=== PATIENT | male | born 1930 | race Caucasian/White ===

== ENCOUNTER → 2017-01-13 | Outpatient (CLI) | payer BC ==
[~2017-01-13] MED LIST: ATRIN INH; CALCTAB5 PO; CRDCD120 PO; DABI150C PO; DIGO0.2518 PO; GLC500 PO; IPRA0.032; IPRA17AE2 INH; MULT-506 PO; OMEG10007 PO; OSTEO BI FLEX PO; PLMINUNK INH; REFRESH EYE DROPS; SIMV20TA2 PO; TIOTCAP INH
--- NOTE | 2017-01-13 18:01 | DIAGNOSTIC IMAGING REPORT ---
ULTRASOUND LEFT VENOUS DOPP LOWER EXT UNILAT CLINICAL HISTORY: Left leg pain COMPARISON STUDY: No previous studies for comparison. FINDINGS: Real-time and color flow Doppler imaging were performed. Flow was seen within the femoral, popliteal and calf veins with no intraluminal thrombus demonstrated. The saphenous vein is patent. IMPRESSION: No evidence of left lower extremity DVT Electronically signed by: Varun Abdul M.D. 01/13/2017 5:58 PM Dictated Date/Time: 01/13/2017 5:58 PM
--- NOTE | 2017-01-13 18:03 | DIAGNOSTIC IMAGING REPORT ---
SOFT TISSUE ULTRASOUND OF THE LEFT GROIN REGION CLINICAL HISTORY: Pain. Possible hematoma. Possible hernia. COMPARISON STUDY: No previous studies for comparison. FINDINGS: Ultrasonographic evaluation the left groin region was performed. There are mildly prominent lymph nodes which appear fatty replaced. The largest measures 2.7 cm in long axis. There are no fluid collections to indicate a hematoma. No soft tissue masses are visualized. No hernia was demonstrated area IMPRESSION: Prominent fatty replaced left inguinal lymph nodes. No evidence for soft tissue mass or hematoma Electronically signed by: Varun Abdul M.D. 01/13/2017 6:00 PM Dictated Date/Time: 01/13/2017 5:59 PM
--- NOTE | 2017-01-14 08:50 | CODING QUERY NO DIAGNOSIS ---
TREATMENT RENDERED WITHOUT A DIAGNOSIS Dr. Aj, To promote full compliance with coding requirements relating to patient care, physician participation is requested in all cases of candle maker uncertainty. Please assist us with providing a diagnosis/symptom for the test(s) below: A diagnosis/symptom was not documented on your Order. A valid diagnosis/symptom is required to bill all insurances. Please remember that we are unable to code a diagnosis of rule out, probable, possible, questionable, or suspected. Tests that require a diagnosis: * EXTREMITY NONVASCULAR LIMITED DIAGNOSIS: * VENOUS DOPPLER LOWER EXT UNILA DIAGNOSIS: DATE OF SERVICE: 01/13/17 CANNOT READ ORDER Provider Signature: Date: Thank you Bladimir Loco [facility] Information Management Once completed, please kindly fax back to [phone] For questions please call [phone]
== END | disposition home or self-care (01) ==
LOC: C.ULTR 16:49
PROVIDERS: ATTEND Podiatrist Primary Podiatric Medicine
DX: M79.89 Other specified soft tissue disorders (principal); M79.605 Pain in left leg

== ENCOUNTER → 2017-01-16 | Outpatient (CLI) | payer BC ==
--- NOTE | 2017-01-17 15:26 | CODING QUERY NO DIAGNOSIS ---
TREATMENT RENDERED WITHOUT A DIAGNOSIS 31 To promote full compliance with coding requirements relating to patient care, physician participation is requested in all cases of certified medical records coder uncertainty. Please assist us with providing a diagnosis/symptom for the test(s) below: A diagnosis/symptom was not documented on your Order. A valid diagnosis/symptom is required to bill all insurances. Please remember that we are unable to code a diagnosis of rule out, probable, possible, questionable, or suspected. DOS 01/16/17 Tests that require a diagnosis: * CALCIUM DIAGNOSIS: * VITAMIN D, 25 HYDROXY DIAGNOSIS: Provider Signature: Date: Thank you Lenka Lewis [facility] Information Management Once completed, please kindly fax back to [phone] For questions please call [phone]
== END | disposition home or self-care (01) ==
LOC: C.LABBC 08:30
PROVIDERS: ATTEND Podiatrist Primary Podiatric Medicine
DX: Z01.89 Encounter for other specified special examinations (principal)

== ENCOUNTER → 2017-02-10 | Outpatient (CLI) | payer BC ==
[2017-02-10 10:56] LABS: ALT/SGPT 19 U/L (12-78); BLOOD UREA NITROGEN 20 mg/dl (7-18); BUN/CREATININE RATIO 20.4 (10-20); CALCIUM 8.6 mg/dl (8.5-10.1); CARBON DIOXIDE 29 mmol/L (21-32); CHLORIDE 107 mmol/L (98-107); CHOLESTEROL 106 mg/dl (0-200); GLUCOSE 93 mg/dl (70-99); POTASSIUM 4.2 mmol/L (3.5-5.1); SODIUM 142 mmol/L (136-145)
[2017-02-10 10:59] LABS: CHOLESTEROL/HDL RATIO 2.3; HDL CHOLESTEROL 47 mg/dl; LDL CHOLESTEROL CALCULATED 48 mg/dl; TRIGLYCERIDES 56 mg/dl (0-150); VERY LOW DENSITY LIPOPROT CALC 11 mg/dl
[2017-02-10 11:03] LABS: ESTIMATED AVERAGE GLUCOSE 123 mg/dl; HA1C FLAG Normal (Normal)
== END | disposition home or self-care (01) ==
LOC: C.LABBC 07:36
PROVIDERS: ATTEND Family Medicine
DX: I48.91 Unspecified atrial fibrillation (principal); E11.9 Type 2 diabetes mellitus without complications; E78.00 Pure hypercholesterolemia, unspecified

== ENCOUNTER → 2017-02-27 | Outpatient (CLI) | payer BC | END | disposition home or self-care (01) | LOC: C.PATHSPEC 17:35 | PROVIDERS: ATTEND Plastic Surgery | DX: D22.9 Melanocytic nevi, unspecified (principal) ==

== ENCOUNTER → 2017-08-11 | Outpatient (CLI) | payer BC ==
[2017-08-11 11:23] LABS: BLOOD UREA NITROGEN 21 mg/dl (7-18); BUN/CREATININE RATIO 22.6 (10-20); CALCIUM 9.4 mg/dl (8.5-10.1); CARBON DIOXIDE 29 mmol/L (21-32); CHLORIDE 104 mmol/L (98-107); CREATININE 0.95 mg/dl (0.60-1.40); GLUCOSE 99 mg/dl (70-99); SODIUM 140 mmol/L (136-145)
[2017-08-11 11:47] LABS: ESTIMATED AVERAGE GLUCOSE 123 mg/dl; HA1C FLAG Normal (Normal)
== END | disposition home or self-care (01) ==
LOC: C.LABBC 07:44
PROVIDERS: ATTEND Family Medicine
DX: R73.01 Impaired fasting glucose (principal)

== ENCOUNTER → 2017-09-01 | Outpatient (CLI) | payer BC ==
--- NOTE | 2017-09-01 10:23 | DIAGNOSTIC IMAGING REPORT ---
CHEST 2 VIEWS ROUTINE CLINICAL HISTORY: INTRINSIC ASTMA,NOCTURNAL DYSPNEA dysphagia COMPARISON STUDY: 02/23/2016 FINDINGS: Moderate stable cardiomegaly. Slight lateral blunting the costophrenic angles. Slight increase in pulmonary vasculature. IMPRESSION: Pulmonary venous congestion. Moderate cardiomegaly. Trace pleural fluid left lateral costophrenic angles. The above report was generated using voice recognition software. It may contain grammatical, syntax or spelling errors. Electronically signed by: Franco Sun M.D. 09/01/2017 10:22 AM Dictated Date/Time: 09/01/2017 10:21 AM
[2017-09-01 12:35] LABS: BLOOD UREA NITROGEN 23 mg/dl (7-18); BUN/CREATININE RATIO 22.5 (10-20); CALCIUM 9.4 mg/dl (8.5-10.1); CARBON DIOXIDE 30 mmol/L (21-32); CHLORIDE 103 mmol/L (98-107); CREATININE 1.04 mg/dl (0.60-1.40); GLUCOSE 85 mg/dl (70-99); POTASSIUM 4.2 mmol/L (3.5-5.1); SODIUM 139 mmol/L (136-145)
== END | disposition home or self-care (01) ==
LOC: C.RAD1850 10:06
PROVIDERS: ATTEND Internal Medicine Pulmonary Disease
DX: J45.909 Unspecified asthma, uncomplicated (principal); R06.00 Dyspnea, unspecified; I51.7 Cardiomegaly; R09.89 Other specified symptoms and signs involving the circulatory and respiratory systems

== ENCOUNTER → 2017-10-14 | Outpatient (CLI) | payer BC ==
[~2017-10-14] MED LIST changes: +REGADENOSON 0.4 MG/5 ML SYR ONE
--- NOTE | 2017-10-16 08:06 | MYOCARDIAL PERFUSION SCAN ---
REQUESTING PHYSICIAN: Jose Manuel Szymanski MD. PRIMARY CARE PHYSICIAN: Carson Rodriguez DO. REASON FOR STUDY: Cardiomyopathy. STUDY TITLE: ONE-DAY NUCLEAR MEDICINE TECHNETIUM-99M CARDIOLITE MYOCARDIAL PERFUSION SCAN. COMPARISON: None. EKG: Baseline EKG showed atrial fibrillation with left bundle-branch block and occasional PVCs, ventricular rate of 54. Stress EKG with Lexiscan: Heart rate jessie from 72 up to 78 representing 58% of maximum predicted heart rate. Blood pressure jessie from 117/71-149/69. TECHNIQUE: For the stress portion of the study 30.3 mCi of technetium-99m Cardiolite IV was injected at 1309 on 10/14/2017. Thirty minutes following the injection, imaging of the heart was performed in multiple projections. For the rest portion of the study, 10.9 mCi of technetium-99m was injected at 9:30 a.m. One hour following the injection, imaging of the heart was performed in the same projections. FINDINGS: Rotating raw images were reviewed in detail. There was some vertical motion on rest images minimal gut/liver uptake impacting the inferior imaging border of the heart. There was no significant extracardiac pathologic uptake. The short axis, vertical long axis, and horizontal long axis images were reviewed in detail. There was moderate in size, mild in severity fixed perfusion defect involving the apex, apical anterior wall and apical septum. There is minimal surrounding reversibility. LV was dilated with an end-diastolic volume of 266. EF was calculated at 30%. There was paradoxical septal motion and function in the LV wall was largely preserved otherwise other sepulveda were severely hypokinetic. IMPRESSION: 1. No significant Lexiscan-induced ischemia. 2. Fixed mild apical anterior/septal perfusion defects most consistent with patient's known left bundle branch block. Less likely could represent distal left anterior descending artery infarct. 3. Severely dilated left ventricle with severe LV dysfunction, EF 30%. and paradoxical septal motion with relatively preserved lateral wall function. 4. Non-diagnostic stress ECG due to inability to reach target heart rate. MTDD
== END | disposition home or self-care (01) ==
LOC: C.NUCL 08:59
PROVIDERS: ATTEND Internal Medicine Cardiovascular Disease
DX: I42.9 Cardiomyopathy, unspecified (principal); I50.9 Heart failure, unspecified

== ENCOUNTER → 2017-12-24 | Outpatient (CLI) | payer BC ==
[~2017-12-24] MED LIST changes: -REGADENOSON 0.4 MG/5 ML SYR ONE
[2017-12-24 16:00] LABS: BLOOD UREA NITROGEN 27 mg/dl (7-18); CALCIUM 9.5 mg/dl (8.5-10.1); CARBON DIOXIDE 31 mmol/L (21-32); CREATININE 1.24 mg/dl (0.60-1.40); GLUCOSE 143 mg/dl (70-99); SODIUM 140 mmol/L (136-145)
== END | disposition home or self-care (01) ==
LOC: C.LABBC 10:29
PROVIDERS: ATTEND Physician Assistant
DX: I50.43 Acute on chronic combined systolic (congestive) and diastolic (congestive) heart failure (principal)

== ENCOUNTER → 2018-01-01 | Outpatient (CLI) | payer BC ==
[2018-01-01 11:31] LABS: BLOOD UREA NITROGEN 27 mg/dl (7-18); CALCIUM 9.1 mg/dl (8.5-10.1); CARBON DIOXIDE 32 mmol/L (21-32); CREATININE 1.28 mg/dl (0.60-1.40); GLUCOSE 121 mg/dl (70-99); SODIUM 140 mmol/L (136-145)
== END | disposition home or self-care (01) ==
LOC: C.LABBC 08:52
PROVIDERS: ATTEND Physician Assistant
DX: I50.9 Heart failure, unspecified (principal)

== ENCOUNTER → 2018-01-06 | Outpatient (CLI) | payer BC ==
[2018-01-06 13:50] LABS: BLOOD UREA NITROGEN 36 mg/dl (7-18); CALCIUM 9.1 mg/dl (8.5-10.1); CARBON DIOXIDE 31 mmol/L (21-32); CREATININE 1.21 mg/dl (0.60-1.40); GLUCOSE 103 mg/dl (70-99); POTASSIUM 3.9 mmol/L (3.5-5.1); SODIUM 141 mmol/L (136-145)
== END | disposition home or self-care (01) ==
LOC: C.LABBC 10:04
PROVIDERS: ATTEND Physician Assistant
DX: I50.9 Heart failure, unspecified (principal)

== ENCOUNTER → 2018-01-14 | Outpatient (CLI) | payer BC ==
[2018-01-14 14:24] LABS: BLOOD UREA NITROGEN 36 mg/dl (7-18); CALCIUM 9.2 mg/dl (8.5-10.1); CARBON DIOXIDE 33 mmol/L (21-32); CREATININE 1.33 mg/dl (0.60-1.40); GLUCOSE 152 mg/dl (70-99); POTASSIUM 4.1 mmol/L (3.5-5.1); SODIUM 139 mmol/L (136-145)
== END | disposition home or self-care (01) ==
LOC: C.LABBC 09:34
PROVIDERS: ATTEND Physician Assistant
DX: I50.43 Acute on chronic combined systolic (congestive) and diastolic (congestive) heart failure (principal)

== ENCOUNTER → 2018-01-21 | Outpatient (CLI) | payer BC ==
[~2018-01-21] MED LIST changes: +AMOX500C3 PO; +CARV12.52 PO; +CHOL200010; +CICL160A OR; +FURO80TA63 PO; +LISI-729 PO; +MULTCHW; +PRAV20TA PO; +XPNINS1255
[2018-01-21 17:38] LABS: BLOOD UREA NITROGEN 33 mg/dl (7-18); CALCIUM 9.6 mg/dl (8.5-10.1); CARBON DIOXIDE 31 mmol/L (21-32); CREATININE 1.28 mg/dl (0.60-1.40); GLUCOSE 85 mg/dl (70-99); POTASSIUM 4.2 mmol/L (3.5-5.1); SODIUM 138 mmol/L (136-145)
== END | disposition home or self-care (01) ==
LOC: C.LAB1850 14:13
PROVIDERS: ATTEND Physician Assistant
DX: I50.9 Heart failure, unspecified (principal)

== ENCOUNTER → 2018-01-28 | Outpatient (CLI) | payer BC ==
[~2018-01-28] MED LIST changes: -AMOX500C3 PO; -CARV12.52 PO; -CHOL200010; -CICL160A OR; -FURO80TA63 PO; -LISI-729 PO; -MULTCHW; -PRAV20TA PO; -XPNINS1255
[2018-01-28 13:43] LABS: BLOOD UREA NITROGEN 38 mg/dl (7-18); CARBON DIOXIDE 31 mmol/L (21-32); CREATININE 1.43 mg/dl (0.60-1.40); GLUCOSE 86 mg/dl (70-99); POTASSIUM 3.8 mmol/L (3.5-5.1); SODIUM 136 mmol/L (136-145)
== END | disposition home or self-care (01) ==
LOC: C.LABBC 10:47
PROVIDERS: ATTEND Physician Assistant
DX: I50.9 Heart failure, unspecified (principal)

== ENCOUNTER → 2018-02-04 | Outpatient (CLI) | payer BC ==
[~2018-02-04] MED LIST changes: +AMOX500C3 PO; +CARV12.52 PO; +CHOL200010; +CICL160A OR; -CRDCD120 PO; -DIGO0.2518 PO; +FURO80TA63 PO; +LISI-729 PO; +MULTCHW; -PLMINUNK INH; +PRAV20TA PO; -SIMV20TA2 PO; -TIOTCAP INH; +XPNINS1255
[2018-02-04 11:32] LABS: BLOOD UREA NITROGEN 31 mg/dl (7-18); CALCIUM 8.6 mg/dl (8.5-10.1); CARBON DIOXIDE 30 mmol/L (21-32); CREATININE 1.17 mg/dl (0.60-1.40); GLUCOSE 100 mg/dl (70-99); POTASSIUM 4.1 mmol/L (3.5-5.1); SODIUM 141 mmol/L (136-145)
[2018-02-04 11:55] LABS: HEMOGLOBIN A1C 6.4 % (4.5-5.6)
== END | disposition home or self-care (01) ==
LOC: C.LABBC 08:15
PROVIDERS: ATTEND Family Medicine
DX: I48.91 Unspecified atrial fibrillation (principal); E11.9 Type 2 diabetes mellitus without complications; G62.9 Polyneuropathy, unspecified; I42.9 Cardiomyopathy, unspecified

== ENCOUNTER 2018-11-24 04:56 | Inpatient (IN) ==
--- NOTE | 2018-11-18 10:51 | History & Physical Report ---
Date of Service November 18, 2018 Assessment & Plan (1) Osteomyelitis of right foot: Patient has developed osteomyelitis of his right foot due to nonhealing diabetic foot ulcer on his right foot. He has been treated with oral antibiotics. He is scheduled to get a PICC line later today for IV antibiotics as instructed by Dr. Ball. He was seen and evaluated by Dr. Chavez. Surgical management was recommended. He agreed to proceed with surgery and is scheduled for right foot fifth ray resection with Dr. Chavez on 2018. Recent complications of the surgery were extended the patient and include but are not limited to infection, pain, bleeding, scarring, nerve and blood vessel damage, wound problems, weakness, incomplete relief of symptoms, blood clots, embolisms, heart attack, stroke and .All questions were answered in informed consent was obtained. They recently had a CBC, BMP, hemoglobin A1c. We will obtain a new EKG today in the clinic. He is on protect and will need to be taken off of this preoperatively. Phone call and let her was sent to Dr. Szymanski's office for preoperative cardiology clearance and instructions on when he is safely able to stop his Pradaxa. He will also need preoperative medical clearance from his family physician Dr. Rodriguez. He will be admitted overnight for antibiotics. Postoperative instructions were provided. He was given a prescription for standard walker, knee scooter and wheelchair. He knows that he will need to be nonweightbearing on that area of his foot after surgery. We will apply wound VAC on the area postoperatively. He will need follow-up care most likely in the wound clinic postoperative day. All questions are answered and he does call with any further problems questions or concerns. Present on Admission?: Yes History of Present Illness Chief Complaint: right foot non healing wound Primary Care Provider: Óscar Rodriguez DO Patient is an 88-year-old gentleman who presented see Dr. Chavez on November 17, 2018 for a persistent ulcer on his right foot. He states that he was trying out some new orthotics back in May. He did develop ulcerations in both of his feet. The one on his left foot has healed however the one on his right foot has been persistent. He has been treated in the outpatient wound care center. He has been seen and evaluated by Dr. Ball. He is scheduled to get an IV PICC line placed. Recent cultures of the right foot wound are positive for pseudomonas aeruginosa. He has had x-rays and MRI of his right foot. He was on oral doxycycline up until last week. He has had some swelling of his right foot. He does wear a boot for offloading. He reports that he had a vascular consultation which was normal. He does not have any significant pain. He does have peripheral neuropathy due to his diabetes. He denies any other injuries or issues. After Dr. Chavez's consultation surgical intervention was recommended for right foot fifth ray resection. He is agreed to proceed with surgery. He is scheduled for right foot fifth ray resection with Dr. Chavez on November 24, 2018 at the [facility]. Allergies Allergy/AdvReac Type Severity Reaction Status Date / Time levofloxacin AdvReac Intermediate TENDONITIS Verified 11/13/18 11:10 Bactrim AdvReac Mild GI SYMPTOMS Verified 05/22/18 14:15 sulfamethoxazole AdvReac Mild GI SYMPTOMS Verified 11/13/18 11:10 trimethoprim AdvReac Mild GI SYMPTOMS Verified 11/13/18 11:10 albuterol AdvReac Verified 11/17/18 13:28 Home Medications Home Medications Medication Instructions Recorded Confirmed Type calcium carbonate 400 mg chewable 800 mg PO DAILY tab 05/28/18 11/17/18 History tablet cholecalciferol (vitamin D3) 2,000 2,000 units PO DAILY 05/28/18 11/17/18 History unit capsule ciclesonide HFA 160 mcg/actuation 1 puffs INH DAILY 05/28/18 11/17/18 History aerosol inhaler dabigatran etexilate 150 mg capsule 150 mg PO BID 05/28/18 11/17/18 History digoxin 125 mcg tablet 0.125 mg PO DAILY 05/28/18 11/17/18 History furosemide 80 mg tablet 80 mg PO DAILY 05/28/18 11/17/18 History ipratropium bromide 17 2 puffs INH Q6H PRN gm 05/28/18 11/17/18 History mcg/actuation HFA aerosol inhaler levalbuterol concentrate 1.25 1.25 mg INH Q20M 05/28/18 11/17/18 History mg/0.5 mL solution for nebulization lisinopril 5 mg tablet 5 mg PO DAILY 05/28/18 11/17/18 History metformin 500 mg tablet 500 mg PO BID 05/28/18 11/17/18 History multivitamin tablet 1 tab PO DAILY 05/28/18 11/17/18 History pravastatin 20 mg tablet 20 mg PO DAILY 05/28/18 11/17/18 History Lactobacillus acidophilus 460 mg 460 mg PO DAILY 10/09/18 11/17/18 History (20 billion cell) capsule furosemide 40 mg tablet 40 mg PO DAILY 10/09/18 11/17/18 History piperacillin-tazobactam 2.25 gram 2.25 gm IV .COMPLEX 11/17/18 11/17/18 History intravenous solution Past Med/Surg History Medical History 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) Asthma (Chronic) Diabetes (Chronic) Diabetic neuropathy associated with diabetes mellitus due to underlying condition (Chronic) HTN, goal to be determined (Chronic) Atrial fibrillation Chronic venous insufficiency Diabetic foot ulcer History of migraine headaches Left bundle branch block Surgical History History of tonsillectomy and adenoidectomy (Acute) S/P cataract extraction (Chronic) Family History Mother Atrial fibrillation Heart attack Father Diabetes Social History marital status: Current Living Situation: Spouse Feels Safe at Home: Yes Smoking Status: Former smoker Hx Alcohol Use: No Hx Substance Use: No Review of Systems Constitutional: no fever, no chills, no sweats and no fatigue Eyes: no blind spots and no discharge Ear, Nose, Mouth, Throat: + hearing loss (wears hearing aids); no ear pain, no tinnitus, no dizziness, no post nasal drip, no facial pain, no dental pain, no dental abscess and no loose teeth Respiratory: + wheezing (occasional due to asthma); no cough, no chest congestion, no change in sputum, no dyspnea and no snoring Cardiovascular: + edema (right foot); no chest pain, no chest pain at rest, no chest pain with activity, no dyspnea at rest, no palpitations, no lightheadedness, no syncope and no calf pain Gastrointestinal: + constipation (occasional); no abdominal pain, no heartburn, no nausea, no vomiting and no diarrhea/loose stools Genitourinary (Male): no dysuria, no urinary frequency, no urinary hesitancy and no post-void dribbling Musculoskeletal: + swelling (right foot); no back pain, no neck pain, no joint pain, no deformity and no limited range of motion Integumentary: + skin ulcer (right foot) and + dry skin; no changing lesions, no bleeding lesions and no erythema Neurologic: no gait abnormality, no unsteadiness, no numbness, no radiating pain , no seizure-like activity, no headache(s) and no memory loss Hematologic / Lymphatic: + coagulopathy (takes Pradaxa); no easy bleeding and no easy bruising Physical Exam 2 Vital Signs (Past 24 Hours): Height 6'4", Weight 190 lbs Constitutional: WD/WN, vitals as above + thin Eyes: PERRL, conjunctivae normal, anicteric sclerae EOM intact bilaterally ENMT: external ear and nose normal, oropharynx normal Ears: + hearing impairment Mouth: no oral mucosal abnormality and no dentition abnormality Throat: uvula midline Neck: trachea midline, no thyromegaly normal visual inspection; no neck crepitus Respiratory: normal respiratory effort, lungs clear to auscultation Auscultation: no rales, no rhonchi and no wheezes Cardiovascular: Heart Sounds: no gallop and no murmur Vessels: posterior tibial pulses present and dorsalis pedis pulses present; no carotid bruit Extremities: normal capillary refill and + pedal edema; no calf tenderness irregular rhythm Chest (Breasts): Chest: normal inspection of chest Gastrointestinal (Abdomen): normal bowel sounds, soft, nontender, no hepatosplenomegaly Musculoskeletal: Head/Neck/Chest: normocephalic and head atraumatic Extremities: strength 5/5 throughout He has a 1 cm ulceration on the plantar lateral aspect of the right foot. It probes directly to the bone which is exposed. There is 1+ edema of the foot but no surrounding erythema or evidence of abscess or fluid collection. This is directly over the plantar aspect of the fifth metatarsal base. The foot is neutrally aligned with an intact arch and no significant malalignment. There is mild stiffness of the ankle and subtalar joints. His strength is normal with the exception of slight weakness in plantarflexion and eversion. He reports diminished and station throughout the right foot. Skin: no rashes, warm and dry Psychiatric: A+Ox3, euthymic affect Results & Data Laboratory Results Labs from my November 03, 2018: With blood cell count 4.05 hemoglobin 11.9 hematocrit 36.5, platelet count 172 D1 mildly elevated at 26 creatinine 1.0, hemoglobin A1c 6.1 Microbiology: Cultures for pseudomonas aeruginosa Diagnostic Findings X-rays of the right foot: Showed a general changes throughout. There is no acute fracture. There is a slight lucency around the base of the fifth metatarsal which could be consistent with osteomyelitis. The soft tissue defect is noted. MRI of his right foot: Reviewed showing some bone marrow edema in the base of the fifth metatarsal. There is no clear bony destruction. Report is noted there is no abscess present.
--- NOTE | 2018-11-19 15:27 | Anesthesiology Consultation ---
Date of Service November 19, 2018 Assessment & Plan Plan: Cardiology 11/18/2018: "Patient is at least an intermediate surgical risk based on his history of cardiomyopathy, presumed CAD, and COPD. Recommend patient take his usual inhalers and his dose of digoxin the morning of surgery with sip of water. Patient may stop Pradaxa 48 hours before surgery." *PER VERBAL FROM [facility] 11/19, OKAY TO STOP PRADAXA X 5 DAYS PRIOR TO SURGERY FOR PLANNED SPINAL BLOCK. UNABLE TO REACH PATIENT IN TIME FOR MEDICATION TO BE STOPPED IN TIME. SPOKE TO VICTORINA ENAMORADO AT SURGEON'S OFFICE, WILL JUST HOLD PRADAXA X 48HRS PRIOR TO SURGERY AND WILL PROCEED WITH GENERAL ANESTHESIA. Chart Review Chart Review: Acceptable Risk for Surgery and Patient NOT seen in Pre Admission Testing History Surgery Operation Date: 11/24/18 08:50 Proposed Procedures p Right Foot 5th Ray Resection - Raimundo Chavez MD Height/Weight Height: 6 ft 4 in Weight: 83.915 kg Allergies Allergy/AdvReac Type Severity Reaction Status Date / Time levofloxacin AdvReac Intermediate TENDONITIS Verified 11/19/18 13:39 Bactrim AdvReac Mild GI SYMPTOMS Verified 05/22/18 14:15 sulfamethoxazole AdvReac Mild GI SYMPTOMS Verified 11/19/18 13:39 trimethoprim AdvReac Mild GI SYMPTOMS Verified 11/19/18 13:39 albuterol AdvReac Verified 11/19/18 13:39 DUST Allergy Uncoded 11/19/18 14:48 Medications Home Medications Medication Instructions Recorded Confirmed Last Taken cholecalciferol (vitamin D3) 2,000 2,000 units PO QAM 05/28/18 11/19/18 Unknown unit capsule ciclesonide HFA 160 mcg/actuation 1 puffs INH QAM 05/28/18 11/19/18 Unknown aerosol inhaler dabigatran etexilate 150 mg capsule 150 mg PO BID 05/28/18 11/19/18 Unknown digoxin 125 mcg tablet 0.125 mg PO QPM 05/28/18 11/19/18 Unknown ipratropium bromide 17 2 puffs INH Q6H PRN gm 05/28/18 11/19/18 Unknown mcg/actuation HFA aerosol inhaler lisinopril 5 mg tablet 5 mg PO QAM 05/28/18 11/19/18 Unknown metformin 500 mg tablet 500 mg PO BID 05/28/18 11/19/18 Unknown multivitamin tablet 1 tab PO QAM 05/28/18 11/19/18 Unknown pravastatin 20 mg tablet 20 mg PO QPM 05/28/18 11/19/18 Unknown furosemide 40 mg tablet 40 mg PO DAILY PRN 10/09/18 11/19/18 Unknown piperacillin-tazobactam 2.25 gram 2.25 gm IV .COMPLEX 11/17/18 11/19/18 Unknown intravenous solution [facility] 1 dose PO QAM 11/19/18 11/19/18 Unknown levalbuterol tartrate 1 puff INHALATION QAM 11/19/18 11/19/18 Unknown Past Medical History Medical History Asthma (Chronic) PRN INH 1 X MO ON AVG Atrial fibrillation PERMANENT. DX 20 YEARS AGO - ON PRADAXA - FOLLOWS W/ [facility] Cardiomyopathy EF 20-25%. Per cardiology likely 2/2 afib and LBBB. Euvolemic per 11/03/18 note. "He is a candidate for biventricular pacemaker/ICD, he is symptomatically improved in the presence of foot ulcerations with history of infection merit further observation before proceeding with device implantation." Chronic obstructive pulmonary disease Chronic venous insufficiency Diabetes mellitus, type 2 NIDDM. HGA1C 6.1% 11/03/2018 Diabetic neuropathy Hearing deficit BL [place] History of ischemic colitis History of migraine headaches History of skin cancer REMOVED Hypertension Left bundle branch block Migraine Osteomyelitis RT FOOT SECONDARY TO NON HEALING DIABETIC FOOT ULCER Past Family History Family History Mother Atrial fibrillation Heart attack Father Diabetes Past Surgical History Surgical History History of tonsillectomy and adenoidectomy (Acute) History of cataract surgery History of colonoscopy S/P PICC central line placement CURRENTLY RECEIVING IV ABX PER DR. CAMPO FOR OSTEO Social History Smoking Status: Former smoker Do You Dip or Chew Tobacco: No Smoking End Date: QUIT AT AGE 22 Hx Alcohol Use: No Hx Substance Use: No substance use type: does not use Testing Electrocardiogram Date: 03/20/18 Findings: + AFIB @ (104) Atrial fibrillation with rapid ventricular response. Left axis deviation. Left bundle branch block. *This is the most recent EKG-- it was done in the ED at [facility]. When seen at cardiology 11/03/18 HR was irregular and 88bpm. Chest X-Ray Date: 11/17/18 FINDINGS: The cardiac silhouette remains enlarged. There is no focal pulmonary consolidation. There are no pleural effusions. There is no overt failure. There is been interval insertion of a right-sided PICC catheter. The tip projects over the superior vena cava near the azygos level. IMPRESSION: The right-sided PICC catheter is positioned within the superior vena cava near the azygos level Echocardiogram Date: 03/19/18 EF: 20-25% The left ventricle is moderately dilated. Global hypokinesis with multiple wall motion of normality's most pronounced in LAD territory (severe hypokinesis to akinesis/dyskinesis). Abnormal paradoxical septal motion consistent with left bundle branch block. There is moderate to severe mitral regurg. Left atrium is moderately dilated. There is mild to moderate tricuspid regurg. Right ventricular systolic pressure is elevated at 30-40 mmHg. The inferior vena cava is mildly dilated with a decrease in inspiratory collapse. Compared with 09/16/2017 study, mild further decrease in systolic function and mitral regurgitation slightly more severe, otherwise no significant change. Stress Test Date: 10/14/17 Type: nuclear Resting EF: 30% No significant Lexiscan-induced ischemia. Fixed mild apical anterior/septal perfusion defects most consistent with patient's known left bundle branch block. Less likely could represent distal left anterior descending artery infarct. Severely dilated left ventricle with severe LV dysfunction. Paradoxical septal motion with relatively preserved lateral wall function. Nondiagnostic stress EKG due to inability to reach target heart rate. Laboratory Results Laboratory Tests 11/03/18 11/03/18 11/03/18 15:34 15:34 15:34 WBC 4.05 L Hgb 11.9 L Hct 36.5 L Plt Count 172 Sodium 139 Potassium 4.4 Chloride 105 Carbon Dioxide 29 BUN 26 H Creatinine 1.00 Glucose 80 Hemoglobin A1c 6.1 H
[2018-11-24] MEDS ORDERED: LR 15ML/HR IV SCH ×2 (06:00)
[2018-11-24] MEDS ORDERED: CEFAZOLIN 2000MG 2,000 MG/15 ML SYR IV SCH ×2 (06:00→11:02)
[2018-11-24] MEDS ORDERED: BUPIVACAINE 0.5 % 5 MG/1 ML PF 10ML VIAL ONE (06:26)
[2018-11-24] MEDS ORDERED: ROPIVACAINE 0.5% 5 MG/ML 30 ML VIAL ONE (06:27)
[2018-11-24] MEDS ORDERED: LIDOCAINE HCL 2% 2 ML VIAL/AMP(20MG/ML) INFIL ONE (06:39)
[2018-11-24] MEDS ORDERED: fentaNYL citrate 100 MCG/2 ML VIAL ONE ×2 (06:39→07:59)
[2018-11-24] MEDS ORDERED: PROPOFOL IV EMULSION 10 MG/ML 20 ML VIAL IV ONE (06:39)
[2018-11-24] MEDS ORDERED: BACITRACIN INJ 50,000 UNIT VIAL ONE (06:42)
[2018-11-24] MEDS ORDERED: BUPIVACAINE/EPINEPHRINE 0.5% MPF 1:200,000 30 ML VIAL ONE (06:42)
[2018-11-24] MEDS ORDERED: MIDAZOLAM HCL 1 MG/ML 2ML VIAL ONE ×2 (06:42→08:53)
[2018-11-24] MEDS ORDERED: LIDOCAINE HCL 1% 20 ML VIAL ONE (06:42)
--- NOTE | 2018-11-24 06:52 | History & Physical Bridge Note ---
Date of Service November 24, 2018 History & Physical Bridge Note I have examined the patient, reviewed the History & Physical and in the interval since the performance of the History & Physical I have noted the following changes of clinical significance: no changes noted
[2018-11-24] MEDS ORDERED: MEPIVACAINE HCL 1.5% 30 ML VIAL ONE (07:10)
[2018-11-24] MEDS ORDERED: ONDANSETRON INJ 2 MG/ML 2 ML VIAL ONE (07:37)
[2018-11-24] MEDS ORDERED: POVIDONE-IODINE OP SOLN 30 ML BTL ONE (07:48)
[2018-11-24] MEDS ORDERED: ePHEDrine sulfate 50 MG/ML AMP IV PRN (08:21)
[2018-11-24] MEDS ORDERED: ONDANSETRON INJ 2 MG/ML 2 ML VIAL IV PRN (08:21)
[2018-11-24] MEDS ORDERED: fentaNYL citrate 100 MCG/2 ML VIAL IV PRN (08:21)
[2018-11-24] MEDS ORDERED: IPRATROPIUM BROMIDE NEB SOLN 0.02% 2.5 ML VIAL INH PRN (08:21)
[2018-11-24] MEDS ORDERED: ATROPINE SULFATE 0.1 MG/ML 10ML SYR IV PRN (08:21)
[2018-11-24] MEDS ORDERED: THROMBIN 5000 UNITS KIT ONE (09:16)
[2018-11-24] MEDS ORDERED: GELATIN SPONGE SZ 100 ONE (09:16)
--- NOTE | 2018-11-24 09:22 | Fluoroscopy Report ---
FL foot RT 2V CLINICAL HISTORY: 88 years-old Male presenting with RT FOOT 5TH RAY RESECTION. TECHNIQUE: 1 fluoroscopic image(s) recorded as part of an intraoperative procedure. COMPARISON: 11/12/2018. FINDINGS/IMPRESSION: Interval resection of the fifth metatarsal and fifth toe. Please see surgical report for further details. Fluoroscopy dosage (mGy): 0.15. Fluoroscopy time: 5.9 seconds. Number or time of fluoroscopic spot images: 0. Electronically signed by: Raimundo Ward M.D. 11/24/2018 9:21 AM
--- NOTE | 2018-11-24 09:42 | Post Operative Brief Note ---
Immediate Post Op Note v1 Date of Surgery November 24, 2018 Pre & Post Diagnosis Operation Date: 11/24/18 07:00 Pre-Op Diagnosis: Right Foot Osteomyelitis Post-Op Diagnosis: Right Foot Osteomyelitis, fifth metatarsal Procedure Operation Date: 11/24/18 07:00 Actual Procedures p Right Foot 5th Ray Resection, Peroneal Brevis Transfer (Right) - Raimundo Chavez MD Surgeon Raimundo Chavez MD Information Technology Assistant daria blum Estimated Blood Loss 15 Findings Consistent with Post-Op Diagnosis Anesthesia Type MAC Regional Complications none Disposition Accompanied Patient To Recovery: No Disposition: Recovery Room
--- NOTE | 2018-11-24 10:12 | Operative Report ---
Post Operative Report Pre & Post Diagnosis Operation Date: 11/24/18 07:00 Pre-Op Diagnosis: Right Foot Osteomyelitis Post-Op Diagnosis: Right Foot Osteomyelitis Procedure Operation Date: 11/24/18 07:00 Actual Procedures p Right Foot 5th Ray Resection, Peroneal Brevis Transfer (Right) - Raimundo Chavez MD Surgeon Shavonne Gillette. Editor In Chief daria blum PA-C Estimated Blood Loss 15 Findings Consistent with Post-Op Diagnosis Specimens Right foot ulcer, right foot fifth metatarsal, intraoperative cultures were obtained, intraoperative bone biopsy obtained Drains None Anesthesia Type MAC Regional Complications none Disposition Accompanied Patient To Recovery: No Disposition: Recovery Room Description of Procedure Patient was taken to the operating room and an ankle block was performed by anesthesia. He was placed under IV sedation. His IV Zosyn was given this morning. He also received 2 g of IV Ancef for surgical prophylaxis. Timeout was performed. He was prepped and draped in routine sterile fashion. I was present during the entire case and assisted with positioning, exposure, irrigation, debridement, closure and dressings. Please see Dr. Chavez's operative report for further detail. Patient was awakened and transferred to the recovery room in stable condition.
--- NOTE | 2018-11-24 10:14 | Operative Report ---
Post Operative Report Pre & Post Diagnosis Operation Date: 11/24/18 07:00 Pre-Op Diagnosis: Right Foot Osteomyelitis Post-Op Diagnosis: Right Foot Osteomyelitis fifth metatarsal tuberosity Procedure Operation Date: 11/24/18 07:00 Actual Procedures p Right Foot 5th Ray Resection, Peroneal Brevis Transfer (Right) - Raimundo Chavez MD Surgeon Raimundo Chavez MD Cement Loader daria blum Estimated Blood Loss 15 Findings Consistent with Post-Op Diagnosis Specimens Cultures of bone and swab culture, fifth ray Drains None Complications none Disposition Accompanied Patient To Recovery: No Indications Patient is an 88-year-old male with diabetes. His circulation is adequate. He has had a nonhealing wound with evidence of osteomyelitis of the fifth metatarsal tuberosity. He is taken to surgery for 5 ray resection and a peroneus brevis tendon transfer. Description of Procedure Informed consent obtained. Patient identified. He identified the operative site as the right foot. I marked with my initials. A preoperative surgical timeout was performed. Preop dose of IV antibiotics was given. He was taken to the operating room and positioned supine on the OR table. IV sedation and an ankle block anesthetic was administered by anesthesia. A tourniquet was applied to the right thigh and a bump was placed under the right hip and lower back so that he was semi lateral. The leg was prepped and draped with Betadine in the usual sterile fashion. The tourniquet was inflated after exsanguinating the limb with gravity. There was 1+ edema of the foot and ankle. There is no erythema. He had a 1 cm diameter ulceration plantar base over the fifth metatarsal with palpable bone underneath. DVT prophylaxis with early mobility and foot pumps intraoperatively. He was on Pradaxa for his heart. This is been stopped 48 hours ahead of surgery and he has been evaluated by anesthesia medicine and cardiology. He is currently on intravenous Zosyn through PICC line. He received 2 g of Ancef preoperatively. I started by making an incision extending from the base the fifth metatarsal proximally about 5 cm. Prior to this the open wound was excluded using Ioband. Blunt dissection was performed to the subcutaneous tissues and the. Peroneus brevis tendon was identified and released just proximal to the fifth metatarsal base. I then bluntly dissected down to the level of the cuboid and use electrocautery to elevate up the periosteum. The surface of the bone was excoriated with a curette and 2 2.9 juggernaut anchors were inserted. The tendon was then affixed to the cuboid using horizontal mattress and running locked a sliding suture. Fluoroscopic guidance was utilized to identify the bony margins of the cuboid. I then closed this wound with interrupted 4-0 nylon. A tennis racquet shaped incision was made over the base of the fifth metatarsal and carried dorsally down to the other incision. Electrocautery was utilized down to the subcutaneous tissues along with blunt dissection. The flexor and extensor tendons were identified and resected proximally. The subcutaneous tissues were dissected away from the plantar plate. The digital vessels were electrocauterized. The whole toe and metatarsal phalangeal joint that accompanied by the entire bone was then resected and released. Prior to this I made an ellipsoid incision over the excise this completely and then took a rongeur and took multiple bites of this area which had some softening of bone present. There is no purulence noted and no drainage. A swab culture was also obtained. The ulcer ellipse and the surgical incision were different and had a 2 cm skin bridge which remained viable throughout the procedure. The fifth metatarsal was resected and sent for specimen. The tourniquet was let down after about 60 minutes of inflation. Meticulous hemostasis was obtained with pressure electrocautery Gelfoam and thrombin. There was a fair amount of diffuse oozing particularly from the dermis. I spent a fair amount of time getting adequate control bleeding. There was some oozing from the plantar wound which I packed off with Gelfoam and thrombin. It was reasonably dry at the time of closure. Because of the very mild issues that was going on I did elected not to proceed with a wound VAC at that time. The surgical incision dorsally was closed with interrupted 4-0 nylon stitches. I placed a thrombin-soaked gauze pad into the plantar wound. A bulky soft sterile dressing was applied along with a posterior splint and U stirrup. Patient was awake from anesthesia without difficulty and taken to the recovery room in stable condition. Specimens were as mentioned above. Counts were correct. Blood loss was estimated to be 15 cc. At the conclusion operation spoke patient's family and informed of my findings. Detailed postoperative instructions were given. For now we will focus on elevation and nonweightbearing using a wheelchair or knee scooter. Will change his dressing tomorrow and apply wound VAC. He will continue with his intravenous antibiotics. I think he would benefit from a senior living facility because of his wound safe mobility and intravenous antibiotics. Medicine will be consulted along with Dr. Ball. When the splint is removed placed into his cam boot. I attest to the content of the Intraoperative Record and any orders documented therein. Any exceptions are noted below.
--- NOTE | 2018-11-24 10:31 | Anesthesiology Progress Note ---
Date of Service November 24, 2018 Anesthesia Post Procedure Vital Signs Vital Signs: Temp Pulse Pulse Resp BP Pulse Ox 11/24/18 10:19 62 16 118/67 95 11/24/18 10:10 75 16 102/65 97 11/24/18 10:07 36.2 C L 75 16 110/76 95 11/24/18 06:10 36.4 C L 86 18 134/87 95 Notes Mental Status: alert / awake / arousable and participated in evaluation Nausea / Vomiting: adequately controlled Pain: adequately controlled Airway Patency, RR, SpO2: stable & adequate BP & HR: stable & adequate Hydration State: stable & adequate Anesthetic Complications: no major complications apparent and Pt Satisfied with anesthetic care
[2018-11-24] MEDS ORDERED: MAGNESIUM HYDROXIDE SUSP 30 ML UDC PO PRN (11:02)
[2018-11-24] MEDS ORDERED: SOD PHOSPHATE/SOD BIPHOSPHATE ENEMA 132 ML BTL PR PRN (11:02)
[2018-11-24] MEDS ORDERED: IPRATROPIUM BROMIDE HFA INHALER INH PRN (11:02)
[2018-11-24] MEDS ORDERED: BISACODYL 10 MG SUPP PR PRN (11:02)
[2018-11-24] MEDS ORDERED: TRAMADOL HCL 50 MG TABLET PO PRN (11:02)
[2018-11-24] MEDS ORDERED: PIPERACILLIN SODIUM/TAZOBACTAM 2.25 GM VIAL IV SCH (11:02)
[2018-11-24] MEDS ORDERED: MoRPHine SULFATE 4 MG/ML 1 ML CARP\\VIAL IV PRN (11:02)
[2018-11-24] MEDS ORDERED: FUROSEMIDE 40 MG TAB PO PRN (11:02)
[2018-11-24] MEDS ORDERED: HYDROCODONE/ACETAMOPHEN 5/325MG TAB PO PRN (11:02)
[2018-11-24] MEDS ORDERED: PIPERACILL/TAZOBAC CONSULT ACTIVE PRN ×2 (11:11→11:30)
--- NOTE | 2018-11-24 11:13 | Infectious Disease Consult ---
Date of Consultation November 24, 2018 Assessment & Plan (1) Osteomyelitis of right foot: 88-year-old diabetic male with neuropathy with osteomyelitis of the right fifth metatarsal with pseudomonas aeruginosa now status post resection. Patient started on IV Zosyn, will hopefully not require prolonged IV antibiotics given resection of diseased bone. Will follow. (2) Pseudomonas aeruginosa infection: History of Present Illness Reason for Consultation: Right fifth metatarsal osteomyelitis, status post resection Attending Physician: Raimundo Chavez MD History of Present Illness 88-year-old male well-known to the infectious disease service, with history of diabetes mellitus with severe neuropathy, chronic foot ulcerations, being followed at the wound care center for nonhealing right lateral foot wound. Has been treated with oral antibiotics, but most recent culture grew pseudomonas aeruginosa, and because of quinolone sensitivity patient was started on IV Zosyn. Patient has had radiologic studies of foot with finding of probable osteomyelitis of the fifth metatarsal. Patient is now status post ray amp utation of right foot, operative cultures are pending. He has not had any significant associated fever or chills. No significant pain because of neuropathy. Allergies Allergy/AdvReac Type Severity Reaction Status Date / Time levofloxacin AdvReac Intermediate TENDONITIS Verified 11/24/18 06:03 Bactrim AdvReac Mild GI SYMPTOMS Verified 05/22/18 14:15 house dust AdvReac Mild Unknown Verified 11/24/18 09:29 sulfamethoxazole AdvReac Mild GI SYMPTOMS Verified 11/24/18 06:03 trimethoprim AdvReac Mild GI SYMPTOMS Verified 11/24/18 06:03 Home Medications Home Medications Medication Instructions Recorded Confirmed Type cholecalciferol (vitamin D3) 2,000 2,000 units PO QAM 05/28/18 11/24/18 History unit capsule ciclesonide HFA 160 mcg/actuation 1 puffs INH QAM 05/28/18 11/24/18 History aerosol inhaler dabigatran etexilate 150 mg capsule 150 mg PO BID 05/28/18 11/24/18 History digoxin 125 mcg tablet 0.125 mg PO QPM 05/28/18 11/24/18 History ipratropium bromide 17 2 puffs INH Q6H PRN gm 05/28/18 11/24/18 History mcg/actuation HFA aerosol inhaler lisinopril 5 mg tablet 5 mg PO QAM 05/28/18 11/24/18 History metformin 500 mg tablet 500 mg PO BID 05/28/18 11/24/18 History multivitamin tablet 1 tab PO QAM 05/28/18 11/24/18 History pravastatin 20 mg tablet 20 mg PO QPM 05/28/18 11/24/18 History furosemide 40 mg tablet 40 mg PO DAILY PRN 10/09/18 11/24/18 History piperacillin-tazobactam 2.25 gram 2.25 gm IV .COMPLEX 11/17/18 11/24/18 History intravenous solution [facility] 1 dose PO QAM 11/19/18 11/24/18 History levalbuterol tartrate 1 puff INHALATION QAM 11/19/18 11/24/18 History Patient History Medical History Cardiomyopathy EF 20-25%. Per cardiology likely 2/ afib and LBBB. Euvolemic per 11/03/18 note. 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 HGA1C 6.1% 11/03/2018 History of skin cancer REMOVED Hearing deficit BL BAR[place] Migraine Chronic obstructive pulmonary disease Asthma (Chronic) PRN INH 1 X MO ON AVG Left bundle branch block Chronic venous insufficiency History of migraine headaches Atrial fibrillation PERMANENT. DX 20 YEARS AGO - ON PRADAXA - FOLLOWS W/ [facility] Surgical History S/P PICC central line placement CURRENTLY RECEIVING IV ABX PER DR. BALL FOR OSTEO History of colonoscopy History of cataract surgery History of tonsillectomy and adenoidectomy (Acute) Family History Mother Atrial fibrillation Heart attack Father Diabetes Social History Preferred Language: [place] Communication Ability: Effective Custodial Manager Required: No Beliefs That Will Affect Care: None marital status: Current Living Situation: Spouse Other Information That Helps Us Care for You: No Feels Safe at Home: Yes Safety Concerns: Feels Safe At This Time Smoking Status: Former smoker Hx Alcohol Use: No Hx Substance Use: No Review of Systems All systems were reviewed and are negative except as per HPI Physical Exam Vital Signs (Past 24 Hours): Last Vital Signs Temp 36.5 C 11/24/18 10:45 Pulse 59 L 11/24/18 10:45 Resp 16 11/24/18 10:45 BP 123/53 L 11/24/18 10:45 Pulse Ox 92 11/24/18 10:45 Constitutional: WD/WN, vitals as above comfortable; no acute distress Eyes: PERRL, conjunctivae normal, anicteric sclerae ENMT: external ear and nose normal, oropharynx normal Neck: trachea midline, no thyromegaly neck nontender Respiratory: normal respiratory effort, lungs clear to auscultation normal percussion; does not use accessory muscles Cardiovascular: Rate/Rhythm: + abnormal rhythm Heart Sounds: normal S1 and normal S2; no gallop, no murmur and no cardiac rub Vessels: normal peripheral pulses; no JVD Irregularly irregular rhythm Gastrointestinal (Abdomen): normal bowel sounds, soft, nontender, no hepatos plenomegaly Musculoskeletal: no cyanosis or clubbing, extremities motor strength 5/5 Spine: thoracic spine normal to inspection and lumbar spine normal to inspection; no cervical spinal tenderness Skin: no rashes, warm and dry normal turgor Dressing intact right foot Neurologic: moves all extremities and awake; no focal motor deficits Motor/Sensory: + sensory deficit (Both lower extremities) Psychiatric: A+Ox3, euthymic affect Orientation: cooperative Lymphatic: no cervical or axillary lymphadenopathy no inguinal lymphadenopathy Results & Data Laboratory Results Laboratory Results - last 48 hr 11/24/18 11/24/18 05:50 10:01 POC Glucose 85 91 Diagnostic Findings Name: BRYCE WARREN Acct: [id number] [place] 1930 [facility] [place]: [place] Age: 88 Sex: M Dis Date: Loc: [facility] Spec: [id number] Collected: 11/13/18 Received: 11/13/18-[address]: Xu Ibanez, DO Copy To: Black, MIL Laguerre Christine L., D.O. Berkey, Franklin J., D.O. Source: Foot,Right OV Order: Ordered: Surf Wnd Cul/Sm Procedure Result Verified Site Gram Stain Final 11/14/18 Gram Stain Result No Epithelial Cells No WBCs Seen No Organisms Seen Surface Wound Culture Final 11/16/18 Organism 1 Pseudomonas aeruginosa Quantity Rare Sens Sensitivities to Follow +MixWound Plus Low Counts of Probable Skin Jeannine P aerugino RX M.I.C. --- --------- Amikacin S <=16 Aztreonam S 8 Cefepime I 16 Ceftazidime S 4 Ciprofloxacin S <=1 Gentamicin S <=4 Imipenem S <=1 Levofloxacin S <=2 Tobramycin S <=4 Pip/Tazo S <=16 S = SENSITIVE I = INTERMEDIATE R = RESISTANT Name: BRYCE WARREN Acct: [id number] Status: [place] 1930 [facility] [place]: [place]18 Age: 88 Sex: M Dis Date: Loc: Wound Care Center Spec: [id number] Collected: 11/13/18 Received: 11/13/[address]: Xu Ibanez, Copy To: Carito Pearson CRNP Tichansky, Christine L., D.O. Berkey, Franklin J.,Yesi.OJaxson Source: Foot,Right OV Order: Ordered: Surf Wnd Cul/Sm Procedure Result Verified Site Gram Stain Final 11/14/18 Gram Stain Result No Epithelial Cells No WBCs Seen No Organisms Seen Surface Wound Culture Final 11/16/18 Organism 1 Pseudomonas aeruginosa Quantity Rare Sens Sensitivities to Follow +MixWound Plus Low Counts of Probable Skin Jeannine P aerugino RX M.I.C. --- --------- Amikacin S <=16 Aztreonam S 8 Cefepime I 16 Ceftazidime S 4 Ciprofloxacin S <=1 Gentamicin S <=4 Imipenem S <=1 Levofloxacin S <=2 Tobramycin S <=4 Pip/Tazo S <=16 S = SENSITIVE I = INTERMEDIATE R = RESISTANT Name: BRYCE WARREN Name: BRYCE WARREN Acct: [id number] Status: MIL[place] THOMAS : 1930 [facility] [place]: [place]13[place]18 Age: 88 Sex: M Dis Date: Loc: Wound Care Center Spec: [id number] Collected: 11/13/18 Received: 11/13/[address]: Xu Ibanez, DO Copy To: Carito Pearson, Natalie Barillas,D.OÓscar Singh D.O. Source: Foot,Right OV Order: Ordered: Surf Wnd Cul/Sm Procedure Result Verified Site Gram Stain Final 11/14/18 Gram Stain Result No Epithelial Cells No WBCs Seen No Organisms Seen Surface Wound Culture Final 11/16/18-957 Organism 1 Pseudomonas aeruginosa Quantity Rare Sens Sensitivities to Follow +MixWound Plus Low Counts of Probable Skin Jeannine P aerugino RX M.I.C. --- --------- Amikacin S <=16 Aztreonam S 8 Cefepime I 16 Ceftazidime S 4 Ciprofloxacin S <=1 Gentamicin S <=4 Imipenem S <=1 Levofloxacin S <=2 Tobramycin S <=4 Pip/Tazo S <=16 S = SENSITIVE I = INTERMEDIATE R = RESISTANT Name: BRYCE WARREN Name: BRYCE WARREN FL foot RT 2V CLINICAL HISTORY: 88 years-old Male presenting with RT FOOT 5TH RAY RESECTION. TECHNIQUE: 1 fluoroscopic image(s) recorded as part of an intraoperative procedure. COMPARISON: 11/12/2018. FINDINGS/IMPRESSION: Interval resection of the fifth metatarsal and fifth toe. Please see surgical report for further details. Fluoroscopy dosage (mGy): 0.15. Fluoroscopy time: 5.9 seconds. Number or time of fluoroscopic spot images: 0. Electronically signed by: Raimundo Ward M.D. 11/24/2018 9:21 AM Dictated: 11/24/18917 Transcribed: 11/24/18917
[2018-11-24] MEDS ORDERED: PIPERACILLIN/TAZOBACTAM 4.5 GM in DEXTROSE 5% 100 ML IV STA (11:15)
[2018-11-24] MEDS: POTASSIUM CHLORIDE 10 MEQ in SODIUM CHLORIDE 0.9% 1000ML 1,000 ML IV SCH ×2 (11:48→22:44)
[2018-11-24 11:56] LABS: Hematocrit (blood only) 34.9 % (42-52); Hemoglobin 11.3 g/dL (14.0-18.0); Mean Corpuscular Volume 96.7 fL (80-100); Mean Platelet Volume 10.5 fL (7.4-10.4); Platelet Count 101 K/uL (130-400); RDW Coefficient of Variation 15.3 % (11.5-14.5); RDW Standard Deviation 54.2 fL (36.4-46.3); Red Blood Count 3.61 M/uL (4.7-6.1); White Blood Count 3.51 K/uL (4.8-10.8)
--- NOTE | 2018-11-24 11:58 | Consultation ---
Date of Consultation November 24, 2018 Assessment & Plan (1) Status post amputation of toe: Patient with Type II DM with neuropathy, unhealing ulcer of right 5th toe with osteomyelitis, cultures positive for zamudio-sensitive Psuedomonas. He is presently on Zosyn via PICC line, being followed by Dr. Ball from Infectious Disease. Surgery well tolerated, pain well controlled. Patient active and independent prior to surgery. -Pain and nausea control, activity recommendations per primary surgical team (2) Atrial fibrillation: Permanent. Rate controlled with digoxin. Patient anticoagulated with Dabigatran. HR presently 66bpm, irregularly irregular. -Dabigatran 150mg po BID resumed by surgical team -Resume digoxin 0.125mg po daily (3) Diabetes mellitus, type 2: Well controlled with home regimen of Metformin, AIC 6.1% on 11/03/18 -Recommend CC diet as tolerated -Will hold Metformin while inpatient -Manage with insulin -Patient may be discharged home on his home dose of Metformin (4) Chronic obstructive pulmonary disease: Patient with COPD. Presently with no cough, wheeze or SOB. He manages it at home with Circesonide, Ipratropium and Levalbuterol PRN. States that he rarely requires his Levalbuterol, used it 1-2 times last week. Patient was on Oxymask 8L immediately following surgery. Presently saturating 96% on RA. IS at bedside. -Continue home medication regimen (5) Osteomyelitis: S/p amputation. Cultures positive for zamudio-sensitive Psuedomonas. Patient presently on Zosyn. ID is following. Afebrile, hemodynamically stable. Non-toxic in appearance. 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 He takes Lasix as needed for swelling or weight gain. He presently appears to be euvolemic. No edema. No Lasix at this time -Continue Lasix as needed on discharge -Patient to followup with Cardiology on discharge - after his osteomyelitis is completely treated he may be a candidate for device placement, BiV-AICD. Thank you for this consult. We will sign off for now. Please do not hesitate to contact us with any additional questions or concerns. History of Present Illness Reason for Consultation: Post-operative medical management Attending Physician: Raimundo Chavez MD History of Present Illness Mr. Zuniga is a pleasant 88yo male with history of DM with peripheral neuropathy, diabetic foot infection/nonhealing ulcer , AF on Dabigatran and digoxin and HTN presenting with osteomyelitis of the right 5th toe. Patient had 5th metatarsal and toe resection performed today by Dr. Chavez. The procedure went well, no immediate complications identified. The patient states he feels well. No pain or nausea at present. He has not yet eaten or had a bowel movement. Patient complaining of slight positional discomfort on left side. No additional complaints at this time. Family at bedside. Allergies Allergy/AdvReac Type Severity Reaction Status Date / Time levofloxacin AdvReac Intermediate TENDONITIS Verified 11/24/18 06:03 Bactrim AdvReac Mild GI SYMPTOMS Verified 05/22/18 14:15 house dust AdvReac Mild Unknown Verified 11/24/18 09:29 sulfamethoxazole AdvReac Mild GI SYMPTOMS Verified 11/24/18 06:03 trimethoprim AdvReac Mild GI SYMPTOMS Verified 11/24/18 06:03 Home Medications Home Medications Medication Instructions Recorded Confirmed Type cholecalciferol (vitamin D3) 2,000 2,000 units PO QAM 05/28/18 11/24/18 History unit capsule ciclesonide HFA 160 mcg/actuation 1 puffs INH QAM 05/28/18 11/24/18 History aerosol inhaler dabigatran etexilate 150 mg capsule 150 mg PO BID 05/28/18 11/24/18 History digoxin 125 mcg tablet 0.125 mg PO QPM 05/28/18 11/24/18 History ipratropium bromide 17 2 puffs INH Q6H PRN gm 05/28/18 11/24/18 History mcg/actuation HFA aerosol inhaler lisinopril 5 mg tablet 5 mg PO QAM 05/28/18 11/24/18 History metformin 500 mg tablet 500 mg PO BID 05/28/18 11/24/18 History multivitamin tablet 1 tab PO QAM 05/28/18 11/24/18 History pravastatin 20 mg tablet 20 mg PO QPM 05/28/18 11/24/18 History furosemide 40 mg tablet 40 mg PO DAILY PRN 10/09/18 11/24/18 History piperacillin-tazobactam 2.25 gram 2.25 gm IV .COMPLEX 11/17/18 11/24/18 History intravenous solution [facility] 1 dose PO QAM 11/19/18 11/24/18 History levalbuterol tartrate 1 puff INHALATION QAM 11/19/18 11/24/18 History Patient History Medical History Cardiomyopathy EF 20-25%. Per cardiology likely / afib and LBBB. Euvolemic per 11/03/18 note. 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 HGA1C 6.1% 11/03/2018 History of skin cancer REMOVED Hearing deficit BL [place] Migraine Chronic obstructive pulmonary disease Asthma (Chronic) PRN INH 1 X MO ON AVG Left bundle branch block Chronic venous insufficiency History of migraine headaches Atrial fibrillation PERMANENT. DX 20 YEARS AGO - ON PRADAXA - FOLLOWS W/ [facility] Surgical History S/P PICC central line placement CURRENTLY RECEIVING IV ABX PER DR. BALL FOR OSTEO History of colonoscopy History of cataract surgery History of tonsillectomy and adenoidectomy (Acute) Family History Mother Atrial fibrillation Heart attack Father Diabetes Social History marital status: Current Living Situation: Spouse Other Information That Helps Us Care for You: No Feels Safe at Home: Yes Safety Concerns: Feels Safe At This Time Smoking Status: Former smoker Do You Dip or Chew Tobacco: No Smoking End Date: QUIT AT AGE 22 Hx Alcohol Use: No Hx Substance Use: No Beliefs That Will Affect Care: None Preferred Language: Chinese Communication Ability: Effective Utilities Ground Worker Required: No Review of Systems General: patient denies fevers/chills/sweats/malaise Skin: patient denies rashes/lesions HEENT: patient denies headache/visual changes/hearing changes/sore throat/ dysphagia/odynophagia/neck pain Heart: patient denies chest pain/palpitations/syncope/orthopnea Lungs: patient denies cough/wheezing/shortness of breath Abd: patient denies abdominal pain/nausea/vomiting/diarrhea/constipation/melena /hematochezia : patient denies hematuria/dysuria/frequency/urgency Heme: patient denies easy bleeding/bruising Endo: patient denies polyuria/polydipsia Physical Exam 2 Vital Signs (Past 24 Hours): Last Vital Signs Temp 36.5 C 11/24/18 10:45 Pulse 59 L 11/24/18 10:45 Resp 16 11/24/18 10:45 BP 123/53 L 11/24/18 10:45 Pulse Ox 92 11/24/18 10:45 Physical Exam: General: patient resting comfortably, NAD, non-toxic in appearance, AA&O x 4 Skin: warm, dry, no rashes or lesions HEENT: NC/AT, PERRL, EOMI, anicteric sclera, conjunctiva without injection, external ear normal to inspection and nontender, nares patent, moist mucus membranes, no oropharyngeal lesions, neck supple, trachea midline, no LAD, no thyromegaly, no JVD Heart: +S1/S2, irregularly irregular, bradycardic, 3/6 CHANEL at LSB, no rubs/ gallops Lungs: equal air entry bilaterally, no rales/rhonchi/wheezes Abd: +BS, soft, NT/ND, no masses/organomegaly/ascites Ext: warm, RLE with dressing in place, C/D/I Neuro: nonfocal, patient AA&O x 4, speech intact, no facial droop, moving all extremities on command with equal strength 5/5 Results & Data Laboratory Results Lab Results 11/24/18 11/24/18 Range/Units 05:50 10:01 POC Glucose 85 91 (70-99) Diagnostic Findings FL foot RT 2V CLINICAL HISTORY: 88 years-old Male presenting with RT FOOT 5TH RAY RESECTION. TECHNIQUE: 1 fluoroscopic image(s) recorded as part of an intraoperative procedure. COMPARISON: 11/12/2018. FINDINGS/IMPRESSION: Interval resection of the fifth metatarsal and fifth toe. Please see surgical report for further details. Fluoroscopy dosage (mGy): 0.15. Fluoroscopy time: 5.9 seconds. Number or time of fluoroscopic spot images: 0. Electronically signed by: Raimundo Ward M.D. 11/24/2018 9:21 AM Dictated: 11/24/18917 Transcribed: 11/24/18917 _ (1) Atrial fibrillation Atrial fibrillation type: permanent Qualified Code(s): I48.2 - Chronic atrial fibrillation (2) Chronic obstructive pulmonary disease COPD type: unspecified COPD Qualified Code(s): J44.9 - Chronic obstructive pulmonary disease, unspecified (3) Diabetes mellitus, type 2 Diabetes mellitus senior care insulin use: without senior care use Diabetes mellitus complication status: with neurologic complications Diabetes mellitus complication detail: with polyneuropathy Qualified Code(s): E11.42 - Type 2 diabetes mellitus with diabetic polyneuropathy (4) Osteomyelitis Osteomyelitis type: unspecified type Osteomyelitis location: foot Laterality : right Qualified Code(s): M86.9 - Osteomyelitis, unspecified (5) Hypertension Hypertension type: essential hypertension Qualified Code(s): I10 - Essential (primary) hypertension (6) Cardiomyopathy Cardiomyopathy type: other Qualified Code(s): I42.8 - Other cardiomyopathies
[2018-11-24 12:07] LABS: Mean Corpuscular Hgb Conc 32.4 g/dL (32-36)
[2018-11-24] MEDS ORDERED: GLUCOSE 10 TABS/TUBE PO PRN (12:14)
[2018-11-24] MEDS ORDERED: CARBOHYDRATES FOR HYPOGLYCEMIA PO PRN (12:14)
[2018-11-24] MEDS ORDERED: GLUCAGON FOR INJ 1 MG VIAL SQ PRN (12:14)
[2018-11-24] MEDS ORDERED: DEXTROSE 50% 50 ML SYRINGE IV PRN (12:14)
[2018-11-24] MEDS ORDERED: GLUCOSE 40% GEL 15 GM TUBE PO PRN (12:14)
[2018-11-24 12:15] LABS: Albumin Level 3.1 gm/dl (3.4-5.0); Bilirubin Direct 0.3 mg/dl (0-0.2); Creatinine Clr Calc Pharmacy 55.3 ml/min; Est GFR (African American) 68.8; Est GFR (Non-African American) 59.4
[2018-11-24 12:18] LABS: Bilirubin,Total 0.7 mg/dl (0.2-1); Total Protein 6.1 gm/dl (6.4-8.2)
[2018-11-24] MEDS: ACETAMINOPHEN 500 MG TAB PO SCH ×2 (13:28→21:03)
[2018-11-24] MEDS: PIPERACILLIN/TAZOBACTAM 3.375 GM in DEXTROSE 5% 100 ML IV SCH (15:33)
--- NOTE | 2018-11-24 16:28 | Orthopedic Progress Note ---
Date of Service November 24, 2018 Assessment & Plan (1) Osteomyelitis of right foot: POD 0 - s/p right foot 5th ray resection and peroneal brevis tendon transfer He may be out of bed, NWB RLE. PT/OT to start tomorrow Keep right foot elevated, ice for swelling/pain Consult placed for WCN - will see in Am in conjunction with us. Hospitalist consult placed, appreciate assistance. ID consult placed, contine IV Zosyn through PICC line DM diet. Resume home medications Will discuss findings with Dr. Chavez All questions answered, reviewed intra-op x-rays with patient and . Will re-eval in AM. Present on Admission?: Yes Subjective Patient sitting up in bed, comfortable. States that he has no pain. Tolerated lunch. Denies chest pain, shortness of breath, abdominal pain or headache. Has foot elevated on 1 pillow. Physical Exam Vital Signs (Past 24 Hours): Last Vital Signs Temp 36.4 C L 11/24/18 15:12 Pulse 63 11/24/18 15:12 Resp 18 11/24/18 15:12 BP 119/68 11/24/18 15:12 Pulse Ox 96 11/24/18 15:12 Physical Exam: Right foot dressings clean, dry, intact. Splint intact. Foot elevated on 1 pillow, able to wiggle toes. Cap refill brisk. Toes warm.
[2018-11-24] MEDS: INSULIN ASPART 100 UNITS/ML 3 ML PEN SC SCH ×2 (20:56→21:09)
[2018-11-24] MEDS: PRAVASTATIN SOD 20 MG TAB PO SCH (20:59)
[2018-11-24] MEDS: DIGOXIN 0.125 MG TAB PO SCH (21:02)
[2018-11-24] MEDS: DOCUSATE SODIUM 100 MG CAP PO SCH (21:04)
[2018-11-25] MEDS: PIPERACILLIN/TAZOBACTAM 3.375 GM in DEXTROSE 5% 100 ML IV SCH ×4 (00:26→23:42)
[2018-11-25] MEDS: ACETAMINOPHEN 500 MG TAB PO SCH ×3 (05:50→21:40)
[2018-11-25 06:09] LABS: Basophils # (auto) 0.01 K/uL (0-0.2); Basophils % (auto) 0.2 %; Eosinophils # (auto) 0.02 K/uL (0-0.5); Eosinophils % (auto) 0.5 %; Hematocrit (blood only) 34.6 % (42-52); Immature Granulocytes # (auto) 0.01 K/uL (0.00-0.02); Immature Granulocytes % (auto) 0.2 %; Lymphocytes # (auto) 0.94 K/uL (1.2-3.4); Lymphocytes % (auto) 23.3 %; Mean Corpuscular Hgb Conc 31.8 g/dL (32-36); Mean Corpuscular Volume 97.7 fL (80-100); Mean Platelet Volume 11.1 fL (7.4-10.4); Monocytes # (auto) 0.47 K/uL (0.11-0.59); Monocytes % (auto) 11.7 %; Neutrophils # (auto) 2.58 K/uL (1.4-6.5); Neutrophils % (auto) 64.1 %; Platelet Count 105 K/uL (130-400); RDW Coefficient of Variation 15.5 % (11.5-14.5); Red Blood Count 3.54 M/uL (4.7-6.1); White Blood Count 4.03 K/uL (4.8-10.8)
[2018-11-25 06:47] LABS: BUN Creatinine Ratio 15.9 (10-20); Est GFR (African American) 47.8; Est GFR (Non-African American) 41.3; Potassium 4.3 mmol/L (3.5-5.1)
--- NOTE | 2018-11-25 07:27 | Anesthesiology Progress Note ---
Date of Service November 25, 2018 Anesthesia Post Procedure Vital Signs Vital Signs: Temp Pulse Pulse Pulse Resp BP Pulse Ox 11/25/18 07:13 36.5 C 70 19 120/70 90 11/25/18 03:28 36.7 C 60 16 111/67 95 11/24/18 23:00 36.5 C 64 16 105/67 94 11/24/18 21:01 65 11/24/18 20:04 36.4 C L 69 18 119/63 96 11/24/18 15:12 36.4 C L 63 18 119/68 96 11/24/18 14:14 36.5 C 55 L 16 122/74 96 11/24/18 12:54 71 18 122/74 98 11/24/18 11:51 36.4 C L 66 16 129/70 96 11/24/18 11:15 60 16 115/75 95 11/24/18 10:45 36.5 C 59 L 16 123/53 L 92 11/24/18 10:30 36.5 C 73 17 114/73 93 11/24/18 10:19 62 16 118/67 95 11/24/18 10:10 75 16 102/65 97 11/24/18 10:07 36.2 C L 75 16 110/76 95 Notes Mental Status: alert / awake / arousable and participated in evaluation Patient Amnestic to Procedure: Yes Nausea / Vomiting: adequately controlled Pain: adequately controlled Airway Patency, RR, SpO2: stable & adequate BP & HR: stable & adequate Hydration State: stable & adequate Anesthetic Complications: no major complications apparent and Pt Satisfied with anesthetic care
[2018-11-25] MEDS: DABIGATRAN ETEXILATE 75 MG CAP PO SCH ×2 (08:52→21:39)
[2018-11-25] MEDS: CHOLECALCIFEROL 1,000 UNITS TAB PO SCH (08:52)
[2018-11-25] MEDS: LISINOPRIL 5 MG TAB PO SCH (08:52)
[2018-11-25] MEDS: MULTIVITAMIN TAB PO SCH (08:53)
[2018-11-25] MEDS: PANTOprazole 40 MG TAB PO SCH (08:55)
[2018-11-25] MEDS: LEVALBUTEROL TARTRATE 15 GM HFA.AER.AD INH SCH (08:57)
[2018-11-25] MEDS ORDERED: METFORMIN HCL 500 MG TAB PO SCH (09:00)
[2018-11-25] MEDS ORDERED: MULTIVITAMIN TAB PO SCH (09:00)
[2018-11-25] MEDS: DOCUSATE SODIUM 100 MG CAP PO SCH ×2 (09:13→21:38)
[2018-11-25] MEDS: INSULIN ASPART 100 UNITS/ML 3 ML PEN SC SCH ×4 (10:09→21:39)
--- NOTE | 2018-11-25 10:19 | Progress Note ---
DATE: 11/25/2018 SUBJECTIVE: No problems were reported overnight. He is tolerating a regular diet. His IV will be hep-locked. He denies any significant pain. I reviewed with him to be nonweightbearing using the boot with elevation of the leg and wound VAC. When seated, he could rest the foot on the ground, but is not to be applying pressure on the foot when he is ambulating. He will need to ambulate with assistance and his son-in-law will get his knee scooter. OBJECTIVE: He is afebrile. His vital signs are stable. Cultures are growing out gram-negative bacilli and coag-negative staph. He remains on Zosyn. White count is 4, hemoglobin 11, hematocrit is 35, platelet count is 105. Dr. Ball's consultation and medicine consultation are noted. On exam, the splint is intact. The dressings are soaked with blood. They are carefully removed and there is no active bleeding. Swelling is minimal and he has wrinkles in the ankle area. He has a palpable dorsalis pedis pulse and can wiggle his toes and move the ankle. There is no erythema or purulence noted. With the assistance of Maryana Cali, the wound VAC is applied and the boot is reapplied. ASSESSMENT AND PLAN: He has had a peroneus brevis tendon transfer to the cuboid and resection of the fifth ray with a wound VAC. He will need to continue on intravenous antibiotics, and because of the tendon transfer, there are some sutures present and I would recommend that we favor a longer course of antibiotics. I think he will require a assisted facility to meet his needs such as wound VAC, wound care, mobility and IV antibiotics. These cannot safely be rendered to him at the home environment. He started back on his Pradaxa and we will continue with intravenous antibiotics. Cultures will be followed up.
[2018-11-25] MEDS: IPRATROPIUM BROMIDE HFA INHALER INH SCH ×2 (10:48→21:38)
--- NOTE | 2018-11-25 11:18 | Infectious Disease Progress Nt ---
Date of Service November 25, 2018 Assessment & Plan (1) Osteomyelitis of right foot: 88-year-old diabetic male with neuropathy with osteomyelitis of the right fifth metatarsal with pseudomonas aeruginosa now status post resection. Patient will continue on Zosyn pending final culture results. Will likely need more prolonged therapy given pseudomonal infection, type of surgery performed. Await final cultures to determine whether Zosyn appropriate for treatment after discharge. Will follow. (2) Pseudomonas aeruginosa infection: Subjective Patient seen in follow-up for right foot osteomyelitis. Status post ray amputation of right foot. Patient comfortable this morning, offers no new specific complaints. Remains afebrile. Operative cultures growing gram- negative bacilli. Tolerating Zosyn without apparent difficulty. Review of Systems All systems reviewed & are unremarkable except as noted in HPI & below Physical Exam Vital Signs (Past 24 Hours): Last Vital Signs Temp 36.5 C 11/25/18 07:13 Pulse 70 11/25/18 07:13 Resp 19 11/25/18 07:13 BP 120/70 11/25/18 07:13 Pulse Ox 90 11/25/18 07:13 Constitutional: WD/WN, vitals as above comfortable; no acute distress Eyes: PERRL, conjunctivae normal, anicteric sclerae ENMT: external ear and nose normal, oropharynx normal Neck: trachea midline, no thyromegaly neck nontender Respiratory: normal respiratory effort, lungs clear to auscultation normal percussion; does not use accessory muscles Cardiovascular: Rate/Rhythm: + abnormal rhythm (Irregularly irregular) Heart Sounds: normal S1 and normal S2; no gallop, no murmur and no cardiac rub Vessels: normal peripheral pulses; no JVD Gastrointestinal (Abdomen): normal bowel sounds, soft, nontender, no hepatosplenomegaly Musculoskeletal: no cyanosis or clubbing, extremities motor strength 5/5 Spine: thoracic spine normal to inspection and lumbar spine normal to inspection; no cervical spinal tenderness Skin: no rashes, warm and dry normal turgor Surgical dressing intact right foot Neurologic: moves all extremities and awake; no focal motor deficits Motor/Sensory: + sensory deficit (Both lower extremities) Psychiatric: A+Ox3, euthymic affect Orientation: cooperative Lymphatic: no cervical or axillary lymphadenopathy no inguinal lymphadenopathy Results & Data Laboratory Results Short CBC 11/24/18 11/25/18 Range/Units 11:43 05:40 WBC 3.51 L 4.03 L (4.8-10.8) K/uL Hgb 11.3 L 11.0 L (14.0-18.0) g/dL Hct 34.9 L 34.6 L (42-52) % Plt Count 101 L 105 L (130-400) K/uL BMP 11/24/18 11/24/18 11/25/18 11:43 11:43 05:40 Sodium 139 Potassium 4.3 Chloride 107 Carbon Dioxide 28 BUN 24 H Creatinine 1.11 Cancelled 1.50 H D Glucose 87 Calcium 8.0 L Liver Function 11/24/18 Range/Units 11:43 Total Bilirubin 0.7 (0.2-1) mg/dl Direct Bilirubin 0.3 H (0-0.2) mg/dl AST 24 (15-37) U/L ALT 19 (12-78) U/L Alkaline Phosphatase 53 (45-117) U/L Albumin 3.1 L (3.4-5.0) gm/dl Diagnostic Findings Microbiology 11/24/18 08:22 Toe,Right Fourth Gram Stain - Final 11/24/18 08:22 Toe,Right Fourth Aerobic and Anaerobic Culture - Preliminary Gram negative bacilli Coag negative Staphylococcus 11/24/18 08:25 Toe,Right Fourth Gram Stain - Final
[2018-11-25] MEDS: LACTOBACILLUS ACIDOPHILUS (FLORANEX) TAB PO SCH ×3 (13:10→21:38)
--- NOTE | 2018-11-25 17:28 | Hospitalist Progress Note ---
Date of Service November 25, 2018 Assessment & Plan (1) Status post amputation of toe: - Has been following with wound clinic >6 months; MRI right foot on 11/13 showed osteomyelitis with diabetc foot wound - S/p right foot 5th ray resection on 11/24/18, POD#1. - ID following, on Zosyn IV for empiric coverage. - Wound culture +Gram neg bacilli, coag negative Staph. - Pain control per primary team. - Restarted home Pradaxa for anticoagulation. - PT/OT -- plan for acute rehab if approved. (2) Acute kidney injury: - Creatinine increased to 1.5 post operatively. - Will hold home ACEI; monitor renal function daily. - Start IV fluids if no improvement in renal function over next 24 hours. (3) Atrial fibrillation: Persistent A. fib, rate controlled. - Pradaxa restarted post operatively. - Continue Digoxin 0.125 mg daily; most recent level was 1 on 11/25/18. (4) Diabetes mellitus, type 2: - Most recent A1C was 6.1% on 11/03/18. - Hold home Metformin. - SSI while inpatient. (5) Osteomyelitis: - Treatment as noted above. (6) Hypertension: - Hold home ACEI in setting of ELIZABETH. - Has been normotensive. (7) Hyperlipidemia: - Continue statin as prescribed. (8) Pancytopenia: Mild, with elevated MCV Question if has liver disease? vs B12 deficiency? -will check B12, folate, Fe studies -no recent imaging of liver but could be done as outpt (9) Mitral regurgitation: mod-severe on recent ECHO -follow with Cardiology (10) Asthma: - No evidence of acute exacerbation. - On Circesonide, Ipatroprium and Levalbuterol at home. - Continue home medication regimen. 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 -continues on ACEi although on hold today for ELIZABETH - Will need to follow up with cardiology for possible device placement (BiV- AICD) following resolution of acute illness. Dispo: Will continue to follow, please call with any questions. Supervising Physician Co-Signing Physician Notes PA Supervision Note: I did not personally see or examine the patient today, but I verified all coppola points of REMIGIO Tejada's assessment and plan with the following exceptions/additions: none Subjective Pt. is doing well post operatively - he is accompanied by at bedside and is very pleasant. Denies pain in foot. Denies chest pain, SOB, N/V, constipation. Review of Systems All systems reviewed & are unremarkable except as noted in HPI & below Constitutional: no fever, no chills and no weakness Respiratory: no cough and no dyspnea Cardiovascular: no chest pain, no palpitations and no edema Gastrointestinal: no abdominal pain, no nausea, no vomiting and no constipation Genitourinary (Male): no difficulty urinating Musculoskeletal: no back pain and no joint pain Allergy / Immunological: no rash Physical Exam Vital Signs (Past 24 Hours): Last Vital Signs Temp 36.4 C L 11/25/18 15:42 Pulse 96 H 11/25/18 15:42 Resp 19 11/25/18 15:42 BP 129/66 11/25/18 15:42 Pulse Ox 96 11/25/18 15:42 Physical Exam: General: Resting comfortably in no apparent distress; A&OX3 HEENT: NC/AT; PERRLA with EOMI; [place] conjunctiva, MMM. Neck: Supple and nontender Cardiac: irregular Lungs: CTA bilaterally Abdomen: Bowel normoactive X 4; Nontender to palpation Extremities: Warm. No edema present; right foot with dressing and boot intact. Neuro: No focal weakness Skin: No rash Results & Data Laboratory Results 11/25/18 11/25/18 11/25/18 Range/Units 12:22 08:11 05:40 WBC (4.8-10.8) K/uL RBC (4.7-6.1) M/uL Hgb (14.0-18.0) g/dL Hct (42-52) % MCV (80-100) fL MCH (25-34) pg MCHC (32-36) g/dL RDW Std Deviation (36.4-46.3) fL RDW Coeff of Chad (11.5-14.5) % Plt Count (130-400) K/uL MPV (7.4-10.4) fL Immature Gran % (Auto) % Neut % (Auto) % Lymph % (Auto) % [place] % (Auto) % Eos % (Auto) % Baso % (Auto) % Immature Gran # (Auto) (0.00-0.02) K/uL Neut # (Auto) (1.4-6.5) K/uL Lymph # (Auto) (1.2-3.4) K/uL [place] # (Auto) (0.11-0.59) K/uL Eos # (Auto) (0-0.5) K/uL Baso # (Auto) (0-0.2) K/uL Sodium (136-145) mmol/L Potassium (3.5-5.1) mmol/L Chloride (98-107) mmol/L Carbon Dioxide (21-32) mmol/L Anion Gap (3-11) BUN (7-18) mg/dl Creatinine (0.6-1.4) mg/dl Est Cr Clr Drug Dosing ml/min Est GFR ( Amer) Est GFR (Non-Af Amer) BUN/Creatinine Ratio (10-20) Glucose (70-99) mg/dl POC Glucose 109 H 91 (70-99) Calcium (8.5-10.1) mg/dl Digoxin 1.0 (0.8-2.0) ng/ml 11/25/18 11/25/18 11/24/18 Range/Units 05:40 05:40 20:39 WBC 4.03 L (4.8-10.8) K/uL RBC 3.54 L (4.7-6.1) M/uL Hgb 11.0 L (14.0-18.0) g/dL Hct 34.6 L (42-52) % MCV 97.7 (80-100) fL MCH 31.1 (25-34) pg MCHC 31.8 L (32-36) g/dL RDW Std Deviation 56.0 H (36.4-46.3) fL RDW Coeff of Chad 15.5 H (11.5-14.5) % Plt Count 105 L (130-400) K/uL MPV 11.1 H (7.4-10.4) fL Immature Gran % (Auto) 0.2 % Neut % (Auto) 64.1 % Lymph % (Auto) 23.3 % [place] % (Auto) 11.7 % Eos % (Auto) 0.5 % Baso % (Auto) 0.2 % Immature Gran # (Auto) 0.01 (0.00-0.02) K/uL Neut # (Auto) 2.58 (1.4-6.5) K/uL Lymph # (Auto) 0.94 L (1.2-3.4) K/uL [place] # (Auto) 0.47 (0.11-0.59) K/uL Eos # (Auto) 0.02 (0-0.5) K/uL Baso # (Auto) 0.01 (0-0.2) K/uL Sodium 139 (136-145) mmol/L Potassium 4.3 (3.5-5.1) mmol/L Chloride 107 (98-107) mmol/L Carbon Dioxide 28 (21-32) mmol/L Anion Gap 4.0 (3-11) BUN 24 H (7-18) mg/dl Creatinine 1.50 H D (0.6-1.4) mg/dl Est Cr Clr Drug Dosing 41.0 ml/min Est GFR ( Amer) 47.8 Est GFR (Non-Af Amer) 41.3 BUN/Creatinine Ratio 15.9 (10-20) Glucose 87 (70-99) mg/dl POC Glucose 160 H (70-99) Calcium 8.0 L (8.5-10.1) mg/dl Digoxin (0.8-2.0) ng/ml (1) Diabetes mellitus, type 2 Diabetes mellitus complication detail: with polyneuropathy Diabetes mellitus complication status: with neurologic complications Diabetes mellitus retirement insulin use: without fish farmer use Qualified Code(s): E11.42 - Type 2 diabetes mellitus with diabetic polyneuropathy (2) Atrial fibrillation Atrial fibrillation type: permanent Qualified Code(s): I48.2 - Chronic atrial fibrillation (3) Hypertension Hypertension type: essential hypertension Qualified Code(s): I10 - Essential (primary) hypertension (4) Cardiomyopathy Cardiomyopathy type: other Qualified Code(s): I42.8 - Other cardiomyopathies (5) Osteomyelitis Laterality: right Osteomyelitis location: foot Osteomyelitis type: unspecified type Qualified Code(s): M86.9 - Osteomyelitis, unspecified
[2018-11-25] MEDS: DIGOXIN 0.125 MG TAB PO SCH (21:38)
[2018-11-25] MEDS: PRAVASTATIN SOD 20 MG TAB PO SCH (21:38)
[2018-11-26] MEDS: ACETAMINOPHEN 500 MG TAB PO SCH ×3 (05:40→22:14)
[2018-11-26 06:13] LABS: Hematocrit (blood only) 33.5 % (42-52); Mean Corpuscular Hgb Conc 32.8 g/dL (32-36); Mean Corpuscular Volume 97.1 fL (80-100); RDW Coefficient of Variation 15.3 % (11.5-14.5); RDW Standard Deviation 54.5 fL (36.4-46.3); Red Blood Count 3.45 M/uL (4.7-6.1); White Blood Count 3.29 K/uL (4.8-10.8)
[2018-11-26 06:52] LABS: Eosinophils # (auto) 0.02 K/uL (0-0.5); Eosinophils % (auto) 0.6 %; Immature Granulocytes # (auto) 0.01 K/uL (0.00-0.02); Immature Granulocytes % (auto) 0.3 %; Lymphocytes # (auto) 0.71 K/uL (1.2-3.4); Lymphocytes % (auto) 21.6 %; Mean Platelet Volume 10.9 fL (7.4-10.4); Monocytes # (auto) 0.39 K/uL (0.11-0.59); Monocytes % (auto) 11.9 %; Neutrophils # (auto) 2.16 K/uL (1.4-6.5); Neutrophils % (auto) 65.6 %; Platelet Count 96 K/uL (130-400); Platelet Estimate Decreased (Normal)
[2018-11-26 06:55] LABS: BUN Creatinine Ratio 18.6 (10-20); Creatinine Clr Calc Pharmacy 53.9 ml/min; Est GFR (African American) 66.6; Est GFR (Non-African American) 57.5; Magnesium 2.4 mg/dl (1.8-2.4)
[2018-11-26] MEDS: CICLESONIDE INH SCH (07:38)
[2018-11-26] MEDS: IPRATROPIUM BROMIDE HFA INHALER INH SCH ×2 (07:39→22:12)
[2018-11-26] MEDS: PIPERACILLIN/TAZOBACTAM 3.375 GM in DEXTROSE 5% 100 ML IV SCH ×3 (07:40→23:40)
[2018-11-26] MEDS: LACTOBACILLUS ACIDOPHILUS (FLORANEX) TAB PO SCH ×4 (07:42→22:08)
[2018-11-26] MEDS: PANTOprazole 40 MG TAB PO SCH (08:55)
[2018-11-26] MEDS: MULTIVITAMIN TAB PO SCH (08:55)
[2018-11-26] MEDS: CHOLECALCIFEROL 1,000 UNITS TAB PO SCH (08:55)
[2018-11-26] MEDS: DABIGATRAN ETEXILATE 75 MG CAP PO SCH ×2 (08:56→22:11)
[2018-11-26] MEDS: LEVALBUTEROL TARTRATE 15 GM HFA.AER.AD INH SCH (08:59)
[2018-11-26] MEDS: DOCUSATE SODIUM 100 MG CAP PO SCH ×2 (08:59→22:14)
[2018-11-26] MEDS: LISINOPRIL 5 MG TAB PO SCH (08:59)
[2018-11-26] MEDS: INSULIN ASPART 100 UNITS/ML 3 ML PEN SC SCH ×4 (09:03→22:24)
--- NOTE | 2018-11-26 09:12 | Orthopedic Progress Note ---
Date of Service November 26, 2018 Assessment & Plan (1) Osteomyelitis of right foot: POD 2 s/p right foot 5th ray resection and peroneal brevis tendon transfer He may be out of bed, NWB RLE. Cont PT/OT Keep right foot elevated, ice for swelling/pain Contine IV Zosyn through PICC line DM diet. Resume home medications Will discuss findings with Dr. Chavez Case Managment working on placement. Will re-eval in AM. Subjective Patient sitting up in bed, comfortable eating breakfast. States that he has no pain. Denies chest pain, shortness of breath, abdominal pain or headache. Has foot in cam boot with EZ ice wrap overlying anterior surface. No complaints of fever, chills, sweat, nausea or vomiting. Ear, Nose, Mouth, Throat: + hearing loss (wears hearing aids); no ear pain, no tinnitus, no dizziness, no post nasal drip, no facial pain, no dental pain, no dental abscess and no loose teeth Respiratory: + wheezing (occasional due to asthma); no cough, no chest congestion, no change in sputum, no dyspnea and no snoring Cardiovascular: + edema (right foot); no chest pain, no chest pain at rest, no chest pain with activity, no dyspnea at rest, no palpitations, no lightheadedness, no syncope and no calf pain Gastrointestinal: + constipation (occasional); no abdominal pain, no heartburn, no nausea, no vomiting and no diarrhea/loose stools Musculoskeletal: + swelling (right foot); no back pain, no neck pain, no joint pain, no deformity and no limited range of motion Integumentary: + skin ulcer (right foot) and + dry skin; no changing lesions, no bleeding lesions and no erythema Hematologic / Lymphatic: + coagulopathy (takes Pradaxa); no easy bleeding and no easy bruising Physical Exam Vital Signs (Past 24 Hours): Last Vital Signs Temp 36.4 C L 11/26/18 07:25 Pulse 79 11/26/18 07:25 Resp 16 11/26/18 07:25 BP 138/93 11/26/18 07:25 Pulse Ox 97 11/26/18 07:25 Musculoskeletal: Right foot: boot removed. Wound vac in place and draining. Small amount of bloody fluid over incision site. Dressing kept in place. Dull sensation to touch in toes and distal plantar surface. Light sensation intact from arch proximally. Periph pulses palpable. Cap refill slight > 2 seconds. Mild edema to dorsal and plantar surface of foot. No warmth or ecchymosis. Calf soft and supple. Able to perform SLRT.
--- NOTE | 2018-11-26 10:47 | Infectious Disease Progress Nt ---
Date of Service November 26, 2018 Assessment & Plan (1) Osteomyelitis of right foot: 88-year-old diabetic male with neuropathy with osteomyelitis of the right fifth metatarsal with pseudomonas aeruginosa now status post resection. Operative cultures again growing pseudomonas aeruginosa, would continue on IV Zosyn. Will likely require prolonged IV antibiotic therapy. Placement being arranged. Will follow. (2) Pseudomonas aeruginosa infection: Subjective Patient seen in follow-up for right foot osteomyelitis. Status post ray amputation of right foot. Patient comfortable this morning, offers no new specific complaints. Denies any pain. No fever.Operative cultures growing pseudomonas aeruginosa and coagulase-negative staph. Review of Systems All systems reviewed & are unremarkable except as noted in HPI & below Physical Exam Vital Signs (Past 24 Hours): Last Vital Signs Temp 36.4 C L 11/26/18 07:25 Pulse 79 11/26/18 07:25 Resp 16 11/26/18 07:25 BP 138/93 11/26/18 07:25 Pulse Ox 97 11/26/18 07:25 Constitutional: WD/WN, vitals as above comfortable; no acute distress Eyes: PERRL, conjunctivae normal, anicteric sclerae ENMT: external ear and nose normal, oropharynx normal Neck: trachea midline, no thyromegaly neck nontender Respiratory: normal respiratory effort, lungs clear to auscultation normal percussion; does not use accessory muscles Cardiovascular: Rate/Rhythm: + abnormal rhythm (Irregularly irregular) Heart Sounds: normal S1 and normal S2; no gallop, no murmur and no cardiac rub Vessels: normal peripheral pulses; no JVD Gastrointestinal (Abdomen): normal bowel sounds, soft, nontender, no hepatosplenomegaly Musculoskeletal: no cyanosis or clubbing, extremities motor strength 5/5 Spine: thoracic spine normal to inspection and lumbar spine normal to inspection; no cervical spinal tenderness Skin: no rashes, warm and dry normal turgor Dressing intact right foot Neurologic: moves all extremities and awake; no focal motor deficits Motor/Sensory: + sensory deficit (Both lower extremities) Psychiatric: A+Ox3, euthymic affect Orientation: cooperative Lymphatic: no cervical or axillary lymphadenopathy no inguinal lymphadenopathy Results & Data Laboratory Results Short CBC 11/26/18 Range/Units 05:51 WBC 3.29 L (4.8-10.8) K/uL Hgb 11.0 L (14.0-18.0) g/dL Hct 33.5 L (42-52) % Plt Count 96 L (130-400) K/uL BMP 11/26/18 05:51 Sodium 139 Potassium 4.0 Chloride 108 H Carbon Dioxide 26 BUN 21 H Creatinine 1.14 D Glucose 92 Calcium 8.0 L Diagnostic Findings Microbiology 11/24/18 08:25 Toe,Right Fourth Gram Stain - Final 11/24/18 08:25 Toe,Right Fourth Aerobic and Anaerobic Culture - Preliminary Coag negative Staphylococcus Pseudomonas aeruginosa 11/24/18 08:22 Toe,Right Fourth Gram Stain - Final 11/24/18 08:22 Toe,Right Fourth Aerobic and Anaerobic Culture - Preliminary Pseudomonas aeruginosa Coag negative Staphylococcus
--- NOTE | 2018-11-26 13:39 | Hospitalist Progress Note ---
Date of Service November 26, 2018 Assessment & Plan (1) Status post amputation of toe: - Has been following with wound clinic >6 months; MRI right foot on 11/13 showed osteomyelitis with diabetic foot wound. - S/p right foot 5th ray resection on 11/24/18, POD#2. - ID following, on Zosyn IV for empiric coverage. - Wound culture +Pseudomonas, coag negative Staph. - Pain control per primary team. - Restarted home Pradaxa for anticoagulation. - PT/OT following. (2) Acute kidney injury: - Creatinine increased to 1.5 post operatively; now trending down, 1.14 on morning labs. - Resumed home ACEI as prescribed. - No indication for IV fluids. (3) Atrial fibrillation: - Persistent A. fib, rate controlled. - Pradaxa restarted post operatively. - Continue Digoxin 0.125 mg daily; most recent level was 1 on 11/25/18. (4) Diabetes mellitus, type 2: - Most recent A1C was 6.1% on 11/03/18. - Hold home Metformin. - SSI while inpatient. (5) Chronic obstructive pulmonary disease: - No evidence of acute exacerbation; did have mild SOB with exertion this morning, stable on room air. - On Circesonide, Ipatroprium and Levalbuterol at home. - Continue home medication regimen. (6) Osteomyelitis: - Treatment as noted above. (7) Hypertension: - Has been normotensive. - Continue ACEI as prescribed. (8) Hyperlipidemia: - Continue statin as prescribed. (9) Pancytopenia: - Mild, with elevated MCV - Question if has liver disease? vs B12 deficiency? - Will check B12, folate,iron studies on 11/27/18. - No recent imaging of liver, consider as outpatient. (10) Mitral regurgitation: - Mod-severe on recent ECHO - Follows with Cardiology (11) Asthma: - No evidence of acute exacerbation. - On Circesonide, Ipatroprium and Levalbuterol at home. - Continue home medication regimen. (12) Left bundle branch block: - Chronic. 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 - Resumed ACEI; holding prn Lasix. 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 - Will need to follow up with cardiology for possible device placement (BiV- AICD) following resolution of acute illness. Dispo: Will continue to follow. Supervising Physician Co-Signing Physician Notes Attending Attestation - Chart reviewed, care plan d/w PA Marly Reece in detail. I agree w/ the coppola components of her documentation. Chilango Garcia MD Subjective Pt is doing well overall. He did have mild SOB after walking to restroom this morning. SOB improved after receiving AM inhalers. Denies further episodes of SOB, chest pain, N/V. No significant pain noted in right foot, wound vac dressing in place. Review of Systems All systems reviewed & are unremarkable except as noted in HPI & below Constitutional: no fever, no chills and no weakness Respiratory: + dyspnea on exertion; no cough, no dyspnea and no wheezing Cardiovascular: no chest pain, no palpitations and no edema Gastrointestinal: no abdominal pain, no nausea and no constipation Genitourinary (Male): no difficulty urinating Musculoskeletal: + joint pain Allergy / Immunological: no rash Physical Exam Vital Signs (Past 24 Hours): Last Vital Signs Temp 36.4 C L 11/26/18 07:25 Pulse 79 11/26/18 07:25 Resp 16 11/26/18 07:25 BP 138/93 11/26/18 07:25 Pulse Ox 97 11/26/18 07:25 Physical Exam: General: Resting comfortably in no apparent distress; A&OX3 HEENT: NC/AT; PERRLA with EOMI; Hughes conjunctiva, MMM. Neck: Supple and nontender Cardiac: irregular Lungs: CTA bilaterally Abdomen: Bowel normoactive X 4; Nontender to palpation Extremities: Warm. No edema present; right foot with dressing, wound vac. Neuro: No focal weakness Skin: No rash Results & Data Laboratory Results 11/26/18 11/26/18 11/26/18 Range/Units 12:02 08:26 05:51 WBC 3.29 L (4.8-10.8) K/uL RBC 3.45 L (4.7-6.1) M/uL Hgb 11.0 L (14.0-18.0) g/dL Hct 33.5 L (42-52) % MCV 97.1 (80-100) fL MCH 31.9 (25-34) pg MCHC 32.8 (32-36) g/dL RDW Std Deviation 54.5 H (36.4-46.3) fL RDW Coeff of Chad 15.3 H (11.5-14.5) % Plt Count 96 L (130-400) K/uL MPV 10.9 H (7.4-10.4) fL Immature Gran % (Auto) 0.3 % Neut % (Auto) 65.6 % Lymph % (Auto) 21.6 % Hall % (Auto) 11.9 % Eos % (Auto) 0.6 % Baso % (Auto) 0.0 % Immature Gran # (Auto) 0.01 (0.00-0.02) K/uL Neut # (Auto) 2.16 (1.4-6.5) K/uL Lymph # (Auto) 0.71 L (1.2-3.4) K/uL Hall # (Auto) 0.39 (0.11-0.59) K/uL Eos # (Auto) 0.02 (0-0.5) K/uL Baso # (Auto) 0.00 (0-0.2) K/uL Platelet Estimate Decreased (Normal) Sodium (136-145) mmol/L Potassium (3.5-5.1) mmol/L Chloride (98-107) mmol/L Carbon Dioxide (21-32) mmol/L Anion Gap (3-11) BUN (7-18) mg/dl Creatinine (0.6-1.4) mg/dl Est Cr Clr Drug Dosing ml/min Est GFR ( Amer) Est GFR (Non-Af Amer) BUN/Creatinine Ratio (10-20) Glucose (70-99) mg/dl POC Glucose 123 H 89 (70-99) Calcium (8.5-10.1) mg/dl Magnesium (1.8-2.4) mg/dl 11/26/18 11/25/18 11/25/18 Range/Units 05:51 20:56 17:17 WBC (4.8-10.8) K/uL RBC (4.7-6.1) M/uL Hgb (14.0-18.0) g/dL Hct (42-52) % MCV (80-100) fL MCH (25-34) pg MCHC (32-36) g/dL RDW Std Deviation (36.4-46.3) fL RDW Coeff of Chad (11.5-14.5) % Plt Count (130-400) K/uL MPV (7.4-10.4) fL Immature Gran % (Auto) % Neut % (Auto) % Lymph % (Auto) % Hall % (Auto) % Eos % (Auto) % Baso % (Auto) % Immature Gran # (Auto) (0.00-0.02) K/uL Neut # (Auto) (1.4-6.5) K/uL Lymph # (Auto) (1.2-3.4) K/uL Hall # (Auto) (0.11-0.59) K/uL Eos # (Auto) (0-0.5) K/uL Baso # (Auto) (0-0.2) K/uL Platelet Estimate (Normal) Sodium 139 (136-145) mmol/L Potassium 4.0 (3.5-5.1) mmol/L Chloride 108 H (98-107) mmol/L Carbon Dioxide 26 (21-32) mmol/L Anion Gap 5.0 (3-11) BUN 21 H (7-18) mg/dl Creatinine 1.14 D (0.6-1.4) mg/dl Est Cr Clr Drug Dosing 53.9 ml/min Est GFR ( Amer) 66.6 Est GFR (Non-Af Amer) 57.5 BUN/Creatinine Ratio 18.6 (10-20) Glucose 92 (70-99) mg/dl POC Glucose 140 H 95 (70-99) Calcium 8.0 L (8.5-10.1) mg/dl Magnesium 2.4 (1.8-2.4) mg/dl (1) Diabetes mellitus, type 2 Diabetes mellitus complication detail: with polyneuropathy Diabetes mellitus complication status: with neurologic complications 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: 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 marine 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 use Qualified Code(s): E11.42 - Type 2 diabetes mellitus with diabetic polyneuropathy (2) Atrial fibrillation Atrial fibrillation type: permanent Qualified Code(s): I48.2 - Chronic atrial fibrillation (3) Chronic obstructive pulmonary disease COPD type: unspecified COPD Qualified Code(s): J44.9 - Chronic obstructive pulmonary disease, unspecified (4) Hypertension Hypertension type: essential hypertension Qualified Code(s): I10 - Essential (primary) hypertension (5) Cardiomyopathy Cardiomyopathy type: other Qualified Code(s): I42.8 - Other cardiomyopathies (6) Osteomyelitis Laterality: right Osteomyelitis location: foot Osteomyelitis type: unspecified type Qualified Code(s): M86.9 - Osteomyelitis, unspecified
[2018-11-26] MEDS: DIGOXIN 0.125 MG TAB PO SCH (22:09)
[2018-11-26] MEDS: PRAVASTATIN SOD 20 MG TAB PO SCH (22:09)
[2018-11-27] MEDS: ACETAMINOPHEN 500 MG TAB PO SCH ×2 (05:38→13:33)
[2018-11-27 06:43] LABS: Hematocrit (blood only) 32.5 % (42-52); Hemoglobin 10.6 g/dL (14.0-18.0); Mean Corpuscular Hgb Conc 32.6 g/dL (32-36); Mean Corpuscular Volume 96.7 fL (80-100); Mean Platelet Volume 10.7 fL (7.4-10.4); Platelet Count 102 K/uL (130-400); RDW Coefficient of Variation 15.4 % (11.5-14.5); RDW Standard Deviation 54.3 fL (36.4-46.3); Red Blood Count 3.36 M/uL (4.7-6.1); White Blood Count 3.29 K/uL (4.8-10.8)
[2018-11-27 07:15] LABS: BUN Creatinine Ratio 19.7 (10-20); Calcium 8.3 mg/dl (8.5-10.1); Creatinine Clr Calc Pharmacy 50.4 ml/min; Est GFR (African American) 61.4; Potassium 3.9 mmol/L (3.5-5.1)
[2018-11-27 07:25] LABS: Ferritin 110.2 ng/ml (8-388)
[2018-11-27 07:37] LABS: T4 Free Thyroxine 1.15 ng/dl (0.8-1.6)
[2018-11-27] MEDS: PANTOprazole 40 MG TAB PO SCH (08:51)
[2018-11-27] MEDS: MULTIVITAMIN TAB PO SCH (08:51)
[2018-11-27] MEDS: CHOLECALCIFEROL 1,000 UNITS TAB PO SCH (08:51)
[2018-11-27] MEDS: DABIGATRAN ETEXILATE 75 MG CAP PO SCH (08:51)
[2018-11-27] MEDS: LACTOBACILLUS ACIDOPHILUS (FLORANEX) TAB PO SCH ×2 (08:52→12:40)
[2018-11-27] MEDS: LISINOPRIL 5 MG TAB PO SCH (08:52)
[2018-11-27] MEDS: IPRATROPIUM BROMIDE HFA INHALER INH SCH (08:53)
[2018-11-27] MEDS: CICLESONIDE INH SCH (08:53)
[2018-11-27] MEDS: LEVALBUTEROL TARTRATE 15 GM HFA.AER.AD INH SCH (08:55)
[2018-11-27] MEDS: INSULIN ASPART 100 UNITS/ML 3 ML PEN SC SCH ×3 (08:56→12:40)
[2018-11-27] MEDS: PIPERACILLIN/TAZOBACTAM 3.375 GM in DEXTROSE 5% 100 ML IV SCH (09:01)
[2018-11-27 09:43] LABS: Folate (Folic Acid) 15.22 ng/ml (>5.38)
[2018-11-27] MEDS: DOCUSATE SODIUM 100 MG CAP PO SCH (09:47)
--- NOTE | 2018-11-27 13:48 | Orthopedic Progress Note ---
Date of Service November 27, 2018 Assessment & Plan (1) Diabetic foot infection: POD #3 - s/p right foot 5th ray resection, peroneal brevis tendon transfer. Continue OOB/ NWB RLE Continue wound vac - to be placed on today. Ice/elevate right foot Cam boot when out of bed, Use walker/knee scooter when out of bed Continue IV abx - PICC line Continue Pradaxa. Follow up with Dr. Noel as scheduled will discuss findings with Dr. Chavez Plan for discharge to [facility] this afternoon. Present on Admission?: Yes Subjective sitting in bed, no pain. Tolerating regular diet. Physical Exam Vital Signs (Past 24 Hours): Last Vital Signs Temp 36.4 C L 11/27/18 07:15 Pulse 76 11/27/18 07:15 Resp 18 11/27/18 07:15 BP 126/81 11/27/18 07:15 Pulse Ox 96 11/27/18 07:15 Physical Exam: Right foot wound clean and dry. Wound vac removed, no active bleeding. Wounc care nurse at bedside, here to reapply vac. Moves toes well. Mild distal edema. Dorsalis pedis pulse 1+ Results & Data Laboratory Results Microbiology 11/24/18 08:25 Gram Stain - Final Toe,Right Fourth Aerobic and Anaerobic Culture - Preliminary Coag negative Staphylococcus Pseudomonas aeruginosa 11/24/18 08:22 Gram Stain - Final Toe,Right Fourth Aerobic and Anaerobic Culture - Preliminary Pseudomonas aeruginosa Coag negative Staphylococcus 11/27/18 11/27/18 11/27/18 Range/Units 12:28 07:56 06:17 WBC 3.29 L (4.8-10.8) K/uL RBC 3.36 L (4.7-6.1) M/uL Hgb 10.6 L (14.0-18.0) g/dL Hct 32.5 L (42-52) % MCV 96.7 (80-100) fL MCH 31.5 (25-34) pg MCHC 32.6 (32-36) g/dL RDW Std Deviation 54.3 H (36.4-46.3) fL RDW Coeff of Chad 15.4 H (11.5-14.5) % Plt Count 102 L (130-400) K/uL MPV 10.7 H (7.4-10.4) fL Sodium (136-145) mmol/L Potassium (3.5-5.1) mmol/L Chloride (98-107) mmol/L Carbon Dioxide (21-32) mmol/L Anion Gap (3-11) BUN (7-18) mg/dl Creatinine (0.6-1.4) mg/dl Est Cr Clr Drug Dosing ml/min Est GFR ( Amer) Est GFR (Non-Af Amer) BUN/Creatinine Ratio (10-20) Glucose (70-99) mg/dl POC Glucose 104 H 95 (70-99) Calcium (8.5-10.1) mg/dl Iron (35-175) mcg/dl TIBC (250-450) mcg/dl Transferrin (200-360) mg/dl Transferrin % Sat (20-50) % Ferritin (8-388) ng/ml Vitamin B12 (211-911) pg/ml Folate (>5.38) ng/ml TSH (0.300-4.500) uIu/ml Free T4 (0.8-1.6) ng/dl 11/27/18 11/27/18 11/26/18 Range/Units 06:17 06:17 21:44 WBC (4.8-10.8) K/uL RBC (4.7-6.1) M/uL Hgb (14.0-18.0) g/dL Hct (42-52) % MCV (80-100) fL MCH (25-34) pg MCHC (32-36) g/dL RDW Std Deviation (36.4-46.3) fL RDW Coeff of Chad (11.5-14.5) % Plt Count (130-400) K/uL MPV (7.4-10.4) fL Sodium 138 (136-145) mmol/L Potassium 3.9 (3.5-5.1) mmol/L Chloride 107 (98-107) mmol/L Carbon Dioxide 28 (21-32) mmol/L Anion Gap 3.0 (3-11) BUN 24 H (7-18) mg/dl Creatinine 1.22 (0.6-1.4) mg/dl Est Cr Clr Drug Dosing 50.4 ml/min Est GFR ( Amer) 61.4 Est GFR (Non-Af Amer) 53.0 BUN/Creatinine Ratio 19.7 (10-20) Glucose 86 (70-99) mg/dl POC Glucose 125 H (70-99) Calcium 8.3 L (8.5-10.1) mg/dl Iron 41 (35-175) mcg/dl TIBC 225 L (250-450) mcg/dl Transferrin 179 L (200-360) mg/dl Transferrin % Sat 16 L (20-50) % Ferritin 110.2 (8-388) ng/ml Vitamin B12 424 (211-911) pg/ml Folate 15.22 (>5.38) ng/ml TSH 8.200 H (0.300-4.500) uIu/ml Free T4 1.15 (0.8-1.6) ng/dl 11/26/18 Range/Units 17:30 WBC (4.8-10.8) K/uL RBC (4.7-6.1) M/uL Hgb (14.0-18.0) g/dL Hct (42-52) % MCV (80-100) fL MCH (25-34) pg MCHC (32-36) g/dL RDW Std Deviation (36.4-46.3) fL RDW Coeff of Chad (11.5-14.5) % Plt Count (130-400) K/uL MPV (7.4-10.4) fL Sodium (136-145) mmol/L Potassium (3.5-5.1) mmol/L Chloride (98-107) mmol/L Carbon Dioxide (21-32) mmol/L Anion Gap (3-11) BUN (7-18) mg/dl Creatinine (0.6-1.4) mg/dl Est Cr Clr Drug Dosing ml/min Est GFR ( Amer) Est GFR (Non-Af Amer) BUN/Creatinine Ratio (10-20) Glucose (70-99) mg/dl POC Glucose 91 (70-99) Calcium (8.5-10.1) mg/dl Iron (35-175) mcg/dl TIBC (250-450) mcg/dl Transferrin (200-360) mg/dl Transferrin % Sat (20-50) % Ferritin (8-388) ng/ml Vitamin B12 (211-911) pg/ml Folate (>5.38) ng/ml TSH (0.300-4.500) uIu/ml Free T4 (0.8-1.6) ng/dl
[2018-11-27] MEDS ORDERED: PIPERACILLIN/TAZOBACTAM 3.375 GM in DEXTROSE 5% 100 ML IV SCH (15:00)
--- NOTE | 2018-11-27 15:05 | Hospitalist Progress Note ---
Date of Service November 27, 2018 Assessment & Plan (1) Status post amputation of toe: - Has been following with wound clinic >6 months; MRI right foot on 11/13 showed osteomyelitis with diabetic foot wound. - S/p right foot 5th ray resection on 11/24/18, POD#3. - ID following, on Zosyn IV for empiric coverage. - Wound culture +Pseudomonas, coag negative Staph. - Pain control per primary team. - Restarted home Pradaxa for anticoagulation. - PT/OT following - plan for discharge to [facility]. (2) Acute kidney injury: - Creatinine increased to 1.5 post operatively; now improved to baseline. - Resumed home ACEI as prescribed. (3) Atrial fibrillation: - Persistent A. fib, rate controlled. - Pradaxa restarted post operatively. - Continue Digoxin 0.125 mg daily; most recent level was 1 on 11/25/18. (4) Diabetes mellitus, type 2: - Most recent A1C was 6.1% on 11/03/18. - Hold home Metformin. - SSI while inpatient. (5) Chronic obstructive pulmonary disease: - No evidence of acute exacerbation; has chronic mild SOB with exertion. - On Circesonide, Ipatroprium and Levalbuterol at home. - Continue home medication regimen. (6) Osteomyelitis: - Treatment as noted above. (7) Hypertension: - Has been normotensive. - Continue ACEI as prescribed. (8) Hyperlipidemia: - Continue statin as prescribed. (9) Pancytopenia: - Mild, with elevated MCV - Question if has liver disease? vs B12 deficiency? - Folate level 15.2, B12 424; Iron studies showed low TIBC, Transferrin, Iron was 41 and Ferritin 110. - No recent imaging of liver, consider as outpatient. - Will need to follow up with PCP to discuss results. (10) Mitral regurgitation: - Mod-severe on recent ECHO - Follows with Cardiology (11) Asthma: - No evidence of acute exacerbation. - On Circesonide, Ipatroprium and Levalbuterol at home. - Continue home medication regimen. (12) Left bundle branch block: - Chronic. 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 - Resumed ACEI; holding prn Lasix. 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 - Will need to follow up with cardiology for possible device placement (BiV- AICD) following resolution of acute illness. Dispo: Pt. is medically stable, will sign off. Supervising Physician Co-Signing Physician Notes Attending Attestation - Chart reviewed, care plan d/w PA Marly Reece in detail. I agree w/ the coppola components of her documentation. Medically stable at this time with stable labs, vitals, and physical exam. CHF remains compensated. OK for d/c medically. Chilango Garcia MD Subjective Pt. is doing well, no acute issues. Denies right foot pain -- wound care following. Has SOB with exertion -- is a chronic issue. Will be discharged to acute rehab pending placement. Review of Systems All systems reviewed & are unremarkable except as noted in HPI & below Constitutional: no fever and no chills Respiratory: no cough and no dyspnea Cardiovascular: no chest pain, no palpitations and no edema Gastrointestinal: no abdominal pain, no nausea and no constipation Genitourinary (Male): no difficulty urinating Musculoskeletal: no joint pain Allergy / Immunological: no rash Physical Exam Vital Signs (Past 24 Hours): Last Vital Signs Temp 36.4 C L 11/27/18 14:30 Pulse 67 11/27/18 14:30 Resp 18 11/27/18 14:30 BP 126/81 11/27/18 14:30 Pulse Ox 96 11/27/18 14:30 Physical Exam: General: Resting comfortably in no apparent distress; A&OX3 HEENT: NC/AT; PERRLA with EOMI; [place] conjunctiva, MMM. Neck: Supple and nontender Cardiac: irregular Lungs: CTA bilaterally Abdomen: Bowel normoactive X 4; Nontender to palpation Extremities: Warm. Incision with sutures in place over right lateral aspect of foot, ulcer noted on right lateral foot with packing in place. Neuro: No focal weakness Skin: No rash Results & Data Laboratory Results 11/27/18 11/27/18 11/27/18 Range/Units 12:28 07:56 06:17 WBC 3.29 L (4.8-10.8) K/uL RBC 3.36 L (4.7-6.1) M/uL Hgb 10.6 L (14.0-18.0) g/dL Hct 32.5 L (42-52) % MCV 96.7 (80-100) fL MCH 31.5 (25-34) pg MCHC 32.6 (32-36) g/dL RDW Std Deviation 54.3 H (36.4-46.3) fL RDW Coeff of Chad 15.4 H (11.5-14.5) % Plt Count 102 L (130-400) K/uL MPV 10.7 H (7.4-10.4) fL Sodium (136-145) mmol/L Potassium (3.5-5.1) mmol/L Chloride (98-107) mmol/L Carbon Dioxide (21-32) mmol/L Anion Gap (3-11) BUN (7-18) mg/dl Creatinine (0.6-1.4) mg/dl Est Cr Clr Drug Dosing ml/min Est GFR ( Amer) Est GFR (Non-Af Amer) BUN/Creatinine Ratio (10-20) Glucose (70-99) mg/dl POC Glucose 104 H 95 (70-99) Calcium (8.5-10.1) mg/dl Iron (35-175) mcg/dl TIBC (250-450) mcg/dl Transferrin (200-360) mg/dl Transferrin % Sat (20-50) % Ferritin (8-388) ng/ml Vitamin B12 (211-911) pg/ml Folate (>5.38) ng/ml TSH (0.300-4.500) uIu/ml Free T4 (0.8-1.6) ng/dl 11/27/18 11/27/18 11/26/18 Range/Units 06:17 06:17 21:44 WBC (4.8-10.8) K/uL RBC (4.7-6.1) M/uL Hgb (14.0-18.0) g/dL Hct (42-52) % MCV (80-100) fL MCH (25-34) pg MCHC (32-36) g/dL RDW Std Deviation (36.4-46.3) fL RDW Coeff of Chad (11.5-14.5) % Plt Count (130-400) K/uL MPV (7.4-10.4) fL Sodium 138 (136-145) mmol/L Potassium 3.9 (3.5-5.1) mmol/L Chloride 107 (98-107) mmol/L Carbon Dioxide 28 (21-32) mmol/L Anion Gap 3.0 (3-11) BUN 24 H (7-18) mg/dl Creatinine 1.22 (0.6-1.4) mg/dl Est Cr Clr Drug Dosing 50.4 ml/min Est GFR ( Amer) 61.4 Est GFR (Non-Af Amer) 53.0 BUN/Creatinine Ratio 19.7 (10-20) Glucose 86 (70-99) mg/dl POC Glucose 125 H (70-99) Calcium 8.3 L (8.5-10.1) mg/dl Iron 41 (35-175) mcg/dl TIBC 225 L (250-450) mcg/dl Transferrin 179 L (200-360) mg/dl Transferrin % Sat 16 L (20-50) % Ferritin 110.2 (8-388) ng/ml Vitamin B12 424 (211-911) pg/ml Folate 15.22 (>5.38) ng/ml TSH 8.200 H (0.300-4.500) uIu/ml Free T4 1.15 (0.8-1.6) ng/dl 11/26/18 Range/Units 17:30 WBC (4.8-10.8) K/uL RBC (4.7-6.1) M/uL Hgb (14.0-18.0) g/dL Hct (42-52) % MCV (80-100) fL MCH (25-34) pg MCHC (32-36) g/dL RDW Std Deviation (36.4-46.3) fL RDW Coeff of Chad (11.5-14.5) % Plt Count (130-400) K/uL MPV (7.4-10.4) fL Sodium (136-145) mmol/L Potassium (3.5-5.1) mmol/L Chloride (98-107) mmol/L Carbon Dioxide (21-32) mmol/L Anion Gap (3-11) BUN (7-18) mg/dl Creatinine (0.6-1.4) mg/dl Est Cr Clr Drug Dosing ml/min Est GFR ( Amer) Est GFR (Non-Af Amer) BUN/Creatinine Ratio (10-20) Glucose (70-99) mg/dl POC Glucose 91 (70-99) Calcium (8.5-10.1) mg/dl Iron (35-175) mcg/dl TIBC (250-450) mcg/dl Transferrin (200-360) mg/dl Transferrin % Sat (20-50) % Ferritin (8-388) ng/ml Vitamin B12 (211-911) pg/ml Folate (>5.38) ng/ml TSH (0.300-4.500) uIu/ml Free T4 (0.8-1.6) ng/dl (1) Diabetes mellitus, type 2 Diabetes mellitus complication detail: with polyneuropathy Diabetes mellitus complication status: with neurologic complications Diabetes mellitus terminal carman insulin use: without retirement use Qualified Code(s): E11.42 - Type 2 diabetes mellitus with diabetic polyneuropathy (2) Atrial fibrillation Atrial fibrillation type: permanent Qualified Code(s): I48.2 - Chronic atrial fibrillation (3) Chronic obstructive pulmonary disease COPD type: unspecified COPD Qualified Code(s): J44.9 - Chronic obstructive pulmonary disease, unspecified (4) Hypertension Hypertension type: essential hypertension Qualified Code(s): I10 - Essential (primary) hypertension (5) Cardiomyopathy Cardiomyopathy type: other Qualified Code(s): I42.8 - Other cardiomyopathies (6) Osteomyelitis Laterality: right Osteomyelitis location: foot Osteomyelitis type: unspecified type Qualified Code(s): M86.9 - Osteomyelitis, unspecified
--- NOTE | 2018-11-27 16:20 | Infectious Disease Progress Nt ---
Date of Service November 27, 2018 Assessment & Plan (1) Osteomyelitis of right foot: 88-year-old diabetic male with neuropathy with osteomyelitis of the right fifth metatarsal with pseudomonas aeruginosa now status post resection. Operative cultures again growing pseudomonas aeruginosa, would continue on IV Zosyn. Will require prolonged IV antibiotic therapy. Placement being arranged. Will follow. (2) Pseudomonas aeruginosa infection: Subjective Patient seen in follow-up for right foot osteomyelitis. Status post ray amputation of right foot. Patient comfortable today, offers no new specific complaints. Denies any pain. No fever.Operative cultures have grown pseudomonas aeruginosa and coagulase-negative staph. Review of Systems All systems reviewed & are unremarkable except as noted in HPI & below Physical Exam Vital Signs (Past 24 Hours): Last Vital Signs Temp 36.4 C L 11/27/18 14:30 Pulse 67 11/27/18 14:30 Resp 18 11/27/18 14:30 BP 126/81 11/27/18 14:30 Pulse Ox 96 11/27/18 14:30 Constitutional: WD/WN, vitals as above comfortable; no acute distress Eyes: PERRL, conjunctivae normal, anicteric sclerae ENMT: external ear and nose normal, oropharynx normal Neck: trachea midline, no thyromegaly neck nontender Respiratory: normal respiratory effort, lungs clear to auscultation normal percussion; does not use accessory muscles Cardiovascular: Rate/Rhythm: + abnormal rhythm (Irregularly irregular) Heart Sounds: normal S1 and normal S2; no gallop, no murmur and no cardiac rub Vessels: normal peripheral pulses; no JVD Gastrointestinal (Abdomen): normal bowel sounds, soft, nontender, no hepatosplenomegaly Musculoskeletal: no cyanosis or clubbing, extremities motor strength 5/5 Spine: thoracic spine normal to inspection and lumbar spine normal to inspection; no cervical spinal tenderness Skin: no rashes, warm and dry normal turgor Surgical dressing remains intact Neurologic: moves all extremities and awake; no focal motor deficits Motor/Sensory: + sensory deficit (Both lower extremities) Psychiatric: A+Ox3, euthymic affect Orientation: cooperative Lymphatic: no cervical or axillary lymphadenopathy no inguinal lymphadenopathy
--- NOTE | 2018-11-30 07:41 | Discharge Summary ---
Date of Service December 01, 2018 Admission HPI Per Admitting Provider Patient is an 88-year-old gentleman who presented see Dr. Chavez on November 17, 2018 for a persistent ulcer on his right foot. He states that he was trying out some new orthotics back in May. He did develop ulcerations in both of his feet. The one on his left foot has healed however the one on his right foot has been persistent. He has been treated in the outpatient wound care center. He has been seen and evaluated by Dr. Ball. He is scheduled to get an IV PICC line placed. Recent cultures of the right foot wound are positive for pseudomonas aeruginosa. He has had x-rays and MRI of his right foot. He was on oral doxycycline up until last week. He has had some swelling of his right foot. He does wear a boot for offloading. He reports that he had a vascular consultation which was normal. He does not have any significant pain. He does have peripheral neuropathy due to his diabetes. He denies any other injuries or issues. After Dr. Chavez's consultation surgical intervention was r ecommended for right foot fifth ray resection. He is agreed to proceed with surgery. He is scheduled for right foot fifth ray resection with Dr. Chavez on November 24, 2018 at the [facility]. Discharge Data Consultations 11/24/18 11:02 Consult Case Management - Discharge Planning Routine Consult Hospitalist Routine Consult Infectious Diseases Routine Procedures Performed Operation Date: 11/24/18 07:00 Actual Procedures p Right Foot 5th Ray Resection, Peroneal Brevis Transfer (Right) - Raimundo Chavez MD
--- NOTE | 2018-11-30 08:27 | Discharge Summary ---
Date of Service November 30, 2018 Admission HPI Per Admitting Provider Patient is an 88-year-old gentleman who presented see Dr. Chavez on November 17, 2018 for a persistent ulcer on his right foot. He states that he was trying out some new orthotics back in May. He did develop ulcerations in both of his feet. The one on his left foot has healed however the one on his right foot has been persistent. He has been treated in the outpatient wound care center. He has been seen and evaluated by Dr. Ball. He is scheduled to get an IV PICC line placed. Recent cultures of the right foot wound are positive for pseudomonas aeruginosa. He has had x-rays and MRI of his right foot. He was on oral doxycycline up until last week. He has had some swelling of his right foot. He does wear a boot for offloading. He reports that he had a vascular consultation which was normal. He does not have any significant pain. He does have peripheral neuropathy due to his diabetes. He denies any other injuries or issues. After Dr. Chavez's consultation surgical intervention was r ecommended for right foot fifth ray resection. He is agreed to proceed with surgery. He is scheduled for right foot fifth ray resection with Dr. Chavez on November 24, 2018 at the [facility]. Discharge Data Consultations 11/24/18 11:02 Consult Case Management - Discharge Planning Routine Consult Hospitalist Routine Consult Infectious Diseases Routine Procedures Performed Operation Date: 11/24/18 07:00 Actual Procedures p Right Foot 5th Ray Resection, Peroneal Brevis Transfer (Right) - Raimundo Chavez MD Hospital Course (1) Osteomyelitis of right foot: Patient was admitted the [facility] on November 24, 2018 after undergoing a right foot fifth ray resection, peroneal brevis tendon transfer with Dr. Chavez. He had the surgery for treatment of a right foot diabetic foot ulcer and osteomyelitis of his right fifth metatarsal. Surgery was performed with ankle block, and IV sedation. He tolerated the procedure well without any intraoperative complications. He was given 2 g of IV Ancef prior to surgery as well as his IV Zosyn was continued. His Ancef was continued for 24 hours after surgery. Postoperatively he was allowed out of bed, nonweightbearing right lower extremity. He was placed in a well-padded splint for his right lower extremity. He did have some intraoperative bleeding so compressive dressing was applied postoperatively. On postoperative day one the wound care nurse was consult did to apply a bedside wound VAC on his right lower extremity. Dressing changes were done on post op day one and the wound VAC was applied. He tolerated a regular diet during his inpatient stay. Infectious disease consult was placed and recommended continuation of his IV Zosyn. Cultures were followed during his inpatient stay and final cultures grew coag- negative staph and pseudomonas aeruginosa. His IV Zosyn was continued. He are ready had a PICC line placed.Physical therapy and occupational therapy consults were placed and he was safe out of bed. He uses a walker as well as his knee scooter for ambulation. Case management was consulted for disposition. Referrals were made for [facility] and care home facility, [facility]. His insurance did not approve [facility]. His labs and vitals were stable during his inpatient stay. He did not have any pain in his right foot during his stay. Wound vac was again changed on 11/27/18 by the wound care nurse. He tolerated these dressing changes well. His postoperative bleeding was well controlled. Regular home medications were continued during his stay. A medical Consult was also placed for postoperative medical management. He made some adjustments to his home medications, held his metformin during his inpatient stay and used insulin-dependent manage the diabetes. They signed off on postoperative day one. He was discharged to [facility] on November 27, 2018 in stable condition. Follow-up appointments were scheduled and postoperative discharge instructions were discussed. Discharge Instructions as per EMR
== END 2018-11-27 17:26 ==
LOC: ASU 04:56 → 3E 10:47

== ENCOUNTER 2019-02-16 16:49 | Inpatient (IN) ==
[2019-02-16 17:57] LABS: Basophils # (auto) 0.01 K/uL (0-0.2); Basophils % (auto) 0.2 %; Eosinophils # (auto) 0.03 K/uL (0-0.5); Eosinophils % (auto) 0.5 %; Hematocrit (blood only) 38.2 % (42-52); Hemoglobin 12.9 g/dL (14.0-18.0); Immature Granulocytes # (auto) 0.01 K/uL (0.00-0.02); Immature Granulocytes % (auto) 0.2 %; Lymphocytes # (auto) 0.65 K/uL (1.2-3.4); Lymphocytes % (auto) 11.8 %; Mean Corpuscular Hgb Conc 33.8 g/dL (32-36); Mean Corpuscular Volume 93.6 fL (80-100); Mean Platelet Volume 10.7 fL (7.4-10.4); Monocytes # (auto) 0.49 K/uL (0.11-0.59); Monocytes % (auto) 8.9 %; Neutrophils # (auto) 4.32 K/uL (1.4-6.5); Neutrophils % (auto) 78.4 %; Platelet Count 139 K/uL (130-400); RDW Coefficient of Variation 13.5 % (11.5-14.5); RDW Standard Deviation 46.4 fL (36.4-46.3); Red Blood Count 4.08 M/uL (4.7-6.1); White Blood Count 5.51 K/uL (4.8-10.8)
[2019-02-16 18:19] LABS: Alanine Aminotransferase 23 U/L (12-78); Albumin Level 3.8 gm/dl (3.4-5.0); Aspartate Aminotransferase 29 U/L (15-37); BUN Creatinine Ratio 24.9 (10-20); Blood Urea Nitrogen 31 mg/dl (7-18); Calcium 9.4 mg/dl (8.5-10.1); Carbon Dioxide 30 mmol/L (21-32); Chloride 99 mmol/L (98-107); Est GFR (African American) 60.4; Est GFR (Non-African American) 52.1; Glucose 114 mg/dl (70-99); Potassium 4.4 mmol/L (3.5-5.1); Sodium 136 mmol/L (136-145)
[2019-02-16 18:21] LABS: Albumin Globulin Ratio 1.1 (0.9-2); Alkaline Phosphatase 88 U/L (45-117); Bilirubin,Total 0.9 mg/dl (0.2-1); Globulin 3.5 gm/dl (2.5-4.0); Total Protein 7.3 gm/dl (6.4-8.2)
[2019-02-16] MEDS ORDERED: OPTIRAY 320 125ml IV PRN (18:50)
--- NOTE | 2019-02-16 19:15 | CT Scan Report ---
CT angio abdomen pelvis w con CLINICAL HISTORY: 89 years-old Male with diffuse abd pain previous ischemic colitis acute generali zed abdominal pain COMPARISON STUDY: CT abdomen and pelvis 10/17/2010 TECHNIQUE: Following the IV administration of 116 cc of Optiray 320, CT angiogram of the abdomen and pelvis was performed from the lung bases the proximal femora. Images are reviewed in the axial, sagit reta, and coronal planes. 3-D MIPS images are created and assessed. IV contrast was administered witho ut complication. A dose lowering technique was utilized adhering to the principles of ALARA. All patricio surements were obtained according to NASCET criteria CT DOSE: 715.29 mGycm FINDINGS: CTA: Marked multichamber cardiac enlargement with small pericardial effusion. Moderate mixed plaque format ion of the tortuous abdominal aorta without aneurysm or dissection. Mixed plaque formation at the liz gin of the celiac trunk without high-grade stenosis. Less than 50% luminal narrowing at the origin of the SMA. Mixed plaque formation of the bilateral renal arteries which also causes less than 50% montrell nal narrowing. There is approximately 60% luminal narrowing at the origin of the DARLENE secondary to rosio cified plaque. The bilateral iliac and common femoral arteries are widely patent. CT ABDOMEN/PELVIS: Trace left and small right pleural effusions with bibasilar opacities suggestive of atelectasis. No p neumatosis or pneumoperitoneum. Liver, spleen and adrenal glands appear unremarkable. Mild thickening of the left adrenal gland. Moderate parenchymal atrophy of the pancreas. There are multiple lobular cystic lesions again seen scattered throughout the pancreas measuring up to 2.0 cm, previously measur ing up to 1.5 cm on study from 2010. 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 No pancreatic or biliary ductal dilation. Mild gallbladder distention with layering hyperdense mater ial within the gallbladder lumen suggestive of cholelithiasis or vicarious excretion of contrast. No CT evidence of acute cholecystitis. Multiple left renal cysts are noted measuring up to 6.6 cm. No renal or ureteral calculi or obstructi ve uropathy. Moderate nonspecific bilateral perinephric stranding. Moderate bladder wall thickening w ith partial distention. No adenopathy by CT size criteria. Small hiatal hernia. Multiple fluid-filled prominent mildly dilated loops of small bowel measure up t o 3.0 cm transversely with air-fluid levels. No discrete transition point identified. Trace abdominop elvic ascites. Circumferential wall thickening of the rectum with perirectal stranding. Colonic diver ticulosis without definitive evidence of acute diverticulitis. Moderate volume of formed stool throug hout the colon. Liquid stool about the cecum and ascending colon. The appendix is not definitively se en. Mild generalized body wall edema. Degenerative changes of the spine, pelvis and hips. IMPRESSION: 1. Moderate mixed plaque formation of the abdominal aorta and branch vessels with approximately 60% l uminal narrowing at the origin of the DARLENE secondary to calcified plaque. 2. No aneurysm, dissection or proximal branch occlusion identified. 3. Wall thickening of the rectum with perirectal stranding is suggestive of a nonspecific proctitis. Correlate clinically. This could also be evaluated with follow-up colonoscopy. 4. Multiple prominent and mildly dilated loops of small bowel with air-fluid levels and interloop christian ma is noted in addition to fluid filled cecum and ascending colon. No discrete transition point ident ified. Findings may reflect enteritis/diarrheal illness with ileus. Low-grade small bowel obstruction is considered less likely. Follow-up recommended. 5. No pneumatosis or pneumoperitoneum. 6. Trace abdominopelvic ascites. 7. Trace left and small right pleural effusions. 8. Additional findings as above. The above report was generated using voice recognition software. It may contain grammatical, syntax o r spelling errors. Electronically signed by: Florencio Villafana M.D. 02/16/2019 7:14 PM
[2019-02-16] MEDS ORDERED: ONDANSETRON INJ 2 MG/ML 2 ML VIAL IV STA (20:29)
[2019-02-16] MEDS ORDERED: MoRPHine SULFATE 4 MG/ML 1 ML CARP\\VIAL IV STA ×2 (20:29→21:35)
[2019-02-16 22:25] LABS: Appearance Urine Clear (Clear); Bacteria Urine Automated Negative (Negative); Bilirubin Urine Negative (Negative); Color Urine Dark Yellow; Epithelial Cell Urine Auto 0-5 /lpf (0-5); Glucose Urine UA Negative (Negative); Ketones Urine Negative (Negative); Leukocyte Esterase Urine 2+ (Negative); Nitrite Urine Positive (Negative); Protein Urine 1+ (Negative); Specific Gravity Urine > 1.045 (1.000-1.030); Urobilinogen Urine Negative (Negative); WBC Urine Automated >30 /hpf (0-5)
[2019-02-16] MEDS ORDERED: SOD PHOSPHATE/SOD BIPHOSPHATE ENEMA 132 ML BTL PR STA (22:31)
[2019-02-16] MEDS ORDERED: ACETAMINOPHEN 1,000 MG/100 ML VIAL IV STA (22:38)
--- NOTE | 2019-02-16 23:18 | History & Physical Report ---
Date of Service February 16, 2019 Assessment & Plan (1) Abdominal pain: 89 y/o M Hx HTN, HLD, CHF, chronic AF, DM II, LE edema, recent osteomyelitis and amputation of R 5th toe, history of ischemic colitis and SBO in 2010. the pt presents with lower quadrant abdominal pain and one episode of vomiting earlier in the day. He has been constipated and describes one small formed BM today. He took some Miralax with tea and promptly vomited. His abdomen has become gradually distended and his pain persisted although he denied additional nausea or vomiting. In the ER he received a dose of morphine which caused him to desaturate and he is requiring 2L 02 on admission. Initial labs are unremarkable. An abdominal CTA was obtained to his ischemic colitis history. This demonstrated constipation, proctitis and dilated loops of small bowel which may be consistent with ileus, enteritis or an early SBO. There is 60% luminal narrowing of the DARLENE although his lactic is negative and imaging does not support colitis. 1) Abdominal pain - ileus vs SBO or related to constipation and impaction. He did not respond to a fleet enema provided in the ER. He is placed on Reglan PRN, Miralax and we will provide a milk and molasses enema. If he develops nausea, vomiting or worsening of pain/distention we would place an NGT. Consider a GI consult if he does not begin to resolve overnight. IV acetaminophen was given from pain as we will try to avoid narcotics. 2) AF - cont dabigatran, digoxin 3) CHF - no echo on record - Bumex held and he is receiving IVF so that volume status bears monitoring 4) DM II - placed on a SS 5) HTN, HLD - cont Lisinopril, Pravastatin 6) Wound care for RLE 7) Asthma - no evidence of exacerbation - cont prescribed inhalers Full code - Pradaxa Total time for this admit including review of labs, meds, imaging, records - discussion with pt and ER attending - 40 min History of Present Illness Chief Complaint: Abdominal pain and nausea Primary Care Provider: Óscar Rodriguez DO 89 y/o M Hx HTN, HLD, CHF, chronic AF, DM II, LE edema, recent osteomyelitis and amputation of R 5th toe, history of ischemic colitis and SBO in 2010. the pt presents with lower quadrant abdominal pain and one episode of vomiting earlier in the day. He has been constipated and describes one small formed BM today. He took some Miralax with tea and promptly vomited. His abdomen has become gradually distended and his pain persisted although he denied additional nausea or vomiting. In the ER he received a dose of morphine which caused him to desaturate and he is requiring 2L 02 on admission. Initial labs are unremarkable. An abdominal CTA was obtained to his ischemic colitis history. This demonstrated constipation, proctitis and dilated loops of small bowel which may be consistent with ileus, enteritis or an early SBO. There is 60% luminal narrowing of the DARLENE although his lactic is negative and imaging does not support colitis. 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 He takes Bumex although he states that this is for LE edema. 4) Asthma 5) HTN 6) HLD 7) DM II 8) LBBB 9) SBO and ischemic colitis 2010 - medically managed Surgical: L 5th toe amputation Social: Smoke for a short period at age 21, does not drink alcohol Family: DM, CAD Allergies Allergy/AdvReac Type Severity Reaction Status Date / Time levofloxacin AdvReac Intermediate TENDONITIS Verified 02/16/19 17:27 Bactrim AdvReac Mild GI SYMPTOMS Verified 05/22/18 14:15 house dust AdvReac Mild Unknown Verified 02/16/19 17:27 sulfamethoxazole AdvReac Mild GI SYMPTOMS Verified 02/16/19 17:27 trimethoprim AdvReac Mild GI SYMPTOMS Verified 02/16/19 17:27 Home Medications Home Medications Medication Instructions Recorded Confirmed Type cholecalciferol (vitamin D3) 2,000 2,000 units PO QAM 05/28/18 02/16/19 History unit capsule ciclesonide HFA 160 mcg/actuation 1 puffs INH BID 05/28/18 02/16/19 History aerosol inhaler dabigatran etexilate 150 mg capsule 150 mg PO BID 05/28/18 02/16/19 History digoxin 125 mcg tablet 0.125 mg PO HS 05/28/18 02/16/19 History ipratropium bromide 17 2 puffs INH BID gm 05/28/18 02/16/19 History mcg/actuation HFA aerosol inhaler lisinopril 5 mg tablet 5 mg PO QAM 05/28/18 02/16/19 History metformin 500 mg tablet 500 mg PO BID 05/28/18 02/16/19 History multivitamin tablet 1 tab PO QAM 05/28/18 02/16/19 History pravastatin 20 mg tablet 20 mg PO HS 05/28/18 02/16/19 History levalbuterol tartrate 1 puff INHALATION DAILY PRN 11/19/18 02/16/19 History bumetanide 1 mg PO QAM 02/16/19 02/16/19 History jimdykrsz-wzfxrpye-vdx-hyalur 1 tab PO HS 02/16/19 02/16/19 History [Joint Health] Past Med/Surg History Medical History Cardiomyopathy EF 20-25%. Per cardiology likely 2/2 afib and LBBB. Euvolemic per 11/03/18 note. 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 HGA1C 6.1% 11/03/2018 History of skin cancer REMOVED Hearing deficit BL BARLOW Migraine Asthma (Chronic) PRN INH 1 X MO ON AVG Left bundle branch block Chronic venous insufficiency History of migraine headaches Atrial fibrillation PERMANENT. DX 20 YEARS AGO - ON PRADAXA - FOLLOWS W/ [facility] Surgical History S/P PICC central line placement CURRENTLY RECEIVING IV ABX PER DR. CAMPO FOR OSTEO History of colonoscopy History of cataract surgery History of tonsillectomy and adenoidectomy (Acute) Family History Mother Atrial fibrillation Myocardial infarction Father Diabetes Social History Preferred Language: [place] Communication Ability: Effective Beliefs That Will Affect Care: None marital status: Current Living Situation: Spouse Feels Safe at Home: Yes Smoking Status: Never smoker Second Hand Exposure: No Hx Alcohol Use: No Hx Substance Use: No Review of Systems Review of Systems: Gen: Denies fevers, night sweats, rigors, fatigue, malaise, weight loss/gain ENT: Denies congestion, throat pain, hearing loss Eyes: Denies acute visual changes CV: Denies CP, palpitations Pulmonary: Denies SOB, cough, wheezing GI: Nausea, vomiting, constipation and abdominal pain as above Neuro: Denies acute or unilateral weakness, acute gait impairment, headache or acute visual changes Musculoskeletal: Denies joint pain, inflammation - chronic LE edema Endocrine: Denies polydipsia, polyuria Skin: Denies acute rashes or ulcers - he is being treated at the wound clinic for the surgical wound of the toe Physical Exam Physical Exam: General: Average weight, elderly M, AAO x 3, no distress - hard of hearing ENT: No erythema or exudates, no thrush Eyes: FRANSICO, EOMI Head and neck: Normocephalic, atraumatic, No JVD, neck is supple. Chest/heart: Nontender, S1,2, irr, no murmurs, no gallops Lungs: CTAB, no wheezing or crackles Abdomen: Distended, diffusely tender abdomen. No guarding, BS hypoactive. There is seemingly a central hernia. Neuro: AAO x 3, speech is clear, no unilateral weakness or loss of sensation, coordination intact Musculoskeletal: No joint inflammation, muscle tenderness, FROM Skin: No acute rashes or ulcers Extremities: No clubbing, cyanosis - significant BL edema - R leg is splinted and bandaged. Results & Data Vital Signs (Past 12 Hours) Vital Signs Temp Pulse Pulse Resp BP BP Pulse Ox 02/16/19 21:02 99 H 18 109/84 97 02/16/19 20:31 104 H 18 112/89 02/16/19 20:30 103 H 17 02/16/19 20:22 112 H 18 130/74 02/16/19 20:01 101 H 20 126/85 94 02/16/19 20:00 99 H 19 94 02/16/19 19:31 116 H 20 126/88 93 02/16/19 19:30 117 H 20 94 02/16/19 19:08 89 18 145/83 H 95 02/16/19 19:01 145/92 H 95 02/16/19 19:00 96 02/16/19 18:30 109 H 22 90 02/16/19 18:00 101 H 20 94 02/16/19 17:40 93 H 20 96 02/16/19 17:36 102 H 20 123/93 97 02/16/19 17:35 92 H 94 02/16/19 17:30 101 H 20 123/93 94 02/16/19 16:51 97.9 F 79 16 135/84 98 Diagnostic Findings IMPRESSION: 1. Moderate mixed plaque formation of the abdominal aorta and branch vessels with approximately 60% luminal narrowing at the origin of the DARLENE secondary to calcified plaque. 2. No aneurysm, dissection or proximal branch occlusion identified. 3. Wall thickening of the rectum with perirectal stranding is suggestive of a nonspecific proctitis. Correlate clinically. This could also be evaluated with follow-up colonoscopy. 4. Multiple prominent and mildly dilated loops of small bowel with air-fluid levels and interloop edema is noted in addition to fluid filled cecum and ascending colon. No discrete transition point identified. Findings may reflect enteritis/diarrheal illness with ileus. Low-grade small bowel obstruction is considered less likely. Follow-up recommended. 5. No pneumatosis or pneumoperitoneum. 6. Trace abdominopelvic ascites. 7. Trace left and small right pleural effusions. 8. Additional findings as above. (1) Abdominal pain Abdominal location: unspecified location Qualified Code(s): R10.9 - Unspecified abdominal pain
--- NOTE | 2019-02-16 23:40 | Emergency Department Note ---
Entered by Clem Kramer acting as a scribe for Guerrero Ramirez DO History of Present Illness General Chief complaint: GI Assessment Stated complaint: BOWEL BLOCKAGE Source: patient History of Present Illness Onset (ago): hour(s) (2-3) Location: abdomen Pain Consistency: + constant Quality: + other (lower abdominal pain) Relieved By: + none Associated symptoms: + nausea/vomiting The patient is an 89 year old male who presents to the Emergency Room with complaints of constant lower abdominal pain beginning 2-3 hours ago. The patient reports that he vomited a couple of times, and his pain started after drinking MiraLAX this morning. He notes that he had a bowel movement a couple of hours ago but has been passing less gas. He states that he has not taken anything for pain. He denies a history of abdominal surgery and still has his appendix and gallbladder. He states that he is on Pradaxa for atrial fibrillation. The zach perez had ischemic colitis in 2010. Home Medications Home Medications Medication Instructions Recorded Confirmed Type cholecalciferol (vitamin D3) 2,000 2,000 units PO QAM 05/28/18 02/16/19 History unit capsule ciclesonide HFA 160 mcg/actuation 1 puffs INH BID 05/28/18 02/16/19 History aerosol inhaler dabigatran etexilate 150 mg capsule 150 mg PO BID 05/28/18 02/16/19 History digoxin 125 mcg tablet 0.125 mg PO HS 05/28/18 02/16/19 History ipratropium bromide 17 2 puffs INH BID gm 05/28/18 02/16/19 History mcg/actuation HFA aerosol inhaler lisinopril 5 mg tablet 5 mg PO QAM 05/28/18 02/16/19 History metformin 500 mg tablet 500 mg PO BID 05/28/18 02/16/19 History multivitamin tablet 1 tab PO QAM 05/28/18 02/16/19 History pravastatin 20 mg tablet 20 mg PO HS 05/28/18 02/16/19 History levalbuterol tartrate 1 puff INHALATION DAILY PRN 11/19/18 02/16/19 History bumetanide 1 mg PO QAM 02/16/19 02/16/19 History yauuxkxff-xrrikdqp-los-hyalur 1 tab PO HS 02/16/19 02/16/19 History [Joint Health] Allergies Allergy/AdvReac Type Severity Reaction Status Date / Time levofloxacin AdvReac Intermediate TENDONITIS Verified 02/16/19 17:27 Bactrim AdvReac Mild GI SYMPTOMS Verified 05/22/18 14:15 house dust AdvReac Mild Unknown Verified 02/16/19 17:27 sulfamethoxazole AdvReac Mild GI SYMPTOMS Verified 02/16/19 17:27 trimethoprim AdvReac Mild GI SYMPTOMS Verified 02/16/19 17:27 Past Med/Surg History Medical History Cardiomyopathy EF 20-25%. Per cardiology likely 2/2 afib and LBBB. Euvolemic per 11/03/18 note. 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 HGA1C 6.1% 11/03/2018 History of skin cancer REMOVED Hearing deficit BL [place] Migraine Asthma (Chronic) PRN INH 1 X MO ON AVG Left bundle branch block Chronic venous insufficiency History of migraine headaches Atrial fibrillation PERMANENT. DX 20 YEARS AGO - ON PRADAXA - FOLLOWS W/ [facility] Surgical History S/P PICC central line placement CURRENTLY RECEIVING IV ABX PER DR. CAMPO FOR OSTEO History of colonoscopy History of cataract surgery History of tonsillectomy and adenoidectomy (Acute) Family History Mother Atrial fibrillation Myocardial infarction Father Diabetes Social History Preferred Language: Cymraes Communication Ability: Effective Beliefs That Will Affect Care: None marital status: Current Living Situation: Spouse Feels Safe at Home: Yes Smoking Status: Never smoker Second Hand Exposure: No Hx Alcohol Use: No Hx Substance Use: No Review of Systems See HPI for pertinent positives & negatives. and A total of 10 systems reviewed and were otherwise negative Physical Exam Vital Signs Vital Signs - 24 hr 02/16/19 16:51 02/16/19 17:30 02/16/19 17:35 Temperature 36.6 C Temperature Source Oral Sepsis Recent Fever Within 48 Hours No Sepsis New/Unexplained Change in Mental Status No Sepsis Action Taken by Nursing No Action Required Pulse Rate 79 101 H 92 H Pulse Rate [Apical] Pulse Rate from SpO2 Sensor 110 H Respiratory Rate 16 20 Respiratory Effort / Characteristics Non-Labored Respiratory Depth Normal Blood Pressure 135/84 123/93 Blood Pressure [Right Arm] Blood Pressure Mean 101 103 Blood Pressure Mean [Right Arm] Pulse Oximetry 98 94 94 Oxygen Delivery Method Room Air 02/16/19 17:36 02/16/19 17:40 02/16/19 18:00 Temperature Temperature Source Sepsis Recent Fever Within 48 Hours Sepsis New/Unexplained Change in Mental Status Sepsis Action Taken by Nursing Pulse Rate 93 H 101 H Pulse Rate [Apical] 102 H Pulse Rate from SpO2 Sensor 103 H 108 H Respiratory Rate 20 20 20 Respiratory Effort / Characteristics Non-Labored Spontaneous Respiratory Depth Normal Blood Pressure Blood Pressure [Right Arm] 123/93 Blood Pressure Mean Blood Pressure Mean [Right Arm] 103 Pulse Oximetry 97 96 94 Oxygen Delivery Method Room Air 02/16/19 18:30 02/16/19 19:00 02/16/19 19:01 Temperature Temperature Source Sepsis Recent Fever Within 48 Hours Sepsis New/Unexplained Change in Mental Status Sepsis Action Taken by Nursing Pulse Rate 109 H Pulse Rate [Apical] Pulse Rate from SpO2 Sensor 108 H 101 H 109 H Respiratory Rate 22 Respiratory Effort / Characteristics Respiratory Depth Blood Pressure 145/92 H Blood Pressure [Right Arm] Blood Pressure Mean 109 Blood Pressure Mean [Right Arm] Pulse Oximetry 90 96 95 Oxygen Delivery Method 02/16/19 19:08 02/16/19 19:30 02/16/19 19:31 Temperature Temperature Source Sepsis Recent Fever Within 48 Hours Sepsis New/Unexplained Change in Mental Status Sepsis Action Taken by Nursing Pulse Rate 117 H 116 H Pulse Rate [Apical] 89 Pulse Rate from SpO2 Sensor 110 H 107 H Respiratory Rate 18 20 20 Respiratory Effort / Characteristics Respiratory Depth Blood Pressure 126/88 Blood Pressure [Right Arm] 145/83 H Blood Pressure Mean 100 Blood Pressure Mean [Right Arm] 103 Pulse Oximetry 95 94 93 Oxygen Delivery Method Room Air 02/16/19 20:00 02/16/19 20:01 02/16/19 20:22 Temperature Temperature Source Sepsis Recent Fever Within 48 Hours Sepsis New/Unexplained Change in Mental Status Sepsis Action Taken by Nursing Pulse Rate 99 H 101 H 112 H Pulse Rate [Apical] Pulse Rate from SpO2 Sensor 104 H 104 H Respiratory Rate 19 20 18 Respiratory Effort / Characteristics Respiratory Depth Blood Pressure 126/85 130/74 Blood Pressure [Right Arm] Blood Pressure Mean 98 92 Blood Pressure Mean [Right Arm] Pulse Oximetry 94 94 Oxygen Delivery Method 02/16/19 20:30 02/16/19 20:31 02/16/19 21:02 Temperature Temperature Source Sepsis Recent Fever Within 48 Hours Sepsis New/Unexplained Change in Mental Status Sepsis Action Taken by Nursing Pulse Rate 103 H 104 H Pulse Rate [Apical] 99 H Pulse Rate from SpO2 Sensor Respiratory Rate 17 18 18 Respiratory Effort / Characteristics Respiratory Depth Normal Blood Pressure 112/89 Blood Pressure [Right Arm] 109/84 Blood Pressure Mean 96 Blood Pressure Mean [Right Arm] 92 Pulse Oximetry 97 Oxygen Delivery Method Room Air GENERAL: alert, sitting up in bed, well appearing, well nourished, no distress, non-toxic EYE EXAM: normal conjunctiva OROPHARYNX: no exudate, no erythema, lips, buccal mucosa, and tongue normal and mucous membranes are moist NECK: supple, no nuchal rigidity, no adenopathy, non-tender LUNGS: Clear to auscultation. Normal chest wall mechanics HEART: no murmurs, S1 normal and S2 normal ABDOMEN: abdomen soft, minimal diffuse tenderness, normo-active bowel sounds, no masses, no rebound or guarding. BACK: Back is symmetrical on inspection and there is no deformity, no midline tenderness, no CVA tenderness. SKIN: no rashes and no bruising UPPER EXTREMITIES: upper extremities are grossly normal. LOWER EXTREMITIES: No pitting edema. NEURO EXAM: Normal sensorium, cranial nerves II-XII grossly intact, normal speech, no gross weakness of arms, no gross weakness of legs. Gross sensation intact. Course ED COURSE: Vital signs were reviewed and showed tachycardia The patients medical record was reviewed The above diagnostic studies were performed and reviewed. ED treatments and interventions as stated above. 1704: The patient was evaluated in room A12B. A complete history and physical examination was performed. 2015: I updated the patient on current results. 2029: I consulted Dr. Desean MAY, who recommends hospitalization. 2054: Dr. Lindsey [facility] Hospitalist was notified of the patient. He will be reevaluated for hospitalization. Based on the patients age, coexisting illnesses, exam and lab findings the decision to treat as an inpatient was made. The patient remained stable while under my care. The patient will be evaluated for further management. Administered Medications Ioversol (Optiray 320 125ml) 116 ml IV ONCE PRN PRN Reason: Interaction Checking Stop: 02/20/19 18:49 Last Admin: 02/16/19 18:50 Dose: 116 ml Documented by: [id number] Discontinued Medications Morphine Sulfate (Morphine Sulfate) 3 mg IV NOW STA Stop: 02/16/19 20:30 Last Admin: 02/16/19 20:47 Dose: 3 mg Documented by: [id number] Morphine Sulfate (Morphine Sulfate) 4 mg IV NOW STA Stop: 02/16/19 21:36 Last Admin: 02/16/19 21:41 Dose: 4 mg Documented by: [id number] Ondansetron HCl (Zofran) 4 mg IV NOW STA Stop: 02/16/19 20:30 Last Admin: 02/16/19 20:47 Dose: 4 mg Documented by: [id number] Sodium Biphosphate/Sodium Phosphate (Fleet Enema) 132 ml SC NOW STA Stop: 02/16/19 22:32 Last Admin: 02/16/19 23:06 Dose: 132 ml Documented by: [id number] Medical Decision Making Differential Diagnosis Differential diagnoses includes but is not limited to gastritis, peptic ulcer disease, GERD, gallbladder disease, pancreatitis, small bowel obstruction, acute coronary syndrome, pericarditis, ischemic bowel, irritable bowel disease, irritable bowel syndrome, appendicitis, diverticulitis, malignancy, hernia, urinary tract infection, torsion, perforation, trauma, infectious. Medical Records Attestation: I reviewed the patient's medical records. Home Medications Current Medication List: was personally reviewed by me Laboratory Data Attestation: I reviewed the patient's lab results. Result diagrams: 02/16/19 17:31 02/16/19 17:35 Lab Results 02/16/19 02/16/19 02/16/19 Range/Units 17:31 17:35 20:23 WBC 5.51 (4.8-10.8) K/uL RBC 4.08 L (4.7-6.1) M/uL Hgb 12.9 L (14.0-18.0) g/dL Hct 38.2 L (42-52) % MCV 93.6 (80-100) fL MCH 31.6 (25-34) pg MCHC 33.8 (32-36) g/dL RDW Std Deviation 46.4 H (36.4-46.3) fL RDW Coeff of Chad 13.5 (11.5-14.5) % Plt Count 139 (130-400) K/uL MPV 10.7 H (7.4-10.4) fL Immature Gran % (Auto) 0.2 % Neut % (Auto) 78.4 % Lymph % (Auto) 11.8 % Miller % (Auto) 8.9 % Eos % (Auto) 0.5 % Baso % (Auto) 0.2 % Immature Gran # (Auto) 0.01 (0.00-0.02) K/uL Neut # (Auto) 4.32 (1.4-6.5) K/uL Lymph # (Auto) 0.65 L (1.2-3.4) K/uL Miller # (Auto) 0.49 (0.11-0.59) K/uL Eos # (Auto) 0.03 (0-0.5) K/uL Baso # (Auto) 0.01 (0-0.2) K/uL Sodium 136 (136-145) mmol/L Potassium 4.4 (3.5-5.1) mmol/L Chloride 99 (98-107) mmol/L Carbon Dioxide 30 (21-32) mmol/L Anion Gap 7.0 (3-11) BUN 31 H (7-18) mg/dl Creatinine 1.23 (0.6-1.4) mg/dl Est Cr Clr Drug Dosing Not Reportable Est GFR ( Amer) 60.4 Est GFR (Non-Af Amer) 52.1 BUN/Creatinine Ratio 24.9 H (10-20) Glucose 114 H (70-99) mg/dl POC Lactic Acid Laci (0.90-1.70) mmol/L Calcium 9.4 (8.5-10.1) mg/dl Total Bilirubin 0.9 (0.2-1) mg/dl AST 29 (15-37) U/L ALT 23 (12-78) U/L Alkaline Phosphatase 88 (45-117) U/L Total Protein 7.3 (6.4-8.2) gm/dl Albumin 3.8 (3.4-5.0) gm/dl Globulin 3.5 (2.5-4.0) gm/dl Albumin/Globulin Ratio 1.1 (0.9-2) Lipase 140 (73-393) U/L Urine Color Dark Yellow Urine Appearance Clear (Clear) Urine pH 5.0 (4.5-7.5) Ur Specific [place] > 1.045 H (1.000-1.030) Urine Protein 1+ H (Negative) Urine Glucose (UA) Negative (Negative) Urine Ketones Negative (Negative) Urine Blood Trace H (Negative) Urine Nitrite Positive A (Negative) Urine Bilirubin Negative (Negative) Urine Urobilinogen Negative (Negative) Ur Leukocyte Esterase 2+ H (Negative) Urine WBC (Auto) >30 H (0-5) /hpf Urine RBC (Auto) 5-10 H (0-4) /hpf U Hyaline Cast (Auto) 10-30 H (0-5) /lpf U Epithel Cells (Auto) 0-5 (0-5) /lpf Urine Bacteria (Auto) Negative (Negative) 02/16/19 Range/Units 21:02 WBC (4.8-10.8) K/uL RBC (4.7-6.1) M/uL Hgb (14.0-18.0) g/dL Hct (42-52) % MCV (80-100) fL MCH (25-34) pg MCHC (32-36) g/dL RDW Std Deviation (36.4-46.3) fL RDW Coeff of Chad (11.5-14.5) % Plt Count (130-400) K/uL MPV (7.4-10.4) fL Immature Gran % (Auto) % Neut % (Auto) % Lymph % (Auto) % Miller % (Auto) % Eos % (Auto) % Baso % (Auto) % Immature Gran # (Auto) (0.00-0.02) K/uL Neut # (Auto) (1.4-6.5) K/uL Lymph # (Auto) (1.2-3.4) K/uL Miller # (Auto) (0.11-0.59) K/uL Eos # (Auto) (0-0.5) K/uL Baso # (Auto) (0-0.2) K/uL Sodium (136-145) mmol/L Potassium (3.5-5.1) mmol/L Chloride (98-107) mmol/L Carbon Dioxide (21-32) mmol/L Anion Gap (3-11) BUN (7-18) mg/dl Creatinine (0.6-1.4) mg/dl Est Cr Clr Drug Dosing Est GFR ( Amer) Est GFR (Non-Af Amer) BUN/Creatinine Ratio (10-20) Glucose (70-99) mg/dl POC Lactic Acid Laci 1.15 (0.90-1.70) mmol/L Calcium (8.5-10.1) mg/dl Total Bilirubin (0.2-1) mg/dl AST (15-37) U/L ALT (12-78) U/L Alkaline Phosphatase (45-117) U/L Total Protein (6.4-8.2) gm/dl Albumin (3.4-5.0) gm/dl Globulin (2.5-4.0) gm/dl Albumin/Globulin Ratio (0.9-2) Lipase (73-393) U/L Urine Color Urine Appearance (Clear) Urine pH (4.5-7.5) Ur Specific [place] (1.000-1.030) Urine Protein (Negative) Urine Glucose (UA) (Negative) Urine Ketones (Negative) Urine Blood (Negative) Urine Nitrite (Negative) Urine Bilirubin (Negative) Urine Urobilinogen (Negative) Ur Leukocyte Esterase (Negative) Urine WBC (Auto) (0-5) /hpf Urine RBC (Auto) (0-4) /hpf U Hyaline Cast (Auto) (0-5) /lpf U Epithel Cells (Auto) (0-5) /lpf Urine Bacteria (Auto) (Negative) Imaging Data Radiologist's Impression: Radiology results as stated below per my review and the radiologist's interpretation: CT angio abdomen pelvis w con CLINICAL HISTORY: 89 years-old Male with diffuse abd pain previous ischemic colitis acute generalized abdominal pain COMPARISON STUDY: CT abdomen and pelvis 10/17/2010 TECHNIQUE: Following the IV administration of 116 cc of Optiray 320, CT angiogram of the abdomen and pelvis was performed from the lung bases the proximal femora. Images are reviewed in the axial, sagittal, and coronal planes. 3-D MIPS images are created and assessed. IV contrast was administered without complication. A dose lowering technique was utilized adhering to the principles of ALARA. All measurements were obtained according to NASCET criteria CT DOSE: 715.29 mGycm FINDINGS: CTA: Marked multichamber cardiac enlargement with small pericardial effusion. Moderate mixed plaque formation of the tortuous abdominal aorta without aneurysm or dissection. Mixed plaque formation at the origin of the celiac trunk without high-grade stenosis. Less than 50% luminal narrowing at the origin of the SMA. Mixed plaque formation of the bilateral renal arteries which also causes less than 50% luminal narrowing. There is approximately 60% luminal narrowing at the origin of the DARLENE secondary to calcified plaque. The bilateral iliac and common femoral arteries are widely patent. CT ABDOMEN/PELVIS: Trace left and small right pleural effusions with bibasilar opacities suggestive of atelectasis. No pneumatosis or pneumoperitoneum. Liver, spleen and adrenal glands appear unremarkable. Mild thickening of the left adrenal gland. Moderate parenchymal atrophy of the pancreas. There are multiple lobular cystic lesions again seen scattered throughout the pancreas measuring up to 2.0 cm, previously measuring up to 1.5 cm on study from 2010. 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 No pancreatic or biliary ductal dilation. Mild gallbladder distention with layering hyperdense material within the gallbladder lumen suggestive of cholelithiasis or vicarious excretion of contrast. No CT evidence of acute cholecystitis. Multiple left renal cysts are noted measuring up to 6.6 cm. No renal or ureteral calculi or obstructive uropathy. Moderate nonspecific bilateral perinephric stranding. Moderate bladder wall thickening with partial distention. No adenopathy by CT size criteria. Small hiatal hernia. Multiple fluid-filled prominent mildly dilated loops of small bowel measure up to 3.0 cm transversely with air-fluid levels. No discrete transition point identified. Trace abdominopelvic ascites. Circumferential wall thickening of the rectum with perirectal stranding. Colonic diverticulosis without definitive evidence of acute diverticulitis. Moderate volume of formed stool throughout the colon. Liquid stool about the cecum and ascending colon. The appendix is not definitively seen. Mild generalized body wall edema. Degenerative changes of the spine, pelvis and hips. IMPRESSION: 1. Moderate mixed plaque formation of the abdominal aorta and branch vessels with approximately 60% luminal narrowing at the origin of the DARLENE secondary to calcified plaque. 2. No aneurysm, dissection or proximal branch occlusion identified. 3. Wall thickening of the rectum with perirectal stranding is suggestive of a nonspecific proctitis. Correlate clinically. This could also be evaluated with follow-up colonoscopy. 4. Multiple prominent and mildly dilated loops of small bowel with air-fluid levels and interloop edema is noted in addition to fluid filled cecum and ascending colon. No discrete transition point identified. Findings may reflect enteritis/diarrheal illness with ileus. Low-grade small bowel obstruction is considered less likely. Follow-up recommended. 5. No pneumatosis or pneumoperitoneum. 6. Trace abdominopelvic ascites. 7. Trace left and small right pleural effusions. 8. Additional findings as above. The above report was generated using voice recognition software. It may contain grammatical, syntax or spelling errors. Electronically signed by: Florencio Villafana M.D. 02/16/2019 7:14 PM ECG Data Attestation: I personally reviewed and interpreted this ECG as follows: Indication: tachycardia Rate (beats per minute): 106 Rhythm: atrial fibrillation (with RVR) Findings: + PVC and + left axis deviation Blood Pressure Blood Pressure Findings: Normal blood pressure Blood Pressure Disposition: did not require urgent referral MDM Narrative Patient is an 81-year-old male who presents the ER with lower abdominal pain. Upon review of his chart back in 2010 he had ischemic colitis with small bowel obstruction. No previous abdominal surgeries. Vitals show mild tachycardia EKG confirms A. fib with RVR in the low 100s/high 90s. He does take dabigatran. Labs show no significant leukocytosis or anemia. BMP along with LFTs bilirubin and lipase is unremarkable. UA eventually resulted following admission and did show a UTI. Patient was given IV fluids and IV narcotics while in the ER. He was then treated for UTI as this resulted after admission. CT abdomen pelvis s howed ileus versus early SBO versus enteritis. Discussed with general surgery and they recommended observation. Updated hospitalist as well as patient's and the patient's family. Patient will be observed overnight. Impression & Plan Abdominal pain Discharge Plan Visit Data Chief Complaint: GI Assessment Stated Complaint: BOWEL BLOCKAGE ED Provider: Guerrero Ramirez Discharge Problem: Abdominal pain Patient Disposition: Being Evaluated by Hospitalist Forms Stand Alone Forms: My [facility] Prescriptions Prescriptions: No Action cholecalciferol (vitamin D3) 2,000 unit capsule 2,000 units PO QAM RF: 0 ciclesonide 160 mcg/actuation HFA aerosol inhaler 1 puffs INH BID RF: 0 dabigatran etexilate [Pradaxa] 150 mg capsule 150 mg PO BID RF: 0 digoxin 125 mcg tablet 0.125 mg PO HS RF: 0 ipratropium bromide [Atrovent HFA] 17 mcg/actuation HFA aerosol inhaler 2 puffs INH BID RF: 0 lisinopril [Zestril] 5 mg tablet 5 mg PO QAM RF: 0 metformin 500 mg tablet 500 mg PO BID RF: 0 multivitamin [Multiple Vitamins] tablet 1 tab PO QAM RF: 0 pravastatin 20 mg tablet 20 mg PO HS RF: 0 bumetanide 1 mg tablet 1 mg PO QAM RF: 0 [facility] 40-10-5-3.3 mg Tablet 1 tab PO HS RF: 0 levalbuterol tartrate 45 mcg/actuation Hfa Aerosol Inhaler 1 puff INHALATION DAILY PRN (Reason: Shortness Of Breath Or Wheezing) RF: 0 Referrals Referrals: Óscar Rodriguez, [Primary Care Provider] - Discharge Problem: Abdominal pain Qualifiers: Abdominal location: unspecified location Qualified Code(s): R10.9 - Unspecified abdominal pain The scribe's documentation has been prepared under my direction and personally reviewed by me in its entirety. I confirm that the note above accurately reflects all work, treatment, procedures, and medical decision making performed by me.
[2019-02-17] MEDS ORDERED: HYDROmorphone INJ 0.5 MG/0.5 ML SYR IV PRN (04:51)
[2019-02-17] MEDS ORDERED: POLYETHYLENE (MIRALAX) 17 GM PACK PO PRN (04:51)
[2019-02-17] MEDS ORDERED: METOCLOPRAMIDE HCL INJ 5 MG/ML 2 ML VIAL IV PRN (04:51)
[2019-02-17] MEDS ORDERED: LEVALBUTEROL TARTRATE 15 GM HFA.AER.AD INH PRN (04:51)
[2019-02-17] MEDS ORDERED: LACTATED RINGER'S 1,000 ML IV SCH (04:51)
[2019-02-17] MEDS ORDERED: GLUCAGON FOR INJ 1 MG VIAL IM PRN (06:15)
[2019-02-17] MEDS ORDERED: CARBOHYDRATES FOR HYPOGLYCEMIA PO PRN (06:15)
[2019-02-17] MEDS ORDERED: DEXTROSE 50% 50 ML SYRINGE IV PRN (06:15)
[2019-02-17] MEDS ORDERED: GLUCOSE 40% GEL 15 GM TUBE PO PRN (06:15)
[2019-02-17] MEDS ORDERED: GLUCOSE 10 TABS/TUBE PO PRN (06:15)
[2019-02-17] MEDS: INSULIN ASPART 100 UNITS/ML 3 ML PEN SC SCH ×3 (06:31→18:11)
[2019-02-17] MEDS: LISINOPRIL 5 MG TAB PO SCH (07:50)
[2019-02-17] MEDS: DABIGATRAN ETEXILATE 75 MG CAP PO SCH ×2 (07:50→20:21)
[2019-02-17] MEDS: IPRATROPIUM BROMIDE HFA INHALER INH SCH ×2 (07:51→20:20)
[2019-02-17] MEDS ORDERED: PIPERACILL/TAZOBAC CONSULT ACTIVE PRN (08:42)
[2019-02-17] MEDS ORDERED: PIPERACILLIN/TAZOBACTAM 3.375 GM in DEXTROSE 5% 100 ML IV ONE (09:15)
--- NOTE | 2019-02-17 10:50 | Gastrointestinal Consultation ---
Date of Consultation February 17, 2019 Assessment & Plan (1) Abdominal pain: CT indicated 60% luminal narrowing at the origin of the DARLENE, wall thickening of the rectum, constipation, and dilated loops of small bowel. The patient's abdominal pain had resolved at the time of my visit. -Per radiology, follow-up on scan is recommended. Would obtain abdominal xray. Based on these results and clinical improvement, would determine need for repeating CT scan. -Would recommend patient be on a daily bowel regimen at home. He should continue Miralax 17 gm daily and encourage adequate hydration. Okay to utilize Colace 100 mg BID if needed as well. -Proctitis is likely related to constipation. At present, would not plan for further endoscopic evaluation, particularly if patient continues to improve, as his last 2 colonoscopies were aborted due to failure to pass the scope due to adhesions. -Further recommendations forthcoming pending clinical improvement. -Supportive care per primary team. Thank you for allowing us to participate in the care of this patient. If you should have any further questions or concerns, do not hesitate to contact us at [phone] or [phone]. Present on Admission?: Yes (2) Constipation: See abdominal pain Present on Admission?: Yes Supervising Physician Co-Signing Physician Notes Agree with WILBERTO Byrnes as above Patient feeling much better this afternoon. He has had multiple BM's, has no abdominal pain, and is tolerating clear liquids Abd: Soft, NT, ND, +BS Recommend Colace 100 mg by mouth each evening at bedtime Recommend Miralax 17 g daily in 8 oz glass of water Continue supportive care Advance diet tomorrow as tolerated if abdominal x-ray is normal in AM History of Present Illness Reason for Consultation: Abnormal CT; proctitis Attending Physician: Delisa Perla MD History of Present Illness Patient is an 89 yo male with a PMH of HTN, HLD, CHF, Afib, DM2, LE edema, osteomyelitis with amputation, and ischemic colitis who presented to the ER with LLQ abdominal pain and vomiting. He reports he has been constipated at home and has not been responding well to Miralax. He reports that he has been using Miralax as needed. He does not take it daily because he reports he doesn't want to drink more water because it will make him urinate more. He also takes diuretics. He reports that after taking Miralax at home without improvement of his abdominal pain, he presented to the ED. In the ER his O2 sats dropped after administration of morphine. His labs include an H/H of 12.9/38.2. He had an abdominal CTA given he has a history of ischemic colitis. The CTA indicated constipation, proctitis, and dilated loops of small bowel questionable for an i leus, enteritis or developing SBO. The scan also indicated 60% luminal narrowing of the DARLENE. The patient denies rectal bleeding. He describes his abdominal pain as generalized. He had 2 colonoscopies in 2010 after an episode of ischemic colitis, however both were incomplete evaluations as significant adhesions prohibited passage of the endoscope throughout the colon. Since admission, the patient reports improvement of his symptoms. He is moving his bowels after administration of an enema in the ED, Miralax, and another enema upon admission. He denies further concerns at present. He denies family history of GI malignancy. Allergies Allergy/AdvReac Type Severity Reaction Status Date / Time levofloxacin AdvReac Intermediate TENDONITIS Verified 02/16/19 17:27 Bactrim AdvReac Mild GI SYMPTOMS Verified 05/22/18 14:15 house dust AdvReac Mild Unknown Verified 02/16/19 17:27 sulfamethoxazole AdvReac Mild GI SYMPTOMS Verified 02/16/19 17:27 trimethoprim AdvReac Mild GI SYMPTOMS Verified 02/16/19 17:27 Home Medications Home Medications Medication Instructions Recorded Confirmed Type cholecalciferol (vitamin D3) 2,000 2,000 units PO QAM 05/28/18 02/16/19 History unit capsule ciclesonide HFA 160 mcg/actuation 1 puffs INH BID 05/28/18 02/16/19 History aerosol inhaler dabigatran etexilate 150 mg capsule 150 mg PO BID 05/28/18 02/16/19 History digoxin 125 mcg tablet 0.125 mg PO HS 05/28/18 02/16/19 History ipratropium bromide 17 2 puffs INH BID gm 05/28/18 02/16/19 History mcg/actuation HFA aerosol inhaler lisinopril 5 mg tablet 5 mg PO QAM 05/28/18 02/16/19 History metformin 500 mg tablet 500 mg PO BID 05/28/18 02/16/19 History multivitamin tablet 1 tab PO QAM 05/28/18 02/16/19 History pravastatin 20 mg tablet 20 mg PO HS 05/28/18 02/16/19 History levalbuterol tartrate 1 puff INHALATION DAILY PRN 11/19/18 02/16/19 History bumetanide 1 mg PO QAM 02/16/19 02/16/19 History hkgiacvoe-uohlrver-gle-hyalur 1 tab PO HS 02/16/19 02/16/19 History [Joint Health] Patient History Medical History Cardiomyopathy EF 20-25%. Per cardiology likely 2/ afib and LBBB. Euvolemic per 11/03/18 note. 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 HGA1C 6.1% 11/03/2018 History of skin cancer REMOVED Hearing deficit BL [place] Migraine Asthma (Chronic) PRN INH 1 X MO ON AVG Left bundle branch block Chronic venous insufficiency History of migraine headaches Atrial fibrillation PERMANENT. DX 20 YEARS AGO - ON PRADAXA - FOLLOWS W/ [facility] Surgical History S/P PICC central line placement CURRENTLY RECEIVING IV ABX PER DR. 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 Beliefs That Will Affect Care: None marital status: Current Living Situation: Spouse Feels Safe at Home: Yes Safety Concerns: Feels Safe At This Time Smoking Status: Former smoker Second Hand Exposure: No Hx Alcohol Use: No Hx Substance Use: No Review of Systems Constitutional: no fever, no chills and no fatigue Eyes: no acute complaints Ear, Nose, Mouth, Throat: hard of hearing Respiratory: no cough and no dyspnea Cardiovascular: no chest pain Gastrointestinal: no abdominal pain, no constipation and no blood in stools patient reports resolved abdominal pain and constipation Musculoskeletal: no acute complaints Integumentary: no new complaints Psychiatric: no acute complaints Endocrine: no fatigue Hematologic / Lymphatic: no easy bleeding Physical Exam Constitutional: WD/WN, vitals as above Eyes: PERRL, conjunctivae normal, anicteric sclerae ENMT: Hard of hearing Neck: normal visual inspection Respiratory: normal respiratory effort Cardiovascular: irregularly irregular Gastrointestinal (Abdomen): normal bowel sounds, soft, nontender, no hepatosplenomegaly Musculoskeletal: no cyanosis or clubbing, extremities motor strength 5/5 Skin: no rashes Neurologic: Speech / Cognition: normal speech Psychiatric: A+Ox3, euthymic affect Results & Data Vital Signs (Past 12 Hours) Vital Signs Temp Pulse Pulse Pulse Resp BP BP 02/17/19 07:19 36.4 C L 82 16 92/55 L 02/17/19 04:10 36.6 C 76 20 02/17/19 00:49 36.6 C 88 16 02/17/19 00:00 88 02/16/19 23:36 99 H 113/79 BP Pulse Ox 02/17/19 07:19 92 02/17/19 04:10 119/71 95 02/17/19 00:49 132/86 96 02/17/19 00:00 02/16/19 23:36 96 (1) Abdominal pain Abdominal location: unspecified location Qualified Code(s): R10.9 - Unspecified abdominal pain
[2019-02-17] MEDS: PIPERACILLIN/TAZOBACTAM 3.375 GM in DEXTROSE 5% 100 ML IV SCH ×2 (13:21→22:02)
--- NOTE | 2019-02-17 15:18 | XRay Report ---
XR abdomen 2V w PA chest CLINICAL HISTORY: abnormal CT abdomen COMPARISON STUDY: CT abdomen pelvis 02/16/2019 FINDINGS: Mildly improved bowel pattern. Small bowel distention is diminished. Colonic bowel pattern is unremarkable. No evidence for pneumatosis or free air. IMPRESSION: Mildly improved exam with evidence for mild/moderate residual small bowel ileus. The above report was generated using voice recognition software. It may contain grammatical, syntax or spelling errors. Electronically signed by: Franco Sun M.D. 02/17/2019 3:17 PM
--- NOTE | 2019-02-17 15:56 | Hospitalist Progress Note ---
Date of Service February 17, 2019 Assessment & Plan (1) Abdominal pain: This patient is an 89 y/o M Hx HTN, HLD, CHF, chronic AF, DM II, LE edema, recent osteomyelitis and amputation of R 5th toe, history of ischemic colitis and SBO in 2010. the pt presents with lower quadrant abdominal pain and one episode of vomiting earlier in the day. He has been constipated and describes one small formed BM on the day of admission. He took some Miralax with tea and promptly vomited. His abdomen has become gradually distended and his pain persisted although he denied additional nausea or vomiting. In the ER he received a dose of morphine which caused him to desaturate and he is requiring 2L 02 on admission. Initial labs are unremarkable. An abdominal CTA was obtained to his ischemic colitis history. This demonstrated constipation, proctitis and dilated loops of small bowel which may be consistent with ileus, enteritis or an early SBO. There is 60% luminal narrowing of the DARLENE although his lactic is negative and imaging does not support colitis. 1) Abdominal pain - ileus vs partial SBO or related to constipation and impaction. Proctitis likely secondary to constipation as per GI. He is now moving his bowels and abdominal pain is improved after enemas. He is likely having encopresis with liquid stools coming around constipation as he reports 3 loose bowel movements daily at home. 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 Urine culture showing Staphylococcus species -Started Zosyn initially considering history of Pseudomonas as well Prophylaxis-Pradaxa Disposition-could likely discharge home tomorrow if tolerating diet and urine culture results back Full code - Pradaxa Subjective Patient feeling much better, pain is gone, he is moved his bowels several times today at first it was liquid and then more formed. No more nausea or vomiting. He is wanting to try clear liquids. He does note that his urine has smelled very foul for the last 2 months. No hematuria. Review of Systems Review of Systems: All systems reviewed & are unremarkable except as noted in HPI & below Physical Exam Constitutional: WD/WN, vitals as above Eyes: PERRL, conjunctivae normal, anicteric sclerae ENMT: external ear and nose normal, oropharynx normal Neck: trachea midline, no thyromegaly Respiratory: normal respiratory effort, lungs clear to auscultation Cardiovascular: RRR, no murmur, no edema Gastrointestinal (Abdomen): normal bowel sounds, soft, nontender, no hepatosplenomegaly Musculoskeletal: Extremities: + extremities abnormal to inspection (Right leg in a walking boot), no cyanosis and no clubbing Skin: no rashes, warm and dry Neurologic: moves all extremities and awake; no focal motor deficits Psychiatric: A+Ox3, euthymic affect Genitourinary: no penis abnormality (Uncircumcised, no balanitis under the foreskin) and no scrotum abnormality Results & Data Vital Signs (Past 12 Hours) Vital Signs Temp Pulse Pulse Resp BP BP Pulse Ox 02/17/19 11:21 36.3 C L 100 H 16 99/57 L 97 02/17/19 07:19 36.4 C L 82 16 92/55 L 92 02/17/19 04:10 36.6 C 76 20 119/71 95 Laboratory Results Labs reviewed, fairly acceptable, creatinine 1.23 (1) Abdominal pain Abdominal location: unspecified location Qualified Code(s): R10.9 - Unspecified abdominal pain
[2019-02-17] MEDS: DOCUSATE SODIUM 100 MG CAP PO SCH (20:20)
[2019-02-17] MEDS ORDERED: PRAVASTATIN SOD 20 MG TAB PO SCH (21:00)
[2019-02-17] MEDS ORDERED: DIGOXIN 0.125 MG TAB PO SCH (21:00)
[2019-02-18] MEDS: INSULIN ASPART 100 UNITS/ML 3 ML PEN SC SCH ×3 (01:40→11:32)
[2019-02-18] MEDS: PIPERACILLIN/TAZOBACTAM 3.375 GM in DEXTROSE 5% 100 ML IV SCH (05:31)
[2019-02-18 06:36] LABS: Basophils # (auto) 0.02 K/uL (0-0.2); Basophils % (auto) 0.7 %; Eosinophils # (auto) 0.13 K/uL (0-0.5); Eosinophils % (auto) 4.6 %; Hemoglobin 11.4 g/dL (14.0-18.0); Lymphocytes # (auto) 0.36 K/uL (1.2-3.4); Lymphocytes % (auto) 12.7 %; Mean Corpuscular Hgb Conc 33.5 g/dL (32-36); Mean Corpuscular Volume 93.9 fL (80-100); Mean Platelet Volume 10.6 fL (7.4-10.4); Monocytes # (auto) 0.23 K/uL (0.11-0.59); Monocytes % (auto) 8.1 %; Neutrophils % (auto) 73.9 %; Platelet Count 119 K/uL (130-400); RDW Coefficient of Variation 13.8 % (11.5-14.5); RDW Standard Deviation 47.7 fL (36.4-46.3); Red Blood Count 3.62 M/uL (4.7-6.1); White Blood Count 2.84 K/uL (4.8-10.8)
[2019-02-18 07:15] LABS: Calcium 8.3 mg/dl (8.5-10.1); Est GFR (African American) 70.6; Magnesium 2.1 mg/dl (1.8-2.4); Potassium 3.9 mmol/L (3.5-5.1)
[2019-02-18] MEDS: IPRATROPIUM BROMIDE HFA INHALER INH SCH (08:30)
[2019-02-18] MEDS: LISINOPRIL 5 MG TAB PO SCH (08:30)
[2019-02-18] MEDS: DABIGATRAN ETEXILATE 75 MG CAP PO SCH (08:30)
[2019-02-18] MEDS: DOCUSATE SODIUM 100 MG CAP PO SCH (08:30)
[2019-02-18] MEDS ORDERED: POLYETHYLENE (MIRALAX) 17 GM PACK PO SCH (09:00)
--- NOTE | 2019-02-18 09:39 | Gastroenterology Progress Note ---
Date of Service February 18, 2019 Assessment & Plan (1) Abdominal pain: Patient is an 89 yo male with abdominal pain, constipation, & ileus on imaging. -Await results of AM xray -Continue Miralax once daily, Colace 100 mg 1-2 times daily -Ensure adequate hydration -Continue to advance diet as tolerated -Supportive care per primary team Thank you for allowing us to participate in the care of this patient. If you should have any further questions or concerns, do not hesitate to contact us at extension [phone] or [phone]. (2) Constipation: See abdominal pain Supervising Physician Co-Signing Physician Notes Agree with WILBERTO Byrnes as above Patient was discharged prior to my evaluation Subjective Patient is an 89 yo male with constipation/ileus. He reports resolution of abdominal pain. He is now moving his bowels. He ate toast for breakfast. He denies further issues at the present time. An abdominal xray from 02/18/2019 showed some improvement from the previous CT scan. Review of Systems Constitutional: no chills and no fatigue Eyes: no acute issues Respiratory: no cough Cardiovascular: no chest pain Gastrointestinal: no abdominal pain and no diarrhea/loose stools patient is having formed bowel movements Physical Exam Constitutional: WD/WN, vitals as above Respiratory: normal respiratory effort Cardiovascular: Rate/Rhythm: regular rate irregularly irregular Gastrointestinal (Abdomen): normal bowel sounds, soft, nontender, no hepatosplenomegaly Psychiatric: A+Ox3, euthymic affect Results & Data Vital Signs (Past 12 Hours) Vital Signs Temp Pulse Resp BP Pulse Ox 02/18/19 07:00 36.3 C L 62 18 102/62 95 02/18/19 04:00 36.5 C 82 20 106/64 92 02/17/19 23:00 36.4 C L 81 20 91/57 L 92 (1) Abdominal pain Abdominal location: unspecified location Qualified Code(s): R10.9 - Unspecified abdominal pain
[2019-02-18] MEDS ORDERED: IPRATROPIUM BROMIDE HFA INHALER INH SCH (10:00)
[2019-02-18] MEDS ORDERED: DOXYCYCLINE HYCLATE 100 MG CAP PO SCH (10:00)
--- NOTE | 2019-02-18 10:41 | XRay Report ---
XR abdomen min 2V CLINICAL HISTORY: 89 years-old Male presenting with ileus. TECHNIQUE: Single supine view of the abdomen was obtained. COMPARISON: 02/17/[address] from 02/16/2019. FINDINGS: Mild gaseous distension of small and large bowel. No convincing evidence of obstruction. No gross pne umoperitoneum. Allowing for bowel gas and stool, no calcifications to suggest nephrolithiasis. Atherosclerotic calci fication. Degenerative changes and scoliosis of the spine. Cardiac silhouette enlarged. Lungs may be mildly hyp erinflated. IMPRESSION: 1. Mild gaseous distention of bowel stable to slightly decreased from prior. No convincing evidence of obstruction. Electronically signed by: Raimundo Ward M.D. 02/18/2019 10:40 AM
[2019-02-18] MEDS: BUMETANIDE 1 MG TAB PO SCH ×2 (11:27→11:45)
--- NOTE | 2019-02-18 14:11 | Discharge Summary ---
Date of Service February 18, 2019 Admission HPI Per Admitting Provider 89 y/o M Hx HTN, HLD, CHF, chronic AF, DM II, LE edema, recent osteomyelitis and amputation of R 5th toe, history of ischemic colitis and SBO in 2010. the pt presents with lower quadrant abdominal pain and one episode of vomiting earlier in the day. He has been constipated and describes one small formed BM today. He took some Miralax with tea and promptly vomited. His abdomen has become gradually distended and his pain persisted although he denied additional nausea or vomiting. In the ER he received a dose of morphine which caused him to desaturate and he is requiring 2L 02 on admission. Initial labs are unr emarkable. An abdominal CTA was obtained to his ischemic colitis history. This demonstrated constipation, proctitis and dilated loops of small bowel which may be consistent with ileus, enteritis or an early SBO. There is 60% luminal narrowing of the DARLENE although his lactic is negative and imaging does not support colitis. 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 He takes Bumex although he states that this is for LE edema. 4) Asthma 5) HTN 6) HLD 7) DM II 8) LBBB 9) SBO and ischemic colitis 2010 - medically managed Surgical: L 5th toe amputation Social: Smoke for a short period at age 21, does not drink alcohol Family: DM, CAD Principal Diagnosis Partial small bowel obstruction, ileus, UTI Discharge Exam Constitutional WD/WN, vitals as above Eyes PERRL, conjunctivae normal, anicteric sclerae ENMT external ear and nose normal, oropharynx normal Neck trachea midline, no thyromegaly Respiratory normal respiratory effort, lungs clear to auscultation Cardiovascular Rate/Rhythm: regular rate; + abnormal rhythm (Irregularly irregular) Heart Sounds: + murmur (Holosystolic 2/6 murmur best heard at the apex) Extremities: + edema (Trace edema left leg, right leg and walking boot not removed) Gastrointestinal (Abdomen) normal bowel sounds, soft, nontender, no hepatosplenomegaly Musculoskeletal Extremities: + extremities abnormal to inspection (Right leg in a walking boot), no cyanosis and no clubbing Skin no rashes, warm and dry Neurologic moves all extremities and awake; no focal motor deficits Psychiatric A+Ox3, euthymic affect Discharge Data Allergies Allergy/AdvReac Type Severity Reaction Status Date / Time levofloxacin AdvReac Intermediate TENDONITIS Verified 02/16/19 17:27 Bactrim AdvReac Mild GI SYMPTOMS Verified 05/22/18 14:15 house dust AdvReac Mild Unknown Verified 02/16/19 17:27 sulfamethoxazole AdvReac Mild GI SYMPTOMS Verified 02/16/19 17:27 trimethoprim AdvReac Mild GI SYMPTOMS Verified 02/16/19 17:27 Consultations 02/16/19 20:59 ED Decision to Admit Stat 02/17/19 08:40 Consult Gastroenterology Routine Ordered Studies 02/16/19 17:11 CT angio abdomen pelvis w con Stat Abdominal x-ray x2 Hospital Course (1) Abdominal pain: This patient is an 89 y/o M Hx HTN, HLD, CHF, chronic AF, DM II, LE edema, recent osteomyelitis and amputation of R 5th toe, history of ischemic colitis and SBO in 2010. the pt presents with lower quadrant abdominal pain and one episode of vomiting earlier in the day. He has been constipated and describes one small formed BM on the day of admission. He took some Miralax with tea and promptly vomited. His abdomen has become gradually distended and his pain persisted although he denied additional nausea or vomiting. In the ER he received a dose of morphine which caused him to desaturate and he is requiring 2L 02 on admission. Initial labs are unremarkable. An abdominal CTA was obtained to his ischemic colitis history. This demonstrated constipation, proctitis and dilated loops of small bowel which may be consistent with ileus, enteritis or an early SBO. There is 60% luminal narrowing of the DARLENE although his lactic is negative and imaging does not support colitis. 1) Abdominal pain - ileus vs partial SBO or related to constipation and impaction. Proctitis likely secondary to constipation as per GI. He is now moving his bowels and abdominal pain is plainly resolved after enemas and MiraLAX, docusate. He is likely having constipation with liquid stools coming around constipation as he reports 3 loose bowel movements daily at home. Abdominal x-ray with improved small bowel distention Continue daily Miralax and added docusate twice daily, encouraged him to have 1 or 2 formed bowel movements daily -Appreciate GI consultation Tolerating regular diet at the time of discharge and doing very well, no nausea and no abdominal pain at all. 2) AF -, paced, rate controlled cont dabigatran, digoxin 3) chronic systolic CHF -last echocardiogram shows EF 25% as per outpatient cardiology records- Bumex held and he received IVF initially-IV fluids now discontinued and restarted Bumex but patient declined it. He thinks that Bumex is causing his constipation. I reiterated to him that it is very important for him to continue to take his Bumex because of his severe CHF. He should follow-up with cardiology as scheduled on March 09. He needs to be considered for ICD placement if his EF is not improved. He did have some small runs of 3-4 beats of nonsustained ventricular tachycardia that was asymptomatic while here. 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 Urine culture showing Staphylococcus aureus that is pansensitive -Started Zosyn initially considering history of Pseudomonas as well but then changed to p.o. doxycycline-would complete 10-day course of doxycycline as an outpatient 10) pancytopenia-patient with pancytopenia here and has been chronic for a while. Has macrocytosis. B12 levels have recently checked in been within normal limits. Recommend hematology referral as an outpatient if PCP desires -Follow CBC periodically as an outpatient Prophylaxis-Pradaxa Disposition-could likely discharge home tomorrow if tolerating diet and urine culture results back Full code - Pradaxa (2) UTI (urinary tract infection): (3) Pancytopenia: Total Time Total Time Spent Total Time Spent (In Minutes): Greater than 30 minutes Total Time Includes: Examination of the Patient, Discharge Planning and Medica tion Reconciliation Discharge Plan Discharge Items Patient Disposition: Home - Home Health Services Reason For Visit: SBO VS ILEUS Discharge Diagnosis: Ileus, urinary tract infection Condition: Good Discharge Goals: Decrease discomfort, Diagnostic testing, Improve disease control, Learn about illness and Therapeutic intervention Activity: Resume your previous activity Lifting: Gradually increase as tolerated Bathing: No limitations Exercise/Sports: Gradually increase as tolerated Non-emergency contact: Primary Care Provider Call non-emergency contact if: you have any medication questions, your symptoms worsen, your pain is not controlled, your pain is worsening, your pain is unusual for you and your pain is concerning for you Follow-up/Referrals: Óscar Rodriguez, DO [Primary Care Provider] - 02/23/19 2:10 pm (Please, follow up at Dr. Rodriguez's office with his associate, Dr. Escalera, on FridayFebruary 23 at 2:10 pm. *If you need to change this appointment, call their office at [phone].) Diet: Low Sodium (2gm) Addtl Provider Instructions: You were admitted with a partial bowel obstruction and ileus which means slowing down the bowels. This was secondary to constipation and was treated with enemas. You were moving your bowels well which relieved all of your symptoms. It is important for you to have least 1 or 2 formed bowel movements each day to prevent this from happening again. Please take MiraLAX once daily and docusate as a stool softener 1 or 2 times d aily. It is very important that you continue to take your water pill (bumetanide) every day for your congestive heart failure to prevent you from swelling up with fluid. You were also found to have a urinary tract infection. Please finish out the course of doxycycline for this as prescribed. Please follow-up with your primary care physician as is scheduled for you. Prescriptions: New doxycycline hyclate 100 mg Capsule 100 mg PO BID Qty: 18 RF: 0 docusate sodium 100 mg Capsule 100 mg PO BID Qty: 60 RF: 0 polyethylene glycol 3350 [Miralax] 17 gram Powder In Packet 17 g PO DAILY Qty: 30 RF: 0 Continued cholecalciferol (vitamin D3) 2,000 unit capsule 2,000 units PO QAM RF: 0 ciclesonide 160 mcg/actuation HFA aerosol inhaler 1 puffs INH BID RF: 0 dabigatran etexilate [Pradaxa] 150 mg capsule 150 mg PO BID RF: 0 digoxin 125 mcg tablet 0.125 mg PO HS RF: 0 ipratropium bromide [Atrovent HFA] 17 mcg/actuation HFA aerosol inhaler 2 puffs INH BID RF: 0 lisinopril [Zestril] 5 mg tablet 5 mg PO QAM RF: 0 metformin 500 mg tablet 500 mg PO BID RF: 0 multivitamin [Multiple Vitamins] tablet 1 tab PO QAM RF: 0 pravastatin 20 mg tablet 20 mg PO HS RF: 0 bumetanide 1 mg tablet 1 mg PO QAM RF: 0 [facility] 40-10-5-3.3 mg Tablet 1 tab PO HS RF: 0 levalbuterol tartrate 45 mcg/actuation Hfa Aerosol Inhaler 1 puff INHALATION DAILY PRN (Reason: Shortness Of Breath Or Wheezing) RF: 0 Stand-Alone Forms: [facility] Discharge Orders: Discharge Order (Routine); Ordered 02/18/19 Ordered By: Delisa Perla Admission Data Admit Date/Time: 02/16/19 22:53 Attending Provider: Delisa Perla Admit Provider: Gilles Lindsey Primary Care Provider: Óscar Rodriguez Other Providers: Gilles Lindsey ; Min Gutiérrez Service: Telemetry Medical Other Interventions: Discharge Summary Assessment (RN) Last Done: 02/18/19 14:11 Pending Studies at Discharge: No
[2019-02-18] MEDS ORDERED: DIGOXIN 0.125 MG TAB PO SCH (21:00)
[2019-02-18] MEDS ORDERED: PRAVASTATIN SOD 20 MG TAB PO SCH (21:00)
== END 2019-02-18 14:56 | disposition home health service (06) | DRG 389 ==
LOC: ED 16:49 → SUATTDRO 22:53 → 2N 22:53

== ENCOUNTER 2020-02-08 10:17 | Inpatient (IN) ==
[2020-02-08] MEDS ORDERED: ACETAMINOPHEN 500 MG TAB PO STA (10:34)
--- NOTE | 2020-02-08 10:39 | Emergency Department Note ---
History of Present Illness General Chief complaint: Shortness of Breath/Dyspnea Time Seen by Provider: 02/08/20 10:25 Source: patient, EMS, RN notes reviewed and old records reviewed Mode of arrival: EMS Limitations: no limitations History of Present Illness Provider complaint: shortness of breath Onset (ago): hour(s) 4 Relieved By: + immobilization and + other (oxygen, 4 L) Exacerbated By: + movement Associated symptoms: + fever/chills, + shortness of breath and + weakness; no chest pain, no diaphoresis and no nausea/vomiting Treatments prior to arrival: other (Oxygen 4L) This is an 89-year-old male who presents the emergency department after feeling short of breath at home. Patient's family reports the patient is not normally on oxygen only at night. EMS was summoned because the patient was short of breath. He did receive 4 L of oxygen via nasal cannula in route. He does have a history of COPD as well as CHF. The patient was running a fever of 101 at home. He has not had any positive contacts with the virus. Upon arrival to the emergency department the patient himself has no complaints. He denies any chest pain. Home Medications Home Medications Medication Instructions Recorded Confirmed Type ciclesonide 160 mcg/actuation 1 puffs INH BID 05/28/18 02/08/20 History aerosol inhaler dabigatran etexilate 150 mg capsule 150 mg PO BID 05/28/18 02/08/20 History lisinopril 5 mg tablet 5 mg PO QAM 05/28/18 02/08/20 History multivitamin 1 tab PO QAM 05/28/18 02/08/20 History [facility] 1 tab PO HS 02/16/19 02/08/20 History bumetanide 1 mg PO QAM 02/16/19 02/08/20 History cholecalciferol (vitamin D3) 50 2,000 units PO QAM cap 04/26/19 02/08/20 History mcg (2,000 unit) capsule levalbuterol tartrate 45 1 puffs INH Q6H PRN 04/26/19 02/08/20 History mcg/actuation aerosol inhaler Oxygen Home #1 ea 07/08/19 12/13/19 Rx pravastatin 20 mg tablet 20 mg PO HS #90 tab 08/12/19 02/08/20 Rx docusate sodium 100 mg PO HS 10/15/19 02/08/20 History polyethylene glycol 3350 [Miralax] 17 g PO HS 10/15/19 02/08/20 History ipratropium bromide 17 2 puffs INH BID #25.8 gm 10/26/19 02/08/20 Rx mcg/actuation HFA aerosol inhaler metformin 500 mg tablet 500 mg PO BID #180 tab 11/30/19 02/08/20 Rx digoxin 125 mcg (0.125 mg) tablet 125 mcg PO HS #90 tab 01/05/20 02/08/20 Rx Allergies Allergy/AdvReac Type Severity Reaction Status Date / Time albuterol AdvReac Severe Increased Unverified 02/08/20 11:27 blood pressure levofloxacin AdvReac Intermediate TENDONITIS Verified 02/08/20 11:27 Bactrim AdvReac Mild GI SYMPTOMS Verified 05/22/18 14:15 house dust AdvReac Mild Unknown Verified 02/08/20 11:27 sulfamethoxazole AdvReac Mild GI SYMPTOMS Verified 02/08/20 11:27 trimethoprim AdvReac Mild GI SYMPTOMS Verified 02/08/20 11:27 Past Med/Surg History Medical History Actinic keratosis Asthma PRN INH 1 X MO ON AVG Cardiomyopathy EF 20-25%. Chronic combined systolic (congestive) and diastolic (congestive) heart failure Chronic venous insufficiency (Chronic) Combined systolic and diastolic congestive heart failure, NYHA class 3 COPD, severe Diabetes mellitus Diabetes mellitus, type 2 (Chronic) NIDDM. Diabetic peripheral neuropathy associated with type 2 diabetes mellitus Dyslipidemia Edema Former smoker Hearing deficit [place] History of actinic keratosis (Resolved) History of ischemic colitis (Resolved) History of SCC (squamous cell carcinoma) of skin (Resolved) History of skin cancer REMOVED History of squamous cell carcinoma in situ of skin (Resolved) Hypertension Intrinsic asthma Ischemic colitis (2010) LBBB (left bundle branch block) Left bundle branch block Migraine Mitral regurgitation Oral thrush Osteomyelitis of right foot Pancytopenia Permanent atrial fibrillation Pseudomonas aeruginosa infection Seborrheic keratosis Squamous cell carcinoma of arm UTI (urinary tract infection) Vasomotor rhinitis Venous insufficiency (chronic) (peripheral) Surgical History History of cataract surgery (Resolved) History of colonoscopy (Resolved) History of tonsillectomy and adenoidectomy (Resolved) Status post amputation of toe (Resolved) Family History Mother Atrial fibrillation Myocardial infarction Father Diabetes Social History Preferred Language: Icelandic Communication Ability: Effective Chain Carrier Required: No Beliefs That Will Affect Care: None marital status: Current Living Situation: Spouse Other Information That Helps Us Care for You: No Feels Safe at Home: Yes Safety Concerns: Feels Safe At This Time Smoking Status: Former smoker Second Hand Exposure: No ; Hx Alcohol Use: No Hx Substance Use: No Review of Systems A total of 10 systems reviewed and were otherwise negative Physical Exam Vital Signs Vital Signs - 24 hr 02/08/20 10:27 02/08/20 10:31 02/08/20 10:45 Temperature Temperature Source Pulse Rate 110 H 92 H 98 H Pulse Rate [Finger] Pulse Rate from SpO2 Sensor 103 H 91 H 89 Respiratory Rate 34 H 31 H 36 H Blood Pressure 111/71 Blood Pressure [Left Arm] Blood Pressure Mean 79 Blood Pressure Mean [Left Arm] Pulse Oximetry 91 92 93 Oxygen Delivery Method Nasal Cannula Oxygen Flow Rate Sepsis Recent Fever Within 48 Hours Sepsis New/Unexplained Change in Mental Status Sepsis Action Taken by Nursing Oxygen Flow Rate - Titration 02/08/20 10:51 02/08/20 10:57 02/08/20 11:00 Temperature 38.3 C H Temperature Source Oral Pulse Rate 101 H 112 H Pulse Rate [Finger] Pulse Rate from SpO2 Sensor 110 H Respiratory Rate 20 36 H Blood Pressure 111/71 Blood Pressure [Left Arm] Blood Pressure Mean 84 Blood Pressure Mean [Left Arm] Pulse Oximetry 88 L 95 92 Oxygen Delivery Method Nasal Cannula Nasal Cannula Nasal Cannula Oxygen Flow Rate 4 4 4 Sepsis Recent Fever Within 48 Hours Yes Sepsis New/Unexplained Change in Mental Status No Sepsis Action Taken by Nursing No Action Required Oxygen Flow Rate - Titration 95 02/08/20 11:01 02/08/20 11:15 02/08/20 11:30 Temperature Temperature Source Pulse Rate 118 H 94 H 102 H Pulse Rate [Finger] Pulse Rate from SpO2 Sensor 114 H 92 H Respiratory Rate 35 H 33 H 35 H Blood Pressure 106/75 105/67 Blood Pressure [Left Arm] Blood Pressure Mean 89 79 Blood Pressure Mean [Left Arm] Pulse Oximetry 89 L 82 L Oxygen Delivery Method Oxygen Flow Rate Sepsis Recent Fever Within 48 Hours Sepsis New/Unexplained Change in Mental Status Sepsis Action Taken by Nursing Oxygen Flow Rate - Titration 02/08/20 11:45 02/08/20 12:00 02/08/20 12:11 Temperature Temperature Source Pulse Rate 91 H 100 H 101 H Pulse Rate [Finger] 89 Pulse Rate from SpO2 Sensor 102 H 106 H Respiratory Rate 18 14 34 H Blood Pressure 95/63 L Blood Pressure [Left Arm] 95/63 L Blood Pressure Mean 73 Blood Pressure Mean [Left Arm] 73 Pulse Oximetry 78 L 100 Oxygen Delivery Method Nasal Cannula Oxygen Flow Rate 4 Sepsis Recent Fever Within 48 Hours Sepsis New/Unexplained Change in Mental Status Sepsis Action Taken by Nursing Oxygen Flow Rate - Titration 02/08/20 12:15 02/08/20 12:16 02/08/20 12:30 Temperature Temperature Source Pulse Rate 79 85 87 Pulse Rate [Finger] Pulse Rate from SpO2 Sensor 88 84 88 Respiratory Rate 36 H 28 H 30 H Blood Pressure 92/52 L Blood Pressure [Left Arm] Blood Pressure Mean 63 Blood Pressure Mean [Left Arm] Pulse Oximetry 92 95 95 Oxygen Delivery Method Nasal Cannula Oxygen Flow Rate 4 Sepsis Recent Fever Within 48 Hours Sepsis New/Unexplained Change in Mental Status Sepsis Action Taken by Nursing Oxygen Flow Rate - Titration 02/08/20 12:37 02/08/20 12:42 02/08/20 12:45 Temperature Temperature Source Pulse Rate 85 88 82 Pulse Rate [Finger] Pulse Rate from SpO2 Sensor 83 84 81 Respiratory Rate 26 H 25 H 28 H Blood Pressure 73/48 L 77/42 L 73/49 L Blood Pressure [Left Arm] Blood Pressure Mean 55 47 54 Blood Pressure Mean [Left Arm] Pulse Oximetry 96 97 98 Oxygen Delivery Method Nasal Cannula Oxygen Flow Rate 4 Sepsis Recent Fever Within 48 Hours Sepsis New/Unexplained Change in Mental Status Sepsis Action Taken by Nursing Oxygen Flow Rate - Titration 02/08/20 12:50 02/08/20 12:55 02/08/20 12:56 Temperature Temperature Source Pulse Rate 96 H 85 83 Pulse Rate [Finger] Pulse Rate from SpO2 Sensor 100 H 83 83 Respiratory Rate 23 29 H 28 H Blood Pressure 66/42 L Blood Pressure [Left Arm] Blood Pressure Mean 52 Blood Pressure Mean [Left Arm] Pulse Oximetry 95 95 92 Oxygen Delivery Method Oxygen Flow Rate Sepsis Recent Fever Within 48 Hours Sepsis New/Unexplained Change in Mental Status Sepsis Action Taken by Nursing Oxygen Flow Rate - Titration 02/08/20 13:00 02/08/20 13:05 02/08/20 13:10 Temperature Temperature Source Pulse Rate 88 78 83 Pulse Rate [Finger] Pulse Rate from SpO2 Sensor 99 H 85 95 H Respiratory Rate 31 H 28 H 26 H Blood Pressure 72/46 L Blood Pressure [Left Arm] Blood Pressure Mean 50 Blood Pressure Mean [Left Arm] Pulse Oximetry 92 95 94 Oxygen Delivery Method Oxygen Flow Rate Sepsis Recent Fever Within 48 Hours Sepsis New/Unexplained Change in Mental Status Sepsis Action Taken by Nursing Oxygen Flow Rate - Titration 02/08/20 13:12 02/08/20 13:15 02/08/20 13:17 Temperature Temperature Source Pulse Rate 77 78 75 Pulse Rate [Finger] Pulse Rate from SpO2 Sensor 93 H 80 88 Respiratory Rate 21 23 27 H Blood Pressure 69/39 L 78/50 L 74/36 L Blood Pressure [Left Arm] Blood Pressure Mean 45 57 62 Blood Pressure Mean [Left Arm] Pulse Oximetry 97 97 95 Oxygen Delivery Method Oxygen Flow Rate Sepsis Recent Fever Within 48 Hours Sepsis New/Unexplained Change in Mental Status Sepsis Action Taken by Nursing Oxygen Flow Rate - Titration 02/08/20 13:20 02/08/20 13:25 02/08/20 13:30 Temperature Temperature Source Pulse Rate 76 87 90 Pulse Rate [Finger] Pulse Rate from SpO2 Sensor 82 87 91 H Respiratory Rate 28 H 30 H 26 H Blood Pressure 85/48 L 80/47 L 68/42 L Blood Pressure [Left Arm] Blood Pressure Mean 54 52 47 Blood Pressure Mean [Left Arm] Pulse Oximetry 93 91 92 Oxygen Delivery Method Oxygen Flow Rate Sepsis Recent Fever Within 48 Hours Sepsis New/Unexplained Change in Mental Status Sepsis Action Taken by Nursing Oxygen Flow Rate - Titration 02/08/20 13:35 Temperature Temperature Source Pulse Rate 79 Pulse Rate [Finger] Pulse Rate from SpO2 Sensor 88 Respiratory Rate 14 Blood Pressure Blood Pressure [Left Arm] Blood Pressure Mean Blood Pressure Mean [Left Arm] Pulse Oximetry 97 Oxygen Delivery Method Oxygen Flow Rate Sepsis Recent Fever Within 48 Hours Sepsis New/Unexplained Change in Mental Status Sepsis Action Taken by Nursing Oxygen Flow Rate - Titration VITAL SIGNS - Vital signs and nursing notes were reviewed. GENERAL - 89-year-old male appearing stated age who is in no acute distress. Communicates well with provider and answers questions appropriately. SKIN - Without rashes. HEAD - NC/AT. EYES - PERRL with EOMI bilaterally. Sclera anicteric. Palpebral conjunctiva pink and moist with no injection noted. EARS - No deformities of external structures noted on gross examination bilaterally. No pain elicited with palpation of the tragus bilaterally. External auditory canals without discharge or otorrhea. Tympanic membranes pearly garcia without retraction or bulging. No fluid or purulent material visualized behind the TM. Handle of malleus, umbo, cone of light, pars tensa/flaccid all easily visualized. NOSE - Midline and without cyanosis. No epistaxis or purulent drainage noted. Septum midline without deviation or septal hematoma noted. MOUTH/OROPHARYNX - Without perioral cyanosis. Buccal mucosa pink and moist and without leukoplakia. Tongue midline with equal elevation of palate bilaterally. No tonsillar hypertrophy, erythema, or exudates noted. dentition noted. NECK - Neck with FROM. Supple to palpation. lymphadenopathy noted. No nuchal rigidity. LUNGS - Distant breath sounds Chest wall symmetric without accessory muscle use, intercostals retractions, or central cyanosis. Normal vesicular breath sounds CTA B/L. No wheezes, rales, or rhonchi appreciated. CARDIAC - RRR with S1/S2. No murmur, rubs, or gallops appreciated. ABDOMEN - Abdominal contour without pulsations or visible masses. BS normoactive all four quadrants. No tenderness, palpable masses, hepatosplenomegaly, or ascites noted. EXTREMITIES - No clubbing or peripheral cyanosis. No pretibial edema present. +3/5 radial, posterior tibial, and dorsalis pedis pulses palpated throughout. +5/5 strength noted in UE/LE bilaterally. NEUROLOGIC - Cranial nerves II through XII grossly intact. Sensory intact to light touch throughout. Patellar reflexes +2/4. PSYCH - A&Ox3 and cooperates fully with examiner. Pt is very pleasant and interacts well with examiner. Course Administered Medications Vancomycin HCl 2,000 mg/ (Sodium Chloride) 540 mls @ 200 mls/hr IV NOW STA Stop: 02/08/20 15:01 Last Admin: 02/08/20 12:36 Dose: 200 mls/hr Documented by: [id number] Norepinephrine Bitartrate 4 mg (/ Dextrose) 254 mls @ 17.545 mls/hr IV .[id number] [facility]; Protocol Stop: 03/09/20 13:14 Last Admin: 02/08/20 13:16 Dose: 0.05 mcg/kg/min, 17.5 mls/hr Documented by: [id number] Cosigned by: [id number] Levalbuterol HCl (Xopenex Hfa) 4 puffs INH QID YOGESH Stop: 03/09/20 12:59 Last Admin: 02/08/20 12:36 Dose: 4 puffs Documented by: [id number] Discontinued Medications Acetaminophen (Tylenol) 1,000 mg PO NOW STA Stop: 02/08/20 10:35 Last Admin: 02/08/20 11:44 Dose: 1,000 mg Documented by: [id number] Doxycycline Hyclate (Vibramycin) 100 mg PO NOW STA Stop: 02/08/20 12:09 Last Admin: 02/08/20 12:17 Dose: 100 mg Documented by: [id number] Sodium Chloride (Nss 1000ml) 500 mls @ 999 mls/hr IV .Q31M ONE Stop: 02/08/20 12:38 Last Infusion: 02/08/20 12:35 Dose: 0 mls/hr Documented by: [id number] Admin: 02/08/20 12:17 Dose: 999 mls/hr Documented by: [id number] Piperacillin Sod/Tazobactam Sod (Zosyn) 4.5 gm in 120 mls @ 240 mls/hr IV NOW ONE Stop: 02/08/20 12:37 Last Infusion: 02/08/20 12:57 Dose: 0 mls/hr Documented by: [id number] Admin: 02/08/20 12:17 Dose: 240 mls/hr Documented by: [id number] Sodium Chloride (Nss 1000ml) 1,000 mls @ 999 mls/hr IV .Q1H1M ONE Stop: 02/08/20 13:15 Last Infusion: 02/08/20 13:58 Dose: 0 mls/hr Documented by: [id number] Admin: 02/08/20 12:57 Dose: 999 mls/hr Documented by: [id number] Ondansetron HCl (Zofran) 4 mg IV NOW STA Stop: 02/08/20 12:13 Last Admin: 02/08/20 12:17 Dose: 4 mg Documented by: [id number] Critical Care Time Critical Care Time: Yes I have personally spent greater than 9 minutes of critical care time in the direct management of this patient. This includes bedside care, interpretation of diagnostic studies, and testing, discussion with consultants, patient, and family members, and other required patient management activities. This 90 minutes is in excess of all separately billable procedures. Medical Decision Making Differential Diagnosis Sepsis, UTI, pneumonia, metabolic, electrolyte abnormalities, cardiac sources, intracerebral event, toxicologic, neurologic, as well as other pathologies. Medical Records Attestation: I reviewed the patient's medical records. Home Medications Current Medication List: was personally reviewed by me Laboratory Data Attestation: I reviewed the patient's lab results. Result diagrams: 02/08/20 11:33 02/08/20 11:33 Lab Results 02/08/20 02/08/20 02/08/20 Range/Units 10:44 10:44 10:44 WBC (4.8-10.8) K/uL RBC (4.7-6.1) M/uL Hgb (14.0-18.0) g/dL Hct (42-52) % MCV (80-100) fL MCH (25-34) pg MCHC (32-36) g/dL RDW Std Deviation (36.4-46.3) fL RDW Coeff of Chad (11.5-14.5) % Plt Count (130-400) K/uL MPV (7.4-10.4) fL Immature Gran % (Auto) % Neut % (Auto) % Lymph % (Auto) % [place] % (Auto) % Eos % (Auto) % Baso % (Auto) % Immature Gran # (Auto) (0.00-0.02) K/uL Neut # (Auto) (1.4-6.5) K/uL Lymph # (Auto) (1.2-3.4) K/uL [place] # (Auto) (0.11-0.59) K/uL Eos # (Auto) (0-0.5) K/uL Baso # (Auto) (0-0.2) K/uL ESR (0-14) mm/hr PT (9.0-12.0) Seconds INR (0.9-1.1) APTT (21.0-31.0) Seconds PTT Ratio Sodium (136-145) mmol/L Potassium (3.5-5.1) mmol/L Chloride (98-107) mmol/L Carbon Dioxide (21-32) mmol/L Anion Gap (3-11) BUN (7-18) mg/dl Creatinine (0.6-1.4) mg/dl Est Cr Clr Drug Dosing ml/min Est GFR ( Amer) Est GFR (Non-Af Amer) BUN/Creatinine Ratio (10-20) Glucose (70-99) mg/dl Lactate (0.4-2.0) mmol/L Calcium (8.5-10.1) mg/dl Magnesium (1.8-2.4) mg/dl Ferritin (8-388) ng/ml Total Bilirubin (0.2-1) mg/dl AST (15-37) U/L ALT (12-78) U/L Alkaline Phosphatase (45-117) U/L Total Creatine Kinase (39-308) U/L CK-MB (CK-2) (0.5-3.6) ng/ml CK/CKMB % Calc Troponin I (0-0.045) ng/ml C-Reactive Protein (0-0.29) mg/dl NT-Pro-B Natriuret Pep (0-1800) pg/ml Total Protein (6.4-8.2) gm/dl Albumin (3.4-5.0) gm/dl Globulin (2.5-4.0) gm/dl Albumin/Globulin Ratio (0.9-2) Procalcitonin (0-0.5) ng/ml Urine Color Urine Appearance (Clear) Urine pH (4.5-7.5) Ur Specific [place] (1.000-1.030) Urine Protein (Negative) Urine Glucose (UA) (Negative) Urine Ketones (Negative) Urine Blood (Negative) Urine Nitrite (Negative) Urine Bilirubin (Negative) Urine Urobilinogen (Negative) Ur Leukocyte Esterase (Negative) Urine WBC (Auto) (0-5) /hpf Urine RBC (Auto) (0-4) /hpf U Hyaline Cast (Auto) (0-5) /lpf U Epithel Cells (Auto) (0-5) /lpf Urine Bacteria (Auto) (Negative) COVID-19 PCR NEGATIVE (Negative) Influenza Type A (PCR) Neg for Influ A (Neg) Influenza Type B (PCR) Neg for Influ B (Neg) SARS-CoV-2 RNA (RT-PCR) Cancelled 02/08/20 02/08/20 02/08/20 Range/Units 11:33 11:33 11:33 WBC 12.63 H (4.8-10.8) K/uL RBC 3.84 L (4.7-6.1) M/uL Hgb 12.4 L (14.0-18.0) g/dL Hct 38.7 L (42-52) % MCV 100.8 H (80-100) fL MCH 32.3 (25-34) pg MCHC 32.0 (32-36) g/dL RDW Std Deviation 56.6 H (36.4-46.3) fL RDW Coeff of Chad 15.5 H (11.5-14.5) % Plt Count 120 L (130-400) K/uL MPV 11.2 H (7.4-10.4) fL Immature Gran % (Auto) 0.2 % Neut % (Auto) 92.5 % Lymph % (Auto) 3.4 % Bledsoe % (Auto) 3.8 % Eos % (Auto) 0.0 % Baso % (Auto) 0.1 % Immature Gran # (Auto) 0.03 H (0.00-0.02) K/uL Neut # (Auto) 11.68 H (1.4-6.5) K/uL Lymph # (Auto) 0.43 L (1.2-3.4) K/uL [place] # (Auto) 0.48 (0.11-0.59) K/uL Eos # (Auto) 0.00 (0-0.5) K/uL Baso # (Auto) 0.01 (0-0.2) K/uL ESR (0-14) mm/hr PT 16.2 H (9.0-12.0) Seconds INR 1.6 H (0.9-1.1) APTT 37.9 H (21.0-31.0) Seconds PTT Ratio 1.4 Sodium 141 (136-145) mmol/L Potassium 4.3 (3.5-5.1) mmol/L Chloride 104 (98-107) mmol/L Carbon Dioxide 31 (21-32) mmol/L Anion Gap 6.0 (3-11) BUN 41 H (7-18) mg/dl Creatinine 1.39 (0.6-1.4) mg/dl Est Cr Clr Drug Dosing 44.2 ml/min Est GFR ( Amer) 51.7 Est GFR (Non-Af Amer) 44.6 BUN/Creatinine Ratio 29.8 H (10-20) Glucose 93 (70-99) mg/dl Lactate (0.4-2.0) mmol/L Calcium 9.2 (8.5-10.1) mg/dl Magnesium 2.2 (1.8-2.4) mg/dl Ferritin (8-388) ng/ml Total Bilirubin 1.0 (0.2-1) mg/dl AST 43 H (15-37) U/L ALT 25 (12-78) U/L Alkaline Phosphatase 63 (45-117) U/L Total Creatine Kinase 79 (39-308) U/L CK-MB (CK-2) < 1.0 (0.5-3.6) ng/ml CK/CKMB % Calc TNP Troponin I 0.242 H* (0-0.045) ng/ml C-Reactive Protein (0-0.29) mg/dl NT-Pro-B Natriuret Pep 87697 H (0-1800) pg/ml Total Protein 7.3 (6.4-8.2) gm/dl Albumin 3.6 (3.4-5.0) gm/dl Globulin 3.7 (2.5-4.0) gm/dl Albumin/Globulin Ratio 1.0 (0.9-2) Procalcitonin (0-0.5) ng/ml Urine Color Urine Appearance (Clear) Urine pH (4.5-7.5) Ur Specific [place] (1.000-1.030) Urine Protein (Negative) Urine Glucose (UA) (Negative) Urine Ketones (Negative) Urine Blood (Negative) Urine Nitrite (Negative) Urine Bilirubin (Negative) Urine Urobilinogen (Negative) Ur Leukocyte Esterase (Negative) Urine WBC (Auto) (0-5) /hpf Urine RBC (Auto) (0-4) /hpf U Hyaline Cast (Auto) (0-5) /lpf U Epithel Cells (Auto) (0-5) /lpf Urine Bacteria (Auto) (Negative) COVID-19 PCR (Negative) Influenza Type A (PCR) (Neg) Influenza Type B (PCR) (Neg) SARS-CoV-2 RNA (RT-PCR) 02/08/20 02/08/20 02/08/20 Range/Units 11:33 11:33 11:33 WBC (4.8-10.8) K/uL RBC (4.7-6.1) M/uL Hgb (14.0-18.0) g/dL Hct (42-52) % MCV (80-100) fL MCH (25-34) pg MCHC (32-36) g/dL RDW Std Deviation (36.4-46.3) fL RDW Coeff of Chad (11.5-14.5) % Plt Count (130-400) K/uL MPV (7.4-10.4) fL Immature Gran % (Auto) % Neut % (Auto) % Lymph % (Auto) % [place] % (Auto) % Eos % (Auto) % Baso % (Auto) % Immature Gran # (Auto) (0.00-0.02) K/uL Neut # (Auto) (1.4-6.5) K/uL Lymph # (Auto) (1.2-3.4) K/uL [place] # (Auto) (0.11-0.59) K/uL Eos # (Auto) (0-0.5) K/uL Baso # (Auto) (0-0.2) K/uL ESR 51 H (0-14) mm/hr PT (9.0-12.0) Seconds INR (0.9-1.1) APTT (21.0-31.0) Seconds PTT Ratio Sodium (136-145) mmol/L Potassium (3.5-5.1) mmol/L Chloride (98-107) mmol/L Carbon Dioxide (21-32) mmol/L Anion Gap (3-11) BUN (7-18) mg/dl Creatinine (0.6-1.4) mg/dl Est Cr Clr Drug Dosing ml/min Est GFR ( Amer) Est GFR (Non-Af Amer) BUN/Creatinine Ratio (10-20) Glucose (70-99) mg/dl Lactate 2.4 H* (0.4-2.0) mmol/L Calcium (8.5-10.1) mg/dl Magnesium (1.8-2.4) mg/dl Ferritin (8-388) ng/ml Total Bilirubin (0.2-1) mg/dl AST (15-37) U/L ALT (12-78) U/L Alkaline Phosphatase (45-117) U/L Total Creatine Kinase (39-308) U/L CK-MB (CK-2) (0.5-3.6) ng/ml CK/CKMB % Calc Troponin I (0-0.045) ng/ml C-Reactive Protein (0-0.29) mg/dl NT-Pro-B Natriuret Pep (0-1800) pg/ml Total Protein (6.4-8.2) gm/dl Albumin (3.4-5.0) gm/dl Globulin (2.5-4.0) gm/dl Albumin/Globulin Ratio (0.9-2) Procalcitonin 1.18 H (0-0.5) ng/ml Urine Color Urine Appearance (Clear) Urine pH (4.5-7.5) Ur Specific [place] (1.000-1.030) Urine Protein (Negative) Urine Glucose (UA) (Negative) Urine Ketones (Negative) Urine Blood (Negative) Urine Nitrite (Negative) Urine Bilirubin (Negative) Urine Urobilinogen (Negative) Ur Leukocyte Esterase (Negative) Urine WBC (Auto) (0-5) /hpf Urine RBC (Auto) (0-4) /hpf U Hyaline Cast (Auto) (0-5) /lpf U Epithel Cells (Auto) (0-5) /lpf Urine Bacteria (Auto) (Negative) COVID-19 PCR (Negative) Influenza Type A (PCR) (Neg) Influenza Type B (PCR) (Neg) SARS-CoV-2 RNA (RT-PCR) 02/08/20 02/08/20 02/08/20 Range/Units 11:33 12:17 13:34 WBC (4.8-10.8) K/uL RBC (4.7-6.1) M/uL Hgb (14.0-18.0) g/dL Hct (42-52) % MCV (80-100) fL MCH (25-34) pg MCHC (32-36) g/dL RDW Std Deviation (36.4-46.3) fL RDW Coeff of Chad (11.5-14.5) % Plt Count (130-400) K/uL MPV (7.4-10.4) fL Immature Gran % (Auto) % Neut % (Auto) % Lymph % (Auto) % [place] % (Auto) % Eos % (Auto) % Baso % (Auto) % Immature Gran # (Auto) (0.00-0.02) K/uL Neut # (Auto) (1.4-6.5) K/uL Lymph # (Auto) (1.2-3.4) K/uL [place] # (Auto) (0.11-0.59) K/uL Eos # (Auto) (0-0.5) K/uL Baso # (Auto) (0-0.2) K/uL ESR (0-14) mm/hr PT (9.0-12.0) Seconds INR (0.9-1.1) APTT (21.0-31.0) Seconds PTT Ratio Sodium (136-145) mmol/L Potassium (3.5-5.1) mmol/L Chloride (98-107) mmol/L Carbon Dioxide (21-32) mmol/L Anion Gap (3-11) BUN (7-18) mg/dl Creatinine (0.6-1.4) mg/dl Est Cr Clr Drug Dosing ml/min Est GFR ( Amer) Est GFR (Non-Af Amer) BUN/Creatinine Ratio (10-20) Glucose (70-99) mg/dl Lactate 1.9 (0.4-2.0) mmol/L Calcium (8.5-10.1) mg/dl Magnesium (1.8-2.4) mg/dl Ferritin 107.4 (8-388) ng/ml Total Bilirubin (0.2-1) mg/dl AST (15-37) U/L ALT (12-78) U/L Alkaline Phosphatase (45-117) U/L Total Creatine Kinase (39-308) U/L CK-MB (CK-2) (0.5-3.6) ng/ml CK/CKMB % Calc Troponin I (0-0.045) ng/ml C-Reactive Protein 2.35 H (0-0.29) mg/dl NT-Pro-B Natriuret Pep (0-1800) pg/ml Total Protein (6.4-8.2) gm/dl Albumin (3.4-5.0) gm/dl Globulin (2.5-4.0) gm/dl Albumin/Globulin Ratio (0.9-2) Procalcitonin (0-0.5) ng/ml Urine Color Dark Yellow Urine Appearance Clear (Clear) Urine pH 5.0 (4.5-7.5) Ur Specific [place] 1.023 (1.000-1.030) Urine Protein 1+ H (Negative) Urine Glucose (UA) Negative (Negative) Urine Ketones Trace H (Negative) Urine Blood Negative (Negative) Urine Nitrite Negative (Negative) Urine Bilirubin Negative (Negative) Urine Urobilinogen Negative (Negative) Ur Leukocyte Esterase Negative (Negative) Urine WBC (Auto) 1-5 (0-5) /hpf Urine RBC (Auto) 0-4 (0-4) /hpf U Hyaline Cast (Auto) 1-5 (0-5) /lpf U Epithel Cells (Auto) 10-20 H (0-5) /lpf Urine Bacteria (Auto) Negative (Negative) COVID-19 PCR (Negative) Influenza Type A (PCR) (Neg) Influenza Type B (PCR) (Neg) SARS-CoV-2 RNA (RT-PCR) ECG Data Attestation: I personally reviewed and interpreted this ECG as follows: Indication: + other (Sepsis) Rate (beats per minute): 114 Rhythm: + atrial fibrillation ECG Intervals/blocks: + Left bundle branch block and + Prolonged QT (609) ECG [place]: + Normal ECG ST segments: no ST depression and no ST elevation Comparison ECG Date: from (02/16/2019) Change: the following changes noted (QTC has lengthened) Blood Pressure Blood Pressure Findings: Low blood pressure MDM Narrative Patient was seen and evaluated as above in room C5. Review was performed of nursing notes and vital signs. I did review pertinent previous visits and pa alecnt history. After obtaining a thorough history and physical examination the above work up was performed. An order was placed for continuous cardiac monitoring. The monitor shows a rate of 100 with A fib. This is an 89-year-old male who presents emergency department complaining of fever. A sepsis alert was initiated. The patient was given a liter of fluid however I am hesitant to give him any more fluid as he appears volume overloaded on his chest x-ray. The family reaffirmed that the patient does not want any compressions and does not want a breathing tube. He was sent for a bhardwaj test which was found to be negative. The patient has a worsening pneumonia on chest x-ray and has an elevation in his white blood cell count. He was started on broad-spectrum antibiotics including Zosyn doxycycline as well as vancomycin. Because his pressure remained low and using shared medical decision making with the patient's family the decision was made to start the patient on Levophed. I did discuss the case with both the tattooer as well as the hospitalist. The patient was evaluated during the global COVID-19 pandemic, and that diagnosis was suspected/considered upon their initial presentation. Their evaluation, treatment and testing was consistent with current guidelines for patients who present with complaints or symptoms that may be related to COVID- 19. Impression & Plan Pneumonia, Combined systolic and diastolic congestive heart failure, NYHA class 3, Fever Discharge Plan Visit Data Chief Complaint: Shortness of Breath/Dyspnea ED Provider: Darren Dumont Discharge Problem: Pneumonia, Combined systolic and diastolic congestive heart failure, NYHA class 3, Fever Discharge Instructions Interventions: ED Discharge Assessment Last Done: 02/08/20 13:57 Forms Stand Alone Forms: My [facility] Prescriptions Prescriptions: No Action ciclesonide 160 mcg/actuation HFA aerosol inhaler 1 puffs INH BID RF: 0 dabigatran etexilate [Pradaxa] 150 mg capsule 150 mg PO BID RF: 0 lisinopril [Zestril] 5 mg tablet 5 mg PO QAM RF: 0 multivitamin [Multiple Vitamins] tablet 1 tab PO QAM RF: 0 cholecalciferol (vitamin D3) 2,000 unit capsule 2,000 units PO QAM RF: 0 (DME) Oxygen Home Liters Per Minute See Dose Instructions .ROUTE .MEDSUPPLY Qty: 1 RF: 0 pravastatin 20 mg tablet 20 mg PO HS Qty: 90 RF: 3 Atrovent HFA 17 mcg/actuation HFA aerosol inhaler 2 puffs INH BID Qty: 25.8 RF: 3 metformin 500 mg tablet 500 mg PO BID Qty: 180 RF: 3 digoxin 125 mcg (0.125 mg) tablet 125 mcg PO HS Qty: 90 RF: 1 levalbuterol tartrate [Xopenex HFA] 45 mcg/actuation HFA aerosol inhaler 1 puffs INH Q6H PRN (Reason: Shortness Of Breath) RF: 0 bumetanide 1 mg tablet 1 mg PO QAM RF: 0 [facility] 40-10-5-3.3 mg Tablet 1 tab PO HS RF: 0 polyethylene glycol 3350 [Miralax] 17 gram powder in packet 17 g PO HS RF: 0 docusate sodium 100 mg capsule 100 mg PO HS RF: 0 Referrals Referrals: Óscar Rodriguez DO [Primary Care Provider] - Discharge Problem: Pneumonia Qualifiers: Pneumonia type: due to unspecified organism Laterality: unspecified laterality Lung location: unspecified part of lung Qualified Code(s): J18.9 - Pneumonia, unspecified organism Combined systolic and diastolic congestive heart failure, NYHA class 3 Qualifiers: Congestive heart failure chronicity: unspecified Qualified Code(s): I50.40 - Unspecified combined systolic (congestive) and diastolic (congestive) heart failure Fever Qualifiers: Fever type: unspecified Qualified Code(s): R50.9 - Fever, unspecified
--- NOTE | 2020-02-08 11:24 | XRay Report ---
XR chest 1V portable CLINICAL HISTORY: 89 years-old Male presenting with SEPSIS, illness, fever, unresponsive. TECHNIQUE: Portable upright AP view of the chest was obtained. COMPARISON: 02/17/2019. FINDINGS: Atherosclerosis of the aortic arch. Cardiac silhouette enlarged. Pulmonary vascular prominence. Low l camilla volumes. Added density of the lungs. Moderate right pleural effusion. Poor aeration of the right lung base. Lesser degree of left basilar opacity. Trace left effusion may also be present. No pneumot horax. Degenerative changes of the thoracic spine. Upper abdomen normal. IMPRESSION: 1. Moderate right pleural effusion with extensive right basilar consolidation/atelectasis. Underlyin g infection not excluded. 2. Lesser left basilar atelectasis and trace effusion. 3. Cardiomegaly with volume overload and congestive change. No brooke pulmonary edema. ACT 112: Negative or not required by law. Electronically signed by: Raimundo Ward M.D. 02/08/2020 11:23 AM
[2020-02-08 11:50] LABS: Basophils # (auto) 0.01 K/uL (0-0.2); Basophils % (auto) 0.1 %; Hematocrit (blood only) 38.7 % (42-52); Hemoglobin 12.4 g/dL (14.0-18.0); Immature Granulocytes # (auto) 0.03 K/uL (0.00-0.02); Immature Granulocytes % (auto) 0.2 %; Lymphocytes # (auto) 0.43 K/uL (1.2-3.4); Lymphocytes % (auto) 3.4 %; Mean Corpuscular Hemoglobin 32.3 pg (25-34); Mean Corpuscular Volume 100.8 fL (80-100); Mean Platelet Volume 11.2 fL (7.4-10.4); Monocytes # (auto) 0.48 K/uL (0.11-0.59); Monocytes % (auto) 3.8 %; Neutrophils # (auto) 11.68 K/uL (1.4-6.5); Neutrophils % (auto) 92.5 %; Platelet Count 120 K/uL (130-400); RDW Coefficient of Variation 15.5 % (11.5-14.5); RDW Standard Deviation 56.6 fL (36.4-46.3); Red Blood Count 3.84 M/uL (4.7-6.1); White Blood Count 12.63 K/uL (4.8-10.8)
[2020-02-08 11:52] LABS: Influenza A virus by PCR Neg for Influ A (Neg); Influenza B virus by PCR Neg for Influ B (Neg)
[2020-02-08 12:03] LABS: INR 1.6 (0.9-1.1); Partial Thromboplastin Ratio 1.4; Partial Thromboplastin Time 37.9 Seconds (21.0-31.0); Prothrombin Time 16.2 Seconds (9.0-12.0)
[2020-02-08] MEDS ORDERED: SODIUM CHLORIDE 0.9% 1000ML 500 ML IV ONE (12:08)
[2020-02-08] MEDS ORDERED: DOXYCYCLINE HYCLATE 100 MG CAP PO STA (12:08)
[2020-02-08] MEDS ORDERED: VANCOMYCIN CONSULT ACTIVE PRN ×2 (12:08→16:54)
[2020-02-08] MEDS ORDERED: PIPERACILL/TAZOBAC CONSULT ACTIVE PRN (12:08)
[2020-02-08] MEDS ORDERED: PIPERACILLIN/TAZOBACTAM 4.5 GM/120 ML BAG IV ONE (12:08)
[2020-02-08] MEDS ORDERED: VANCOMYCIN HCL 1,000 MG/270 ML BAG IV STA (12:08)
[2020-02-08 12:10] LABS: Alanine Aminotransferase 25 U/L (12-78); Aspartate Aminotransferase 43 U/L (15-37); BUN Creatinine Ratio 29.8 (10-20); Blood Urea Nitrogen 41 mg/dl (7-18); Calcium 9.2 mg/dl (8.5-10.1); Carbon Dioxide 31 mmol/L (21-32); Chloride 104 mmol/L (98-107); Creatinine Clr Calc Pharmacy 44.2 ml/min; Est GFR (African American) 51.7; Est GFR (Non-African American) 44.6; Glucose 93 mg/dl (70-99); Magnesium 2.2 mg/dl (1.8-2.4); Potassium 4.3 mmol/L (3.5-5.1); Sodium 141 mmol/L (136-145)
[2020-02-08 12:11] LABS: Albumin Level 3.6 gm/dl (3.4-5.0)
[2020-02-08] MEDS ORDERED: ONDANSETRON INJ 2 MG/ML 2 ML VIAL IV STA (12:12)
[2020-02-08 12:19] LABS: Alkaline Phosphatase 63 U/L (45-117); Creatine Kinase 79 U/L (39-308); Creatine Kinase MB < 1.0 ng/ml (0.5-3.6); Globulin 3.7 gm/dl (2.5-4.0); NT Pro B Type Natriuretic Pept 28831 pg/ml (0-1800); Total Protein 7.3 gm/dl (6.4-8.2); Troponin I 0.242 ng/ml (0-0.045)
[2020-02-08] MEDS ORDERED: VANCOMYCIN HCL 2,000 MG in SODIUM CHLORIDE 0.9% 500 ML IV STA (12:20)
[2020-02-08] MEDS: SODIUM CHLORIDE 0.9% 1000ML 1,000 ML IV ONE ×2 (12:26→12:57)
[2020-02-08 12:32] LABS: Appearance Urine Clear (Clear); Bacteria Urine Automated Negative (Negative); Bilirubin Urine Negative (Negative); Blood Urine Negative (Negative); Color Urine Dark Yellow; Glucose Urine UA Negative (Negative); Ketones Urine Trace (Negative); Leukocyte Esterase Urine Negative (Negative); Nitrite Urine Negative (Negative); Protein Urine 1+ (Negative); RBC Urine Automated 0-4 /hpf (0-4); Specific Gravity Urine 1.023 (1.000-1.030); Urobilinogen Urine Negative (Negative)
[2020-02-08] MEDS: LEVALBUTEROL TARTRATE 15 GM HFA.AER.AD INH SCH ×3 (12:36→20:39)
[2020-02-08 12:37] LABS: C Reactive Protein 2.35 mg/dl (0-0.29); Ferritin 107.4 ng/ml (8-388)
[2020-02-08] MEDS ORDERED: NOREPINEPHRINE (Adult) 8 MG in DEXTROSE 5% 500 ML IV SCH (13:15)
[2020-02-08] MEDS ORDERED: NOREPINEPHRINE (Adult STAT Only) 4 MG in D5W 250 ML IV SCH (13:15)
--- NOTE | 2020-02-08 14:12 | History & Physical Report ---
Date of Service February 08, 2020 Assessment & Plan (1) Shock circulatory: BP in the 60-70 systolic, per family he is typically low improved slightly with fluid challenge started on levophed with good response lactic acid only 2.4 central line placed by Dr. Henley follow UO via [place], goal for MAP is 55-60 mentating better (2) Pneumonia: cover with broad spectrum antibiotics follow up blood cultures WBC is 12k with left shift COVID 19 test is NEGATIVE will right sided pleural effusion, defer decision to drain to pulmonary / ICU he is on Pradaxa, took last night, certainly thoracentesis not emergent (3) Cellulitis: possible cellulitis, legs red, hot has chronic venous stasis changes cover with broad spectrum antibiotics for time being follow legs for improvement clinically (4) COPD, severe: no wheezing continue home inhalers (5) Combined systolic and diastolic congestive heart failure, NYHA class 3: BNP markedly elevated prior echo with EF of 20-25% hold Bumex as he is hypotensive however, he does appear to have volume overload on exam consult cardiology (6) Diabetes mellitus: Novolog SS (7) Permanent atrial fibrillation: rates are well controlled Pradaxa for anticoagulation, last dose was 02/06 in the evening hold for any further possible procedures History of Present Illness Chief Complaint: I came here in the ambulance Primary Care Provider: Óscar Rodriguez, DO 89 yo male with complicated medical history including combined systolic and diastolic HF with last known EF 20-25%, severe COPD, permanent atrial fibrillation, DM type II, chronic venous stasis changes in legs and recent leg wounds who was brought to the ED due to sudden change in mental status and fev er. All of the history obtained from patient's and daughter at the bedside. They report that he has been at home, self quarantined since the beginning of November. No known sick contacts. He has been compliant with his medications, including Bumex and Pradaxa, took all his medications last night, did not take any medications this morning. He has been weighing himself daily, according to his his weight has been stable. Last night he was in his normal state of mind, joking with family. He went to bed normal. This morning he woke up and sat at the edge of the bed which he does every morning. However, he would not respond to his when she spoke to him. She felt his head and he was extremely hot. His eyes were glossy and he would not answer her. He could not stand up. She called EMS and he was brought to the ED. In the ED he had a fever, mild leukocytosis. BMP was at baseline. CXR showed a new right pleural effusion. He was very hypotensive, received total of 2L of NSS and was still hypotensive. ESR and CRP elevated, BNP markedly elevated. He was started on Levophed and BP started to come up. Allergies Allergy/AdvReac Type Severity Reaction Status Date / Time albuterol AdvReac Severe Increased Unverified 02/08/20 11:27 blood pressure levofloxacin AdvReac Intermediate TENDONITIS Verified 02/08/20 11:27 Bactrim AdvReac Mild GI SYMPTOMS Verified 05/22/18 14:15 house dust AdvReac Mild Unknown Verified 02/08/20 11:27 sulfamethoxazole AdvReac Mild GI SYMPTOMS Verified 02/08/20 11:27 trimethoprim AdvReac Mild GI SYMPTOMS Verified 02/08/20 11:27 Home Medications Home Medications Medication Instructions Recorded Confirmed Type ciclesonide 160 mcg/actuation 1 puffs INH BID 05/28/18 02/08/20 History aerosol inhaler dabigatran etexilate 150 mg capsule 150 mg PO BID 05/28/18 02/08/20 History lisinopril 5 mg tablet 5 mg PO QAM 05/28/18 02/08/20 History multivitamin 1 tab PO QAM 05/28/18 02/08/20 History Joint Health 1 tab PO HS 02/16/19 02/08/20 History bumetanide 1 mg PO QAM 02/16/19 02/08/20 History cholecalciferol (vitamin D3) 50 2,000 units PO QAM cap 04/26/19 02/08/20 History mcg (2,000 unit) capsule levalbuterol tartrate 45 1 puffs INH Q6H PRN 04/26/19 02/08/20 History mcg/actuation aerosol inhaler Oxygen Home #1 ea 07/08/19 12/13/19 Rx pravastatin 20 mg tablet 20 mg PO HS #90 tab 08/12/19 02/08/20 Rx docusate sodium 100 mg PO HS 10/15/19 02/08/20 History polyethylene glycol 3350 [Miralax] 17 g PO HS 10/15/19 02/08/20 History ipratropium bromide 17 2 puffs INH BID #25.8 gm 10/26/19 02/08/20 Rx mcg/actuation HFA aerosol inhaler metformin 500 mg tablet 500 mg PO BID #180 tab 11/30/19 02/08/20 Rx digoxin 125 mcg (0.125 mg) tablet 125 mcg PO HS #90 tab 01/05/20 02/08/20 Rx Past Med/Surg History Medical History Actinic keratosis Asthma PRN INH 1 X MO ON AVG Cardiomyopathy EF 20-25%. Chronic combined systolic (congestive) and diastolic (congestive) heart failure Chronic venous insufficiency (Chronic) Combined systolic and diastolic congestive heart failure, NYHA class 3 COPD, severe Diabetes mellitus Diabetes mellitus, type 2 (Chronic) NIDDM. Diabetic peripheral neuropathy associated with type 2 diabetes mellitus Dyslipidemia Edema Former smoker Hearing deficit [place] History of actinic keratosis (Resolved) History of ischemic colitis (Resolved) History of SCC (squamous cell carcinoma) of skin (Resolved) History of skin cancer REMOVED History of squamous cell carcinoma in situ of skin (Resolved) Hypertension Intrinsic asthma Ischemic colitis (2010) LBBB (left bundle branch block) Left bundle branch block Migraine Mitral regurgitation Oral thrush Osteomyelitis of right foot Pancytopenia Permanent atrial fibrillation Pseudomonas aeruginosa infection Seborrheic keratosis Squamous cell carcinoma of arm UTI (urinary tract infection) Vasomotor rhinitis Venous insufficiency (chronic) (peripheral) Surgical History History of cataract surgery (Resolved) History of colonoscopy (Resolved) History of tonsillectomy and adenoidectomy (Resolved) Status post amputation of toe (Resolved) Family History Mother Atrial fibrillation Myocardial infarction Father Diabetes Social History Preferred Language: Chinese Communication Ability: Impaired Communication Ability Comment: has hearing aids 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 Beliefs That Will Affect Care: None marital status: Current Living Situation: Spouse Other Information That Helps Us Care for You: No Feels Safe at Home: Yes Safety Concerns: Feels Safe At This Time Smoking Status: Former smoker Second Hand Exposure: No ; Hx Alcohol Use: No Hx Substance Use: No Review of Systems Review of Systems: Unobtainable due to cognitive status Physical Exam Constitutional: well developed, + ill appearing, + frail appearing and + lethargic; no acute distress Eyes: PERRL, conjunctivae normal, anicteric sclerae ENMT: external ear and nose normal, oropharynx normal Neck: trachea midline, no thyromegaly Respiratory: normal respiratory effort; no labored breathing Auscultation: + diminished lung sounds (right base); no crackles, no rhonchi and no wheezes Cardiovascular: Rate/Rhythm: regular rate and + irregularly irregular Heart Sounds: normal S1 and normal S2; no murmur Extremities: normal capillary refill and + edema (pitting to shins) Gastrointestinal (Abdomen): normal bowel sounds, soft, nontender, no hepatosplenomegaly Musculoskeletal: Head/Neck/Chest: normocephalic and head atraumatic Extremities: + abnormal strength (generalized weakness); + extremities abnormal to inspection (venous stasis changes in lower legs) Skin: + turgor decreased and + erythema (lower legs bilaterally); no wound Neurologic: patellar DTR's 2+ bilat, sensation intact and PERRL, EOMI, accommodation nl, no face palsy, no dysarthria Psychiatric: Orientation: alert, oriented to person and cooperative; + not oriented to place and + not oriented to time Lymphatic: no cervical or axillary lymphadenopathy Results & Data Results & Data ([facility]) Vital Signs (Past 12 Hours) Vital Signs Temp Pulse Pulse Resp BP BP Pulse Ox 02/08/20 13:35 79 14 97 02/08/20 13:30 90 26 H 68/42 L 92 02/08/20 13:25 87 30 H 80/47 L 91 02/08/20 13:20 76 28 H 85/48 L 93 02/08/20 13:17 75 27 H 74/36 L 95 02/08/20 13:15 78 23 78/50 L 97 02/08/20 13:12 77 21 69/39 L 97 02/08/20 13:10 83 26 H 94 02/08/20 13:05 78 28 H 95 02/08/20 13:00 88 31 H 72/46 L 92 02/08/20 12:56 83 28 H 66/42 L 92 02/08/20 12:55 85 29 H 95 02/08/20 12:50 96 H 23 95 02/08/20 12:45 82 28 H 73/49 L 98 02/08/20 12:42 88 25 H 77/42 L 97 02/08/20 12:37 85 26 H 73/48 L 96 02/08/20 12:30 87 30 H 95 02/08/20 12:16 85 28 H 92/52 L 95 02/08/20 12:15 79 36 H 92 02/08/20 12:11 101 H 89 34 H 95/63 L 95/63 L 100 02/08/20 12:00 100 H 14 02/08/20 11:45 91 H 18 78 L 02/08/20 11:30 102 H 35 H 105/67 82 L 02/08/20 11:15 94 H 33 H 02/08/20 11:01 118 H 35 H 106/75 89 L 02/08/20 11:00 112 H 36 H 92 02/08/20 10:57 95 02/08/20 10:51 38.3 C H 101 H 20 111/71 88 L 02/08/20 10:45 98 H 36 H 93 02/08/20 10:31 92 H 31 H 92 02/08/20 10:27 110 H 34 H 111/71 91 Laboratory Results Laboratory Results - last 24 hr 02/08/20 02/08/20 02/08/20 10:44 10:44 10:44 WBC RBC Hgb Hct MCV MCH MCHC RDW Std Deviation RDW Coeff of Chad Plt Count MPV Immature Gran % (Auto) Neut % (Auto) Lymph % (Auto) [place] % (Auto) Eos % (Auto) Baso % (Auto) Immature Gran # (Auto) Neut # (Auto) Lymph # (Auto) [place] # (Auto) Eos # (Auto) Baso # (Auto) ESR PT INR APTT PTT Ratio ABG pH ABG pCO2 ABG pO2 ABG HCO3 ABG O2 Saturation ABG Base Excess Elvi Test VBG pH VBG pCO2 VBG pO2 VBG HCO3 VBG O2 Saturation VBG Base Excess Mixed VBG pH Mixed VBG pCO2 Mixed VBG pO2 Mixed VBG HCO3 Mixed VBG Base Excess Mixed VBG O2 Saturation Barometric Pressure Oxygen Given Sodium Potassium Chloride Carbon Dioxide Anion Gap BUN Creatinine Est Cr Clr Drug Dosing Est GFR ( Amer) Est GFR (Non-Af Amer) BUN/Creatinine Ratio Glucose POC Glucose Lactate Calcium Magnesium Ferritin Total Bilirubin AST ALT Alkaline Phosphatase Total Creatine Kinase CK-MB (CK-2) CK/CKMB % Calc Troponin I C-Reactive Protein NT-Pro-B Natriuret Pep Total Protein Albumin Globulin Albumin/Globulin Ratio Procalcitonin Urine Color Urine Appearance Urine pH Ur Specific [place] Urine Protein Urine Glucose (UA) Urine Ketones Urine Blood Urine Nitrite Urine Bilirubin Urine Urobilinogen Ur Leukocyte Esterase Urine WBC (Auto) Urine RBC (Auto) U Hyaline Cast (Auto) U Epithel Cells (Auto) Urine Bacteria (Auto) Nasal Screen MRSA (PCR) Digoxin COVID-19 PCR NEGATIVE Influenza Type A (PCR) Neg for Influ A Influenza Type B (PCR) Neg for Influ B SARS-CoV-2 RNA (RT-PCR) Cancelled 02/08/20 02/08/20 02/08/20 11:33 11:33 11:33 WBC 12.63 H RBC 3.84 L Hgb 12.4 L Hct 38.7 L MCV 100.8 H MCH 32.3 MCHC 32.0 RDW Std Deviation 56.6 H RDW Coeff of Chad 15.5 H Plt Count 120 L MPV 11.2 H Immature Gran % (Auto) 0.2 Neut % (Auto) 92.5 Lymph % (Auto) 3.4 [place] % (Auto) 3.8 Eos % (Auto) 0.0 Baso % (Auto) 0.1 Immature Gran # (Auto) 0.03 H Neut # (Auto) 11.68 H Lymph # (Auto) 0.43 L [place] # (Auto) 0.48 Eos # (Auto) 0.00 Baso # (Auto) 0.01 ESR PT 16.2 H INR 1.6 H APTT 37.9 H PTT Ratio 1.4 ABG pH ABG pCO2 ABG pO2 ABG HCO3 ABG O2 Saturation ABG Base Excess Levi Test VBG pH VBG pCO2 VBG pO2 VBG HCO3 VBG O2 Saturation VBG Base Excess Mixed VBG pH Mixed VBG pCO2 Mixed VBG pO2 Mixed VBG HCO3 Mixed VBG Base Excess Mixed VBG O2 Saturation Barometric Pressure Oxygen Given Sodium 141 Potassium 4.3 Chloride 104 Carbon Dioxide 31 Anion Gap 6.0 BUN 41 H Creatinine 1.39 Est Cr Clr Drug Dosing 44.2 Est GFR ( Amer) 51.7 Est GFR (Non-Af Amer) 44.6 BUN/Creatinine Ratio 29.8 H Glucose 93 POC Glucose Lactate Calcium 9.2 Magnesium 2.2 Ferritin Total Bilirubin 1.0 AST 43 H ALT 25 Alkaline Phosphatase 63 Total Creatine Kinase 79 CK-MB (CK-2) < 1.0 CK/CKMB % Calc TNP Troponin I 0.242 H* C-Reactive Protein NT-Pro-B Natriuret Pep 93181 H Total Protein 7.3 Albumin 3.6 Globulin 3.7 Albumin/Globulin Ratio 1.0 Procalcitonin Urine Color Urine Appearance Urine pH Ur Specific [place] Urine Protein Urine Glucose (UA) Urine Ketones Urine Blood Urine Nitrite Urine Bilirubin Urine Urobilinogen Ur Leukocyte Esterase Urine WBC (Auto) Urine RBC (Auto) U Hyaline Cast (Auto) U Epithel Cells (Auto) Urine Bacteria (Auto) Nasal Screen MRSA (PCR) Digoxin COVID-19 PCR Influenza Type A (PCR) Influenza Type B (PCR) SARS-CoV-2 RNA (RT-PCR) 02/08/20 02/08/20 02/08/20 11:33 11:33 11:33 WBC RBC Hgb Hct MCV MCH MCHC RDW Std Deviation RDW Coeff of Chad Plt Count MPV Immature Gran % (Auto) Neut % (Auto) Lymph % (Auto) [place] % (Auto) Eos % (Auto) Baso % (Auto) Immature Gran # (Auto) Neut # (Auto) Lymph # (Auto) [place] # (Auto) Eos # (Auto) Baso # (Auto) ESR 51 H PT INR APTT PTT Ratio ABG pH ABG pCO2 ABG pO2 ABG HCO3 ABG O2 Saturation ABG Base Excess Levi Test VBG pH VBG pCO2 VBG pO2 VBG HCO3 VBG O2 Saturation VBG Base Excess Mixed VBG pH Mixed VBG pCO2 Mixed VBG pO2 Mixed VBG HCO3 Mixed VBG Base Excess Mixed VBG O2 Saturation Barometric Pressure Oxygen Given Sodium Potassium Chloride Carbon Dioxide Anion Gap BUN Creatinine Est Cr Clr Drug Dosing Est GFR ( Amer) Est GFR (Non-Af Amer) BUN/Creatinine Ratio Glucose POC Glucose Lactate 2.4 H* Calcium Magnesium Ferritin Total Bilirubin AST ALT Alkaline Phosphatase Total Creatine Kinase CK-MB (CK-2) CK/CKMB % Calc Troponin I C-Reactive Protein NT-Pro-B Natriuret Pep Total Protein Albumin Globulin Albumin/Globulin Ratio Procalcitonin 1.18 H Urine Color Urine Appearance Urine pH Ur Specific [place] Urine Protein Urine Glucose (UA) Urine Ketones Urine Blood Urine Nitrite Urine Bilirubin Urine Urobilinogen Ur Leukocyte Esterase Urine WBC (Auto) Urine RBC (Auto) U Hyaline Cast (Auto) U Epithel Cells (Auto) Urine Bacteria (Auto) Nasal Screen MRSA (PCR) Digoxin COVID-19 PCR Influenza Type A (PCR) Influenza Type B (PCR) SARS-CoV-2 RNA (RT-PCR) 02/08/20 02/08/20 02/08/20 11:33 12:17 13:34 WBC RBC Hgb Hct MCV MCH MCHC RDW Std Deviation RDW Coeff of Chad Plt Count MPV Immature Gran % (Auto) Neut % (Auto) Lymph % (Auto) [place] % (Auto) Eos % (Auto) Baso % (Auto) Immature Gran # (Auto) Neut # (Auto) Lymph # (Auto) [place] # (Auto) Eos # (Auto) Baso # (Auto) ESR PT INR APTT PTT Ratio ABG pH ABG pCO2 ABG pO2 ABG HCO3 ABG O2 Saturation ABG Base Excess Levi Test VBG pH VBG pCO2 VBG pO2 VBG HCO3 VBG O2 Saturation VBG Base Excess Mixed VBG pH Mixed VBG pCO2 Mixed VBG pO2 Mixed VBG HCO3 Mixed VBG Base Excess Mixed VBG O2 Saturation Barometric Pressure Oxygen Given Sodium Potassium Chloride Carbon Dioxide Anion Gap BUN Creatinine Est Cr Clr Drug Dosing Est GFR ( Amer) Est GFR (Non-Af Amer) BUN/Creatinine Ratio Glucose POC Glucose Lactate 1.9 Calcium Magnesium Ferritin 107.4 Total Bilirubin AST ALT Alkaline Phosphatase Total Creatine Kinase CK-MB (CK-2) CK/CKMB % Calc Troponin I C-Reactive Protein 2.35 H NT-Pro-B Natriuret Pep Total Protein Albumin Globulin Albumin/Globulin Ratio Procalcitonin Urine Color Dark Yellow Urine Appearance Clear Urine pH 5.0 Ur Specific [place] 1.023 Urine Protein 1+ H Urine Glucose (UA) Negative Urine Ketones Trace H Urine Blood Negative Urine Nitrite Negative Urine Bilirubin Negative Urine Urobilinogen Negative Ur Leukocyte Esterase Negative Urine WBC (Auto) 1-5 Urine RBC (Auto) 0-4 U Hyaline Cast (Auto) 1-5 U Epithel Cells (Auto) 10-20 H Urine Bacteria (Auto) Negative Nasal Screen MRSA (PCR) Digoxin COVID-19 PCR Influenza Type A (PCR) Influenza Type B (PCR) SARS-CoV-2 RNA (RT-PCR) 02/08/20 02/08/20 02/08/20 15:27 16:15 16:17 WBC RBC Hgb Hct MCV MCH MCHC RDW Std Deviation RDW Coeff of Chad Plt Count MPV Immature Gran % (Auto) Neut % (Auto) Lymph % (Auto) [place] % (Auto) Eos % (Auto) Baso % (Auto) Immature Gran # (Auto) Neut # (Auto) Lymph # (Auto) [place] # (Auto) Eos # (Auto) Baso # (Auto) ESR PT INR APTT PTT Ratio ABG pH ABG pCO2 ABG pO2 ABG HCO3 ABG O2 Saturation ABG Base Excess Levi Test VBG pH VBG pCO2 VBG pO2 VBG HCO3 VBG O2 Saturation VBG Base Excess Mixed VBG pH Cancelled Mixed VBG pCO2 Cancelled Mixed VBG pO2 Cancelled Mixed VBG HCO3 Cancelled Mixed VBG Base Excess Cancelled Mixed VBG O2 Saturation Cancelled Barometric Pressure Cancelled Oxygen Given Sodium Potassium Chloride Carbon Dioxide Anion Gap BUN Creatinine Est Cr Clr Drug Dosing Est GFR ( Amer) Est GFR (Non-Af Amer) BUN/Creatinine Ratio Glucose POC Glucose 97 Lactate Calcium Magnesium Ferritin Total Bilirubin AST ALT Alkaline Phosphatase Total Creatine Kinase CK-MB (CK-2) CK/CKMB % Calc Troponin I C-Reactive Protein NT-Pro-B Natriuret Pep Total Protein Albumin Globulin Albumin/Globulin Ratio Procalcitonin Urine Color Urine Appearance Urine pH Ur Specific [place] Urine Protein Urine Glucose (UA) Urine Ketones Urine Blood Urine Nitrite Urine Bilirubin Urine Urobilinogen Ur Leukocyte Esterase Urine WBC (Auto) Urine RBC (Auto) U Hyaline Cast (Auto) U Epithel Cells (Auto) Urine Bacteria (Auto) Nasal Screen MRSA (PCR) Negative Digoxin COVID-19 PCR Influenza Type A (PCR) Influenza Type B (PCR) SARS-CoV-2 RNA (RT-PCR) 02/08/20 02/08/20 02/08/20 16:17 16:17 17:29 WBC RBC Hgb Hct MCV MCH MCHC RDW Std Deviation RDW Coeff of Chad Plt Count MPV Immature Gran % (Auto) Neut % (Auto) Lymph % (Auto) [place] % (Auto) Eos % (Auto) Baso % (Auto) Immature Gran # (Auto) Neut # (Auto) Lymph # (Auto) [place] # (Auto) Eos # (Auto) Baso # (Auto) ESR PT INR APTT PTT Ratio ABG pH Cancelled ABG pCO2 Cancelled ABG pO2 Cancelled ABG HCO3 Cancelled ABG O2 Saturation Cancelled ABG Base Excess Cancelled Levi Test Cancelled VBG pH 7.24 L VBG pCO2 76 H VBG pO2 49 VBG HCO3 32 VBG O2 Saturation 74.1 VBG Base Excess 2.9 Mixed VBG pH Mixed VBG pCO2 Mixed VBG pO2 Mixed VBG HCO3 Mixed VBG Base Excess Mixed VBG O2 Saturation Barometric Pressure Cancelled 733.6 Oxygen Given Cancelled Sodium Potassium Chloride Carbon Dioxide Anion Gap BUN Creatinine Est Cr Clr Drug Dosing Est GFR ( Amer) Est GFR (Non-Af Amer) BUN/Creatinine Ratio Glucose POC Glucose Lactate Calcium Magnesium Ferritin Total Bilirubin AST ALT Alkaline Phosphatase Total Creatine Kinase CK-MB (CK-2) CK/CKMB % Calc Troponin I C-Reactive Protein NT-Pro-B Natriuret Pep Total Protein Albumin Globulin Albumin/Globulin Ratio Procalcitonin Urine Color Urine Appearance Urine pH Ur Specific [place] Urine Protein Urine Glucose (UA) Urine Ketones Urine Blood Urine Nitrite Urine Bilirubin Urine Urobilinogen Ur Leukocyte Esterase Urine WBC (Auto) Urine RBC (Auto) U Hyaline Cast (Auto) U Epithel Cells (Auto) Urine Bacteria (Auto) Nasal Screen MRSA (PCR) Digoxin 1.1 COVID-19 PCR Influenza Type A (PCR) Influenza Type B (PCR) SARS-CoV-2 RNA (RT-PCR) 02/08/20 20:49 WBC RBC Hgb Hct MCV MCH MCHC RDW Std Deviation RDW Coeff of Chad Plt Count MPV Immature Gran % (Auto) Neut % (Auto) Lymph % (Auto) [place] % (Auto) Eos % (Auto) Baso % (Auto) Immature Gran # (Auto) Neut # (Auto) Lymph # (Auto) [place] # (Auto) Eos # (Auto) Baso # (Auto) ESR PT INR APTT PTT Ratio ABG pH ABG pCO2 ABG pO2 ABG HCO3 ABG O2 Saturation ABG Base Excess Levi Test VBG pH VBG pCO2 VBG pO2 VBG HCO3 VBG O2 Saturation VBG Base Excess Mixed VBG pH Mixed VBG pCO2 Mixed VBG pO2 Mixed VBG HCO3 Mixed VBG Base Excess Mixed VBG O2 Saturation Barometric Pressure Oxygen Given Sodium Potassium Chloride Carbon Dioxide Anion Gap BUN Creatinine Est Cr Clr Drug Dosing Est GFR ( Amer) Est GFR (Non-Af Amer) BUN/Creatinine Ratio Glucose POC Glucose 108 H Lactate Calcium Magnesium Ferritin Total Bilirubin AST ALT Alkaline Phosphatase Total Creatine Kinase CK-MB (CK-2) CK/CKMB % Calc Troponin I C-Reactive Protein NT-Pro-B Natriuret Pep Total Protein Albumin Globulin Albumin/Globulin Ratio Procalcitonin Urine Color Urine Appearance Urine pH Ur Specific [place] Urine Protein Urine Glucose (UA) Urine Ketones Urine Blood Urine Nitrite Urine Bilirubin Urine Urobilinogen Ur Leukocyte Esterase Urine WBC (Auto) Urine RBC (Auto) U Hyaline Cast (Auto) U Epithel Cells (Auto) Urine Bacteria (Auto) Nasal Screen MRSA (PCR) Digoxin COVID-19 PCR Influenza Type A (PCR) Influenza Type B (PCR) SARS-CoV-2 RNA (RT-PCR) Diagnostic Findings XR chest 1V portable CLINICAL HISTORY: 89 years-old Male presenting with SEPSIS, illness, fever, unresponsive. TECHNIQUE: Portable upright AP view of the chest was obtained. COMPARISON: 02/17/2019. FINDINGS: Atherosclerosis of the aortic arch. Cardiac silhouette enlarged. Pulmonary vascular prominence. Low lung volumes. Added density of the lungs. Moderate right pleural effusion. Poor aeration of the right lung base. Lesser degree of left basilar opacity. Trace left effusion may also be present. No pneumothorax. Degenerative changes of the thoracic spine. Upper abdomen normal. IMPRESSION: 1. Moderate right pleural effusion with extensive right basilar consolidation/atelectasis. Underlying infection not excluded. 2. Lesser left basilar atelectasis and trace effusion. 3. Cardiomegaly with volume overload and congestive change. No brooke pulmonary edema. Code Status & VTE Plan VTE Prophylaxis Plan VTE Prophylaxis will be ordered: Yes PG Care Time/CCT Total # of Minutes Spent Total Time Spent with Patient: Total time spent is greater than 50% in coordination of care (as documented) at patient's floor/unit and/or counseling patient: Coding Level of Care Code 30725 Initial Inpt Care Lvl 3 Diagnoses Shock circulatory R57.9 Pneumonia J18.9 Laterality: unspecified laterality Lung location: unspecified part of lung Pneumonia type: due to unspecified organism Cellulitis L03.90 COPD, severe J44.9 Combined systolic and diastolic congestive heart failure, NYHA class 3 I50.40 Congestive heart failure chronicity: unspecified Diabetes mellitus E11.9 Permanent atrial fibrillation I48.2 (1) Pneumonia Laterality: unspecified laterality Lung location: unspecified part of lung Pneumonia type: due to unspecified organism Qualified Code(s): J18.9 - Pneumonia, unspecified organism (2) Combined systolic and diastolic congestive heart failure, NYHA class 3 Congestive heart failure chronicity: unspecified Qualified Code(s): I50.40 - Unspecified combined systolic (congestive) and diastolic (congestive) heart failure
[2020-02-08] MEDS ORDERED: STAT IV Infusion **Titration per Protocol STA (14:56)
--- NOTE | 2020-02-08 14:59 | Critical Care Consultation ---
Date of Consultation February 08, 2020 Assessment & Plan (1) Combined systolic and diastolic congestive heart failure, NYHA class 3: 89-year-old male with past medical history of systolic CHF ejection fraction 20%, chronic AJaxson tse on dabigatran, COPD came into the hospital in septic shock. He was admitted to the ICU for vasopressors. EKG 02/08/2020: A. dedrick, left bundle branch block, left axis deviation, no ST-T wave changes appreciated. Prolonged QTC. -- Septic shock on top of baseline CHF With leukocytosis and elevated neutrophil count. (Patient has underlying chronic lymphopenia) Etiology unclear, could be pneumonia versus cellulitis of the left lower extremity Influenza negative, Covid-19 PCR negative, urine looks clear, Patient got a liter of fluid in the ED given that the ejection fraction is only 20-25% Given the severe decreased ejection fraction we will keep map goal around 60 Continue with broad-spectrum antibiotics Procalcitonin 1.18, CRP 2.35, ESR: 51 Follow blood culture and urine culture --Systolic CHF with bilateral pleural effusion Ejection fraction 20% BNP 28,000 Strict in and outs Given the patient is already hypotensive We will get mixed venous and start the patient on dobutamine with Levophed to see if we can keep negative balance --Elevated troponin Likely type II CA No significant change in EKG compared to the one from January 2019 Monitor --Paroxysmal A. fib Patient is on digoxin at home On dabigatran at home We will continue with --COPD Not in exacerbation Continue with inhaled bronchodilators Keep O2 saturation between 88 to 92% --Chronic thrombocytopenia Etiology is quite unclear AST, ALT within normal limit, albumin 3.6, bilirubin within normal limit PT/INR are elevated this is likely secondary to dabigatran use. Continue monitoring --Prophylaxis DVT: Dabigatran GI: Pepcid --DNR/DNI Diet: N.p.o. IV: Peripheral plus right IJ 02/08/2020 Had a lengthy discussion with , daughter and 2 sons of the patient at bedside. The chronic comorbidities that the patient has and the critical condition of the patient is in related to the family. Family made aware that overall prognosis is not good. A trial of central line with dobutamine and antibiotics can be given to see if there is any improvement in the next 24-48 hours. Family understands that if there is no improvement in his clinical status they will go towards comfort care. Risk and benefits of the procedure were explained to family and consent was signed by the . Plan: Lactic acidosis improving. Continue with doxycycline, Zosyn and vancomycin. We will start the patient on dobutamine 2.5 MCG and follow-up the urine output. We will try to titrate off Levophed off if patient is able to tolerate dobutamine alone. Follow-up digoxin level keep it between 0.8-1 Given the history of A. fib there is high likelihood the patient might be going to arrhythmia we will keep an eye on it. I have personally spent 81 minutes of critical care time in the direct management of this patient. This is a life/limb threatening event. This includes time spent evaluating patient, direct bedside care, chart review, placing orders, interpretation of diagnostic studies, discussion with consultants, patient, and family members, as well as other required patient management activities. This time is exclusive of all separately billable procedures, and teaching time and separate from and in addition to any other critical care service time. Please note the above document was generated using voice recognition software. It may contain grammatical, syntax or spelling errors. (2) Shock circulatory: (3) Cardiomyopathy: (4) Permanent atrial fibrillation: History of Present Illness History of Present Illness 89-year-old male with past medical history of systolic CHF ejection fraction 20-25%, A. fib on dabigatran, COPD, diabetes type 2, chronic venous s ning was brought to the hospital because of generalized lethargy and change in mental status along with fever. Patient is personally a poor historian. History was obtained from family which his and daughter along with sons. Patient had a rapid Covid-19 PCR done in the ED which was negative. At the time of examination, patient was lethargic but answering questions on awakening. He denies any chest pain, denies any shortness of breath actually, no dysuria, no diarrhea. No runny nose, no tearing from the eyes. No palpitations. There is no recent travel history. Patient is compliant with his medications. No known sick contacts. Allergies Allergy/AdvReac Type Severity Reaction Status Date / Time albuterol AdvReac Severe Increased Unverified 02/08/20 11:27 blood pressure levofloxacin AdvReac Intermediate TENDONITIS Verified 05/12/20 11:27 Bactrim AdvReac Mild GI SYMPTOMS Verified 05/22/18 14:15 house dust AdvReac Mild Unknown Verified 02/08/20 11:27 sulfamethoxazole AdvReac Mild GI SYMPTOMS Verified 02/08/20 11:27 trimethoprim AdvReac Mild GI SYMPTOMS Verified 02/08/20 11:27 Home Medications Home Medications Medication Instructions Recorded Confirmed Type ciclesonide 160 mcg/actuation 1 puffs INH BID 05/28/18 02/08/20 History aerosol inhaler dabigatran etexilate 150 mg capsule 150 mg PO BID 05/28/18 02/08/20 History lisinopril 5 mg tablet 5 mg PO QAM 05/28/18 02/08/20 History multivitamin 1 tab PO QAM 05/28/18 02/08/20 History [facility] 1 tab PO HS 02/16/19 02/08/20 History bumetanide 1 mg PO QAM 02/16/19 02/08/20 History cholecalciferol (vitamin D3) 50 2,000 units PO QAM cap 04/26/19 02/08/20 History mcg (2,000 unit) capsule levalbuterol tartrate 45 1 puffs INH Q6H PRN 04/26/19 02/08/20 History mcg/actuation aerosol inhaler Oxygen Home #1 ea 07/08/19 12/13/19 Rx pravastatin 20 mg tablet 20 mg PO HS #90 tab 08/12/19 02/08/20 Rx docusate sodium 100 mg PO HS 10/15/19 02/08/20 History polyethylene glycol 3350 [Miralax] 17 g PO HS 10/15/19 02/08/20 History ipratropium bromide 17 2 puffs INH BID #25.8 gm 10/26/19 02/08/20 Rx mcg/actuation HFA aerosol inhaler metformin 500 mg tablet 500 mg PO BID #180 tab 11/30/19 02/08/20 Rx digoxin 125 mcg (0.125 mg) tablet 125 mcg PO HS #90 tab 01/05/20 02/08/20 Rx Patient History Medical History Actinic keratosis Asthma PRN INH 1 X MO ON AVG Cardiomyopathy EF 20-25%. Chronic combined systolic (congestive) and diastolic (congestive) heart failure Chronic venous insufficiency (Chronic) Combined systolic and diastolic congestive heart failure, NYHA class 3 COPD, severe Diabetes mellitus Diabetes mellitus, type 2 (Chronic) NIDDM. Diabetic peripheral neuropathy associated with type 2 diabetes mellitus Dyslipidemia Edema Former smoker Hearing deficit [place] History of actinic keratosis (Resolved) History of ischemic colitis (Resolved) History of SCC (squamous cell carcinoma) of skin (Resolved) History of skin cancer REMOVED History of squamous cell carcinoma in situ of skin (Resolved) Hypertension Intrinsic asthma Ischemic colitis (2010) LBBB (left bundle branch block) Left bundle branch block Migraine Mitral regurgitation Oral thrush Osteomyelitis of right foot Pancytopenia Permanent atrial fibrillation Pseudomonas aeruginosa infection Seborrheic keratosis Squamous cell carcinoma of arm UTI (urinary tract infection) Vasomotor rhinitis Venous insufficiency (chronic) (peripheral) Surgical History History of cataract surgery (Resolved) History of colonoscopy (Resolved) History of tonsillectomy and adenoidectomy (Resolved) Status post amputation of toe (Resolved) Family History Mother Atrial fibrillation Myocardial infarction Father Diabetes Social History Preferred Language: Persian Communication Ability: Impaired Communication Ability Comment: has hearing aids 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 Beliefs That Will Affect Care: None marital status: Current Living Situation: Spouse Other Information That Helps Us Care for You: No Feels Safe at Home: Yes Safety Concerns: Feels Safe At This Time Smoking Status: Former smoker Second Hand Exposure: No ; Hx Alcohol Use: No Hx Substance Use: No Review of Systems Review of Systems: All systems reviewed & are unremarkable except as noted in HPI & below Physical Exam Physical Exam: Constitutional: No acute distress, somnolent HEENT: EOMI, PERRLA, arcus senilis bilaterally, positive JVD Respiratory system: Decreased air entry bilaterally, no wheeze, no rhonchi, positive crackles bilateral lower lobes CVS: S1-S2 positive, irregular rhythm, positive 2 out of 6 systolic murmur appreciated best at aorta, positive AICD Abdomen: Soft, nontender, nondistended, positive bowel sounds x4 Extremities: +2 pulses bilaterally radialis/ dorsalis pedis, no cyanosis, +3 pitting edema bilateral lower extremity, warm extremities, left lower extremity there is some redness appreciated anterior medially (as per the family patient has this for a very long time) Neuro: Somnolent, alert to self and place Psych: Normal mood and affect G/U: Positive Bailey POCUS: Lung: B-lines appreciated bilaterally anteriorly and posteriorly, positive moderate pleural effusion on the right side, small effusion on the left Heart: Decreased ejection fraction, mild pericardial effusion, RVOT slightly increased in size, IVC nonvariable, Abdomen: No peritoneal fluid appreciated Skin: no rashes, warm and dry Lymphatic: no cervical or axillary lymphadenopathy Results & Data Results & Data ([facility]) Vital Signs (Past 12 Hours) Vital Signs Temp Pulse Pulse Resp BP BP Pulse Ox 02/08/20 13:35 79 14 97 02/08/20 13:30 90 26 H 68/42 L 92 02/08/20 13:25 87 30 H 80/47 L 91 02/08/20 13:20 76 28 H 85/48 L 93 02/08/20 13:17 75 27 H 74/36 L 95 02/08/20 13:15 78 23 78/50 L 97 02/08/20 13:12 77 21 69/39 L 97 02/08/20 13:10 83 26 H 94 02/08/20 13:05 78 28 H 95 02/08/20 13:00 88 31 H 72/46 L 92 02/08/20 12:56 83 28 H 66/42 L 92 02/08/20 12:55 85 29 H 95 02/08/20 12:50 96 H 23 95 02/08/20 12:45 82 28 H 73/49 L 98 02/08/20 12:42 88 25 H 77/42 L 97 02/08/20 12:37 85 26 H 73/48 L 96 02/08/20 12:30 87 30 H 95 02/08/20 12:16 85 28 H 92/52 L 95 02/08/20 12:15 79 36 H 92 02/08/20 12:11 101 H 89 34 H 95/63 L 95/63 L 100 02/08/20 12:00 100 H 14 02/08/20 11:45 91 H 18 78 L 02/08/20 11:30 102 H 35 H 105/67 82 L 02/08/20 11:15 94 H 33 H 02/08/20 11:01 118 H 35 H 106/75 89 L 02/08/20 11:00 112 H 36 H 92 02/08/20 10:57 95 02/08/20 10:51 38.3 C H 101 H 20 111/71 88 L 02/08/20 10:45 98 H 36 H 93 02/08/20 10:31 92 H 31 H 92 02/08/20 10:27 110 H 34 H 111/71 91 02/08/20 11:33 02/08/20 11:33 Chest x-ray 02/08/2020: Bilateral pleural effusion more on the right side, poor inspiratory effort, increased cardiac silhouette, increased cardiovascular markings. Retrocardiac opacity cannot be ruled out. [facility] [place] Procedure Codes (Charges) Pulmonary/Thoracic Procedure 1: Pulmonary and Thoracic: 74066 US, Chest, real time with imaging documentation Coding Level of Care Code Critical Care 1st 30-74 mins Diagnoses Combined systolic and diastolic congestive heart failure, NYHA class 3 I50.40 Congestive heart failure chronicity: unspecified Shock circulatory R57.9 Cardiomyopathy I42.8 Cardiomyopathy type: other Permanent atrial fibrillation I48.2 CPT Codes Pulmonary/Thoracic - Pulmonary and Thoracic: 08109 US, Chest, real time with imaging documentation ([id number]) Time Spent (min) 81 (1) Combined systolic and diastolic congestive heart failure, NYHA class 3 Congestive heart failure chronicity: unspecified Qualified Code(s): I50.40 - Unspecified combined systolic (congestive) and diastolic (congestive) heart failure (2) Cardiomyopathy Cardiomyopathy type: other Qualified Code(s): I42.8 - Other cardiomyopathies
[2020-02-08] MEDS ORDERED: ICU PROTOCOL FOR HYPERGLYCEMIA PRN (15:42)
--- NOTE | 2020-02-08 16:13 | Procedure Note ---
Procedure Note Date of Service February 08, 2020 Procedure: Inserting ultrasound-guided central line crew supervisor: Dr. Jonna Henley Indication: Hypotension Consent: Signed by patient's Anesthesia: 1% lidocaine without epinephrine local. Procedure: Consent was verified and timeout performed. Appropriate imaging studies were reviewed prior to the procedure. Under aseptic and sterile condition, right IJ vein was accessed under direct ultrasound guidance. Guidewire was confirmed to be within the lumen of vein with the help of ultrasound. Catheter was introduced via Seldinger technique. Guide a wire was removed. Good non-pulsatile blood flow was appreciated from all the ports. The catheter was placed at 16 cm and sut[address] in place. BioPatch was applied to the catheter and a sterile Tegaderm dressing was applied over the catheter with careful attention to sterility. Lung sliding was appreciated post procedure with the help ultrasound. Chest x-ray to follow Patient tolerated the procedure well. Blood loss: Less than 2 cc Complications: None Coding CPT Codes Tubes, Drains, and Vasc Access - Tubes, Drains, and Vasc Access: [id number] Place catheter in vein superior or inferior vena cava ([id number]) Tubes, Drains, and Vasc Access - Tubes, Drains, and Vasc Access: [id number] Ultrasound Guidance For Vascular ([id number]) [facility] [place] Procedure Codes (Charges) Tubes, Drains, and Vasc Access Procedure 1: Tubes, Drains, and Vasc Access: [id number] Place catheter in vein superior or inferior vena cava Procedure 2: Tubes, Drains, and Vasc Access: [id number] Ultrasound Guidance For Vascular
--- NOTE | 2020-02-08 16:34 | XRay Report ---
XR chest 1V portable CLINICAL HISTORY: Right IJ central line placed COMPARISON STUDY: 02/08/2020 FINDINGS: The heart remains enlarged. There are bilateral pleural effusions with associated basilar a irspace opacities. There is been interval placement of a right internal jugular central venous cathet er. The tip projects over the superior vena cava. There is no pneumothorax.[There is suspected mild c ongestive failure/fluid overload. IMPRESSION: 1. No pneumothorax status post placement of a right internal jugular central venous catheter. The tip projects over the superior vena cava 2. Persistent bilateral pleural effusions right greater than left with associated basilar airspace op acities 3. Suspected mild congestive failure/fluid overload ACT 112: Negative or not required by law. Electronically signed by: Varun Abdul M.D. 02/08/2020 4:33 PM
[2020-02-08 16:37] LABS: Base Excess VBG 2.9 mEq/L; Oxygen Saturation VBG 74.1 %; pH VBG 7.24 (7.36-7.41)
[2020-02-08] MEDS: DOBUTamine / D5W 500 MG/250 ML BAG IV SCH (16:43)
[2020-02-08] MEDS: FAMOTIDINE 20 MG in SYRINGE 3 ML IV SCH (16:45)
[2020-02-08] MEDS: PIPERACILLIN/TAZOBACTAM 4.5 GM in DEXTROSE 5% 100 ML IV SCH (16:45)
[2020-02-08] MEDS ORDERED: PANTOprazole 40 MG TAB PO SCH (17:00)
--- NOTE | 2020-02-08 19:29 | Pharmacy Report ---
Pharmacy Abx Initial Consult - Date of Service February 08, 2020 - Pharmacy Dosing Scope Date of Consult: 02/08/20 Consultation requested by: Dr. Diane Pharmacy is consulted to initiate vancomycin and Zosyn IV dosing therapy, order appropriate labs and adjust drug dose/frequency. - Subjective The patient is a 89 year old M admitted on 02/08/20 13:42. - Objective Height: 6 ft 4 in Weight: 92.1 kg Vital Signs (Past 12hrs): Vital Signs Temp Pulse Pulse Resp BP BP Pulse Ox 02/08/20 18:30 74 20 91/53 L 93 02/08/20 18:03 82 23 95/43 L 02/08/20 17:22 83 19 84/52 L 02/08/20 17:07 75 20 88/46 L 95 02/08/20 16:36 69 19 88/48 L 97 02/08/20 16:21 77 21 83/47 L 97 02/08/20 16:06 67 21 91/49 L 93 02/08/20 15:51 79 21 83/51 L 02/08/20 15:36 37.1 C 66 20 91/55 L 98 02/08/20 15:21 86 22 87/54 L 92 02/08/20 15:07 86 19 96/56 L 94 02/08/20 13:35 79 14 97 02/08/20 13:30 90 26 H 68/42 L 92 02/08/20 13:25 87 30 H 80/47 L 91 02/08/20 13:20 76 28 H 85/48 L 93 02/08/20 13:17 75 27 H 74/36 L 95 02/08/20 13:15 78 23 78/50 L 97 02/08/20 13:12 77 21 69/39 L 97 02/08/20 13:10 83 26 H 94 02/08/20 13:05 78 28 H 95 02/08/20 13:00 88 31 H 72/46 L 92 02/08/20 12:56 83 28 H 66/42 L 92 02/08/20 12:55 85 29 H 95 02/08/20 12:50 96 H 23 95 02/08/20 12:45 82 28 H 73/49 L 98 02/08/20 12:42 88 25 H 77/42 L 97 02/08/20 12:37 85 26 H 73/48 L 96 02/08/20 12:30 87 30 H 95 02/08/20 12:16 85 28 H 92/52 L 95 02/08/20 12:15 79 36 H 92 02/08/20 12:11 101 H 89 34 H 95/63 L 95/63 L 100 02/08/20 12:00 100 H 14 02/08/20 11:45 91 H 18 78 L 02/08/20 11:30 102 H 35 H 105/67 82 L 02/08/20 11:15 94 H 33 H 02/08/20 11:01 118 H 35 H 106/75 89 L 02/08/20 11:00 112 H 36 H 92 02/08/20 10:57 95 02/08/20 10:51 38.3 C H 101 H 20 111/71 88 L 02/08/20 10:45 98 H 36 H 93 02/08/20 10:31 92 H 31 H 92 02/08/20 10:27 110 H 34 H 111/71 91 Lab Results (24hrs): Laboratory Tests (24 Hours) 02/08/20 02/08/20 02/08/20 11:33 11:33 11:33 WBC Neut # (Auto) ESR 51 H Creatinine Est Cr Clr Drug Dosing Total Creatine Kinase C-Reactive Protein 2.35 H Procalcitonin 1.18 H 02/08/20 02/08/20 11:33 11:33 WBC 12.63 H Neut # (Auto) 11.68 H ESR Creatinine 1.39 Est Cr Clr Drug Dosing 44.2 Total Creatine Kinase 79 C-Reactive Protein Procalcitonin Micro Results: 02/08/20 11:35 Aerobic Blood Culture - Pending Blood Anaerobic Blood Culture - Pending 02/08/20 11:33 Aerobic Blood Culture - Pending Blood Anaerobic Blood Culture - Pending - Risk Factors for Resistance * PMH of COPD * History of infection with a multidrug-resistant organism: (Pseudomonas in foot - 2019) * Antimicrobial use within the last 90 days (amoxicillin 11/2019) - Assessment & Plan Assessment 89 year old M ordered empiric vancomycin and Zosyn for treatment of septic shock with unknown etiology (possibly pneumonia vs. cellulitis of left lower extremity). Patient currently requiring vasopressors. PMH significant for HFrEF (EF of 20%), afib, COPD, and chronic thrombocytopenia. Patient febrile on admission (Tmax: 38.3 C) with elevated lactate (2.4), WBC (12,600), and procalcitonin (1.18). Baseline SCr appears to be around 1.1 mg/dL - 1.39 mg/dL on admission. Negative for influenza A/B and Covid-19 MRSA nasal swab pending Blood cultures x 2: obtained and pending Plan Vancomycin IV * Estimated PK Parameters: Vd 0.7 L/kg, Billy 0.041 hr-1, t1/2 17 hr * Loading dose: 2000 mg (22 mg/kg) * Given uncertainty of renal function at this time - will obtain random level tomorrow morning and re-dose as appropriate Piperacillin/tazobactam * 4.5 g bolus administered over 30 minutes, then 4.5 g IV extended infusion every 8 hours for CrCl greater than 20 mL/min OR every 12 hours for CrCl 20 mL/min or less and dialysis. * Aggressive dosing selected due to critically ill status Pharmacy will continue to follow and will adjust dose/frequency as necessary. Thank you.
[2020-02-08] MEDS: DABIGATRAN ETEXILATE 75 MG CAP PO SCH (20:39)
[2020-02-08] MEDS ORDERED: FUROSEMIDE 20 MG in SYRINGE 0 ML IV ONE (21:00)
[2020-02-09] MEDS: PIPERACILLIN/TAZOBACTAM 4.5 GM in DEXTROSE 5% 100 ML IV SCH (01:37)
[2020-02-09] MEDS: FAMOTIDINE 20 MG in SYRINGE 3 ML IV SCH ×2 (04:12→15:50)
[2020-02-09 04:37] LABS: Hematocrit (blood only) 34.7 % (42-52); Hemoglobin 10.9 g/dL (14.0-18.0); Mean Corpuscular Hemoglobin 32.1 pg (25-34); Mean Corpuscular Hgb Conc 31.4 g/dL (32-36); Mean Corpuscular Volume 102.1 fL (80-100); RDW Coefficient of Variation 15.9 % (11.5-14.5); RDW Standard Deviation 59.9 fL (36.4-46.3); White Blood Count 10.99 K/uL (4.8-10.8)
[2020-02-09 05:00] LABS: Albumin Level 2.5 gm/dl (3.4-5.0); BUN Creatinine Ratio 29.1 (10-20); Bilirubin Direct 0.4 mg/dl (0-0.2); Calcium 7.7 mg/dl (8.5-10.1); Creatinine Clr Calc Pharmacy 44.9 ml/min; Est GFR (African American) 52.6; Est GFR (Non-African American) 45.4; Potassium 4.1 mmol/L (3.5-5.1)
[2020-02-09 05:01] LABS: Bilirubin,Total 0.8 mg/dl (0.2-1); Phosphorus 4.2 mg/dl (2.5-4.9); Total Protein 5.8 gm/dl (6.4-8.2)
[2020-02-09 05:30] LABS: Mean Platelet Volume 10.7 fL (7.4-10.4); Platelet Count 97 K/uL (130-400)
[2020-02-09 05:31] LABS: Basophils # (auto) 0.01 K/uL (0-0.2); Basophils % (auto) 0.1 %; Immature Granulocytes # (auto) 0.03 K/uL (0.00-0.02); Immature Granulocytes % (auto) 0.3 %; Lymphocytes # (auto) 0.29 K/uL (1.2-3.4); Lymphocytes % (auto) 2.6 %; Monocytes # (auto) 0.35 K/uL (0.11-0.59); Monocytes % (auto) 3.2 %; Neutrophils # (auto) 10.31 K/uL (1.4-6.5); Neutrophils % (auto) 93.8 %
--- NOTE | 2020-02-09 05:43 | Electrocardiogram Report ---
Test Reason : Blood Pressure : / mmHG Vent. Rate : 114 BPM Atrial Rate : 136 BPM P-R Int : 096 ms QRS Dur : 148 ms QT Int : 442 ms P-R-T Axes : -59 -73 022 degrees QTc Int : 609 ms Poor data quality, interpretation may be adversely affected Atrial fibrillation with rapid ventricular response with premature ventricular or aberrantly conducte d complexes Left axis deviation Left bundle branch block Abnormal ECG When compared with ECG of 16-FEB-2019 21:06, No significant change Confirmed by Jason Franklin ([id number]) on 02/09/2020 5:42:45 AM Referred By: REFERRED SELF Confirmed By:Jason Franklin
[2020-02-09 05:57] LABS: iSTAT Allen Test Pass; iSTAT Art Bld Gas pCO2 Correct 67 mmHg (35-46); iSTAT Art Bld Gas pH Corrected 7.283 (7.35-7.45); iSTAT Arterial Blood Gas HCO3 32 meg/L (19-24); iSTAT Arterial Blood Gas pCO2 68 mmHg (35-46); iSTAT Arterial Blood Gas pH 7.28 (7.35-7.45); iSTAT Arterial Blood Gas pO2 105 mmHg (80-95); iSTAT Arterial Blood Gas pO2 C 104; iSTAT Carbon Dioxide 34 mmol/L (24-31); iSTAT FiO2 35 %; iSTAT Hematocrit 33 % (42-52); iSTAT Hemoglobin 11.2 g/dl (14.0-18.0); iSTAT Site R Radial; iSTAT Sodium 139 mmol/L (135-144)
[2020-02-09] MEDS ORDERED: VANCOMYCIN HCL 1,250 MG in SODIUM CHLORIDE 0.9% 250 ML IV SCH (06:00)
--- NOTE | 2020-02-09 07:07 | XRay Report ---
XR chest 1V portable CLINICAL HISTORY: 89 years-old Male presenting with resp failure. TECHNIQUE: Portable upright AP view of the chest was obtained. COMPARISON: 02/08/2020. FINDINGS: Right internal jugular central venous catheter terminates in the lower SVC. Several external overlyin g leads also noted. Atherosclerosis of the aortic arch. Cardiac silhouette moderately enlarged. Signi ficant pulmonary vascular prominence. Interstitial prominence. Low lung volumes. Moderate right and s mall left pleural effusions. Poor aeration of the lung bases. Gradient of density to the mid lungs li andrea relates to a layering effect of the pleural effusions. Underlying opacity difficult to exclude. No pneumothorax. Degenerative changes of the spine and shoulders. Upper abdomen normal. IMPRESSION: 1. Layering pleural effusions with extensive nasal or atelectasis, right greater than left. Findings are stable to slightly worse from prior. 2. Cardiomegaly with significant volume overload and congestive change. 3. Underlying pulmonary edema is not excluded. ACT 112: Negative or not required by law. Electronically signed by: Raimundo Ward M.D. 02/09/2020 7:05 AM
[2020-02-09] MEDS ORDERED: VANCOMYCIN HCL 1,000 MG in SODIUM CHLORIDE 0.9% 250 ML IV SCH (08:00)
[2020-02-09] MEDS: metOLazone 2.5 MG TABLET PO SCH (08:25)
[2020-02-09] MEDS: UMECLIDINIUM BROMIDE 62.5MCG/BLISTER 7 PUFFS/INHALER INH SCH (08:46)
[2020-02-09] MEDS: DOCUSATE SODIUM/SENNA 50/8.6MG TAB PO SCH ×2 (08:47→08:48)
[2020-02-09] MEDS ORDERED: FUROSEMIDE 40 MG in SYRINGE 0 ML IV SCH (09:00)
[2020-02-09] MEDS ORDERED: VANCOMYCIN HCL 1,500 MG in SODIUM CHLORIDE 0.9% 500 ML IV SCH (09:00)
--- NOTE | 2020-02-09 09:26 | Critical Care Progress Note ---
Date of Service February 09, 2020 Assessment & Plan (1) Combined systolic and diastolic congestive heart failure, NYHA class 3: 89-year-old male with past medical history of systolic CHF ejection fraction 20%, chronic Marilee tse on dabigatran, COPD came into the hospital in septic shock. He was admitted to the ICU for vasopressors. EKG 02/08/2020: A. dedrick, left bundle branch block, left axis deviation, no ST-T wave changes appreciated. Prolonged QTC. -- Septic shock on top of baseline CHF With gram-positive bacteremia source seems to be likely cellulitis of the left lower extremity, pneumonia cannot be excluded Influenza negative, Covid-19 PCR negative, urine looks clear, Patient got a liter of fluid in the ED given that the ejection fraction is only 20-25% Given the severe decreased ejection fraction we will keep map goal around 60 Continue with broad-spectrum antibiotics Procalcitonin 1.18 --> 9.35, CRP 2.35, ESR: 51 Follow blood culture and urine culture --Systolic CHF with bilateral pleural effusion Ejection fraction 20% BNP 28,000 Strict in and outs --Acute hypercapnic hypoxic respiratory failure Hypercapnia is likely secondary to central component because of his CHF leading to Avila-Lozano breathing Hypoxia secondary to volume overload Continue with BiPAP as needed to keep saturation between 88 to 92% Diuresis as tolerated keep negative balance --Elevated troponin Likely type II AL No significant change in EKG compared to the one from January 2019 Monitor --Paroxysmal AJaxson tse Patient is on digoxin at home On dabigatran at home Digoxin level was 1.1 02/08/2020 we will repeat the level tomorrow if it is between 0.8-1. We will restart it --COPD Not in exacerbation Continue with inhaled bronchodilators Keep O2 saturation between 88 to 92% --Chronic thrombocytopenia Etiology is quite unclear AST, ALT within normal limit, albumin 3.6, bilirubin within normal limit PT/INR are elevated this is likely secondary to dabigatran use. Continue monitoring --Prophylaxis DVT: Dabigatran GI: Pepcid --DNR/DNI Diet: N.p.o. IV: Peripheral plus right IJ 02/08/2020 Had a lengthy discussion with , daughter and 2 sons of the patient at bedside. The chronic comorbidities that the patient has and the critical condition of the patient is in related to the family. Family made aware that overall prognosis is not good. A trial of central line with dobutamine and antibiotics can be given to see if there is any improvement in the next 24-48 hours. Family understands that if there is no improvement in his clinical status they will go towards comfort care. Risk and benefits of the procedure were explained to family and consent was signed by the . Plan: In/out: +2.1 L. AB.28/68/105 on BiPAP 07/04 Patient is growing gram-positive culture in all 4 bottles. Sepsis is playing a part in his underlying condition on top of his chronic CHF. Continue with antibiotics. Follow-up sensitivity. Source is still unclear left lower extremity cellulitis is high in the differential now compared to pneumonia. Antibiotics covering both are given for the time being. We will discontinue Zosyn. Continue with vancomycin and will de-escalate based on the sensitivity. Metolazone has been added to make patient diuresed more. Lasix has been increased to 40 mg every 12 hours. Given the patient ejection fraction is only 20%. Goal map is around 60. I have personally spent 37 minutes of critical care time in the direct managemen t of this patient. This is a life/limb threatening event. This includes time spent evaluating patie nt, direct bedside care, chart review, placing orders, interpretation of diagnostic studies, discussion with consultants, patient, and family members, as well as other required patient management activities. This time is exclusive of all separately billable procedures, and teaching time and separate from and in addition to any other critical care service time. Please note the above document was generated using voice recognition software. It may contain grammatical, syntax or spelling errors. (2) Shock circulatory: (3) Cardiomyopathy: (4) Permanent atrial fibrillation: Admission and Anticipated Discharge Date Admission Date: February 08, 2020 Subjective Patient seen and examined at bedside. No acute distress, no adverse events overnight. Patient was on BiPAP at the time of examination. Answering simple questions. Denies any chest pain, no dizziness. Knows his name but does not know where he is right now. Patient on dobutamine 5 and Levophed at 0.1 Review of Systems Review of Systems: All systems reviewed & are unremarkable except as noted in HPI & below Physical Exam Physical Exam: Constitutional: No acute distress, somnolent HEENT: EOMI, PERRLA, arcus senilis bilaterally, positive JVD Respiratory system: Decreased air entry bilaterally, no wheeze, no rhonchi, positive crackles bilateral lower lobes CVS: S1-S2 positive, irregular rhythm, positive 2 out of 6 systolic murmur appreciated best at aorta, positive AICD Abdomen: Soft, nontender, nondistended, positive bowel sounds x4 Extremities: +2 pulses bilaterally radialis/ dorsalis pedis, no cyanosis, +3 pitting edema bilateral lower extremity, warm extremities, left lower extremity there is redness and warmth appreciated anterior medially Neuro: Somnolent, alert to self Psych: Normal mood and affect G/U: Positive Bailey Skin: no rashes, warm and dry Lymphatic: no cervical or axillary lymphadenopathy Results & Data Results & Data ([facility]) Vital Signs (Past 12 Hours) Vital Signs Temp Pulse Resp BP Pulse Ox 02/09/20 08:00 71 02/09/20 07:21 72 18 94/58 L 97 02/09/20 07:20 75 22 99 02/09/20 06:00 68 18 88/50 L 95 02/09/20 05:55 82 16 97 02/09/20 05:30 68 24 82/41 L 97 02/09/20 05:00 81 15 93/40 L 93 02/09/20 04:30 67 19 109/44 L 99 02/09/20 04:01 67 19 98 02/09/20 04:00 36.8 C 61 19 103/42 L 97 02/09/20 03:30 68 19 103/49 L 99 02/09/20 03:00 60 20 103/51 L 99 02/09/20 02:30 71 19 91/46 L 96 02/09/20 02:00 71 14 96/41 L 98 02/09/20 01:30 75 20 98/44 L 96 02/09/20 01:00 70 17 92/40 L 96 02/09/20 00:00 36.9 C 79 19 93/51 L 98 02/08/20 23:30 83 20 90/43 L 90 02/08/20 23:00 80 21 90/41 L 94 02/08/20 22:24 63 17 88/42 L 93 02/08/20 22:00 65 30 H 89/35 L 94 02/08/20 21:53 67 18 97 02/08/20 21:30 71 18 97/52 L 91 02/09/20 04:28 02/09/20 04:28 Coding Level of Care Code Critical Care 1st 30-74 mins Diagnoses Combined systolic and diastolic congestive heart failure, NYHA class 3 I50.40 Congestive heart failure chronicity: unspecified Shock circulatory R57.9 Cardiomyopathy I42.8 Cardiomyopathy type: other Permanent atrial fibrillation I48.2 Time Spent (min) 37 (1) Combined systolic and diastolic congestive heart failure, NYHA class 3 Congestive heart failure chronicity: unspecified Qualified Code(s): I50.40 - Unspecified combined systolic (congestive) and diastolic (congestive) heart failure (2) Cardiomyopathy Cardiomyopathy type: other Qualified Code(s): I42.8 - Other cardiomyopathies
[2020-02-09] MEDS: FUROSEMIDE 40 MG in SYRINGE 0 ML IV SCH ×2 (09:56→20:53)
[2020-02-09] MEDS: DABIGATRAN ETEXILATE 75 MG CAP PO SCH ×2 (10:04→20:53)
[2020-02-09] MEDS: DOBUTamine / D5W 500 MG/250 ML BAG IV SCH (10:41)
--- NOTE | 2020-02-09 10:54 | Cardiology Consultation ---
Date of Consultation February 09, 2020 Assessment & Plan (1) Acute on chronic systolic (congestive) heart failure: (2) Cardiomyopathy: (3) Mitral regurgitation: (4) Permanent atrial fibrillation: (5) Pericardial effusion: (6) Septic shock: ASSESSMENT/PLAN: 1. Acute on chronic systolic CHF: He presented with fever, mental status change, and has been diagnosed with septic shock. He does however have chronic HFrEF and appears hypervolemic. Agree with diuresis as blood pressure will al low. Diuretics have been adjusted by the critical care team. Can become more aggressive if necessary with furosemide. Would try to achieve at least 1 L negative if blood pressure will allow, or less if necessary to maintain reasonable hemodynamics. Low-sodium diet. Check daily weights. 2. Cardiomyopathy: Thought to be nonischemic according [facility] documentation. Significantly reduced LV systolic function. On RAZIA-inhibitor at home but would not tolerate currently given hypotension. Would not tolerate beta-lance at this time given hypotension. Has declined ICD. 3. Mitral regurgitation: Non severe. No further evaluation at this time. 4. Permanent atrial fibrillation: Heart rate is adequately controlled. On anticoagulation for stroke risk reduction. 5. Septic shock: Found to be bacteremic. Left lower extremity cellulitis. On antibiotics per critical care team and primary service. On pressor and inotropic support. 6. Pericardial effusion: Based on echo findings, there is no significant physiologic affect from the echo on cardiac chambers. Can monitor over time. 7. Disposition: Overall poor prognosis given comorbidities and acute presentation. Further hemodynamic evaluation is pending later today with critical care team. Cardiology will continue to follow. Please call with any questions or concerns. Plan of care discussed with Dr. Henley of the critical care team. 35 minutes critical care time spent managing patient, including discussing with nursing staff, consulting team, and reviewing studies/chart. Thank you for allowing me to participate in the care of your patient. Please call for any other questions or concerns. Sincerely, Kody Franklin M.D. History of Present Illness Reason for Consultation: CHF with reduced EF in the setting of shock, ARF, sepsis Requesting Physician: Gerardo Ramos Attending Physician: Roly Diane, DO History of Present Illness Mr. Zuniga is a very pleasant 89-year-old gentleman with a history significant for chronic systolic CHF, cardiomyopathy, permanent atrial fibrillation, left bundle-branch block, hypertension, type 2 diabetes, COPD, and chronic lower extremity wounds. His primary kiln operator is Dr. Szymanski. From a cardiac perspective, he has been evaluated by EP in the past for consideration of biventricular ICD but had been deferred due to foot ulcers and then eventually he declined the procedure. He was last seen by Dr. Szymanski on 10/14/2019. He was admitted on 02/08/2020 after presenting to the emergency department for fever and change in mental status. He is unable to give much history currently but was able to answer yes or no to certain symptoms. Otherwise, the majority of the history was obtained by talking nursing staff, discussion with critical care physician, Dr. Henley, and reviewing records. Apparently his weight has been stable and he has been checking his weight at home. He was then found by his to be unresponsive later The night of presentation. While here, he was found to be hypotensive and has been started on Levophed as well as dobutamine. This has helped improve his blood pressure. He was also found to have group B strep growing in his blood cultures. He was diagnosed with sepsis, shock, with his underlying CHF. Diuretics have been adjusted from 20 mg to 40 mg IV q.12 hours. He was also started on metolazone 2.5 mg p.o. q.a.m. starting today. He is on antibiotic therapy as well as per primary service and critical care team. He currently denies chest discomfort. He denies shortness of breath but has been on supplemental oxygen, currently with a mask. He had been on BiPAP. He has some pain on the bridge of his nose from the mask but otherwise denies any other pain. He has not recalled any recent edema. He knows that he is in the hospital but does not remember coming in. He denies any bleeding. Review of systems: As above. Review of systems otherwise negative or unremarkable based on patient's response at this time. Family history: His mother reportedly had atrial fibrillation and myocardial infarction. Social history: He quit smoking many years ago. He denies alcohol. He lives at home with his , Zoe. He has children. He is unaccompanied. Allergies Allergy/AdvReac Type Severity Reaction Status Date / Time albuterol AdvReac Severe Increased Unverified 02/08/20 11:27 blood pressure levofloxacin AdvReac Intermediate TENDONITIS Verified 02/08/20 11:27 Bactrim AdvReac Mild GI SYMPTOMS Verified 05/22/18 14:15 house dust AdvReac Mild Unknown Verified 02/08/20 11:27 sulfamethoxazole AdvReac Mild GI SYMPTOMS Verified 02/08/20 11:27 trimethoprim AdvReac Mild GI SYMPTOMS Verified 02/08/20 11:27 Home Medications Home Medications Medication Instructions Recorded Confirmed Type ciclesonide 160 mcg/actuation 1 puffs INH BID 05/28/18 02/08/20 History aerosol inhaler dabigatran etexilate 150 mg capsule 150 mg PO BID 05/28/18 02/08/20 History lisinopril 5 mg tablet 5 mg PO QAM 05/28/18 02/08/20 History multivitamin 1 tab PO QAM 05/28/18 02/08/20 History Joint Health 1 tab PO HS 02/16/19 02/08/20 History bumetanide 1 mg PO QAM 02/16/19 02/08/20 History cholecalciferol (vitamin D3) 50 2,000 units PO QAM cap 04/26/19 02/08/20 History mcg (2,000 unit) capsule levalbuterol tartrate 45 1 puffs INH Q6H PRN 04/26/19 02/08/20 History mcg/actuation aerosol inhaler Oxygen Home #1 ea 07/08/19 12/13/19 Rx pravastatin 20 mg tablet 20 mg PO HS #90 tab 08/12/19 02/08/20 Rx docusate sodium 100 mg PO HS 10/15/19 02/08/20 History polyethylene glycol 3350 [Miralax] 17 g PO HS 10/15/19 02/08/20 History ipratropium bromide 17 2 puffs INH BID #25.8 gm 10/26/19 02/08/20 Rx mcg/actuation HFA aerosol inhaler metformin 500 mg tablet 500 mg PO BID #180 tab 11/30/19 02/08/20 Rx digoxin 125 mcg (0.125 mg) tablet 125 mcg PO HS #90 tab 01/05/20 02/08/20 Rx Patient History Medical History Actinic keratosis Asthma PRN INH 1 X MO ON AVG Cardiomyopathy Chronic combined systolic (congestive) and diastolic (congestive) heart failure Chronic venous insufficiency (Chronic) Combined systolic and diastolic congestive heart failure, NYHA class 3 (Acute) COPD, severe Diabetes mellitus Diabetes mellitus, type 2 (Chronic) NIDDM. Diabetic peripheral neuropathy associated with type 2 diabetes mellitus Dyslipidemia Edema Former smoker Hearing deficit [place] History of actinic keratosis (Resolved) History of ischemic colitis (Resolved) History of SCC (squamous cell carcinoma) of skin (Resolved) History of skin cancer REMOVED History of squamous cell carcinoma in situ of skin (Resolved) Hypertension Intrinsic asthma Ischemic colitis (2011) LBBB (left bundle branch block) Left bundle branch block Migraine Mitral regurgitation Oral thrush Osteomyelitis of right foot Pancytopenia Permanent atrial fibrillation Pseudomonas aeruginosa infection Seborrheic keratosis Squamous cell carcinoma of arm UTI (urinary tract infection) Vasomotor rhinitis Venous insufficiency (chronic) (peripheral) Surgical History History of cataract surgery (Resolved) History of colonoscopy (Resolved) History of tonsillectomy and adenoidectomy (Resolved) Status post amputation of toe (Resolved) Family History Mother Atrial fibrillation Myocardial infarction Father Diabetes Social History Preferred Language: Irish Communication Ability: Impaired Communication Ability Comment: has hearing aids 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 Alert and oriented to self, place, and year. He did not know the month. HEENT: Anicteric sclera. Neck: Elevated JVD, fci to the mandible sitting approximately 60-70 upright. Hepatic jugular reflux noted. No bruits. Normal carotid upstrokes bilaterally. Cardiac: PMI is prominent. No ventricular heave. Irregularly irregular. Normal S1-S2. 1/6 systolic murmur. No rubs, or gallops. Pulmonary: Clear to anterior auscultation bilaterally without wheezes, rales, or rhonchi. Abdomen: Soft, nontender, nondistended, with hypoactive bowel sounds. No bruits noted. Extremities: 2+ radial pulses bilaterally. 2+ posterior tibialis pulses bilaterally. 3+ pitting edema to the knees bilaterally with 1 to 2+ pitting edema to the hips bilaterally. No cyanosis. Distal left lower extremity erythematous. Psychiatric: Affect appears appropriate. Results & Data ([facility]) Vital Signs (Past 12 Hours) Vital Signs Temp Pulse Resp BP Pulse Ox 02/09/20 10:00 87 13 88 L 02/09/20 09:51 75 14 98/52 L 96 02/09/20 09:22 76 16 91/47 L 93 02/09/20 08:51 36.6 C 80 19 91/48 L 98 02/09/20 08:39 77 18 85/52 L 98 02/09/20 08:21 72 20 83/47 L 93 02/09/20 08:00 71 02/09/20 07:51 74 17 101/48 L 88 L 02/09/20 07:21 72 18 94/58 L 97 02/09/20 07:20 75 22 99 02/09/20 06:00 68 18 88/50 L 95 02/09/20 05:55 82 16 97 02/09/20 05:30 68 24 82/41 L 97 02/09/20 05:00 81 15 93/40 L 93 02/09/20 04:30 67 19 109/44 L 99 02/09/20 04:01 67 19 98 02/09/20 04:00 36.8 C 61 19 103/42 L 97 02/09/20 03:30 68 19 103/49 L 99 02/09/20 03:00 60 20 103/51 L 99 02/09/20 02:30 71 19 91/46 L 96 02/09/20 02:00 71 14 96/41 L 98 02/09/20 01:30 75 20 98/44 L 96 02/09/20 01:00 70 17 92/40 L 96 02/09/20 00:00 36.9 C 79 19 93/51 L 98 02/08/20 23:30 83 20 90/43 L 90 02/08/20 23:00 80 21 90/41 L 94 Intake & Output 02/07/20 02/08/20 02/09/20 05/14/20 06:59 06:59 06:59 06:59 Intake Total 2675.045 / 2675.045 896.805 / 896.805 Output Total 890 / 890 555 / 555 Balance 1785.045 / 1785.045 341.805 / 341.805 Weight 89.3 kg Laboratory Results Laboratory Results - last 24 hr 02/08/20 02/08/20 02/08/20 10:44 10:44 10:44 WBC RBC Hgb POC Hgb Hct POC Hct MCV MCH MCHC RDW Std Deviation RDW Coeff of Chad Plt Count MPV Immature Gran % (Auto) Neut % (Auto) Lymph % (Auto) [place] % (Auto) Eos % (Auto) Baso % (Auto) Immature Gran # (Auto) Neut # (Auto) Lymph # (Auto) [place] # (Auto) Eos # (Auto) Baso # (Auto) ESR PT INR APTT PTT Ratio Sample Site POC pH POC pCO2 POC pO2 POC HCO3 POC Total CO2 POC Base Excess ABG pH ABG pH (Temp Correct) ABG pCO2 ABG pCO2 (Temp Corrct ABG pO2 POC ABG pO2 at Pt Temp ABG HCO3 POC ABG O2 Sat ABG O2 Saturation ABG Base Excess Levi Test VBG pH VBG pCO2 VBG pO2 VBG HCO3 VBG O2 Saturation VBG Base Excess Mixed VBG pH Mixed VBG pCO2 Mixed VBG pO2 Mixed VBG HCO3 Mixed VBG Base Excess Mixed VBG O2 Saturation Barometric Pressure Oxygen Given O2 Delivery Device POC O2 Rate POC FiO2 IPAP POC Sodium Sodium POC Potassium Potassium Chloride Carbon Dioxide Anion Gap BUN Creatinine Est Cr Clr Drug Dosing Est GFR ( Amer) Est GFR (Non-Af Amer) BUN/Creatinine Ratio Glucose POC Glucose Lactate Calcium Phosphorus Magnesium Ferritin Total Bilirubin Direct Bilirubin AST ALT Alkaline Phosphatase Total Creatine Kinase CK-MB (CK-2) CK/CKMB % Calc Troponin I C-Reactive Protein NT-Pro-B Natriuret Pep Total Protein Albumin Globulin Albumin/Globulin Ratio Procalcitonin Urine Color Urine Appearance Urine pH Ur Specific [place] Urine Protein Urine Glucose (UA) Urine Ketones Urine Blood Urine Nitrite Urine Bilirubin Urine Urobilinogen Ur Leukocyte Esterase Urine WBC (Auto) Urine RBC (Auto) U Hyaline Cast (Auto) U Epithel Cells (Auto) Urine Bacteria (Auto) Nasal Screen MRSA (PCR) Random Vancomycin Digoxin COVID-19 PCR NEGATIVE Influenza Type A (PCR) Neg for Influ A Influenza Type B (PCR) Neg for Influ B SARS-CoV-2 RNA (RT-PCR) Cancelled 02/08/20 02/08/20 02/08/20 11:33 11:33 11:33 WBC 12.63 H RBC 3.84 L Hgb 12.4 L POC Hgb Hct 38.7 L POC Hct MCV 100.8 H MCH 32.3 MCHC 32.0 RDW Std Deviation 56.6 H RDW Coeff of Chad 15.5 H Plt Count 120 L MPV 11.2 H Immature Gran % (Auto) 0.2 Neut % (Auto) 92.5 Lymph % (Auto) 3.4 [place] % (Auto) 3.8 Eos % (Auto) 0.0 Baso % (Auto) 0.1 Immature Gran # (Auto) 0.03 H Neut # (Auto) 11.68 H Lymph # (Auto) 0.43 L [place] # (Auto) 0.48 Eos # (Auto) 0.00 Baso # (Auto) 0.01 ESR PT 16.2 H INR 1.6 H APTT 37.9 H PTT Ratio 1.4 Sample Site POC pH POC pCO2 POC pO2 POC HCO3 POC Total CO2 POC Base Excess ABG pH ABG pH (Temp Correct) ABG pCO2 ABG pCO2 (Temp Corrct ABG pO2 POC ABG pO2 at Pt Temp ABG HCO3 POC ABG O2 Sat ABG O2 Saturation ABG Base Excess Levi Test VBG pH VBG pCO2 VBG pO2 VBG HCO3 VBG O2 Saturation VBG Base Excess Mixed VBG pH Mixed VBG pCO2 Mixed VBG pO2 Mixed VBG HCO3 Mixed VBG Base Excess Mixed VBG O2 Saturation Barometric Pressure Oxygen Given O2 Delivery Device POC O2 Rate POC FiO2 IPAP POC Sodium Sodium 141 POC Potassium Potassium 4.3 Chloride 104 Carbon Dioxide 31 Anion Gap 6.0 BUN 41 H Creatinine 1.39 Est Cr Clr Drug Dosing 44.2 Est GFR ( Amer) 51.7 Est GFR (Non-Af Amer) 44.6 BUN/Creatinine Ratio 29.8 H Glucose 93 POC Glucose Lactate Calcium 9.2 Phosphorus Magnesium 2.2 Ferritin Total Bilirubin 1.0 Direct Bilirubin AST 43 H ALT 25 Alkaline Phosphatase 63 Total Creatine Kinase 79 CK-MB (CK-2) < 1.0 CK/CKMB % Calc TNP Troponin I 0.242 H* C-Reactive Protein NT-Pro-B Natriuret Pep 51358 H Total Protein 7.3 Albumin 3.6 Globulin 3.7 Albumin/Globulin Ratio 1.0 Procalcitonin Urine Color Urine Appearance Urine pH Ur Specific [place] Urine Protein Urine Glucose (UA) Urine Ketones Urine Blood Urine Nitrite Urine Bilirubin Urine Urobilinogen Ur Leukocyte Esterase Urine WBC (Auto) Urine RBC (Auto) U Hyaline Cast (Auto) U Epithel Cells (Auto) Urine Bacteria (Auto) Nasal Screen MRSA (PCR) Random Vancomycin Digoxin COVID-19 PCR Influenza Type A (PCR) Influenza Type B (PCR) SARS-CoV-2 RNA (RT-PCR) 02/08/20 02/08/20 02/08/20 11:33 11:33 11:33 WBC RBC Hgb POC Hgb Hct POC Hct MCV MCH MCHC RDW Std Deviation RDW Coeff of Chad Plt Count MPV Immature Gran % (Auto) Neut % (Auto) Lymph % (Auto) [place] % (Auto) Eos % (Auto) Baso % (Auto) Immature Gran # (Auto) Neut # (Auto) Lymph # (Auto) [place] # (Auto) Eos # (Auto) Baso # (Auto) ESR 51 H PT INR APTT PTT Ratio Sample Site POC pH POC pCO2 POC pO2 POC HCO3 POC Total CO2 POC Base Excess ABG pH ABG pH (Temp Correct) ABG pCO2 ABG pCO2 (Temp Corrct ABG pO2 POC ABG pO2 at Pt Temp ABG HCO3 POC ABG O2 Sat ABG O2 Saturation ABG Base Excess Levi Test VBG pH VBG pCO2 VBG pO2 VBG HCO3 VBG O2 Saturation VBG Base Excess Mixed VBG pH Mixed VBG pCO2 Mixed VBG pO2 Mixed VBG HCO3 Mixed VBG Base Excess Mixed VBG O2 Saturation Barometric Pressure Oxygen Given O2 Delivery Device POC O2 Rate POC FiO2 IPAP POC Sodium Sodium POC Potassium Potassium Chloride Carbon Dioxide Anion Gap BUN Creatinine Est Cr Clr Drug Dosing Est GFR ( Amer) Est GFR (Non-Af Amer) BUN/Creatinine Ratio Glucose POC Glucose Lactate 2.4 H* Calcium Phosphorus Magnesium Ferritin Total Bilirubin Direct Bilirubin AST ALT Alkaline Phosphatase Total Creatine Kinase CK-MB (CK-2) CK/CKMB % Calc Troponin I C-Reactive Protein NT-Pro-B Natriuret Pep Total Protein Albumin Globulin Albumin/Globulin Ratio Procalcitonin 1.18 H Urine Color Urine Appearance Urine pH Ur Specific [place] Urine Protein Urine Glucose (UA) Urine Ketones Urine Blood Urine Nitrite Urine Bilirubin Urine Urobilinogen Ur Leukocyte Esterase Urine WBC (Auto) Urine RBC (Auto) U Hyaline Cast (Auto) U Epithel Cells (Auto) Urine Bacteria (Auto) Nasal Screen MRSA (PCR) Random Vancomycin Digoxin COVID-19 PCR Influenza Type A (PCR) Influenza Type B (PCR) SARS-CoV-2 RNA (RT-PCR) 02/08/20 02/08/20 02/08/20 11:33 12:17 13:34 WBC RBC Hgb POC Hgb Hct POC Hct MCV MCH MCHC RDW Std Deviation RDW Coeff of Chad Plt Count MPV Immature Gran % (Auto) Neut % (Auto) Lymph % (Auto) [place] % (Auto) Eos % (Auto) Baso % (Auto) Immature Gran # (Auto) Neut # (Auto) Lymph # (Auto) [place] # (Auto) Eos # (Auto) Baso # (Auto) ESR PT INR APTT PTT Ratio Sample Site POC pH POC pCO2 POC pO2 POC HCO3 POC Total CO2 POC Base Excess ABG pH ABG pH (Temp Correct) ABG pCO2 ABG pCO2 (Temp Corrct ABG pO2 POC ABG pO2 at Pt Temp ABG HCO3 POC ABG O2 Sat ABG O2 Saturation ABG Base Excess Levi Test VBG pH VBG pCO2 VBG pO2 VBG HCO3 VBG O2 Saturation VBG Base Excess Mixed VBG pH Mixed VBG pCO2 Mixed VBG pO2 Mixed VBG HCO3 Mixed VBG Base Excess Mixed VBG O2 Saturation Barometric Pressure Oxygen Given O2 Delivery Device POC O2 Rate POC FiO2 IPAP POC Sodium Sodium POC Potassium Potassium Chloride Carbon Dioxide Anion Gap BUN Creatinine Est Cr Clr Drug Dosing Est GFR ( Amer) Est GFR (Non-Af Amer) BUN/Creatinine Ratio Glucose POC Glucose Lactate 1.9 Calcium Phosphorus Magnesium Ferritin 107.4 Total Bilirubin Direct Bilirubin AST ALT Alkaline Phosphatase Total Creatine Kinase CK-MB (CK-2) CK/CKMB % Calc Troponin I C-Reactive Protein 2.35 H NT-Pro-B Natriuret Pep Total Protein Albumin Globulin Albumin/Globulin Ratio Procalcitonin Urine Color Dark Yellow Urine Appearance Clear Urine pH 5.0 Ur Specific [place] 1.023 Urine Protein 1+ H Urine Glucose (UA) Negative Urine Ketones Trace H Urine Blood Negative Urine Nitrite Negative Urine Bilirubin Negative Urine Urobilinogen Negative Ur Leukocyte Esterase Negative Urine WBC (Auto) 1-5 Urine RBC (Auto) 0-4 U Hyaline Cast (Auto) 1-5 U Epithel Cells (Auto) 10-20 H Urine Bacteria (Auto) Negative Nasal Screen MRSA (PCR) Random Vancomycin Digoxin COVID-19 PCR Influenza Type A (PCR) Influenza Type B (PCR) SARS-CoV-2 RNA (RT-PCR) 02/08/20 02/08/20 02/08/20 15:27 16:15 16:17 WBC RBC Hgb POC Hgb Hct POC Hct MCV MCH MCHC RDW Std Deviation RDW Coeff of Chad Plt Count MPV Immature Gran % (Auto) Neut % (Auto) Lymph % (Auto) [place] % (Auto) Eos % (Auto) Baso % (Auto) Immature Gran # (Auto) Neut # (Auto) Lymph # (Auto) [place] # (Auto) Eos # (Auto) Baso # (Auto) ESR PT INR APTT PTT Ratio Sample Site POC pH POC pCO2 POC pO2 POC HCO3 POC Total CO2 POC Base Excess ABG pH ABG pH (Temp Correct) ABG pCO2 ABG pCO2 (Temp Corrct ABG pO2 POC ABG pO2 at Pt Temp ABG HCO3 POC ABG O2 Sat ABG O2 Saturation ABG Base Excess Levi Test VBG pH VBG pCO2 VBG pO2 VBG HCO3 VBG O2 Saturation VBG Base Excess Mixed VBG pH Cancelled Mixed VBG pCO2 Cancelled Mixed VBG pO2 Cancelled Mixed VBG HCO3 Cancelled Mixed VBG Base Excess Cancelled Mixed VBG O2 Saturation Cancelled Barometric Pressure Cancelled Oxygen Given O2 Delivery Device POC O2 Rate POC FiO2 IPAP POC Sodium Sodium POC Potassium Potassium Chloride Carbon Dioxide Anion Gap BUN Creatinine Est Cr Clr Drug Dosing Est GFR ( Amer) Est GFR (Non-Af Amer) BUN/Creatinine Ratio Glucose POC Glucose 97 Lactate Calcium Phosphorus Magnesium Ferritin Total Bilirubin Direct Bilirubin AST ALT Alkaline Phosphatase Total Creatine Kinase CK-MB (CK-2) CK/CKMB % Calc Troponin I C-Reactive Protein NT-Pro-B Natriuret Pep Total Protein Albumin Globulin Albumin/Globulin Ratio Procalcitonin Urine Color Urine Appearance Urine pH Ur Specific [place] Urine Protein Urine Glucose (UA) Urine Ketones Urine Blood Urine Nitrite Urine Bilirubin Urine Urobilinogen Ur Leukocyte Esterase Urine WBC (Auto) Urine RBC (Auto) U Hyaline Cast (Auto) U Epithel Cells (Auto) Urine Bacteria (Auto) Nasal Screen MRSA (PCR) Negative Random Vancomycin Digoxin COVID-19 PCR Influenza Type A (PCR) Influenza Type B (PCR) SARS-CoV-2 RNA (RT-PCR) 02/08/20 02/08/20 02/08/20 16:17 16:17 17:29 WBC RBC Hgb POC Hgb Hct POC Hct MCV MCH MCHC RDW Std Deviation RDW Coeff of Chad Plt Count MPV Immature Gran % (Auto) Neut % (Auto) Lymph % (Auto) [place] % (Auto) Eos % (Auto) Baso % (Auto) Immature Gran # (Auto) Neut # (Auto) Lymph # (Auto) [place] # (Auto) Eos # (Auto) Baso # (Auto) ESR PT INR APTT PTT Ratio Sample Site POC pH POC pCO2 POC pO2 POC HCO3 POC Total CO2 POC Base Excess ABG pH Cancelled ABG pH (Temp Correct) ABG pCO2 Cancelled ABG pCO2 (Temp Corrct ABG pO2 Cancelled POC ABG pO2 at Pt Temp ABG HCO3 Cancelled POC ABG O2 Sat ABG O2 Saturation Cancelled ABG Base Excess Cancelled Levi Test Cancelled VBG pH 7.24 L VBG pCO2 76 H VBG pO2 49 VBG HCO3 32 VBG O2 Saturation 74.1 VBG Base Excess 2.9 Mixed VBG pH Mixed VBG pCO2 Mixed VBG pO2 Mixed VBG HCO3 Mixed VBG Base Excess Mixed VBG O2 Saturation Barometric Pressure Cancelled 733.6 Oxygen Given Cancelled O2 Delivery Device POC O2 Rate POC FiO2 IPAP POC Sodium Sodium POC Potassium Potassium Chloride Carbon Dioxide Anion Gap BUN Creatinine Est Cr Clr Drug Dosing Est GFR ( Amer) Est GFR (Non-Af Amer) BUN/Creatinine Ratio Glucose POC Glucose Lactate Calcium Phosphorus Magnesium Ferritin Total Bilirubin Direct Bilirubin AST ALT Alkaline Phosphatase Total Creatine Kinase CK-MB (CK-2) CK/CKMB % Calc Troponin I C-Reactive Protein NT-Pro-B Natriuret Pep Total Protein Albumin Globulin Albumin/Globulin Ratio Procalcitonin Urine Color Urine Appearance Urine pH Ur Specific [place] Urine Protein Urine Glucose (UA) Urine Ketones Urine Blood Urine Nitrite Urine Bilirubin Urine Urobilinogen Ur Leukocyte Esterase Urine WBC (Auto) Urine RBC (Auto) U Hyaline Cast (Auto) U Epithel Cells (Auto) Urine Bacteria (Auto) Nasal Screen MRSA (PCR) Random Vancomycin Digoxin 1.1 COVID-19 PCR Influenza Type A (PCR) Influenza Type B (PCR) SARS-CoV-2 RNA (RT-PCR) 02/08/20 02/09/20 02/09/20 20:49 04:28 04:28 WBC 10.99 H RBC 3.40 L Hgb 10.9 L POC Hgb Hct 34.7 L POC Hct MCV 102.1 H MCH 32.1 MCHC 31.4 L RDW Std Deviation 59.9 H RDW Coeff of Chad 15.9 H Plt Count 97 L MPV 10.7 H Immature Gran % (Auto) 0.3 Neut % (Auto) 93.8 Lymph % (Auto) 2.6 [place] % (Auto) 3.2 Eos % (Auto) 0.0 Baso % (Auto) 0.1 Immature Gran # (Auto) 0.03 H Neut # (Auto) 10.31 H Lymph # (Auto) 0.29 L [place] # (Auto) 0.35 Eos # (Auto) 0.00 Baso # (Auto) 0.01 ESR PT INR APTT PTT Ratio Sample Site POC pH POC pCO2 POC pO2 POC HCO3 POC Total CO2 POC Base Excess ABG pH ABG pH (Temp Correct) ABG pCO2 ABG pCO2 (Temp Corrct ABG pO2 POC ABG pO2 at Pt Temp ABG HCO3 POC ABG O2 Sat ABG O2 Saturation ABG Base Excess Levi Test VBG pH VBG pCO2 VBG pO2 VBG HCO3 VBG O2 Saturation VBG Base Excess Mixed VBG pH Mixed VBG pCO2 Mixed VBG pO2 Mixed VBG HCO3 Mixed VBG Base Excess Mixed VBG O2 Saturation Barometric Pressure Oxygen Given O2 Delivery Device POC O2 Rate POC FiO2 IPAP POC Sodium Sodium POC Potassium Potassium Chloride Carbon Dioxide Anion Gap BUN Creatinine Est Cr Clr Drug Dosing Est GFR ( Amer) Est GFR (Non-Af Amer) BUN/Creatinine Ratio Glucose POC Glucose 108 H Lactate Calcium Phosphorus Magnesium Ferritin Total Bilirubin Direct Bilirubin AST ALT Alkaline Phosphatase Total Creatine Kinase CK-MB (CK-2) CK/CKMB % Calc Troponin I C-Reactive Protein NT-Pro-B Natriuret Pep Total Protein Albumin Globulin Albumin/Globulin Ratio Procalcitonin Urine Color Urine Appearance Urine pH Ur Specific [place] Urine Protein Urine Glucose (UA) Urine Ketones Urine Blood Urine Nitrite Urine Bilirubin Urine Urobilinogen Ur Leukocyte Esterase Urine WBC (Auto) Urine RBC (Auto) U Hyaline Cast (Auto) U Epithel Cells (Auto) Urine Bacteria (Auto) Nasal Screen MRSA (PCR) Random Vancomycin 12.0 Digoxin COVID-19 PCR Influenza Type A (PCR) Influenza Type B (PCR) SARS-CoV-2 RNA (RT-PCR) 02/09/20 02/09/20 02/09/20 04:28 04:28 04:29 WBC RBC Hgb POC Hgb Hct POC Hct MCV MCH MCHC RDW Std Deviation RDW Coeff of Chad Plt Count MPV Immature Gran % (Auto) Neut % (Auto) Lymph % (Auto) [place] % (Auto) Eos % (Auto) Baso % (Auto) Immature Gran # (Auto) Neut # (Auto) Lymph # (Auto) [place] # (Auto) Eos # (Auto) Baso # (Auto) ESR PT INR APTT PTT Ratio Sample Site POC pH POC pCO2 POC pO2 POC HCO3 POC Total CO2 POC Base Excess ABG pH ABG pH (Temp Correct) ABG pCO2 ABG pCO2 (Temp Corrct ABG pO2 POC ABG pO2 at Pt Temp ABG HCO3 POC ABG O2 Sat ABG O2 Saturation ABG Base Excess Levi Test VBG pH VBG pCO2 VBG pO2 VBG HCO3 VBG O2 Saturation VBG Base Excess Mixed VBG pH Mixed VBG pCO2 Mixed VBG pO2 Mixed VBG HCO3 Mixed VBG Base Excess Mixed VBG O2 Saturation Barometric Pressure Oxygen Given O2 Delivery Device POC O2 Rate POC FiO2 IPAP POC Sodium Sodium 141 POC Potassium Potassium 4.1 Chloride 105 Carbon Dioxide 31 Anion Gap 5.0 BUN 40 H Creatinine 1.37 Est Cr Clr Drug Dosing 44.9 Est GFR ( Amer) 52.6 Est GFR (Non-Af Amer) 45.4 BUN/Creatinine Ratio 29.1 H Glucose 133 H POC Glucose 131 H Lactate Calcium 7.7 L D Phosphorus 4.2 Magnesium 2.0 Ferritin Total Bilirubin 0.8 Direct Bilirubin 0.4 H AST 30 ALT 20 Alkaline Phosphatase 42 L Total Creatine Kinase CK-MB (CK-2) CK/CKMB % Calc Troponin I C-Reactive Protein NT-Pro-B Natriuret Pep Total Protein 5.8 L D Albumin 2.5 L Globulin Albumin/Globulin Ratio Procalcitonin 9.35 H Urine Color Urine Appearance Urine pH Ur Specific [place] Urine Protein Urine Glucose (UA) Urine Ketones Urine Blood Urine Nitrite Urine Bilirubin Urine Urobilinogen Ur Leukocyte Esterase Urine WBC (Auto) Urine RBC (Auto) U Hyaline Cast (Auto) U Epithel Cells (Auto) Urine Bacteria (Auto) Nasal Screen MRSA (PCR) Random Vancomycin Digoxin COVID-19 PCR Influenza Type A (PCR) Influenza Type B (PCR) SARS-CoV-2 RNA (RT-PCR) 02/09/20 05:15 WBC RBC Hgb POC Hgb 11.2 L Hct POC Hct 33 L MCV MCH MCHC RDW Std Deviation RDW Coeff of Chad Plt Count MPV Immature Gran % (Auto) Neut % (Auto) Lymph % (Auto) [place] % (Auto) Eos % (Auto) Baso % (Auto) Immature Gran # (Auto) Neut # (Auto) Lymph # (Auto) [place] # (Auto) Eos # (Auto) Baso # (Auto) ESR PT INR APTT PTT Ratio Sample Site R Radial POC pH 7.28 L POC pCO2 68 H POC pO2 105 H POC HCO3 32 H POC Total CO2 34 H POC Base Excess 5.0 H ABG pH ABG pH (Temp Correct) 7.283 L ABG pCO2 ABG pCO2 (Temp Corrct 67 H ABG pO2 POC ABG pO2 at Pt Temp 104 ABG HCO3 POC ABG O2 Sat 97.0 H ABG O2 Saturation ABG Base Excess Levi Test Pass VBG pH VBG pCO2 VBG pO2 VBG HCO3 VBG O2 Saturation VBG Base Excess Mixed VBG pH Mixed VBG pCO2 Mixed VBG pO2 Mixed VBG HCO3 Mixed VBG Base Excess Mixed VBG O2 Saturation Barometric Pressure Oxygen Given O2 Delivery Device BIPAP POC O2 Rate 25 POC FiO2 35 IPAP 10 POC Sodium 139 Sodium POC Potassium 4.0 Potassium Chloride Carbon Dioxide Anion Gap BUN Creatinine Est Cr Clr Drug Dosing Est GFR ( Amer) Est GFR (Non-Af Amer) BUN/Creatinine Ratio Glucose POC Glucose Lactate Calcium Phosphorus Magnesium Ferritin Total Bilirubin Direct Bilirubin AST ALT Alkaline Phosphatase Total Creatine Kinase CK-MB (CK-2) CK/CKMB % Calc Troponin I C-Reactive Protein NT-Pro-B Natriuret Pep Total Protein Albumin Globulin Albumin/Globulin Ratio Procalcitonin Urine Color Urine Appearance Urine pH Ur Specific [place] Urine Protein Urine Glucose (UA) Urine Ketones Urine Blood Urine Nitrite Urine Bilirubin Urine Urobilinogen Ur Leukocyte Esterase Urine WBC (Auto) Urine RBC (Auto) U Hyaline Cast (Auto) U Epithel Cells (Auto) Urine Bacteria (Auto) Nasal Screen MRSA (PCR) Random Vancomycin Digoxin COVID-19 PCR Influenza Type A (PCR) Influenza Type B (PCR) SARS-CoV-2 RNA (RT-PCR) Diagnostic Findings Echocardiogram from 02/09/2020 personally reviewed: Preliminary review demonstrated severely reduced LV systolic function. Mild to moderate pericardial effusion without echocardiographic evidence of tamponade physiology. Pleural effusion noted. Non severe mitral regurgitation. Full report to follow. ECG personally reviewed: ECG 02/08/2020: Afib with RVR at 114 bpm. LBBB. Telemetry personally reviewed: Afib. There was a 10 beat run of wide complex tachycardia, possibly VT. (this was narrower than [place] LBBB QRS) Medications Administered Current Inpatient Medications Acetaminophen (Tylenol) 650 mg PO Q4H PRN PRN Reason: Fever Stop: 03/09/20 17:07 Dabigatran (Pradaxa) 150 mg PO BID [facility] Stop: 03/09/20 20:59 Last Admin: 02/09/20 10:04 Dose: 150 mg Documented by: Norepinephrine Bitartrate 8 mg (/ Dextrose) 508 mls @ 17.545 mls/hr IV .Q24H [facility]; Protocol Stop: 03/09/20 13:14 Last Titration: 02/09/20 07:03 Dose: 0.1 mcg/kg/min, 35.1 mls/hr Documented by: Dobutamine HCl/Dextrose (Dobutamine / D5w) 500 mg in 250 mls @ 13.815 mls/hr IV .Q18H6M [facility]; Protocol Stop: 03/09/20 14:59 Last Admin: 02/09/20 10:41 Dose: 5 mcg/kg/min, 13.8 mls/hr Documented by: Famotidine 20 mg/ Syringe 5 mls @ 2.5 mls/min IV Q12H [facility] Stop: 03/09/20 15:59 Last Admin: 02/09/20 04:12 Dose: 2.5 mls/min Documented by: Furosemide 40 mg/ Syringe 4 mls @ 4 mls/min IV Q12 [facility] Stop: 03/10/20 08:59 Last Admin: 02/09/20 09:56 Dose: 4 mls/min Documented by: Vancomycin HCl 1,000 mg/ (Sodium Chloride) 270 mls @ 125 mls/hr IV Q12H [facility] Stop: 02/09/20 12:00 Last Infusion: 02/09/20 10:38 Dose: Infused Documented by: Ceftriaxone Sodium 2,000 mg/ (Dextrose) 70 mls @ 140 mls/hr IV Q24H [facility] Stop: 02/23/20 09:59 Last Infusion: 02/09/20 11:43 Dose: Infused Documented by: Levalbuterol HCl (Xopenex Hfa) 4 puffs INH QID [facility] Stop: 03/09/20 12:59 Last Admin: 02/08/20 20:39 Dose: Not Given Documented by: Metolazone (Zaroxolyn) 2.5 mg PO QAM [facility] Stop: 03/10/20 08:29 Last Admin: 02/09/20 08:25 Dose: 2.5 mg Documented by: Miscellaneous ([facility] Protocol For Hyperglycemia) 1 ea N/A PRN PRN; Protocol PRN Reason: Hyperglycemia Protocol Stop: 02/10/20 15:41 Miscellaneous Information (Consult) 1 ea N/A UD PRN PRN Reason: Consult Stop: 02/09/20 12:00 Pravastatin Sodium (Pravachol) 20 mg PO DAILY@1700 [facility] Stop: 03/10/20 16:59 Senna/Docusate Sodium (Senokot S) 1 tab PO QAM [facility] Stop: 03/10/20 08:59 Last Admin: 02/09/20 08:48 Dose: Not Given Documented by: Umeclidinium [place] (Incruse Ellipta) 1 puffs INH DAILY [facility] Stop: 03/10/20 08:59 Last Admin: 02/09/20 08:46 Dose: 1 puffs Documented by: PG Care Time/CCT Total # of Minutes Spent Total Time Spent with Patient: Total time spent is greater than 50% in coordination of care (as documented) at patient's floor/unit and/or counseling patient: Critical Care Time: Yes Total Critical Care Time: 35 Coding Level of Care Code None Diagnoses Acute on chronic systolic (congestive) heart failure I50.23 Cardiomyopathy I42.8 Cardiomyopathy type: other Mitral regurgitation I34.0 Permanent atrial fibrillation I48.2 Pericardial effusion I31.3 Septic shock A41.9; R65.21 Additional Codes Critical Care Time - Critical Care Time: Yes ([id number]) Comment Critical care time (1) Cardiomyopathy Cardiomyopathy type: other Qualified Code(s): I42.8 - Other cardiomyopathies
[2020-02-09] MEDS: cefTRIAXone SODIUM 2,000 MG in DEXTROSE 5% 50 ML IV SCH (11:03)
[2020-02-09] MEDS: LEVALBUTEROL TARTRATE 15 GM HFA.AER.AD INH SCH ×4 (11:50→20:23)
[2020-02-09 12:35] LABS: Mixed Venous Blood Gas Base Excess 2.7 mEq/L (-7.7-1.9); Mixed Venous Blood Gas pH 7.28 (7.35-7.45)
--- NOTE | 2020-02-09 12:56 | Hospitalist Progress Note ---
Date of Service February 09, 2020 Assessment & Plan (1) Shock circulatory: septic shock with 4 out of 4 cultures growing Group B strep likely source is skin, pneumonia cannot be ruled out tapered antibiotics to Rocephin today no fever, WBC 10k continue on Levophed and Dobutamine today MAP goal is 60 improved since yesterday but overall senior living prognosis is guarded has EF of 20-25% and severe COPD, afib family is aware of this, patient is DNR/DNI (2) Cellulitis: left leg is more erythematous, hot to palpation, most likely source of infection has chronic venous stasis changes at baseline WBC is 10k, taper antibiotics to Rocephin Group B strep growing in blood cultures (3) Combined systolic and diastolic congestive heart failure, NYHA class 3: BNP markedly elevated prior echo with EF of 20-25% acute on chronic systolic and diastolic HF, clearly he is volume overloaded on exam using Lasix and Metolazone in conjunction with Dobutamine to diurese patient cardiology following, goal of negative 1 liter daily if BP will allow he has declined ICD in the past, follows with Dr. Szymanski in the office patient has poor overall prognosis (4) Pneumonia: cannot exclude pneumonia, has moderate right sided effusion COVID 19 test is NEGATIVE taper antibiotics to Rocephin today (5) COPD, severe: no wheezing continue home inhalers did have some CO2 retention, attributed to Avila Lozano breathing with CHF he is more alert today (6) Diabetes mellitus: Novolog monitor for hypoglycemic episodes on liquid diet (7) Permanent atrial fibrillation: rates are well controlled Pradaxa for anticoagulation Admission and Anticipated Discharge Date Admission Date: February 08, 2020 Subjective patient more alert this morning, talking with me appropriately explained to him that we are treating cellulitis, bacteremia, acute heart failure he denied any pain, denied dyspnea, chest pain, cough, nausea/vomiting, abdom inal pain reviewed labs, WBC 10, Cr 1.37 and electrolytes stable 4 out of 4 blood culture bottles growing Group B strep, likely from skin discussed with Dr. Henley discussed with cardiology talked with RN at the bedside, no current concerns or needs Review of Systems Review of Systems: All systems reviewed & are unremarkable except as noted in HPI & below Physical Exam Constitutional: well developed and + frail appearing; no acute distress Eyes: PERRL, conjunctivae normal, anicteric sclerae ENMT: external ear and nose normal, oropharynx normal Neck: trachea midline, no thyromegaly Respiratory: normal respiratory effort; no labored breathing Auscultation: + diminished lung sounds (right base); no crackles, no rhonchi and no wheezes Cardiovascular: Rate/Rhythm: regular rate and + irregularly irregular Heart Sounds: normal S1 and normal S2; no murmur Extremities: normal capillary refill and + edema (pitting to shins) Gastrointestinal (Abdomen): normal bowel sounds, soft, nontender, no hepatosplenomegaly Musculoskeletal: Head/Neck/Chest: normocephalic and head atraumatic Extremities: + abnormal strength (generalized weakness); + extremities abnormal to inspection (venous stasis changes in lower legs) Skin: + turgor decreased and + erythema (left leg very red, hot to touch); no wound Neurologic: patellar DTR's 2+ bilat, sensation intact and PERRL, EOMI, accommodation nl, no face palsy, no dysarthria Psychiatric: Orientation: alert, oriented to person and cooperative; + not oriented to place and + not oriented to time Lymphatic: no cervical or axillary lymphadenopathy Results & Data Results & Data ([facility]) Vital Signs (Past 12 Hours) Vital Signs Temp Pulse Resp BP Pulse Ox 02/09/20 10:21 79 22 101/49 L 96 02/09/20 10:00 87 13 88 L 02/09/20 09:51 75 14 98/52 L 96 02/09/20 09:22 76 16 91/47 L 93 02/09/20 08:51 36.6 C 80 19 91/48 L 98 02/09/20 08:39 77 18 85/52 L 98 02/09/20 08:21 72 20 83/47 L 93 02/09/20 08:00 71 02/09/20 07:51 74 17 101/48 L 88 L 02/09/20 07:21 72 18 94/58 L 97 02/09/20 07:20 75 22 99 02/09/20 06:00 68 18 88/50 L 95 02/09/20 05:55 82 16 97 02/09/20 05:30 68 24 82/41 L 97 02/09/20 05:00 81 15 93/40 L 93 02/09/20 04:30 67 19 109/44 L 99 02/09/20 04:01 67 19 98 02/09/20 04:00 36.8 C 61 19 103/42 L 97 02/09/20 03:30 68 19 103/49 L 99 02/09/20 03:00 60 20 103/51 L 99 02/09/20 02:30 71 19 91/46 L 96 02/09/20 02:00 71 14 96/41 L 98 02/09/20 01:30 75 20 98/44 L 96 02/09/20 01:00 70 17 92/40 L 96 Laboratory Results Laboratory Results - last 24 hr 02/08/20 02/08/20 02/08/20 10:44 13:34 15:27 WBC RBC Hgb POC Hgb Hct POC Hct MCV MCH MCHC RDW Std Deviation RDW Coeff of Chad Plt Count MPV Immature Gran % (Auto) Neut % (Auto) Lymph % (Auto) [place] % (Auto) Eos % (Auto) Baso % (Auto) Immature Gran # (Auto) Neut # (Auto) Lymph # (Auto) [place] # (Auto) Eos # (Auto) Baso # (Auto) Sample Site POC pH POC pCO2 POC pO2 POC HCO3 POC Total CO2 POC Base Excess ABG pH ABG pH (Temp Correct) ABG pCO2 ABG pCO2 (Temp Corrct ABG pO2 POC ABG pO2 at Pt Temp ABG HCO3 POC ABG O2 Sat ABG O2 Saturation ABG Base Excess Levi Test VBG pH VBG pCO2 VBG pO2 VBG HCO3 VBG O2 Saturation VBG Base Excess Mixed VBG pH Mixed VBG pCO2 Mixed VBG pO2 Mixed VBG HCO3 Mixed VBG Base Excess Mixed VBG O2 Saturation Barometric Pressure Oxygen Given O2 Delivery Device POC O2 Rate POC FiO2 IPAP POC Sodium Sodium POC Potassium Potassium Chloride Carbon Dioxide Anion Gap BUN Creatinine Est Cr Clr Drug Dosing Est GFR ( Amer) Est GFR (Non-Af Amer) BUN/Creatinine Ratio Glucose POC Glucose 97 Lactate 1.9 Calcium Phosphorus Magnesium Total Bilirubin Direct Bilirubin AST ALT Alkaline Phosphatase Total Protein Albumin Procalcitonin Nasal Screen MRSA (PCR) Random Vancomycin Digoxin COVID-19 PCR NEGATIVE 02/08/20 02/08/20 02/08/20 16:15 16:17 16:17 WBC RBC Hgb POC Hgb Hct POC Hct MCV MCH MCHC RDW Std Deviation RDW Coeff of Chad Plt Count MPV Immature Gran % (Auto) Neut % (Auto) Lymph % (Auto) [place] % (Auto) Eos % (Auto) Baso % (Auto) Immature Gran # (Auto) Neut # (Auto) Lymph # (Auto) [place] # (Auto) Eos # (Auto) Baso # (Auto) Sample Site POC pH POC pCO2 POC pO2 POC HCO3 POC Total CO2 POC Base Excess ABG pH Cancelled ABG pH (Temp Correct) ABG pCO2 Cancelled ABG pCO2 (Temp Corrct ABG pO2 Cancelled POC ABG pO2 at Pt Temp ABG HCO3 Cancelled POC ABG O2 Sat ABG O2 Saturation Cancelled ABG Base Excess Cancelled Levi Test Cancelled VBG pH VBG pCO2 VBG pO2 VBG HCO3 VBG O2 Saturation VBG Base Excess Mixed VBG pH Cancelled Mixed VBG pCO2 Cancelled Mixed VBG pO2 Cancelled Mixed VBG HCO3 Cancelled Mixed VBG Base Excess Cancelled Mixed VBG O2 Saturation Cancelled Barometric Pressure Cancelled Cancelled Oxygen Given Cancelled O2 Delivery Device POC O2 Rate POC FiO2 IPAP POC Sodium Sodium POC Potassium Potassium Chloride Carbon Dioxide Anion Gap BUN Creatinine Est Cr Clr Drug Dosing Est GFR ( Amer) Est GFR (Non-Af Amer) BUN/Creatinine Ratio Glucose POC Glucose Lactate Calcium Phosphorus Magnesium Total Bilirubin Direct Bilirubin AST ALT Alkaline Phosphatase Total Protein Albumin Procalcitonin Nasal Screen MRSA (PCR) Negative Random Vancomycin Digoxin COVID-19 PCR 02/08/20 02/08/20 02/08/20 16:17 17:29 20:49 WBC RBC Hgb POC Hgb Hct POC Hct MCV MCH MCHC RDW Std Deviation RDW Coeff of Chad Plt Count MPV Immature Gran % (Auto) Neut % (Auto) Lymph % (Auto) [place] % (Auto) Eos % (Auto) Baso % (Auto) Immature Gran # (Auto) Neut # (Auto) Lymph # (Auto) [place] # (Auto) Eos # (Auto) Baso # (Auto) Sample Site POC pH POC pCO2 POC pO2 POC HCO3 POC Total CO2 POC Base Excess ABG pH ABG pH (Temp Correct) ABG pCO2 ABG pCO2 (Temp Corrct ABG pO2 POC ABG pO2 at Pt Temp ABG HCO3 POC ABG O2 Sat ABG O2 Saturation ABG Base Excess Levi Test VBG pH 7.24 L VBG pCO2 76 H VBG pO2 49 VBG HCO3 32 VBG O2 Saturation 74.1 VBG Base Excess 2.9 Mixed VBG pH Mixed VBG pCO2 Mixed VBG pO2 Mixed VBG HCO3 Mixed VBG Base Excess Mixed VBG O2 Saturation Barometric Pressure 733.6 Oxygen Given O2 Delivery Device POC O2 Rate POC FiO2 IPAP POC Sodium Sodium POC Potassium Potassium Chloride Carbon Dioxide Anion Gap BUN Creatinine Est Cr Clr Drug Dosing Est GFR ( Amer) Est GFR (Non-Af Amer) BUN/Creatinine Ratio Glucose POC Glucose 108 H Lactate Calcium Phosphorus Magnesium Total Bilirubin Direct Bilirubin AST ALT Alkaline Phosphatase Total Protein Albumin Procalcitonin Nasal Screen MRSA (PCR) Random Vancomycin Digoxin 1.1 COVID-19 PCR 02/09/20 02/09/20 02/09/20 04:28 04:28 04:28 WBC 10.99 H RBC 3.40 L Hgb 10.9 L POC Hgb Hct 34.7 L POC Hct MCV 102.1 H MCH 32.1 MCHC 31.4 L RDW Std Deviation 59.9 H RDW Coeff of Chad 15.9 H Plt Count 97 L MPV 10.7 H Immature Gran % (Auto) 0.3 Neut % (Auto) 93.8 Lymph % (Auto) 2.6 [place] % (Auto) 3.2 Eos % (Auto) 0.0 Baso % (Auto) 0.1 Immature Gran # (Auto) 0.03 H Neut # (Auto) 10.31 H Lymph # (Auto) 0.29 L [place] # (Auto) 0.35 Eos # (Auto) 0.00 Baso # (Auto) 0.01 Sample Site POC pH POC pCO2 POC pO2 POC HCO3 POC Total CO2 POC Base Excess ABG pH ABG pH (Temp Correct) ABG pCO2 ABG pCO2 (Temp Corrct ABG pO2 POC ABG pO2 at Pt Temp ABG HCO3 POC ABG O2 Sat ABG O2 Saturation ABG Base Excess Levi Test VBG pH VBG pCO2 VBG pO2 VBG HCO3 VBG O2 Saturation VBG Base Excess Mixed VBG pH Mixed VBG pCO2 Mixed VBG pO2 Mixed VBG HCO3 Mixed VBG Base Excess Mixed VBG O2 Saturation Barometric Pressure Oxygen Given O2 Delivery Device POC O2 Rate POC FiO2 IPAP POC Sodium Sodium 141 POC Potassium Potassium 4.1 Chloride 105 Carbon Dioxide 31 Anion Gap 5.0 BUN 40 H Creatinine 1.37 Est Cr Clr Drug Dosing 44.9 Est GFR ( Amer) 52.6 Est GFR (Non-Af Amer) 45.4 BUN/Creatinine Ratio 29.1 H Glucose 133 H POC Glucose Lactate Calcium 7.7 L D Phosphorus 4.2 Magnesium 2.0 Total Bilirubin 0.8 Direct Bilirubin 0.4 H AST 30 ALT 20 Alkaline Phosphatase 42 L Total Protein 5.8 L D Albumin 2.5 L Procalcitonin Nasal Screen MRSA (PCR) Random Vancomycin 12.0 Digoxin COVID-19 PCR 02/09/20 02/09/20 02/09/20 04:28 04:29 05:15 WBC RBC Hgb POC Hgb 11.2 L Hct POC Hct 33 L MCV MCH MCHC RDW Std Deviation RDW Coeff of Chad Plt Count MPV Immature Gran % (Auto) Neut % (Auto) Lymph % (Auto) [place] % (Auto) Eos % (Auto) Baso % (Auto) Immature Gran # (Auto) Neut # (Auto) Lymph # (Auto) [place] # (Auto) Eos # (Auto) Baso # (Auto) Sample Site R Radial POC pH 7.28 L POC pCO2 68 H POC pO2 105 H POC HCO3 32 H POC Total CO2 34 H POC Base Excess 5.0 H ABG pH ABG pH (Temp Correct) 7.283 L ABG pCO2 ABG pCO2 (Temp Corrct 67 H ABG pO2 POC ABG pO2 at Pt Temp 104 ABG HCO3 POC ABG O2 Sat 97.0 H ABG O2 Saturation ABG Base Excess Levi Test Pass VBG pH VBG pCO2 VBG pO2 VBG HCO3 VBG O2 Saturation VBG Base Excess Mixed VBG pH Mixed VBG pCO2 Mixed VBG pO2 Mixed VBG HCO3 Mixed VBG Base Excess Mixed VBG O2 Saturation Barometric Pressure Oxygen Given O2 Delivery Device BIPAP POC O2 Rate 25 POC FiO2 35 IPAP 10 POC Sodium 139 Sodium POC Potassium 4.0 Potassium Chloride Carbon Dioxide Anion Gap BUN Creatinine Est Cr Clr Drug Dosing Est GFR ( Amer) Est GFR (Non-Af Amer) BUN/Creatinine Ratio Glucose POC Glucose 131 H Lactate Calcium Phosphorus Magnesium Total Bilirubin Direct Bilirubin AST ALT Alkaline Phosphatase Total Protein Albumin Procalcitonin 9.35 H Nasal Screen MRSA (PCR) Random Vancomycin Digoxin COVID-19 PCR 02/09/20 02/09/20 12:16 12:17 WBC RBC Hgb POC Hgb Hct POC Hct MCV MCH MCHC RDW Std Deviation RDW Coeff of Chad Plt Count MPV Immature Gran % (Auto) Neut % (Auto) Lymph % (Auto) [place] % (Auto) Eos % (Auto) Baso % (Auto) Immature Gran # (Auto) Neut # (Auto) Lymph # (Auto) [place] # (Auto) Eos # (Auto) Baso # (Auto) Sample Site POC pH POC pCO2 POC pO2 POC HCO3 POC Total CO2 POC Base Excess ABG pH ABG pH (Temp Correct) ABG pCO2 ABG pCO2 (Temp Corrct ABG pO2 POC ABG pO2 at Pt Temp ABG HCO3 POC ABG O2 Sat ABG O2 Saturation ABG Base Excess Levi Test VBG pH VBG pCO2 VBG pO2 VBG HCO3 VBG O2 Saturation VBG Base Excess Mixed VBG pH Pending Mixed VBG pCO2 Pending Mixed VBG pO2 Pending Mixed VBG HCO3 Pending Mixed VBG Base Excess Pending Mixed VBG O2 Saturation Pending Barometric Pressure Oxygen Given O2 Delivery Device POC O2 Rate POC FiO2 IPAP POC Sodium Sodium POC Potassium Potassium Chloride Carbon Dioxide Anion Gap BUN Creatinine Est Cr Clr Drug Dosing Est GFR ( Amer) Est GFR (Non-Af Amer) BUN/Creatinine Ratio Glucose POC Glucose 197 H Lactate Calcium Phosphorus Magnesium Total Bilirubin Direct Bilirubin AST ALT Alkaline Phosphatase Total Protein Albumin Procalcitonin Nasal Screen MRSA (PCR) Random Vancomycin Digoxin COVID-19 PCR Microbiology 02/08/20 11:33 Blood Aerobic Blood Culture - Preliminary Group B Beta Strep 02/08/20 11:33 Blood Anaerobic Blood Culture - Preliminary Group B Beta Strep 02/08/20 11:35 Blood Aerobic Blood Culture - Preliminary Group B Beta Strep 02/08/20 11:35 Blood Anaerobic Blood Culture - Preliminary Group B Beta Strep Medications Administered Current Inpatient Medications Acetaminophen (Tylenol) 650 mg PO Q4H PRN PRN Reason: Fever Stop: 03/09/20 17:07 Dabigatran (Pradaxa) 150 mg PO BID [facility] Stop: 03/09/20 20:59 Last Admin: 02/09/20 10:04 Dose: 150 mg Documented by: Dobutamine HCl/Dextrose (Dobutamine / D5w) 500 mg in 250 mls @ 13.815 mls/hr IV .Q18H6M [facility]; Protocol Stop: 03/09/20 14:59 Last Admin: 02/09/20 10:41 Dose: 5 mcg/kg/min, 13.8 mls/hr Documented by: Famotidine 20 mg/ Syringe 5 mls @ 2.5 mls/min IV Q12H [facility] Stop: 03/09/20 15:59 Last Admin: 02/09/20 04:12 Dose: 2.5 mls/min Documented by: Furosemide 40 mg/ Syringe 4 mls @ 4 mls/min IV Q12 [facility] Stop: 03/10/20 08:59 Last Admin: 02/09/20 09:56 Dose: 4 mls/min Documented by: Ceftriaxone Sodium 2,000 mg/ (Dextrose) 70 mls @ 140 mls/hr IV Q24H [facility] Stop: 02/23/20 09:59 Last Infusion: 02/09/20 11:43 Dose: Infused Documented by: Norepinephrine Bitartrate 16 (mg/ Dextrose) 516 mls @ 17.28 mls/hr IV .Q24H [facility]; Protocol Stop: 03/10/20 12:44 Levalbuterol HCl (Xopenex Hfa) 4 puffs INH QID [facility] Stop: 03/09/20 12:59 Last Admin: 02/09/20 12:33 Dose: Not Given Documented by: Metolazone (Zaroxolyn) 2.5 mg PO QAM [facility] Stop: 03/10/20 08:29 Last Admin: 02/09/20 08:25 Dose: 2.5 mg Documented by: Miscellaneous ([facility] Protocol For Hyperglycemia) 1 ea N/A PRN PRN; Protocol PRN Reason: Hyperglycemia Protocol Stop: 02/10/20 15:41 Pravastatin Sodium (Pravachol) 20 mg PO DAILY@1700 [facility] Stop: 03/10/20 16:59 Senna/Docusate Sodium (Senokot S) 1 tab PO QAM [facility] Stop: 03/10/20 08:59 Last Admin: 02/09/20 08:48 Dose: Not Given Documented by: Umeclidinium [place] (Incruse Ellipta) 1 puffs INH DAILY [facility] Stop: 03/10/20 08:59 Last Admin: 02/09/20 08:46 Dose: 1 puffs Documented by: PG Care Time/CCT Total # of Minutes Spent Total Time Spent with Patient: Total time spent is greater than 50% in coordination of care (as documented) at patient's floor/unit and/or counseling patient: Coding Level of Care Code 14557 Subseq Hosp Care Lvl 3 Diagnoses Shock circulatory R57.9 Cellulitis L03.90 Combined systolic and diastolic congestive heart failure, NYHA class 3 I50.40 Congestive heart failure chronicity: unspecified Pneumonia J18.9 Laterality: unspecified laterality Lung location: unspecified part of lung Pneumonia type: due to unspecified organism COPD, severe J44.9 Diabetes mellitus E11.9 Permanent atrial fibrillation I48.2 (1) Pneumonia Laterality: unspecified laterality Lung location: unspecified part of lung Pneumonia type: due to unspecified organism Qualified Code(s): J18.9 - Pneumonia, unspecified organism (2) Combined systolic and diastolic congestive heart failure, NYHA class 3 Congestive heart failure chronicity: unspecified Qualified Code(s): I50.40 - Unspecified combined systolic (congestive) and diastolic (congestive) heart failure
[2020-02-09] MEDS: NOREPINEPHRINE BIT INJ 16 MG in DEXTROSE 5% 500 ML IV SCH (13:33)
[2020-02-09] MEDS ORDERED: FUROSEMIDE 40 MG in SYRINGE 0 ML IV ONE (14:35)
--- NOTE | 2020-02-09 15:03 | XCELERA ---
[id number]
[2020-02-09] MEDS: PRAVASTATIN SOD 20 MG TAB PO SCH (15:50)
[2020-02-09] MEDS ORDERED: CARBOHYDRATES FOR HYPOGLYCEMIA PO PRN (16:47)
[2020-02-09] MEDS ORDERED: DEXTROSE 50% 50 ML SYRINGE IV PRN (16:47)
[2020-02-09] MEDS ORDERED: GLUCAGON FOR INJ 1 MG VIAL SQ PRN (16:47)
[2020-02-09] MEDS ORDERED: GLUCOSE 40% GEL 15 GM TUBE PO PRN (16:47)
[2020-02-09] MEDS ORDERED: GLUCOSE 10 TABS/TUBE PO PRN (16:47)
[2020-02-09] MEDS ORDERED: PHARMACY GLYCEMIC MGMT CONSULT PRN (17:08)
[2020-02-09] MEDS: INSULIN ASPART 100 UNITS/ML 3 ML PEN SC SCH ×2 (17:33→20:55)
--- NOTE | 2020-02-09 20:20 | Pharmacy Report ---
Glycemic Control Consultation - Date of Service February 09, 2020 - Scope Scope: Glycemic Pharmacist consulted for glycemic control and to write orders per [facility] inpatient glycemic control protocol. - Objective Weight: 89.3 kg Accuchecks BSG (last 24hrs): 02/08/20 02/09/20 02/09/20 20:49 04:28 04:29 Glucose 133 H POC Glucose 108 H 131 H 02/09/20 12:16 Glucose POC Glucose 197 H Laboratory Data (last 24hrs): 02/09/20 04:28 Potassium 4.1 Carbon Dioxide 31 Anion Gap 5.0 Creatinine 1.37 Est Cr Clr Drug Dosing 44.9 - Recent Pertinent Medications Outpatient Anti-diabetic Regimen: * Metformin 500 mg PO BIDM * A1c = 6% (07/09/19) Risk Factors for Insulin Resistance: * Infection: Septic shock - group B strep bacteremia likely secondary to cellulitis * Pressors: Norepinephrine and dobutamine * Diet: T2DM - Assessment & Plan Assessment & Plan: ASSESSMENT: * VI is an 89 year old male with septic shock - group B strep bacteremia likely secondary to cellulitis. * Still requiring vasopressors, receiving ceftriaxone 2 g IV q24h * BSGs trending up today from yesterday (ranging 131-197 mg/dL today) * No insulin administered prior to consult PLAN FOR INPATIENT GLYCEMIC CONTROL: * Holding outpatient oral diabetes medications * Basal insulin * Will hold off on basal insulin at this time - reassess in AM * Bolus insulin * NovoLog per scale ACHS or Q6hrs while NPO * Goal Range: Low 140 mg/dL - High 180 mg/dL * Correction Factor: 35 mg/dL/unit * Nutritional / Prandial insulin per carb ratio of 1 unit per 12 grams CHO consumed * Please note that the plan above was derived based on current level of insulin resistance and hospital stress. These recommendations are appropriate for inpatient admission only. Plan of care upon discharge will need to be reassessed to avoid potential outpatient hypo/hyperglycemia. Thank you.
[2020-02-09 23:30] LABS: BUN Creatinine Ratio 28.8 (10-20); Calcium 7.8 mg/dl (8.5-10.1); Est GFR (African American) 47.2; Est GFR (Non-African American) 40.7; Phosphorus 3.8 mg/dl (2.5-4.9); Potassium 3.6 mmol/L (3.5-5.1)
[2020-02-10] MEDS ORDERED: POTASSIUM CHLORIDE / WTR 20 MEQ/100 ML PLCT IV STA (01:03)
[2020-02-10] MEDS ORDERED: POTASSIUM CHLORIDE / WTR 20 MEQ/100 ML PLCT IV ONE ×2 (01:05→21:00)
[2020-02-10] MEDS: FAMOTIDINE 20 MG in SYRINGE 3 ML IV SCH (04:00)
[2020-02-10 04:35] LABS: Basophils # (auto) 0.01 K/uL (0-0.2); Basophils % (auto) 0.1 %; Eosinophils # (auto) 0.01 K/uL (0-0.5); Eosinophils % (auto) 0.1 %; Hematocrit (blood only) 34.3 % (42-52); Hemoglobin 10.8 g/dL (14.0-18.0); Immature Granulocytes # (auto) 0.01 K/uL (0.00-0.02); Immature Granulocytes % (auto) 0.1 %; Lymphocytes # (auto) 0.41 K/uL (1.2-3.4); Lymphocytes % (auto) 5.4 %; Mean Corpuscular Hgb Conc 31.5 g/dL (32-36); Mean Corpuscular Volume 101.5 fL (80-100); Mean Platelet Volume 10.9 fL (7.4-10.4); Monocytes # (auto) 0.54 K/uL (0.11-0.59); Monocytes % (auto) 7.2 %; Neutrophils # (auto) 6.55 K/uL (1.4-6.5); Neutrophils % (auto) 87.1 %; Platelet Count 104 K/uL (130-400); RDW Coefficient of Variation 15.4 % (11.5-14.5); RDW Standard Deviation 57.4 fL (36.4-46.3); Red Blood Count 3.38 M/uL (4.7-6.1); White Blood Count 7.53 K/uL (4.8-10.8)
[2020-02-10 05:20] LABS: Albumin Level 2.6 gm/dl (3.4-5.0); BUN Creatinine Ratio 28.8 (10-20); Bilirubin Direct 0.3 mg/dl (0-0.2); Bilirubin,Total 0.7 mg/dl (0.2-1); Calcium 7.7 mg/dl (8.5-10.1); Creatinine Clr Calc Pharmacy 43.4 ml/min; Est GFR (African American) 51.3; Est GFR (Non-African American) 44.2; Magnesium 1.9 mg/dl (1.8-2.4); Phosphorus 3.2 mg/dl (2.5-4.9); Potassium 3.6 mmol/L (3.5-5.1); Total Protein 5.8 gm/dl (6.4-8.2)
[2020-02-10] MEDS ORDERED: MAGNESIUM SULFATE / D5W 1 GM/100 ML BAG IV ONE (05:40)
[2020-02-10] MEDS: POTASSIUM CHLORIDE / WTR 20 MEQ/100 ML PLCT IV SCH ×2 (05:58→08:50)
[2020-02-10] MEDS: DOBUTamine / D5W 500 MG/250 ML BAG IV SCH ×3 (05:58→14:15)
[2020-02-10 06:00] LABS: Estimated Average Glucose 117 mg/dl; Hemoglobin A1C 5.7 % (4.5-5.6)
[2020-02-10] MEDS: LEVALBUTEROL TARTRATE 15 GM HFA.AER.AD INH SCH ×4 (07:33→19:22)
--- NOTE | 2020-02-10 08:04 | Critical Care Progress Note ---
Date of Service February 10, 2020 Assessment & Plan (1) Combined systolic and diastolic congestive heart failure, NYHA class 3: 89-year-old male with past medical history of systolic CHF ejection fraction 20%, chronic Marilee tse on dabigatran, COPD came into the hospital in septic shock. He was admitted to the ICU for vasopressors. EKG 02/08/2020: A. dedrick, left bundle branch block, left axis deviation, no ST-T wave changes appreciated. Prolonged QTC. -- Septic shock on top of baseline CHF With gram-positive bacteremia source seems to be likely cellulitis of the left lower extremity, unlikely to be pneumonia Influenza negative, Covid-19 PCR negative, urine looks clear, Patient got a liter of fluid in the ED given that the ejection fraction is only 20-25% Given the severe decreased ejection fraction we will keep map goal around 60 Continue with broad-spectrum antibiotics Procalcitonin 1.18 --> 9.35, CRP 2.35, ESR: 51 Follow blood culture and urine culture --Systolic CHF with bilateral pleural effusion Ejection fraction 20% BNP 28,000 Strict in and outs --Acute hypercapnic hypoxic respiratory failure Hypercapnia is likely secondary to central component because of his CHF leading to Avila-Lozano breathing Hypoxia secondary to volume overload Continue with BiPAP as needed to keep saturation between 88 to 92% Diuresis as tolerated keep negative balance --Elevated troponin Likely type II OR No significant change in EKG compared to the one from January 2019 Monitor --Paroxysmal AJaxson tse Patient is on digoxin at home On dabigatran at home Digoxin level was 1.1 02/08/2020, 0.8 02/10/2020 --COPD Not in exacerbation Continue with inhaled bronchodilators Keep O2 saturation between 88 to 92% --Chronic thrombocytopenia Etiology is quite unclear AST, ALT within normal limit, albumin 3.6, bilirubin within normal limit PT/INR are elevated this is likely secondary to dabigatran use. Continue monitoring --Prophylaxis DVT: Dabigatran GI: Pepcid --DNR/DNI Diet: Cardiac diet IV: Peripheral plus right IJ 02/08/2020 Plan: In/out: -3.5 L Patient going group B beta strep. Antibiotics has been changed to Rocephin. Wound care consult has been made, wound has been debrided by wound physician. Given the patient's digoxin level is 0.8 today we will resume digoxin 0.125 MCG on a daily basis. Given that the patient's potassium was on the lower side and he is on diuretics potassium has been replaced. Given the patient ejection fraction is only 20%. Try to titrate down vasopressin inotrope with goal map is around 60 I have personally spent 39 minutes of critical care time in the direct management of this patient. This is a life/limb threatening event. This includes time spent evaluating patient, direct bedside care, chart review, placing orders, interpretation of diagnostic studies, discussion with consultants, patient, and family members, as well as other required patient management activities. This time is exclusive of all separately billable procedures, and teaching time and separate from and in addition to any other critical care service time. Please note the above document was generated using voice recognition software. It may contain grammatical, syntax or spelling errors. (2) Shock circulatory: (3) Cardiomyopathy: (4) Permanent atrial fibrillation: Admission and Anticipated Discharge Date Admission Date: February 08, 2020 Subjective Patient seen and examined at bedside. No acute distress, no adverse events overnight. Patient is on dobutamine 5, Levophed 0.03 at the time of examination. Patient is awake alert than before. Answering all the questions appropriately. Knows his name and that he is in the hospital. Denies any chest pain, no shortness of breath, no dizziness, no headache, no nausea or vomiting. Patient is asking for food. Review of Systems Review of Systems: All systems reviewed & are unremarkable except as noted in HPI & below Physical Exam Physical Exam: Constitutional: No acute distress HEENT: EOMI, PERRLA, arcus senilis bilaterally, positive JVD Respiratory system: Decreased air entry bilaterally, no wheeze, no rhonchi, positive crackles bilateral lower lobes CVS: S1-S2 positive, irregular rhythm, positive 2 out of 6 systolic murmur appreciated best at aorta, positive AICD Abdomen: Soft, nontender, nondistended, positive bowel sounds x4 Extremities: +2 pulses bilaterally radialis/ dorsalis pedis, no cyanosis, +3 pitting edema bilateral lower extremity, warm extremities, left lower extremity there is redness and warmth appreciated anterio-medially Neuro: Awake and alert to self and place Psych: Normal mood and affect G/U: Positive Bailey Skin: no rashes, warm and dry Lymphatic: no cervical or axillary lymphadenopathy Results & Data Results & Data ([facility]) Vital Signs (Past 12 Hours) Vital Signs Temp Pulse Pulse Resp BP Pulse Ox 02/10/20 07:36 83 18 95 02/10/20 06:12 75 20 109/60 98 02/10/20 06:00 75 29 H 94 02/10/20 05:57 75 17 103/54 L 98 02/10/20 05:48 59 L 23 99 02/10/20 05:41 82 22 109/56 L 98 02/10/20 05:30 73 18 98 02/10/20 05:27 73 17 93/54 L 98 02/10/20 05:12 81 19 122/50 L 99 02/10/20 04:57 68 17 99/54 L 99 02/10/20 04:42 74 21 101/61 100 02/10/20 04:26 69 17 102/56 L 98 02/10/20 04:11 36.5 C 87 18 100/54 L 93 02/10/20 03:42 75 19 103/58 L 97 02/10/20 03:26 79 15 100/56 L 97 02/10/20 03:11 66 26 H 102/50 L 95 02/10/20 02:57 79 12 93/57 L 89 L 02/10/20 02:45 64 19 94 02/10/20 02:41 76 16 104/54 L 100 02/10/20 02:30 77 13 87 L 02/10/20 02:26 76 11 L 100/59 L 98 02/10/20 02:12 70 18 106/53 L 97 02/10/20 02:00 77 14 02/10/20 01:57 66 12 97/58 L 96 02/10/20 01:41 71 14 99/55 L 96 02/10/20 01:11 72 16 91/50 L 95 02/10/20 00:56 73 17 95/60 L 95 02/10/20 00:42 76 19 92/54 L 98 02/10/20 00:27 73 12 87/50 L 97 02/10/20 00:11 75 18 87/51 L 95 02/09/20 23:59 81 02/09/20 23:56 68 27 H 83/47 L 96 02/09/20 23:41 75 25 H 87/55 L 99 02/09/20 23:26 73 18 103/59 L 98 02/09/20 23:11 37.0 C 78 33 H 128/49 L 96 02/09/20 21:43 117 H 18 92 02/09/20 20:23 67 20 93 02/10/20 04:20 02/10/20 04:20 Coding Level of Care Code Critical Care 1st 30-74 mins Diagnoses Combined systolic and diastolic congestive heart failure, NYHA class 3 I50.40 Congestive heart failure chronicity: unspecified Shock circulatory R57.9 Cardiomyopathy I42.8 Cardiomyopathy type: other Permanent atrial fibrillation I48.2 Time Spent (min) 39 (1) Combined systolic and diastolic congestive heart failure, NYHA class 3 Congestive heart failure chronicity: unspecified Qualified Code(s): I50.40 - Unspecified combined systolic (congestive) and diastolic (congestive) heart failure (2) Cardiomyopathy Cardiomyopathy type: other Qualified Code(s): I42.8 - Other cardiomyopathies
[2020-02-10] MEDS: NOREPINEPHRINE BIT INJ 16 MG in DEXTROSE 5% 500 ML IV SCH ×2 (08:47→09:41)
[2020-02-10] MEDS: DABIGATRAN ETEXILATE 75 MG CAP PO SCH ×2 (08:51→20:14)
[2020-02-10] MEDS: DOCUSATE SODIUM/SENNA 50/8.6MG TAB PO SCH (08:51)
[2020-02-10] MEDS: metOLazone 2.5 MG TABLET PO SCH (08:51)
[2020-02-10] MEDS: FUROSEMIDE 40 MG in SYRINGE 0 ML IV SCH ×2 (08:51→20:16)
[2020-02-10] MEDS: UMECLIDINIUM BROMIDE 62.5MCG/BLISTER 7 PUFFS/INHALER INH SCH (08:52)
[2020-02-10] MEDS: INSULIN ASPART 100 UNITS/ML 3 ML PEN SC SCH ×4 (08:53→20:17)
[2020-02-10] MEDS ORDERED: QUETIAPINE FUMARATE 25 MG TABLET PO ONE ×2 (10:15→22:48)
[2020-02-10] MEDS: cefTRIAXone SODIUM 2,000 MG in DEXTROSE 5% 50 ML IV SCH (11:07)
--- NOTE | 2020-02-10 13:45 | Hospitalist Progress Note ---
Date of Service February 10, 2020 Assessment & Plan (1) Shock circulatory: septic shock with 4 out of 4 cultures growing Group B strep likely source is skin, pneumonia cannot be ruled out tapered antibiotics to Rocephin today no fever, WBC 10k continue on dobutamine today MAP goal is 60 improved since yesterday but overall alf prognosis is guarded has EF of 20-25% and severe COPD, afib family is aware of this, patient is DNR/DNI - Improving today with less pressors and lower dobutamine. Diuresing well. (2) Cellulitis: left leg is more erythematous, hot to palpation, most likely source of infection has chronic venous stasis changes at baseline WBC is 10k, taper antibiotics to Rocephin Group B strep growing in blood cultures. - Wound care following; appreciate help. (3) Combined systolic and diastolic congestive heart failure, NYHA class 3: BNP markedly elevated prior echo with EF of 20-25% acute on chronic systolic and diastolic HF, clearly he is volume overloaded on exam using Lasix and Metolazone in conjunction with Dobutamine to diurese patient cardiology following, goal of negative 1 liter daily if BP will allow he has declined ICD in the past, follows with Dr. Szymanski in the office patient has poor overall prognosis, though slowly improving. (4) Pneumonia: cannot exclude pneumonia, has moderate right sided effusion COVID 19 test is NEGATIVE taper antibiotics to Rocephin on 02/08. (5) COPD, severe: no wheezing continue home inhalers did have some CO2 retention, attributed to Avila Lozano breathing with CHF he is more alert today (6) [facility] for [facility]cemic episodes - Blood sugars are 100-200 in last 24 hours. (7) Permanent atrial fibrillation: rates are well controlled Pradaxa for anticoagulation Admission and Anticipated Discharge Date Admission Date: February 08, 2020 Subjective Improving from a BP standpoint. He is off Levophed and only on 2.5 mg/hr of dobutamine. Otherwise, denies any complaints. Reports no fevers/chills, chest pain, shortness of breath, abdominal pain, nausea, or vomiting. Physical Exam Constitutional: WD/WN, vitals as above Eyes: EOM intact bilaterally; no conjunctival abnormality ENMT: external ear and nose normal, oropharynx normal Neck: trachea midline, no thyromegaly normal visual inspection Respiratory: normal respiratory effort, lungs clear to auscultation no respiratory distress Cardiovascular: RRR, no murmur, no edema Gastrointestinal (Abdomen): Inspection/Auscultation: abdomen normal to inspection; abdomen not distended Musculoskeletal: no cyanosis or clubbing, extremities motor strength 5/5 Skin: no rashes, warm and dry Neurologic: moves all extremities and awake Psychiatric: Orientation: alert, oriented to person and cooperative Results & Data Results & Data ([facility]) Vital Signs (Past 12 Hours) Vital Signs Temp Pulse Pulse Resp BP Pulse Ox 02/10/20 12:38 95 H 20 88/49 L 02/10/20 12:12 90 20 88/59 L 90 02/10/20 11:57 92 H 22 113/65 87 L 02/10/20 11:43 85 16 87/52 L 90 02/10/20 11:27 75 21 104/58 L 95 02/10/20 11:12 72 25 H 89/55 L 92 02/10/20 10:58 76 18 89/48 L 94 02/10/20 10:43 75 22 83/57 L 86 L 02/10/20 10:27 82 21 98/50 L 92 02/10/20 10:12 72 20 86/54 L 87 L 02/10/20 09:57 80 20 101/51 L 90 02/10/20 09:42 80 20 95/48 L 87 L 02/10/20 09:03 86 13 105/56 L 90 02/10/20 08:28 72 20 106/60 94 02/10/20 08:13 69 17 95/53 L 87 L 02/10/20 08:00 71 02/10/20 07:57 83 19 103/62 02/10/20 07:42 72 18 98/47 L 92 02/10/20 07:36 83 18 95 02/10/20 07:28 67 31 H 110/52 L 96 02/10/20 07:12 67 18 116/34 L 95 02/10/20 06:57 72 22 95/52 L 94 02/10/20 06:42 74 20 100/51 L 93 02/10/20 06:27 76 19 107/60 89 L 02/10/20 06:12 75 20 109/60 98 02/10/20 06:00 75 29 H 94 02/10/20 05:57 75 17 103/54 L 98 02/10/20 05:48 59 L 23 99 02/10/20 05:41 82 22 109/56 L 98 02/10/20 05:30 73 18 98 02/10/20 05:27 73 17 93/54 L 98 02/10/20 05:12 81 19 122/50 L 99 02/10/20 04:57 68 17 99/54 L 99 02/10/20 04:42 74 21 101/61 100 02/10/20 04:26 69 17 102/56 L 98 02/10/20 04:11 36.5 C 87 18 100/54 L 93 02/10/20 03:42 75 19 103/58 L 97 02/10/20 03:26 79 15 100/56 L 97 02/10/20 03:11 66 26 H 102/50 L 95 02/10/20 02:57 79 12 93/57 L 89 L 02/10/20 02:45 64 19 94 02/10/20 02:41 76 16 104/54 L 100 02/10/20 02:30 77 13 87 L 02/10/20 02:26 76 11 L 100/59 L 98 02/10/20 02:12 70 18 106/53 L 97 02/10/20 02:00 77 14 02/10/20 01:57 66 12 97/58 L 96 PG Care Time/CCT Total # of Minutes Spent Total Time Spent with Patient: Total time spent is greater than 50% in coordinat ion of care (as documented) at patient's floor/unit and/or counseling patient: Coding Level of Care Code 03737 Subseq Hosp Care Lvl 3 Diagnoses Shock circulatory R57.9 Cellulitis L03.90 Combined systolic and diastolic congestive heart failure, NYHA class 3 I50.40 Congestive heart failure chronicity: unspecified Pneumonia J18.9 Laterality: unspecified laterality Lung location: unspecified part of lung Pneumonia type: due to unspecified organism COPD, severe J44.9 Diabetes mellitus E11.9 Permanent atrial fibrillation I48.2 (1) Combined systolic and diastolic congestive heart failure, NYHA class 3 Congestive heart failure chronicity: unspecified Qualified Code(s): I50.40 - Unspecified combined systolic (congestive) and diastolic (congestive) heart failure (2) Pneumonia Laterality: unspecified laterality Lung location: unspecified part of lung Pneumonia type: due to unspecified organism Qualified Code(s): J18.9 - Pneumonia, unspecified organism
[2020-02-10] MEDS: ACETAMINOPHEN 325 MG TAB PO PRN (14:26)
--- NOTE | 2020-02-10 14:55 | Wound Consultation ---
Date of Consultation February 10, 2020 Assessment & Plan (1) Diabetic ulcer of left foot associated with type 2 diabetes mellitus, limited to breakdown of skin: This is an 89-year-old male with diabetic foot ulcer of his left plantar foot, cellulitis of his left leg and septic shock. Wound needed debridement. After obtaining permission topical Xylocaine was applied. Using a curette, the wound was debrided of fibrin, slough and callus. Minimal bleeding was controlled with pressure. Patient tolerated the procedure well no complications. This represents a non-excisional debridement less than 20 cm. Wound be dressed with iodoform and OPTi foam. Would recommend x-ray of the left foot to rule out osteomyelitis. Wound culture was obtained from the left foot. Will continue IV antibiotics pending results. Thank you for limited to spent in the care of this patient. Please necessitate to call with any questions. (2) Cellulitis: (3) Septic shock: History of Present Illness Reason for Consultation: Left foot wound left leg cellulitis Attending Physician: Erik Real MD History of Present Illness This is an 89-year-old male with a history of actinic keratosis, asthma, cardiomyopathy, CHF, chronic venous insufficiency, lower extremity edema, COPD, type 2 diabetes, dyslipidemia, squamous cell carcinoma of the skin, hypertension, migraine, mitral regurgitation and chronic atrial fibrillation was admitted with septic shock. Currently it appears that the source of infection is patient's left leg. Erythema of his left leg has worsened. Left foot is soaking through an OPTi foam. Patient is currently on IV Rocephin. Allergies Allergy/AdvReac Type Severity Reaction Status Date / Time albuterol AdvReac Severe Increased Unverified 02/08/20 11:27 blood pressure levofloxacin AdvReac Intermediate TENDONITIS Verified 02/08/20 11:27 Bactrim AdvReac Mild GI SYMPTOMS Verified 05/22/18 14:15 house dust AdvReac Mild Unknown Verified 02/08/20 11:27 sulfamethoxazole AdvReac Mild GI SYMPTOMS Verified 02/08/20 11:27 trimethoprim AdvReac Mild GI SYMPTOMS Verified 02/08/20 11:27 Home Medications Home Medications Medication Instructions Recorded Confirmed Type ciclesonide 160 mcg/actuation 1 puffs INH BID 05/28/18 02/08/20 History aerosol inhaler dabigatran etexilate 150 mg capsule 150 mg PO BID 05/28/18 02/08/20 History lisinopril 5 mg tablet 5 mg PO QAM 05/28/18 02/08/20 History multivitamin 1 tab PO QAM 05/28/18 02/08/20 History [facility] 1 tab PO HS 02/16/19 02/08/20 History bumetanide 1 mg PO QAM 02/16/19 02/08/20 History cholecalciferol (vitamin D3) 50 2,000 units PO QAM cap 04/26/19 02/08/20 History mcg (2,000 unit) capsule levalbuterol tartrate 45 1 puffs INH Q6H PRN 04/26/19 02/08/20 History mcg/actuation aerosol inhaler Oxygen Home #1 ea 07/08/19 12/13/19 Rx pravastatin 20 mg tablet 20 mg PO HS #90 tab 08/12/19 02/08/20 Rx docusate sodium 100 mg PO HS 10/15/19 02/08/20 History polyethylene glycol 3350 [Miralax] 17 g PO HS 10/15/19 02/08/20 History ipratropium bromide 17 2 puffs INH BID #25.8 gm 10/26/19 02/08/20 Rx mcg/actuation HFA aerosol inhaler metformin 500 mg tablet 500 mg PO BID #180 tab 11/30/19 02/08/20 Rx digoxin 125 mcg (0.125 mg) tablet 125 mcg PO HS #90 tab 01/05/20 02/08/20 Rx Patient History Medical History Actinic keratosis Asthma PRN INH 1 X MO ON AVG Cardiomyopathy Chronic combined systolic (congestive) and diastolic (congestive) heart failure Chronic venous insufficiency (Chronic) Combined systolic and diastolic congestive heart failure, NYHA class 3 (Acute) COPD, severe Diabetes mellitus Diabetes mellitus, type 2 (Chronic) NIDDM. Diabetic peripheral neuropathy associated with type 2 diabetes mellitus Dyslipidemia Edema Former smoker Hearing deficit [place] History of actinic keratosis (Resolved) History of ischemic colitis (Resolved) History of SCC (squamous cell carcinoma) of skin (Resolved) History of skin cancer REMOVED History of squamous cell carcinoma in situ of skin (Resolved) Hypertension Intrinsic asthma Ischemic colitis (2010) LBBB (left bundle branch block) Left bundle branch block Migraine Mitral regurgitation Oral thrush Osteomyelitis of right foot Pancytopenia Permanent atrial fibrillation Pseudomonas aeruginosa infection Seborrheic keratosis Squamous cell carcinoma of arm UTI (urinary tract infection) Vasomotor rhinitis Venous insufficiency (chronic) (peripheral) Surgical History History of cataract surgery (Resolved) History of colonoscopy (Resolved) History of tonsillectomy and adenoidectomy (Resolved) Status post amputation of toe (Resolved) Family History Mother Atrial fibrillation Myocardial infarction Father Diabetes Social History Preferred Language: [place] Communication Ability: Impaired Communication Ability Comment: has hearing aids 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 Beliefs That Will Affect Care: None marital status: Current Living Situation: Spouse Other Information That Helps Us Care for You: No Feels Safe at Home: Yes Safety Concerns: Feels Safe At This Time Smoking Status: Former smoker Second Hand Exposure: No ; Hx Alcohol Use: No Hx Substance Use: No Review of Systems Review of Systems: All systems reviewed & are unremarkable except as noted in HPI & below Physical Exam Constitutional: WD/WN, vitals as above Eyes: PERRL, conjunctivae normal, anicteric sclerae ENMT: external ear and nose normal, oropharynx normal Ears: no hearing impairment Skin: Left plantar foot wound measuring 0.4 x 0.4 x 0.4 cm. This is a surface area of 0.16 cm. Wound is covered with fibrin, slough and callus. Periwound is intact with erythema. There is a large amount of drainage and no foul odor. Neurologic: awake; not confused Psychiatric: A+Ox3, euthymic affect Results & Data Vital Signs (Past 12 Hours) Vital Signs Temp Pulse Pulse Resp BP Pulse Ox 02/10/20 12:38 95 H 20 88/49 L 02/10/20 12:12 90 20 88/59 L 90 02/10/20 11:57 92 H 22 113/65 87 L 02/10/20 11:43 85 16 87/52 L 90 02/10/20 11:27 75 21 104/58 L 95 02/10/20 11:12 72 25 H 89/55 L 92 02/10/20 10:58 76 18 89/48 L 94 02/10/20 10:43 75 22 83/57 L 86 L 02/10/20 10:27 82 21 98/50 L 92 02/10/20 10:12 72 20 86/54 L 87 L 02/10/20 09:57 80 20 101/51 L 90 02/10/20 09:42 80 20 95/48 L 87 L 02/10/20 09:03 86 13 105/56 L 90 02/10/20 08:28 72 20 106/60 94 02/10/20 08:13 69 17 95/53 L 87 L 02/10/20 08:00 71 02/10/20 07:57 83 19 103/62 02/10/20 07:42 72 18 98/47 L 92 02/10/20 07:36 83 18 95 02/10/20 07:28 67 31 H 110/52 L 96 02/10/20 07:12 67 18 116/34 L 95 02/10/20 06:57 72 22 95/52 L 94 02/10/20 06:42 74 20 100/51 L 93 02/10/20 06:27 76 19 107/60 89 L 02/10/20 06:12 75 20 109/60 98 02/10/20 06:00 75 29 H 94 02/10/20 05:57 75 17 103/54 L 98 02/10/20 05:48 59 L 23 99 02/10/20 05:41 82 22 109/56 L 98 02/10/20 05:30 73 18 98 02/10/20 05:27 73 17 93/54 L 98 02/10/20 05:12 81 19 122/50 L 99 02/10/20 04:57 68 17 99/54 L 99 02/10/20 04:42 74 21 101/61 100 02/10/20 04:26 69 17 102/56 L 98 02/10/20 04:11 36.5 C 87 18 100/54 L 93 02/10/20 03:42 75 19 103/58 L 97 02/10/20 03:26 79 15 100/56 L 97 02/10/20 03:11 66 26 H 102/50 L 95 02/10/20 02:57 79 12 93/57 L 89 L PG Care Time/CCT Total # of Minutes Spent Total Time Spent with Patient: Total time spent is greater than 50% in coordination of care (as documented) at patient's floor/unit and/or counseling patient: Coding Level of Care Code 73759 Inpt Consult Level 3 Diagnoses Diabetic ulcer of left foot associated with type 2 diabetes mellitus, limited to breakdown of skin E11.621; L97.521 Cellulitis L03.90 Septic shock A41.9; R65.21
[2020-02-10] MEDS: PRAVASTATIN SOD 20 MG TAB PO SCH (17:26)
--- NOTE | 2020-02-10 17:26 | Cardiology Progress Note ---
Date of Service February 10, 2020 Assessment & Plan (1) Acute on chronic systolic (congestive) heart failure: (2) Cardiomyopathy: (3) Mitral regurgitation: (4) Permanent atrial fibrillation: (5) Pericardial effusion: (6) Septic shock: ASSESSMENT/PLAN: 1. Acute on chronic systolic CHF: He presented with fever, mental status change, and has been diagnosed with septic shock. He does however have chronic HFrEF and was quite hypervolemic. He diuresed nicely yesterday and when seen earlier today was already 1.5 L negative today. Continue Lasix 40 mg IV b.i.d. for now. He also received metolazone 2.5 mg each morning. Low-sodium diet. Check daily weights. 2. Cardiomyopathy: Thought to be nonischemic according to Primary Cardiology documentation. Significantly reduced LV systolic function. On RAZIA-inhibitor at home but held during this hospitalization due to hypotension. This can be revisited when appropriate. He reportedly did not tolerate beta-lance in the past. Has declined ICD. 3. Mitral regurgitation: Non severe. No further evaluation at this time. 4. Permanent atrial fibrillation: Heart rate is adequately controlled. On anticoagulation for stroke risk reduction. Can continue digoxin. 5. Septic shock: Found to be bacteremic. Left lower extremity cellulitis. On antibiotics per critical care team and primary service. Pressor support has been discontinued. Anatrophic support is being weaned. 6. Pericardial effusion: Based on echo findings, there is no significant physiologic affect. Can monitor over time if appropriate. 7. Disposition: Cardiology will continue to follow. On discharge, he can follow up with Dr. Szymanski, his primary wage and hour investigator. Recommend heart failure program on discharge as well. Admission and Anticipated Discharge Date Admission Date: February 08, 2020 Subjective He is out of bed sitting in a chair today. He denies chest pain or shortness of breath. He stated that he had a mild headache. Nursing staff was in the room and was asked to review if Tylenol is available as needed. He has been weaned off of Levophed. Dobutamine was weaned to 2.5 micrograms/kilogram per minute. Review of systems: As above. Physical Exam Physical Exam: Gen.: No acute distress. Alert. HEENT: Anicteric sclera. Neck: No significant JVD when sitting upright in a chair. Cardiac: Irregularly irregular. Normal S1-S2. 1/6 systolic murmur. No rubs, or gallops. Pulmonary: Clear to anterior auscultation bilaterally without wheezes, rales, or rhonchi. Abdomen: Soft, nontender, nondistended, with normoactive bowel sounds. No bruits noted. Extremities: 2+ pitting edema to the knees bilaterally with 1+ pitting edema to the hips bilaterally. No cyanosis. Distal left lower extremity erythematous. Psychiatric: Affect appears appropriate. Results & Data ([facility]) Vital Signs (Past 12 Hours) Vital Signs Pulse Pulse Resp BP Pulse Ox 02/10/20 15:10 77 23 75/46 L 02/10/20 15:00 81 19 02/10/20 14:40 83 22 81/57 L 02/10/20 14:30 93 H 24 02/10/20 14:10 95 H 21 91/45 L 02/10/20 14:03 84 19 94/43 L 02/10/20 14:00 104 H 23 02/10/20 13:10 91 H 26 H 87/46 L 90 02/10/20 12:38 95 H 20 88/49 L 02/10/20 12:12 90 20 88/59 L 90 02/10/20 11:57 92 H 22 113/65 87 L 02/10/20 11:43 85 16 87/52 L 90 02/10/20 11:27 75 21 104/58 L 95 02/10/20 11:12 72 25 H 89/55 L 92 02/10/20 10:58 76 18 89/48 L 94 02/10/20 10:43 75 22 83/57 L 86 L 02/10/20 10:27 82 21 98/50 L 92 02/10/20 10:12 72 20 86/54 L 87 L 02/10/20 09:57 80 20 101/51 L 90 02/10/20 09:42 80 20 95/48 L 87 L 02/10/20 09:03 86 13 105/56 L 90 02/10/20 08:28 72 20 106/60 94 02/10/20 08:13 69 17 95/53 L 87 L 02/10/20 08:00 71 02/10/20 07:57 83 19 103/62 02/10/20 07:42 72 18 98/47 L 92 02/10/20 07:36 83 18 95 02/10/20 07:28 67 31 H 110/52 L 96 02/10/20 07:12 67 18 116/34 L 95 02/10/20 06:57 72 22 95/52 L 94 02/10/20 06:42 74 20 100/51 L 93 02/10/20 06:27 76 19 107/60 89 L 02/10/20 06:12 75 20 109/60 98 02/10/20 06:00 75 29 H 94 02/10/20 05:57 75 17 103/54 L 98 02/10/20 05:48 59 L 23 99 02/10/20 05:41 82 22 109/56 L 98 02/10/20 05:30 73 18 98 02/10/20 05:27 73 17 93/54 L 98 Intake & Output 02/08/20 02/09/20 02/10/20 02/11/20 06:59 06:59 06:59 06:59 Intake Total 2675.045 / 2675.045 3461.719 / 3561.719 1030.077 / 1030.077 Output Total 890 / 890 6705 / 6705 2135 / 2135 Balance 1785.045 / 1785.045 -3243.281 / -3143.281 -1104.923 / -1104.923 Weight 89.3 kg 85.8 kg Laboratory Results Laboratory Results - last 24 hr 02/09/20 02/10/20 02/10/20 22:36 04:20 04:20 WBC 7.53 RBC 3.38 L Hgb 10.8 L Hct 34.3 L MCV 101.5 H MCH 32.0 MCHC 31.5 L RDW Std Deviation 57.4 H RDW Coeff of Chad 15.4 H Plt Count 104 L MPV 10.9 H Immature Gran % (Auto) 0.1 Neut % (Auto) 87.1 Lymph % (Auto) 5.4 [place] % (Auto) 7.2 Eos % (Auto) 0.1 Baso % (Auto) 0.1 Immature Gran # (Auto) 0.01 Neut # (Auto) 6.55 H Lymph # (Auto) 0.41 L [place] # (Auto) 0.54 Eos # (Auto) 0.01 Baso # (Auto) 0.01 Sodium 136 Potassium 3.6 Chloride 99 Carbon Dioxide 33 H Anion Gap 5.0 BUN 43 H Creatinine 1.50 H Est Cr Clr Drug Dosing 41.0 Est GFR ( Amer) 47.2 Est GFR (Non-Af Amer) 40.7 BUN/Creatinine Ratio 28.8 H Glucose 143 H POC Glucose Estimat Average Glucose Hemoglobin A1c Calcium 7.8 L Phosphorus 3.8 Magnesium 2.0 Total Bilirubin Direct Bilirubin AST ALT Alkaline Phosphatase Total Protein Albumin Procalcitonin Digoxin 0.8 02/10/20 02/10/20 02/10/20 04:20 04:20 04:20 WBC RBC Hgb Hct MCV MCH MCHC RDW Std Deviation RDW Coeff of Chad Plt Count MPV Immature Gran % (Auto) Neut % (Auto) Lymph % (Auto) [place] % (Auto) Eos % (Auto) Baso % (Auto) Immature Gran # (Auto) Neut # (Auto) Lymph # (Auto) [place] # (Auto) Eos # (Auto) Baso # (Auto) Sodium 137 Potassium 3.6 Chloride 98 Carbon Dioxide 34 H Anion Gap 5.0 BUN 40 H Creatinine 1.40 Est Cr Clr Drug Dosing 43.4 Est GFR ( Amer) 51.3 Est GFR (Non-Af Amer) 44.2 BUN/Creatinine Ratio 28.8 H Glucose 122 H POC Glucose Estimat Average Glucose 117 Hemoglobin A1c 5.7 H Calcium 7.7 L Phosphorus 3.2 Magnesium 1.9 Total Bilirubin 0.7 Direct Bilirubin 0.3 H AST 33 ALT 23 Alkaline Phosphatase 45 Total Protein 5.8 L Albumin 2.6 L Procalcitonin 11.12 H Digoxin 02/10/20 02/10/20 11:17 15:23 WBC RBC Hgb Hct MCV MCH MCHC RDW Std Deviation RDW Coeff of Chad Plt Count MPV Immature Gran % (Auto) Neut % (Auto) Lymph % (Auto) [place] % (Auto) Eos % (Auto) Baso % (Auto) Immature Gran # (Auto) Neut # (Auto) Lymph # (Auto) [place] # (Auto) Eos # (Auto) Baso # (Auto) Sodium Potassium Chloride Carbon Dioxide Anion Gap BUN Creatinine Est Cr Clr Drug Dosing Est GFR ( Amer) Est GFR (Non-Af Amer) BUN/Creatinine Ratio Glucose POC Glucose 97 126 H Estimat Average Glucose Hemoglobin A1c Calcium Phosphorus Magnesium Total Bilirubin Direct Bilirubin AST ALT Alkaline Phosphatase Total Protein Albumin Procalcitonin Digoxin Diagnostic Findings Telemetry personally reviewed. Atrial fibrillation. ECG personally reviewed from 02/10/2020: AFib 68 bpm. LBBB. Medications Administered Current Inpatient Medications Acetaminophen (Tylenol) 650 mg PO Q4H PRN PRN Reason: Fever Stop: 03/09/20 17:07 Last Admin: 02/10/20 14:26 Dose: 650 mg Documented by: Dabigatran (Pradaxa) 150 mg PO BID YOGESH Stop: 03/09/20 20:59 Last Admin: 02/10/20 08:51 Dose: 150 mg Documented by: Dextrose (Dextrose 50%) 25 - 50 ml IV UD PRN; Protocol PRN Reason: Hypoglycemia Protocol Stop: 03/10/20 16:46 Digoxin (Lanoxin) 0.125 mg PO DAILY@1600 [facility] Stop: 03/11/20 16:44 Glucagon (Glucagen) 1 mg SQ UD PRN; Protocol PRN Reason: Hypoglycemia Protocol Stop: 03/10/20 16:46 Glucose (Dex4 Glucose) 4 - 8 tabs PO UD PRN; Protocol PRN Reason: Hypoglycemia Protocol Stop: 03/10/20 16:46 Glucose (Glucose 40%) 15 - 30 gm PO UD PRN; Protocol PRN Reason: Hypoglycemia Protocol Stop: 03/10/20 16:46 Dobutamine HCl/Dextrose (Dobutamine / D5w) 500 mg in 250 mls @ 6.908 mls/hr IV .Q24H YOGESH; Protocol Stop: 03/09/20 14:59 Last Admin: 02/10/20 14:15 Dose: Not Given Documented by: Furosemide 40 mg/ Syringe 4 mls @ 4 mls/min IV Q12 YOGESH Stop: 03/10/20 08:59 Last Admin: 02/10/20 08:51 Dose: 4 mls/min Documented by: Ceftriaxone Sodium 2,000 mg/ (Dextrose) 70 mls @ 140 mls/hr IV Q24H [facility] Stop: 02/23/20 09:59 Last Infusion: 02/10/20 11:37 Dose: Infused Documented by: Norepinephrine Bitartrate 16 (mg/ Dextrose) 516 mls @ 0 mls/hr IV .Q0M [facility]; Protocol Stop: 03/10/20 12:44 Last Admin: 02/10/20 09:41 Dose: Not Given Documented by: Famotidine 20 mg/ Syringe 5 mls @ 2.5 mls/min IV Q24H [facility] Stop: 03/12/20 06:59 Potassium Chloride (K Edgar / Wtr) 20 meq in 100 mls @ 50 mls/hr IV TODAY@2100 [facility] Stop: 02/10/20 22:59 Insulin Aspart (Novolog Flexpen) 0 units SC ACHS [facility] Stop: 03/10/20 17:29 Last Admin: 02/10/20 12:43 Dose: 3 units Documented by: Levalbuterol HCl (Xopenex Hfa) 4 puffs INH QID [facility] Stop: 03/09/20 12:59 Last Admin: 02/10/20 15:12 Dose: 4 puffs Documented by: Metolazone (Zaroxolyn) 2.5 mg PO QAM [facility] Stop: 03/10/20 08:29 Last Admin: 02/10/20 08:51 Dose: 2.5 mg Documented by: Miscellaneous (Carbohydrates For Hypoglycemia) 15 - 30 gm PO UD PRN PRN Reason: Hypoglycemia Protocol Stop: 03/10/20 16:46 Miscellaneous Information (Consult Glycemic Management Pharmacy) 1 ea N/A UD PRN; Protocol PRN Reason: Consult Stop: 03/10/20 17:07 Pravastatin Sodium (Pravachol) 20 mg PO DAILY@1700 [facility] Stop: 03/10/20 16:59 Last Admin: 02/09/20 15:50 Dose: 20 mg Documented by: Senna/Docusate Sodium (Senokot S) 1 tab PO QAM [facility] Stop: 03/10/20 08:59 Last Admin: 02/10/20 08:51 Dose: 1 tab Documented by: Umeclidinium [place] (Incruse Ellipta) 1 puffs INH DAILY [facility] Stop: 03/10/20 08:59 Last Admin: 02/10/20 08:52 Dose: 1 puffs Documented by: PG Care Time/CCT Total # of Minutes Spent Total Time Spent with Patient: Total time spent is greater than 50% in coordination of care (as documented) at patient's floor/unit and/or counseling p atient: Coding Level of Care Code 66985 Subseq Hosp Care Lvl 3 Diagnoses Acute on chronic systolic (congestive) heart failure I50.23 Cardiomyopathy I42.8 Cardiomyopathy type: other Mitral regurgitation I34.0 Permanent atrial fibrillation I48.2 Pericardial effusion I31.3 Septic shock A41.9; R65.21 (1) Cardiomyopathy Cardiomyopathy type: other Qualified Code(s): I42.8 - Other cardiomyopathies
[2020-02-10] MEDS: DIGOXIN 0.125 MG TAB PO SCH (17:27)
--- NOTE | 2020-02-10 22:40 | Electrocardiogram Report ---
Test Reason : Blood Pressure : / mmHG Vent. Rate : 068 BPM Atrial Rate : 075 BPM P-R Int : 000 ms QRS Dur : 176 ms QT Int : 452 ms P-R-T Axes : 000 -46 123 degrees QTc Int : 480 ms Atrial fibrillation Left axis deviation Left bundle branch block Abnormal ECG No previous ECGs available Confirmed by Jason Franklin ([id number]) on 02/10/2020 10:40:42 PM Referred By: REFERRED SELF Confirmed By:Jason Franklin
[2020-02-11 03:37] LABS: Hematocrit (blood only) 32.2 % (42-52); Hemoglobin 10.5 g/dL (14.0-18.0); Mean Corpuscular Hemoglobin 31.7 pg (25-34); Mean Corpuscular Hgb Conc 32.6 g/dL (32-36); Mean Corpuscular Volume 97.3 fL (80-100); RDW Coefficient of Variation 14.8 % (11.5-14.5); RDW Standard Deviation 52.9 fL (36.4-46.3); Red Blood Count 3.31 M/uL (4.7-6.1); White Blood Count 4.67 K/uL (4.8-10.8)
[2020-02-11 03:46] LABS: INR 1.7 (0.9-1.1); Prothrombin Time 17.8 Seconds (9.0-12.0)
[2020-02-11 03:58] LABS: Albumin Level 2.7 gm/dl (3.4-5.0); BUN Creatinine Ratio 29.2 (10-20); Bilirubin Direct 0.3 mg/dl (0-0.2); Calcium 8.1 mg/dl (8.5-10.1); Est GFR (African American) 52.2; Magnesium 1.9 mg/dl (1.8-2.4); Potassium 3.2 mmol/L (3.5-5.1)
[2020-02-11 04:02] LABS: Bilirubin,Total 0.6 mg/dl (0.2-1); Phosphorus 2.2 mg/dl (2.5-4.9); Total Protein 6.1 gm/dl (6.4-8.2)
[2020-02-11 04:21] LABS: Eosinophils # (auto) 0.02 K/uL (0-0.5); Eosinophils % (auto) 0.4 %; Giant Platelets 1+; Immature Granulocytes # (auto) 0.03 K/uL (0.00-0.02); Immature Granulocytes % (auto) 0.6 %; Lymphocytes # (auto) 0.52 K/uL (1.2-3.4); Lymphocytes % (auto) 11.1 %; Mean Platelet Volume 10.6 fL (7.4-10.4); Monocytes # (auto) 0.35 K/uL (0.11-0.59); Monocytes % (auto) 7.5 %; Neutrophils # (auto) 3.75 K/uL (1.4-6.5); Neutrophils % (auto) 80.4 %; Ovalocytes 1+; Platelet Count 94 K/uL (130-400); Platelet Estimate Decreased (Normal)
[2020-02-11] MEDS ORDERED: POTASSIUM CHLORIDE / WTR 20 MEQ/100 ML PLCT IV ONE (04:50)
[2020-02-11] MEDS ORDERED: POTASSIUM PHOS 3 MMOL/1 ML INFUSION IV STA (04:50)
[2020-02-11] MEDS ORDERED: POTASSIUM PHOSPHATE 15 MMOL in SODIUM CHLORIDE 0.9% 250 ML IV ONE (05:00)
[2020-02-11] MEDS: ACETAMINOPHEN 325 MG TAB PO PRN ×2 (05:22→16:48)
[2020-02-11] MEDS: FAMOTIDINE 20 MG in SYRINGE 3 ML IV SCH (05:24)
[2020-02-11] MEDS: LEVALBUTEROL TARTRATE 15 GM HFA.AER.AD INH SCH (07:18)
[2020-02-11] MEDS: INSULIN ASPART 100 UNITS/ML 3 ML PEN SC SCH ×4 (09:10→21:29)
[2020-02-11] MEDS: metOLazone 2.5 MG TABLET PO SCH (09:11)
[2020-02-11] MEDS: DOCUSATE SODIUM/SENNA 50/8.6MG TAB PO SCH (09:11)
[2020-02-11] MEDS: DABIGATRAN ETEXILATE 75 MG CAP PO SCH ×2 (09:11→20:51)
[2020-02-11] MEDS: UMECLIDINIUM BROMIDE 62.5MCG/BLISTER 7 PUFFS/INHALER INH SCH (09:11)
[2020-02-11] MEDS: FUROSEMIDE 40 MG in SYRINGE 0 ML IV SCH (09:12)
[2020-02-11] MEDS ORDERED: LEVALBUTEROL TARTRATE 15 GM HFA.AER.AD INH PRN (09:15)
[2020-02-11] MEDS: cefTRIAXone SODIUM 2,000 MG in DEXTROSE 5% 50 ML IV SCH (10:37)
--- NOTE | 2020-02-11 11:00 | Cardiology Progress Note ---
Date of Service February 11, 2020 Assessment & Plan (1) Acute on chronic systolic (congestive) heart failure: (2) Cardiomyopathy: (3) Mitral regurgitation: (4) Permanent atrial fibrillation: (5) Pericardial effusion: (6) Septic shock: ASSESSMENT/PLAN: 1. Acute on chronic systolic CHF: He presented with fever, mental status change, and has been diagnosed with septic shock. He does however have chronic HFrEF and was quite hypervolemic. He continues to diurese well. He remains hypervolemic but has improved. Continue Lasix 40 mg IV b.i.d. for now. Can also continue metolazone 2.5 mg daily. Low-sodium diet. Check daily weights. Dobutamine is being weaned. 2. Cardiomyopathy: Thought to be nonischemic according to Primary Cardiology documentation. Significantly reduced LV systolic function. On RAZIA-inhibitor at home but held during this hospitalization due to hypotension. This can be revisited when/if appropriate. He reportedly did not tolerate beta-lance in the past. Has declined ICD. 3. Mitral regurgitation: Non severe. No further evaluation at this time. 4. Permanent atrial fibrillation: Heart rate is adequately controlled. On anticoagulation for stroke risk reduction. Can continue digoxin. 5. Septic shock: Found to be bacteremic. Left lower extremity cellulitis. On antibiotics per critical care team and primary service. Pressor support has been discontinued. Inotrophic support is being weaned. 6. Pericardial effusion: Based on echo findings, there is no significant physiologic affect. Can monitor over time if appropriate. 7. Disposition: I will be off service starting tomorrow. Dr. Stout will be the covering furniture technician for the next week. Please call with any questions or concerns. Patient care discussed with Dr. Henley of the critical care service. Admission and Anticipated Discharge Date Admission Date: February 08, 2020 Subjective He was on BiPAP this morning when evaluated. He has been more delirious today. He has a 1-1 at the bedside. He denies pain. When asked about his breathing he states that he is short of breath. He appeared comfortable. Dobutamine was being reduced from 2.5 micrograms/kilogram per minute down to 2 micrograms/kilogram per minute. He continues to diurese well. Review of systems: As above. Physical Exam Physical Exam: Gen.: No acute distress. Alert. HEENT: Anicteric sclera. Neck: No significant JVD sitting upright in bed. Cardiac: Irregularly irregular. Normal S1-S2. 1/6 systolic murmur. No rubs, or gallops. Pulmonary: Clear to anterior auscultation bilaterally without wheezes, rales, or rhonchi. Abdomen: Soft, nontender, nondistended, with normoactive bowel sounds. No bruits noted. Extremities: 2+ pitting edema to the knees bilaterally with 1+ pitting edema to the hips bilaterally. No cyanosis. Distal left lower extremity erythematous. Psychiatric: Affect appears appropriate. Results & Data ([facility]) Vital Signs (Past 12 Hours) Vital Signs Temp Pulse Pulse Resp BP Pulse Ox 02/11/20 10:06 75 20 108/58 L 02/11/20 09:43 17 96 02/11/20 09:37 72 17 87/43 L 02/11/20 09:07 76 26 H 101/41 L 02/11/20 08:36 71 27 H 82/57 L 02/11/20 08:06 36.5 C 85 21 100/66 02/11/20 07:36 76 18 108/49 L 02/11/20 07:19 75 17 96 02/11/20 07:06 79 18 87/53 L 02/11/20 04:37 84 107/44 L 02/11/20 04:08 89 14 99/65 L 02/11/20 04:00 83 14 02/11/20 03:37 74 22 82/65 L 02/11/20 03:06 36.8 C 87 14 106/67 02/11/20 03:00 94 H 12 02/11/20 02:59 18 94 02/11/20 02:36 73 16 96/59 L 02/11/20 02:06 82 15 117/54 L 02/11/20 02:00 83 20 117/54 L 02/11/20 01:36 79 17 111/64 02/11/20 01:08 112 H 18 02/11/20 01:00 93 H 13 02/11/20 00:36 70 20 102/55 L 98 02/11/20 00:06 76 26 H 110/52 L 02/11/20 00:00 72 22 98 02/10/20 23:36 75 16 103/64 93 02/10/20 23:06 79 16 103/53 L 02/10/20 23:00 36.7 C 71 17 96 Intake & Output 02/09/20 02/10/20 02/11/20 02/12/20 06:59 06:59 06:59 06:59 Intake Total 2675.045 / 2675.045 3461.719 / 3561.719 1319.997 / 1319.997 429.635 / 429.635 Output Total 890 / 890 6705 / 6705 5737 / 5737 1350 / 1350 Balance 1785.045 / 1785.045 -3243.281 / -3143.281 -4417.003 / -4417.003 -920.365 / -920.365 Weight 89.3 kg 85.8 kg 85.3 kg Laboratory Results Laboratory Results - last 24 hr 02/09/20 02/09/20 02/10/20 16:28 20:53 11:17 WBC RBC Hgb Hct MCV MCH MCHC RDW Std Deviation RDW Coeff of Chad Plt Count MPV Immature Gran % (Auto) Neut % (Auto) Lymph % (Auto) [place] % (Auto) Eos % (Auto) Baso % (Auto) Immature Gran # (Auto) Neut # (Auto) Lymph # (Auto) [place] # (Auto) Eos # (Auto) Baso # (Auto) Platelet Estimate Giant Platelets Ovalocytes PT INR Sodium Potassium Chloride Carbon Dioxide Anion Gap BUN Creatinine Est Cr Clr Drug Dosing Est GFR ( Amer) Est GFR (Non-Af Amer) BUN/Creatinine Ratio Glucose POC Glucose 97 POC Glucose (other) 165 H 152 H Calcium Phosphorus Magnesium Total Bilirubin Direct Bilirubin AST ALT Alkaline Phosphatase Total Protein Albumin Procalcitonin 02/10/20 02/10/20 02/11/20 15:23 20:15 03:27 WBC 4.67 L RBC 3.31 L Hgb 10.5 L Hct 32.2 L MCV 97.3 MCH 31.7 MCHC 32.6 RDW Std Deviation 52.9 H RDW Coeff of Chad 14.8 H Plt Count 94 L MPV 10.6 H Immature Gran % (Auto) 0.6 Neut % (Auto) 80.4 Lymph % (Auto) 11.1 [place] % (Auto) 7.5 Eos % (Auto) 0.4 Baso % (Auto) 0.0 Immature Gran # (Auto) 0.03 H Neut # (Auto) 3.75 Lymph # (Auto) 0.52 L [place] # (Auto) 0.35 Eos # (Auto) 0.02 Baso # (Auto) 0.00 Platelet Estimate Decreased L Giant Platelets 1+ Ovalocytes 1+ PT INR Sodium Potassium Chloride Carbon Dioxide Anion Gap BUN Creatinine Est Cr Clr Drug Dosing Est GFR ( Amer) Est GFR (Non-Af Amer) BUN/Creatinine Ratio Glucose POC Glucose 126 H 107 H POC Glucose (other) Calcium Phosphorus Magnesium Total Bilirubin Direct Bilirubin AST ALT Alkaline Phosphatase Total Protein Albumin Procalcitonin 02/11/20 02/11/20 02/11/20 03:27 03:27 03:27 WBC RBC Hgb Hct MCV MCH MCHC RDW Std Deviation RDW Coeff of Chad Plt Count MPV Immature Gran % (Auto) Neut % (Auto) Lymph % (Auto) [place] % (Auto) Eos % (Auto) Baso % (Auto) Immature Gran # (Auto) Neut # (Auto) Lymph # (Auto) [place] # (Auto) Eos # (Auto) Baso # (Auto) Platelet Estimate Giant Platelets Ovalocytes PT 17.8 H INR 1.7 H Sodium 136 Potassium 3.2 L Chloride 95 L Carbon Dioxide 38 H Anion Gap 3.0 BUN 40 H Creatinine 1.38 Est Cr Clr Drug Dosing 44.0 Est GFR ( Amer) 52.2 Est GFR (Non-Af Amer) 45.0 BUN/Creatinine Ratio 29.2 H Glucose 87 POC Glucose POC Glucose (other) Calcium 8.1 L Phosphorus 2.2 L D Magnesium 1.9 Total Bilirubin 0.6 Direct Bilirubin 0.3 H AST 47 H ALT 27 Alkaline Phosphatase 48 Total Protein 6.1 L Albumin 2.7 L Procalcitonin 6.54 H 02/11/20 08:08 WBC RBC Hgb Hct MCV MCH MCHC RDW Std Deviation RDW Coeff of Chad Plt Count MPV Immature Gran % (Auto) Neut % (Auto) Lymph % (Auto) [place] % (Auto) Eos % (Auto) Baso % (Auto) Immature Gran # (Auto) Neut # (Auto) Lymph # (Auto) [place] # (Auto) Eos # (Auto) Baso # (Auto) Platelet Estimate Giant Platelets Ovalocytes PT INR Sodium Potassium Chloride Carbon Dioxide Anion Gap BUN Creatinine Est Cr Clr Drug Dosing Est GFR ( Amer) Est GFR (Non-Af Amer) BUN/Creatinine Ratio Glucose POC Glucose 124 H POC Glucose (other) Calcium Phosphorus Magnesium Total Bilirubin Direct Bilirubin AST ALT Alkaline Phosphatase Total Protein Albumin Procalcitonin Diagnostic Findings Telemetry personally reviewed: Atrial fibrillation with reasonable rate control. Medications Administered Current Inpatient Medications Acetaminophen (Tylenol) 650 mg PO Q4H PRN PRN Reason: Fever Stop: 03/09/20 17:07 Last Admin: 02/11/20 05:22 Dose: 650 mg Documented by: Dabigatran (Pradaxa) 150 mg PO BID YOGESH Stop: 03/09/20 20:59 Last Admin: 02/11/20 09:11 Dose: 150 mg Documented by: Dextrose (Dextrose 50%) 25 - 50 ml IV UD PRN; Protocol PRN Reason: Hypoglycemia Protocol Stop: 03/10/20 16:46 Digoxin (Lanoxin) 0.125 mg PO DAILY@1600 [facility] Stop: 03/11/20 16:44 Last Admin: 02/10/20 17:27 Dose: 0.125 mg Documented by: Glucagon (Glucagen) 1 mg SQ UD PRN; Protocol PRN Reason: Hypoglycemia Protocol Stop: 03/10/20 16:46 Glucose (Dex4 Glucose) 4 - 8 tabs PO UD PRN; Protocol PRN Reason: Hypoglycemia Protocol Stop: 03/10/20 16:46 Glucose (Glucose 40%) 15 - 30 gm PO UD PRN; Protocol PRN Reason: Hypoglycemia Protocol Stop: 03/10/20 16:46 Dobutamine HCl/Dextrose (Dobutamine / D5w) 500 mg in 250 mls @ 5.526 mls/hr IV .Q24H YOGESH; Protocol Stop: 03/09/20 14:59 Last Titration: 02/11/20 09:58 Dose: 2 mcg/kg/min, 5.5 mls/hr Documented by: Furosemide 40 mg/ Syringe 4 mls @ 4 mls/min IV Q12 YOGESH Stop: 03/10/20 08:59 Last Admin: 02/11/20 09:12 Dose: 4 mls/min Documented by: Ceftriaxone Sodium 2,000 mg/ (Dextrose) 70 mls @ 140 mls/hr IV Q24H YOGESH Stop: 02/23/20 09:59 Last Admin: 02/11/20 10:37 Dose: 140 mls/hr Documented by: Norepinephrine Bitartrate 16 (mg/ Dextrose) 516 mls @ 0 mls/hr IV .Q0M [facility]; Protocol Stop: 03/10/20 12:44 Last Admin: 02/10/20 09:41 Dose: Not Given Documented by: Famotidine 20 mg/ Syringe 5 mls @ 2.5 mls/min IV Q24H [facility] Stop: 03/12/20 06:59 Last Admin: 02/11/20 05:24 Dose: 2.5 mls/min Documented by: Insulin Aspart (Novolog Flexpen) 0 units SC ACHS [facility] Stop: 03/10/20 17:29 Last Admin: 02/11/20 09:10 Dose: Not Given Documented by: Levalbuterol HCl (Xopenex Hfa) 4 puffs INH QID PRN PRN Reason: SOB/WHEEZING Stop: 03/09/20 12:59 Metolazone (Zaroxolyn) 2.5 mg PO QAM [facility] Stop: 03/10/20 08:29 Last Admin: 02/11/20 09:11 Dose: 2.5 mg Documented by: Miscellaneous (Carbohydrates For Hypoglycemia) 15 - 30 gm PO UD PRN PRN Reason: Hypoglycemia Protocol Stop: 03/10/20 16:46 Miscellaneous Information (Consult Glycemic Management Pharmacy) 1 ea N/A UD PRN; Protocol PRN Reason: Consult Stop: 03/10/20 17:07 Pravastatin Sodium (Pravachol) 20 mg PO DAILY@1700 [facility] Stop: 03/10/20 16:59 Last Admin: 02/10/20 17:26 Dose: 20 mg Documented by: Senna/Docusate Sodium (Senokot S) 1 tab PO QAM [facility] Stop: 03/10/20 08:59 Last Admin: 02/11/20 09:11 Dose: 1 tab Documented by: Umeclidinium [place] (Incruse Ellipta) 1 puffs INH DAILY [facility] Stop: 03/10/20 08:59 Last Admin: 02/11/20 09:11 Dose: 1 puffs Documented by: PG Care Time/CCT Total # of Minutes Spent Total Time Spent with Patient: Total time spent is greater than 50% in coordination of care (as documented) at patient's floor/unit and/or counseling patient: Coding Level of Care Code 56077 Subseq Hosp Care Lvl 3 Diagnoses Acute on chronic systolic (congestive) heart failure I50.23 Cardiomyopathy I42.8 Cardiomyopathy type: other Mitral regurgitation I34.0 Permanent atrial fibrillation I48.2 Pericardial effusion I31.3 Septic shock A41.9; R65.21 (1) Cardiomyopathy Cardiomyopathy type: other Qualified Code(s): I42.8 - Other cardiomyopathies
--- NOTE | 2020-02-11 11:06 | Critical Care Progress Note ---
Date of Service February 11, 2020 Assessment & Plan (1) Combined systolic and diastolic congestive heart failure, NYHA class 3: 89-year-old male with past medical history of systolic CHF ejection fraction 20%, chronic Marilee tse on dabigatran, COPD came into the hospital in septic shock. He was admitted to the ICU for vasopressors. EKG 02/08/2020: Marilee tse, left bundle branch block, left axis deviation, no ST-T wave changes appreciated. Prolonged QTC. -- Septic shock on top of baseline CHF With gram-positive bacteremia source seems to be likely cellulitis of the left lower extremity Influenza negative, Covid-19 PCR negative, urine looks clear, Given the severe decreased ejection fraction we will keep map goal around 60 Continue with antibiotics Procalcitonin 1.18 --> 9.35, CRP 2.35, ESR: 51 Follow blood culture and urine culture --Systolic CHF with bilateral pleural effusion Ejection fraction 20% BNP 28,000 Strict in and outs, keep negative balance --Acute hypercapnic hypoxic respiratory failure Hypercapnia is likely secondary to central component because of his CHF leading to Avila-Lozano breathing Hypoxia secondary to volume overload Continue with BiPAP as needed to keep saturation between 88 to 92% Diuresis as tolerated keep negative balance --Elevated troponin Likely type II TN No significant change in EKG compared to the one from January 2019 Monitor --Paroxysmal Marilee tse Patient is on digoxin at home On dabigatran at home Digoxin level was 1.1 02/08/2020, 0.8 02/10/2020 --COPD Not in exacerbation Continue with inhaled bronchodilators Keep O2 saturation between 88 to 92% --Chronic thrombocytopenia Etiology is quite unclear AST, ALT within normal limit, albumin 3.6, bilirubin within normal limit PT/INR are elevated this is likely secondary to dabigatran use. Continue monitoring --Prophylaxis DVT: Dabigatran GI: Pepcid --DNR/DNI --Hypokalemia/hypophosphatemia Being replaced Diet: Cardiac diet IV: Peripheral plus right IJ 02/08/2020 Plan: In/out: -3.8 L Current Rocephin. Digoxin added Patient is delirious today he did get Seroquel yesterday because he was very restless. We will hold off on Seroquel for the time being. Continue with 1-1. BiPAP whenever patient is somnolent to make sure his PCO2 is not going up. We will try to wean off dobutamine today to see how he does. I have personally spent 37 minutes of critical care time in the direct management of this patient. This is a life/limb threatening event. This includes time spent evaluating patient, direct bedside care, chart review, placing orders, interpretation of diagnostic studies, discussion with consultants, patient, and family members, as well as other required patient management activities. This time is exclusive of all separately billable procedures, and teaching time and separate from and in addition to any other critical care service time. Please note the above document was generated using voice recognition software. It may contain grammatical, syntax or spelling errors. (2) Shock circulatory: (3) Cardiomyopathy: (4) Permanent atrial fibrillation: Admission and Anticipated Discharge Date Admission Date: February 08, 2020 Subjective Patient seen and examined at bedside. No acute distress. Patient did not sleep overnight. Today in the morning patient is delirious. He made good amount of urine is -4.1 L in the last 24 hours. He is off Levophed currently on dobutamine 2.5 mcg. Review of Systems Review of Systems: Unobtainable due to cognitive status Physical Exam Physical Exam: Constitutional: No acute distress HEENT: EOMI, PERRLA, arcus senilis bilaterally, positive JVD Respiratory system: Decreased air entry bilaterally, no wheeze, no rhonchi, positive crackles bilateral lower lobes CVS: S1-S2 positive, irregular rhythm, positive 2 out of 6 systolic murmur appreciated best at aorta, positive AICD Abdomen: Soft, nontender, nondistended, positive bowel sounds x4 Extremities: +2 pulses bilaterally radialis/ dorsalis pedis, no cyanosis, +2 pitting edema bilateral lower extremity, warm extremities, left lower extremity there is redness and warmth appreciated anterio-medially Neuro: Disoriented today. Likely delirium. Moving bilateral extremities upper Psych: Unable to assess G/U: Positive Bailey Skin: no rashes, warm and dry Lymphatic: no cervical or axillary lymphadenopathy Results & Data Results & Data ([facility]) Vital Signs (Past 12 Hours) Vital Signs Temp Pulse Pulse Resp BP Pulse Ox 02/11/20 10:06 75 20 108/58 L 02/11/20 09:43 17 96 02/11/20 09:37 72 17 87/43 L 02/11/20 09:07 76 26 H 101/41 L 02/11/20 08:36 71 27 H 82/57 L 02/11/20 08:06 36.5 C 85 21 100/66 02/11/20 07:36 76 18 108/49 L 02/11/20 07:19 75 17 96 02/11/20 07:06 79 18 87/53 L 02/11/20 04:37 84 107/44 L 02/11/20 04:08 89 14 99/65 L 02/11/20 04:00 83 14 02/11/20 03:37 74 22 82/65 L 02/11/20 03:06 36.8 C 87 14 106/67 02/11/20 03:00 94 H 12 02/11/20 02:59 18 94 02/11/20 02:36 73 16 96/59 L 02/11/20 02:06 82 15 117/54 L 02/11/20 02:00 83 20 117/54 L 02/11/20 01:36 79 17 111/64 02/11/20 01:08 112 H 18 02/11/20 01:00 93 H 13 02/11/20 00:36 70 20 102/55 L 98 02/11/20 00:06 76 26 H 110/52 L 02/11/20 00:00 72 22 98 02/10/20 23:36 75 16 103/64 93 02/10/20 23:06 79 16 103/53 L 02/11/20 03:27 02/11/20 03:27 Coding Level of Care Code Critical Care 1st 30-74 mins Diagnoses Combined systolic and diastolic congestive heart failure, NYHA class 3 I50.40 Congestive heart failure chronicity: unspecified Shock circulatory R57.9 Cardiomyopathy I42.8 Cardiomyopathy type: other Permanent atrial fibrillation I48.2 Time Spent (min) 37 (1) Combined systolic and diastolic congestive heart failure, NYHA class 3 Congestive heart failure chronicity: unspecified Qualified Code(s): I50.40 - Unspecified combined systolic (congestive) and diastolic (congestive) heart failure (2) Cardiomyopathy Cardiomyopathy type: other Qualified Code(s): I42.8 - Other cardiomyopathies
--- NOTE | 2020-02-11 11:12 | Pharmacy Report ---
Pharmacy Glycemic Short Note 2 - Date of Service February 11, 2020 - Glycemic Short BSG Results (Last 24 hours): 02/09/20 02/09/20 02/10/20 16:28 20:53 11:17 Glucose POC Glucose 97 POC Glucose (other) 165 H 152 H 02/10/20 02/10/20 02/11/20 15:23 20:15 03:27 Glucose 87 POC Glucose 126 H 107 H POC Glucose (other) 02/11/20 08:08 Glucose POC Glucose 124 H POC Glucose (other) OUTPATIENT ANTIDIABETIC REGIMEN: * METFORMIN 500 MG BID ASSESSMENT: * Patient received 3 units of insulin yesterday for prandial coverage * BSGs have ranged from 97-126 in the past 24 hours * Will continue current novolog correctional scale, prandial carb ratio was removed, BSGs have remained below 180 mg/dL * Patient continues on dobutamine, and type II DM, HH, low sodium diet. PLAN FOR INPATIENT GLYCEMIC CONTROL: * Hold outpatient oral diabetes medications * Bolus insulin * NovoLog per scale ACHS or Q6hrs while NPO * Goal Range: Low 140 mg/dL - High 180 mg/dL * Correction Factor: 35 mg/dL/unit
[2020-02-11] MEDS ORDERED: MAGNESIUM SULFATE / D5W 1 GM/100 ML BAG IV ONE (11:13)
[2020-02-11] MEDS: DOBUTamine / D5W 500 MG/250 ML BAG IV SCH (14:11)
--- NOTE | 2020-02-11 16:28 | Hospitalist Progress Note ---
Date of Service February 11, 2020 Assessment & Plan (1) Shock circulatory: septic shock with 4 out of 4 cultures growing Group B strep likely source is skin, pneumonia cannot be ruled out tapered antibiotics to Rocephin cultures show that it is sensitive no fever, WBC 4k titrated off of Levophed, still on Dobutamine more for heart failure than shock overall assisted prognosis is guarded, consider palliative care consultation has EF of 20-25% and severe COPD, afib family is aware of this, patient is DNR/DNI (2) Cellulitis: left leg is more erythematous, hot to palpation, most likely source of infection has chronic venous stasis changes at baseline WBC is 4k, taper antibiotics to Rocephin Group B strep growing in blood cultures (3) Combined systolic and diastolic congestive heart failure, NYHA class 3: BNP markedly elevated prior echo with EF of 20-25% acute on chronic systolic and diastolic HF, clearly he is volume overloaded on exam, slowly improving using Lasix and Metolazone in conjunction with Dobutamine to diurese patient cardiology following he has declined ICD in the past, follows with Dr. Szymanski in the office he is negative 8.9 liters thus far, Cr holding at 1.38 K low and phos low, will be replaced by ICU protocol patient has poor overall prognosis (4) Pneumonia: cannot exclude pneumonia, has moderate right sided effusion COVID 19 test is NEGATIVE taper antibiotics to Rocephin (5) COPD, severe: no wheezing continue home inhalers did have some CO2 retention, resolved (6) Diabetes mellitus: Novolog monitor for hypoglycemic, no episodes today eating well enough (7) Permanent atrial fibrillation: rates are well controlled Pradaxa for anticoagulation Admission and Anticipated Discharge Date Admission Date: February 08, 2020 Subjective patient more confused today, requiring a one on one because he is pulling at his IV lines titrated off of the Levophed, still on Dobutamine still diuresing, negative 6 liters reviewed labs, Cr is stable, K is 3.2, phosphorus 2.2 discussed with ICU Review of Systems Review of Systems: Unobtainable due to cognitive status (confused, dementia) Physical Exam Constitutional: well developed and + frail appearing; no acute distress Eyes: PERRL, conjunctivae normal, anicteric sclerae ENMT: external ear and nose normal, oropharynx normal Neck: trachea midline, no thyromegaly Respiratory: normal respiratory effort; no labored breathing Auscultation: + diminished lung sounds (right base); no crackles, no rhonchi and no wheezes Cardiovascular: Rate/Rhythm: regular rate and + irregularly irregular Heart Sounds: normal S1 and normal S2; no murmur Extremities: normal capillary refill and + edema (pitting to shins) Gastrointestinal (Abdomen): normal bowel sounds, soft, nontender, no hepatosplenomegaly Musculoskeletal: Head/Neck/Chest: normocephalic and head atraumatic Extremities: + abnormal strength (generalized weakness); + extremities abnormal to inspection (venous stasis changes in lower legs) Skin: + turgor decreased and + erythema (left leg very red, hot to touch); no wound Neurologic: patellar DTR's 2+ bilat, sensation intact and PERRL, EOMI, accommodation nl, no face palsy, no dysarthria Psychiatric: Orientation: alert, oriented to person and cooperative; + not oriented to place and + not oriented to time Lymphatic: no cervical or axillary lymphadenopathy Results & Data Results & Data ([facility]) Vital Signs (Past 12 Hours) Vital Signs Temp Pulse Pulse Resp BP Pulse Ox 02/11/20 16:07 79 16 95/59 L 02/11/20 16:00 66 32 H 02/11/20 15:37 79 17 82/56 L 02/11/20 15:06 36.9 C 76 24 110/53 L 93 02/11/20 14:37 79 22 98/60 L 02/11/20 14:06 68 19 93/57 L 02/11/20 13:37 67 17 95/57 L 02/11/20 13:07 68 17 88/52 L 02/11/20 12:36 74 23 101/58 L 02/11/20 12:07 71 18 100/50 L 02/11/20 11:36 73 20 112/57 L 02/11/20 11:34 71 18 94 02/11/20 11:07 70 19 101/55 L 02/11/20 10:37 79 19 100/61 02/11/20 10:06 75 20 108/58 L 02/11/20 09:43 17 96 02/11/20 09:37 72 17 87/43 L 02/11/20 09:07 76 26 H 101/41 L 02/11/20 08:36 71 27 H 82/57 L 02/11/20 08:06 36.5 C 85 21 100/66 02/11/20 07:36 76 18 108/49 L 02/11/20 07:19 75 17 96 02/11/20 07:06 79 18 87/53 L 02/11/20 04:37 84 107/44 L Laboratory Results Laboratory Results - last 24 hr 02/09/20 02/09/20 02/10/20 16:28 20:53 20:15 WBC RBC Hgb Hct MCV MCH MCHC RDW Std Deviation RDW Coeff of Chad Plt Count MPV Immature Gran % (Auto) Neut % (Auto) Lymph % (Auto) Emmons % (Auto) Eos % (Auto) Baso % (Auto) Immature Gran # (Auto) Neut # (Auto) Lymph # (Auto) Emmons # (Auto) Eos # (Auto) Baso # (Auto) Platelet Estimate Giant Platelets Ovalocytes PT INR Sodium Potassium Chloride Carbon Dioxide Anion Gap BUN Creatinine Est Cr Clr Drug Dosing Est GFR ( Amer) Est GFR (Non-Af Amer) BUN/Creatinine Ratio Glucose POC Glucose 107 H POC Glucose (other) 165 H 152 H Calcium Phosphorus Magnesium Total Bilirubin Direct Bilirubin AST ALT Alkaline Phosphatase Total Protein Albumin Procalcitonin 02/11/20 02/11/20 02/11/20 03:27 03:27 03:27 WBC 4.67 L RBC 3.31 L Hgb 10.5 L Hct 32.2 L MCV 97.3 MCH 31.7 MCHC 32.6 RDW Std Deviation 52.9 H RDW Coeff of Chad 14.8 H Plt Count 94 L MPV 10.6 H Immature Gran % (Auto) 0.6 Neut % (Auto) 80.4 Lymph % (Auto) 11.1 Emmons % (Auto) 7.5 Eos % (Auto) 0.4 Baso % (Auto) 0.0 Immature Gran # (Auto) 0.03 H Neut # (Auto) 3.75 Lymph # (Auto) 0.52 L Emmons # (Auto) 0.35 Eos # (Auto) 0.02 Baso # (Auto) 0.00 Platelet Estimate Decreased L Giant Platelets 1+ Ovalocytes 1+ PT 17.8 H INR 1.7 H Sodium 136 Potassium 3.2 L Chloride 95 L Carbon Dioxide 38 H Anion Gap 3.0 BUN 40 H Creatinine 1.38 Est Cr Clr Drug Dosing 44.0 Est GFR ( Amer) 52.2 Est GFR (Non-Af Amer) 45.0 BUN/Creatinine Ratio 29.2 H Glucose 87 POC Glucose POC Glucose (other) Calcium 8.1 L Phosphorus 2.2 L D Magnesium 1.9 Total Bilirubin 0.6 Direct Bilirubin 0.3 H AST 47 H ALT 27 Alkaline Phosphatase 48 Total Protein 6.1 L Albumin 2.7 L Procalcitonin 02/11/20 02/11/20 02/11/20 03:27 08:08 11:52 WBC RBC Hgb Hct MCV MCH MCHC RDW Std Deviation RDW Coeff of Chad Plt Count MPV Immature Gran % (Auto) Neut % (Auto) Lymph % (Auto) Emmons % (Auto) Eos % (Auto) Baso % (Auto) Immature Gran # (Auto) Neut # (Auto) Lymph # (Auto) Emmons # (Auto) Eos # (Auto) Baso # (Auto) Platelet Estimate Giant Platelets Ovalocytes PT INR Sodium Potassium Chloride Carbon Dioxide Anion Gap BUN Creatinine Est Cr Clr Drug Dosing Est GFR ( Amer) Est GFR (Non-Af Amer) BUN/Creatinine Ratio Glucose POC Glucose 124 H 101 H POC Glucose (other) Calcium Phosphorus Magnesium Total Bilirubin Direct Bilirubin AST ALT Alkaline Phosphatase Total Protein Albumin Procalcitonin 6.54 H Medications Administered Current Inpatient Medications Acetaminophen (Tylenol) 650 mg PO Q4H PRN PRN Reason: Fever Stop: 03/09/20 17:07 Last Admin: 02/11/20 05:22 Dose: 650 mg Documented by: Dabigatran (Pradaxa) 150 mg PO BID [facility] Stop: 03/09/20 20:59 Last Admin: 02/11/20 09:11 Dose: 150 mg Documented by: Dextrose (Dextrose 50%) 25 - 50 ml IV UD PRN; Protocol PRN Reason: Hypoglycemia Protocol Stop: 03/10/20 16:46 Digoxin (Lanoxin) 0.125 mg PO DAILY@1600 [facility] Stop: 03/11/20 16:44 Last Admin: 02/10/20 17:27 Dose: 0.125 mg Documented by: Glucagon (Glucagen) 1 mg SQ UD PRN; Protocol PRN Reason: Hypoglycemia Protocol Stop: 03/10/20 16:46 Glucose (Dex4 Glucose) 4 - 8 tabs PO UD PRN; Protocol PRN Reason: Hypoglycemia Protocol Stop: 03/10/20 16:46 Glucose (Glucose 40%) 15 - 30 gm PO UD PRN; Protocol PRN Reason: Hypoglycemia Protocol Stop: 03/10/20 16:46 Dobutamine HCl/Dextrose (Dobutamine / D5w) 500 mg in 250 mls @ 4.145 mls/hr IV .Q24H YOGESH; Protocol Stop: 03/09/20 14:59 Last Admin: 02/11/20 14:11 Dose: Not Given Documented by: Ceftriaxone Sodium 2,000 mg/ (Dextrose) 70 mls @ 140 mls/hr IV Q24H YOGESH Stop: 02/23/20 09:59 Last Infusion: 02/11/20 11:12 Dose: Infused Documented by: Norepinephrine Bitartrate 16 (mg/ Dextrose) 516 mls @ 0 mls/hr IV .Q0M YOGESH; Pro tocol Stop: 03/10/20 12:44 Last Titration: 02/11/20 13:54 Dose: Infused Documented by: Famotidine 20 mg/ Syringe 5 mls @ 2.5 mls/min IV Q24H YOGESH Stop: 03/12/20 06:59 Last Admin: 02/11/20 05:24 Dose: 2.5 mls/min Documented by: Furosemide 40 mg/ Syringe 4 mls @ 4 mls/min IV DAILY [facility] Stop: 03/13/20 08:59 Insulin Aspart (Novolog Flexpen) 0 units SC ACHS [facility] Stop: 03/10/20 17:29 Last Admin: 02/11/20 12:15 Dose: Not Given Documented by: Levalbuterol HCl (Xopenex Hfa) 4 puffs INH QID PRN PRN Reason: SOB/WHEEZING Stop: 03/09/20 12:59 Metolazone (Zaroxolyn) 2.5 mg PO QAM [facility] Stop: 03/10/20 08:29 Last Admin: 02/11/20 09:11 Dose: 2.5 mg Documented by: Miscellaneous (Carbohydrates For Hypoglycemia) 15 - 30 gm PO UD PRN PRN Reason: Hypoglycemia Protocol Stop: 03/10/20 16:46 Miscellaneous Information (Consult Glycemic Management Pharmacy) 1 ea N/A UD PRN; Protocol PRN Reason: Consult Stop: 03/10/20 17:07 Pravastatin Sodium (Pravachol) 20 mg PO DAILY@1700 [facility] Stop: 03/10/20 16:59 Last Admin: 02/10/20 17:26 Dose: 20 mg Documented by: Senna/Docusate Sodium (Senokot S) 1 tab PO QAM [facility] Stop: 03/10/20 08:59 Last Admin: 02/11/20 09:11 Dose: 1 tab Documented by: Umeclidinium [place] (Incruse Ellipta) 1 puffs INH DAILY [facility] Stop: 03/10/20 08:59 Last Admin: 02/11/20 09:11 Dose: 1 puffs Documented by: PG Care Time/CCT Total # of Minutes Spent Total Time Spent with Patient: Total time spent is greater than 50% in coordination of care (as documented) at patient's floor/unit and/or counseling patient: Coding Level of Care Code 16643 Subseq Hosp Care Lvl 3 Diagnoses Shock circulatory R57.9 Cellulitis L03.90 Combined systolic and diastolic congestive heart failure, NYHA class 3 I50.40 Congestive heart failure chronicity: unspecified Pneumonia J18.9 Laterality: unspecified laterality Lung location: unspecified part of lung Pneumonia type: due to unspecified organism COPD, severe J44.9 Diabetes mellitus E11.9 Permanent atrial fibrillation I48.2 (1) Combined systolic and diastolic congestive heart failure, NYHA class 3 Congestive heart failure chronicity: unspecified Qualified Code(s): I50.40 - Unspecified combined systolic (congestive) and diastolic (congestive) heart failure (2) Pneumonia Laterality: unspecified laterality Lung location: unspecified part of lung Pneumonia type: due to unspecified organism Qualified Code(s): J18.9 - Pneumonia, unspecified organism
[2020-02-11] MEDS: DIGOXIN 0.125 MG TAB PO SCH (16:48)
[2020-02-11] MEDS: PRAVASTATIN SOD 20 MG TAB PO SCH (16:48)
[2020-02-11 18:47] LABS: BUN Creatinine Ratio 30.3 (10-20); Calcium 8.6 mg/dl (8.5-10.1); Creatinine Clr Calc Pharmacy 51.6 ml/min; Est GFR (African American) 63.7; Est GFR (Non-African American) 54.9; Magnesium 2.1 mg/dl (1.8-2.4); Phosphorus 2.7 mg/dl (2.5-4.9); Potassium 3.4 mmol/L (3.5-5.1)
[2020-02-12 04:05] LABS: Basophils # (auto) 0.01 K/uL (0-0.2); Basophils % (auto) 0.2 %; Eosinophils # (auto) 0.02 K/uL (0-0.5); Eosinophils % (auto) 0.4 %; Hematocrit (blood only) 34.1 % (42-52); Hemoglobin 11.3 g/dL (14.0-18.0); Immature Granulocytes # (auto) 0.03 K/uL (0.00-0.02); Immature Granulocytes % (auto) 0.7 %; Lymphocytes # (auto) 0.61 K/uL (1.2-3.4); Lymphocytes % (auto) 13.6 %; Mean Corpuscular Hemoglobin 32.5 pg (25-34); Mean Corpuscular Hgb Conc 33.1 g/dL (32-36); Mean Platelet Volume 10.7 fL (7.4-10.4); Monocytes # (auto) 0.41 K/uL (0.11-0.59); Monocytes % (auto) 9.1 %; Neutrophils # (auto) 3.42 K/uL (1.4-6.5); Platelet Count 118 K/uL (130-400); RDW Coefficient of Variation 14.6 % (11.5-14.5); RDW Standard Deviation 52.2 fL (36.4-46.3); Red Blood Count 3.48 M/uL (4.7-6.1)
[2020-02-12 04:29] LABS: BUN Creatinine Ratio 30.2 (10-20); Calcium 8.4 mg/dl (8.5-10.1); Creatinine Clr Calc Pharmacy 53.9 ml/min; Est GFR (African American) 67.1; Est GFR (Non-African American) 57.9; Potassium 3.5 mmol/L (3.5-5.1)
[2020-02-12 04:30] LABS: Phosphorus 2.9 mg/dl (2.5-4.9)
[2020-02-12] MEDS: DOBUTamine / D5W 500 MG/250 ML BAG IV SCH (04:36)
[2020-02-12] MEDS: FAMOTIDINE 20 MG in SYRINGE 3 ML IV SCH (08:12)
[2020-02-12] MEDS: DABIGATRAN ETEXILATE 75 MG CAP PO SCH ×2 (08:12→21:31)
[2020-02-12] MEDS: metOLazone 2.5 MG TABLET PO SCH (08:12)
[2020-02-12] MEDS: DOCUSATE SODIUM/SENNA 50/8.6MG TAB PO SCH (08:12)
[2020-02-12] MEDS: UMECLIDINIUM BROMIDE 62.5MCG/BLISTER 7 PUFFS/INHALER INH SCH (08:13)
[2020-02-12] MEDS: INSULIN ASPART 100 UNITS/ML 3 ML PEN SC SCH ×4 (08:13→21:31)
[2020-02-12] MEDS ORDERED: FUROSEMIDE 40 MG in SYRINGE 0 ML IV SCH (09:00)
--- NOTE | 2020-02-12 10:04 | Critical Care Progress Note ---
Date of Service February 12, 2020 Assessment & Plan (1) Combined systolic and diastolic congestive heart failure, NYHA class 3: 89-year-old male with past medical history of systolic CHF ejection fraction 20%, chronic Marilee tse on dabigatran, COPD came into the hospital in septic shock. He was admitted to the ICU for vasopressors. EKG 02/08/2020: AJaxson tse, left bundle branch block, left axis deviation, no ST-T wave changes appreciated. Prolonged QTC. --Status post septic shock on top of baseline CHF With gram-positive bacteremia source seems to be likely cellulitis of the left lower extremity Influenza negative, Covid-19 PCR negative, urine looks clear Off Levophed and dobutamine as of 02/11/2020. Continue with antibiotics Procalcitonin 1.18 --> 9.35, CRP 2.35, ESR: 51 Blood culture 02/08/2020+ for group B beta strep --> repeat blood culture 02/10/2020 -ve till date --Systolic CHF with bilateral pleural effusion Ejection fraction 20% BNP 28,000 Strict in and outs, keep negative balance --Acute hypercapnic hypoxic respiratory failure Hypercapnia is likely secondary to central component because of his CHF leading to Avila-Lozano breathing Hypoxia secondary to volume overload Continue with BiPAP as needed to keep saturation between 88 to 92% Diuresis as tolerated keep negative balance --Elevated troponin Likely type II CA No significant change in EKG compared to the one from January 2019 Monitor --Paroxysmal AJaxson tse Patient is on digoxin at home On dabigatran at home Digoxin level was 1.1 02/08/2020, 0.8 02/10/2020 --COPD Not in exacerbation Continue with inhaled bronchodilators Keep O2 saturation between 88 to 92% --Chronic thrombocytopenia Etiology is quite unclear AST, ALT within normal limit, albumin 3.6, bilirubin within normal limit PT/INR are elevated this is likely secondary to dabigatran use. Continue monitoring --Prophylaxis DVT: Dabigatran GI: Pepcid --DNR/DNI Diet: Cardiac diet IV: Peripheral plus right IJ 02/08/2020 Plan: In/out: -4.9L Patient off dobutamine and Levophed for greater than 24 hours. Clinically patient doing better. His blood pressure are back at his baseline. Continue with diuretics to keep negative balance. Lasix was decreased to once a day along with metolazone. Mentation trejo patient is better than yesterday. Answering simple questions. Midline has been placed. Would DC Bailey later in the day. I think patient is hemodynamically stable and back to his baseline to be sent to telemetry floor. Physical therapy eval as well as social work consult. Given patient's chronic hypercapnic respiratory failure patient will benefit from noninvasive ventilation even at home. Due to chronic respiratory failure consequent to COPD, patient now requires a noninvasive home ventilator. Bilevel therapy with and without a rate would be ineffective as patient requires a volume targeted mode. Ventilation is required to decrease work of breathing and improve pulmonary status. Interruption of ventilator support would lead to decline of health status. NIMV settings should be AVAPS-AE; Breath rate: auto; Inspiratory time:auto; Sigh: off; Tidal Volume: 350-450, PS min: 4-10 PS max: 12-20; EPAP min: 6-10; EPAP max: 10-16; AVAPS rate: 14 during sleep and as needed I have personally spent 33 minutes of critical care time in the direct management of this patient. This is a life/limb threatening event. This includes time spent evaluating patient, direct bedside care, chart review, placing orders, interpretation of diagnostic studies, discussion with consultants, patient, and family members, as well as other required patient management activities. This time is exclusive of all separately billable procedures, and teaching time and separate from and in addition to any other critical care service time. Please note the above document was generated using voice recognition software. It may contain grammatical, syntax or spelling errors. (2) Shock circulatory: (3) Cardiomyopathy: (4) Permanent atrial fibrillation: Admission and Anticipated Discharge Date Admission Date: February 08, 2020 Subjective Patient seen and examined at bedside. No acute distress, no adverse events overnight. Patient is more alert today than yesterday. Making more sense. Awake alert oriented to self and place. He did use BiPAP overnight but only couple of hours. He tries to take the mask off but he does tolerate BiPAP when he is on it. Patient does have chronic hypercapnia likely from underlying COPD as well as Avila-Lozano breathing. Afebrile. Denies any chest pain, no shortness of breath. Off dobutamine and Levophed as of 02/11/2020. Review of Systems Review of Systems: All systems reviewed & are unremarkable except as noted in HPI & below Physical Exam Physical Exam: Constitutional: No acute distress HEENT: EOMI, PERRLA, arcus senilis bilaterally Respiratory system: Decreased air entry bilaterally, no wheeze, no rhonchi, positive crackles bilateral lower lobes CVS: S1-S2 positive, irregular rhythm, positive 2 out of 6 systolic murmur appreciated best at aorta, positive AICD Abdomen: Soft, nontender, nondistended, positive bowel sounds x4 Extremities: +2 pulses bilaterally radialis/ dorsalis pedis, no cyanosis, +2 pitting edema bilateral lower extremity, warm extremities, left lower extremity there is redness and warmth appreciated anterio-medially Neuro: Awake and alert to self and place Psych: Normal mood and affect G/U: Positive Bailey Skin: no rashes, warm and dry Lymphatic: no cervical or axillary lymphadenopathy Results & Data Results & Data ([facility]) Vital Signs (Past 12 Hours) Vital Signs Temp Pulse Resp BP Pulse Ox 02/12/20 08:07 36.9 C 74 22 98/49 L 97 02/12/20 07:38 76 20 103/55 L 02/12/20 07:07 75 16 107/62 02/12/20 04:07 36.6 C 71 19 103/54 L 92 02/12/20 03:56 85 20 96 02/12/20 03:39 90 24 97/68 L 94 02/12/20 03:07 36.6 C 78 31 H 90/66 L 98 02/12/20 02:37 81 21 110/74 93 02/12/20 02:07 36.7 C 96 H 21 116/65 98 02/12/20 01:37 87 20 115/72 97 02/12/20 01:07 36.7 C 84 18 106/70 97 02/12/20 00:47 75 26 H 96 02/12/20 00:37 77 22 102/63 100 02/12/20 00:07 36.6 C 84 18 95/66 L 93 02/11/20 23:37 72 22 90/55 L 94 02/11/20 23:08 36.7 C 81 24 80/47 L 02/11/20 22:37 87 19 94/58 L 02/11/20 22:08 36.7 C 85 20 91/49 L 02/12/20 03:45 02/12/20 03:45 Microbiology 02/10/20 12:00 Foot,Left Gram Stain - Final 02/10/20 12:00 Foot,Left Deep Wound Culture - Preliminary Pin-point growth present, reincubating. 02/08/20 11:33 Blood Aerobic Blood Culture - Final Group B Beta Strep 02/08/20 11:33 Blood Anaerobic Blood Culture - Final Group B Beta Strep 02/08/20 11:35 Blood Aerobic Blood Culture - Final Group B Beta Strep 02/08/20 11:35 Blood Anaerobic Blood Culture - Final Group B Beta Strep Intake & Output 02/10/20 02/11/20 02/12/20 02/13/20 06:59 06:59 06:59 06:59 Intake Total 3461.719 / 3561.719 1319.997 / 1319.997 607.152 / 607.152 120 / 120 Output Total 6705 / 6705 5737 / 5737 5425 / 5425 220 / 220 Balance -3243.281 / -3143.281 -4417.003 / -4417.003 -4817.848 / -4817.848 -100 / -100 Weight 85.8 kg 85.3 kg 81.9 kg Coding Level of Care Code Critical Care 1st 30-74 mins Diagnoses Combined systolic and diastolic congestive heart failure, NYHA class 3 I50.40 Congestive heart failure chronicity: unspecified Shock circulatory R57.9 Cardiomyopathy I42.8 Cardiomyopathy type: other Permanent atrial fibrillation I48.2 Time Spent (min) 33 (1) Combined systolic and diastolic congestive heart failure, NYHA class 3 Congestive heart failure chronicity: unspecified Qualified Code(s): I50.40 - Unspecified combined systolic (congestive) and diastolic (congestive) heart failure (2) Cardiomyopathy Cardiomyopathy type: other Qualified Code(s): I42.8 - Other cardiomyopathies
--- NOTE | 2020-02-12 10:43 | Cardiology Progress Note ---
Date of Service February 12, 2020 Assessment & Plan (1) Acute on chronic systolic (congestive) heart failure: (2) Cardiomyopathy: (3) Mitral regurgitation: (4) Permanent atrial fibrillation: (5) Pericardial effusion: (6) Septic shock: ASSESSMENT/PLAN: 1. Acute on chronic systolic CHF: Notably volume overloaded at the time of admission. However, he has been diuresing quite remarkably. Dobutamine infusion is currently discontinued. He can continue on his current Lasix dosing and we can watch his volume output and electrolytes closely. Blood pressure is slightly low today and may have to be cautious about mild hypovolemia. 2. Cardiomyopathy: Presumed ischemic. Previously on lisinopril which could be resumed once his critical illness has resolved in his hemodynamics improved. Reportedly did not tolerate beta-blockers in the past. 3. Mitral regurgitation: Non severe. No further evaluation at this time. 4. Permanent atrial fibrillation: Adequate rate control despite his critical illness. 5. Septic shock: Clinically improving. No additional requirement for pressor support. He still appears to have an element of cellulitis involving the lower extremity which was believed to be the source of his infection. 6. Pericardial effusion: The described as mild to moderate at the time of admission. This could be re-evaluated at some point during his hospital stay. He is not appear to have significant hemodynamic compromise despite aggressive diuresis. Admission and Anticipated Discharge Date Admission Date: February 08, 2020 Subjective This morning the patient reported some mild discomfort in his chest area which was transient in nature and currently resolved. He did not report any leg pain. He did not report breathing difficulties stated that his breathing was quite good. Overall he claims to be feeling well. Review of Systems Review of Systems: All systems reviewed & are unremarkable except as noted in HPI & below Physical Exam Physical Exam: The patient is alert and responded appropriately. He did not open his eyes during examination but appeared to have intact cognition. Neuro: No focal deficits noted Neck: Patient's neck is supple. The right internal jugular venous line in place. To 3 centimeters of JVD noted. Lungs: Clear to auscultation bilaterally. He has good air movement without use of accessory muscles. No rales wheezes or rhonchi. Cardiac: Heart demonstrates an irregular rate and rhythm. Normal S1 and S2. Pulses: The patient has palpable radial pulses bilaterally that are equal in intensity Extremities: Mild edema in the right leg with more notable edema in the left leg associated with cellulitis. Skin: Rash noted in the lower portion of the left leg.. Results & Data ([facility]) Vital Signs (Past 12 Hours) Vital Signs Temp Pulse Resp BP Pulse Ox 02/12/20 08:07 36.9 C 74 22 98/49 L 97 02/12/20 07:38 76 20 103/55 L 02/12/20 07:07 75 16 107/62 02/12/20 04:07 36.6 C 71 19 103/54 L 92 02/12/20 03:56 85 20 96 02/12/20 03:39 90 24 97/68 L 94 02/12/20 03:07 36.6 C 78 31 H 90/66 L 98 02/12/20 02:37 81 21 110/74 93 02/12/20 02:07 36.7 C 96 H 21 116/65 98 02/12/20 01:37 87 20 115/72 97 02/12/20 01:07 36.7 C 84 18 106/70 97 02/12/20 00:47 75 26 H 96 02/12/20 00:37 77 22 102/63 100 02/12/20 00:07 36.6 C 84 18 95/66 L 93 02/11/20 23:37 72 22 90/55 L 94 02/11/20 23:08 36.7 C 81 24 80/47 L 02/11/20 22:37 87 19 94/58 L Laboratory Results Abnormal Lab Results 02/11/20 02/11/20 02/11/20 08:08 11:52 16:34 WBC RBC Hgb Hct MCV MCH MCHC RDW Std Deviation RDW Coeff of Chad Plt Count MPV Immature Gran % (Auto) Neut % (Auto) Lymph % (Auto) [place] % (Auto) Eos % (Auto) Baso % (Auto) Immature Gran # (Auto) Neut # (Auto) Lymph # (Auto) [place] # (Auto) Eos # (Auto) Baso # (Auto) Sodium Potassium Chloride Carbon Dioxide Anion Gap BUN Creatinine Est Cr Clr Drug Dosing Est GFR ( Amer) Est GFR (Non-Af Amer) BUN/Creatinine Ratio Glucose POC Glucose 124 H 101 H 147 H Calcium Phosphorus Magnesium 02/11/20 02/11/20 02/12/20 18:17 20:36 03:45 WBC RBC Hgb Hct MCV MCH MCHC RDW Std Deviation RDW Coeff of Chad Plt Count MPV Immature Gran % (Auto) Neut % (Auto) Lymph % (Auto) [place] % (Auto) Eos % (Auto) Baso % (Auto) Immature Gran # (Auto) Neut # (Auto) Lymph # (Auto) [place] # (Auto) Eos # (Auto) Baso # (Auto) Sodium 135 L 136 Potassium 3.4 L 3.5 Chloride 92 L 93 L Carbon Dioxide 39 H 39 H Anion Gap 4.0 4.0 BUN 36 H 34 H Creatinine 1.17 1.12 Est Cr Clr Drug Dosing 51.6 53.9 Est GFR ( Amer) 63.7 67.1 Est GFR (Non-Af Amer) 54.9 57.9 BUN/Creatinine Ratio 30.3 H 30.2 H Glucose 89 90 POC Glucose 86 Calcium 8.6 8.4 L Phosphorus 2.7 2.9 Magnesium 2.1 2.0 02/12/20 02/12/20 03:45 07:16 WBC 4.50 L RBC 3.48 L Hgb 11.3 L Hct 34.1 L MCV 98.0 MCH 32.5 MCHC 33.1 RDW Std Deviation 52.2 H RDW Coeff of Chad 14.6 H Plt Count 118 L MPV 10.7 H Immature Gran % (Auto) 0.7 Neut % (Auto) 76.0 Lymph % (Auto) 13.6 [place] % (Auto) 9.1 Eos % (Auto) 0.4 Baso % (Auto) 0.2 Immature Gran # (Auto) 0.03 H Neut # (Auto) 3.42 Lymph # (Auto) 0.61 L [place] # (Auto) 0.41 Eos # (Auto) 0.02 Baso # (Auto) 0.01 Sodium Potassium Chloride Carbon Dioxide Anion Gap BUN Creatinine Est Cr Clr Drug Dosing Est GFR ( Amer) Est GFR (Non-Af Amer) BUN/Creatinine Ratio Glucose POC Glucose 93 Calcium Phosphorus Magnesium ECG Additional Comments: A review of his telemetry reveals atrial fibrillation and controlled ventricular rates. PG Care Time/CCT Total # of Minutes Spent Total Time Spent with Patient: Total time spent is greater than 50% in coordination of care (as documented) at patient's floor/unit and/or counseling patient: Coding Level of Care Code 53960 Subseq Hosp Care Lvl 3 Diagnoses Acute on chronic systolic (congestive) heart failure I50.23 Cardiomyopathy I42.8 Cardiomyopathy type: other Mitral regurgitation I34.0 Permanent atrial fibrillation I48.2 Pericardial effusion I31.3 Septic shock A41.9; R65.21 (1) Cardiomyopathy Cardiomyopathy type: other Qualified Code(s): I42.8 - Other cardiomyopathies
[2020-02-12 11:07] LABS: iSTAT Allen Test Pass; iSTAT Arterial Blood Gas HCO3 39 meg/L (19-24); iSTAT Arterial Blood Gas pCO2 41 mmHg (35-46); iSTAT Arterial Blood Gas pH 7.58 (7.35-7.45); iSTAT Arterial Blood Gas pO2 77 mmHg (80-95); iSTAT Carbon Dioxide > 40 mmol/L (24-31); iSTAT Site R Radial
[2020-02-12] MEDS: POTASSIUM CHLORIDE / WTR 20 MEQ/100 ML PLCT IV SCH ×2 (12:09→14:01)
[2020-02-12] MEDS: cefTRIAXone SODIUM 2,000 MG in DEXTROSE 5% 50 ML IV SCH (12:10)
--- NOTE | 2020-02-12 14:14 | Hospitalist Progress Note ---
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 EF of 20-25% and severe COPD, afib family is aware of this, patient is DNR/DNI will plan for palliative care consultation on Friday for goals of care going forward (2) Cellulitis: left leg is more erythematous, hot to palpation, most likely source of infection has chronic venous stasis changes at baseline WBC is 4k, continue Rocephin Group B strep growing in blood cultures would need 14 days of treatment minimal (3) Combined systolic and diastolic congestive heart failure, NYHA class 3: BNP markedly elevated prior echo with EF of 20-25% acute on chronic systolic and diastolic HF, clearly he is volume overloaded on exam, slowly improving using Lasix and Metolazone in conjunction with Dobutamine to diurese patient cardiology following he has declined ICD in the past, follows with Dr. Szymanski in the office he is negative over 10 liters thus far, Cr holding at 1.1 electrolytes stable patient has poor overall prognosis plan for palliative consultation on Friday (4) Pneumonia: cannot exclude pneumonia, has moderate right sided effusion COVID 19 test is NEGATIVE taper antibiotics to Rocephin (5) COPD, severe: no wheezing continue home inhalers pulmonary is recommending NIPPV at home unsure he would tolerate, would need approved again, need to consult palliative care for goals of care (6) Diabetes mellitus: [facility] monitor for hypoglycemic, no episodes today eating well enough (7) Permanent atrial fibrillation: rates are well controlled Pradaxa for anticoagulation Admission and Anticipated Discharge Date Admission Date: February 08, 2020 Subjective patient calm, cooperative today he continues to diurese quite well, negative 10 liters for admission he is off the dobutamine, BP low normal Cr is holding today, electrolytes stable discussed with Dr. Henley reviewed labs Review of Systems Review of Systems: All systems reviewed & are unremarkable except as noted in HPI & below Constitutional: + fatigue and + weakness; no fever, no chills and no sweats Respiratory: no cough, no dyspnea and no wheezing Cardiovascular: + edema; no chest pain and no syncope Gastrointestinal: no abdominal pain, no nausea, no vomiting, no constipation and no diarrhea/loose stools Physical Exam Constitutional: well developed and + frail appearing; no acute distress Eyes: PERRL, conjunctivae normal, anicteric sclerae ENMT: external ear and nose normal, oropharynx normal Neck: trachea midline, no thyromegaly Respiratory: normal respiratory effort; no labored breathing Auscultation: + diminished lung sounds (right base); no crackles, no rhonchi and no wheezes Cardiovascular: Rate/Rhythm: regular rate and + irregularly irregular Heart Sounds: normal S1 and normal S2; no murmur Extremities: normal capillary refill and + edema (pitting to shins) Gastrointestinal (Abdomen): normal bowel sounds, soft, nontender, no hepatosplenomegaly Musculoskeletal: Head/Neck/Chest: normocephalic and head atraumatic Extremities: + abnormal strength (generalized weakness); + extremities abnormal to inspection (venous stasis changes in lower legs) Skin: + turgor decreased and + erythema (left leg very red, tender, less warm today); no wound Neurologic: patellar DTR's 2+ bilat, sensation intact and PERRL, EOMI, accommodation nl, no face palsy, no dysarthria Psychiatric: Orientation: alert, oriented to person and cooperative; + not or iented to place and + not oriented to time Lymphatic: no cervical or axillary lymphadenopathy Results & Data Results & Data ([facility]) Vital Signs (Past 12 Hours) Vital Signs Temp Pulse Resp BP Pulse Ox 02/12/20 13:37 64 18 103/62 02/12/20 13:11 78 22 93/55 L 02/12/20 13:07 88 24 93/55 L 02/12/20 12:37 86 17 90/61 L 02/12/20 12:07 71 21 90/55 L 93 02/12/20 11:39 85 23 86/54 L 02/12/20 11:08 91 H 24 108/65 02/12/20 10:37 81 25 H 92/72 L 02/12/20 10:08 74 25 H 97/54 L 02/12/20 09:37 81 25 H 87/54 L 02/12/20 09:07 76 23 101/58 L 02/12/20 08:37 69 24 95/56 L 02/12/20 08:07 36.9 C 74 22 98/49 L 97 02/12/20 07:38 76 20 103/55 L 02/12/20 07:07 75 16 107/62 02/12/20 04:07 36.6 C 71 19 103/54 L 92 02/12/20 03:56 85 20 96 02/12/20 03:39 90 24 97/68 L 94 02/12/20 03:07 36.6 C 78 31 H 90/66 L 98 02/12/20 02:37 81 21 110/74 93 Laboratory Results Laboratory Results - last 24 hr 02/11/20 02/11/20 02/11/20 16:34 18:17 20:36 WBC RBC Hgb Hct MCV MCH MCHC RDW Std Deviation RDW Coeff of Chad Plt Count MPV Immature Gran % (Auto) Neut % (Auto) Lymph % (Auto) [place] % (Auto) Eos % (Auto) Baso % (Auto) Immature Gran # (Auto) Neut # (Auto) Lymph # (Auto) [place] # (Auto) Eos # (Auto) Baso # (Auto) Sample Site POC pH POC pCO2 POC pO2 POC HCO3 POC Total CO2 POC Base Excess POC ABG O2 Sat Levi Test O2 Delivery Device Sodium 135 L Potassium 3.4 L Chloride 92 L Carbon Dioxide 39 H Anion Gap 4.0 BUN 36 H Creatinine 1.17 Est Cr Clr Drug Dosing 51.6 Est GFR ( Amer) 63.7 Est GFR (Non-Af Amer) 54.9 BUN/Creatinine Ratio 30.3 H Glucose 89 POC Glucose 147 H 86 Calcium 8.6 Phosphorus 2.7 Magnesium 2.1 02/12/20 02/12/20 02/12/20 03:45 03:45 07:16 WBC 4.50 L RBC 3.48 L Hgb 11.3 L Hct 34.1 L MCV 98.0 MCH 32.5 MCHC 33.1 RDW Std Deviation 52.2 H RDW Coeff of Chad 14.6 H Plt Count 118 L MPV 10.7 H Immature Gran % (Auto) 0.7 Neut % (Auto) 76.0 Lymph % (Auto) 13.6 [place] % (Auto) 9.1 Eos % (Auto) 0.4 Baso % (Auto) 0.2 Immature Gran # (Auto) 0.03 H Neut # (Auto) 3.42 Lymph # (Auto) 0.61 L [place] # (Auto) 0.41 Eos # (Auto) 0.02 Baso # (Auto) 0.01 Sample Site POC pH POC pCO2 POC pO2 POC HCO3 POC Total CO2 POC Base Excess POC ABG O2 Sat Levi Test O2 Delivery Device Sodium 136 Potassium 3.5 Chloride 93 L Carbon Dioxide 39 H Anion Gap 4.0 BUN 34 H Creatinine 1.12 Est Cr Clr Drug Dosing 53.9 Est GFR ( Amer) 67.1 Est GFR (Non-Af Amer) 57.9 BUN/Creatinine Ratio 30.2 H Glucose 90 POC Glucose 93 Calcium 8.4 L Phosphorus 2.9 Magnesium 2.0 02/12/20 02/12/20 10:54 11:32 WBC RBC Hgb Hct MCV MCH MCHC RDW Std Deviation RDW Coeff of Chad Plt Count MPV Immature Gran % (Auto) Neut % (Auto) Lymph % (Auto) [place] % (Auto) Eos % (Auto) Baso % (Auto) Immature Gran # (Auto) Neut # (Auto) Lymph # (Auto) [place] # (Auto) Eos # (Auto) Baso # (Auto) Sample Site R Radial POC pH 7.58 H* POC pCO2 41 POC pO2 77 L POC HCO3 39 H POC Total CO2 > 40 H* POC Base Excess 17.0 H POC ABG O2 Sat 97.0 H Levi Test Pass O2 Delivery Device Cannula Sodium Potassium Chloride Carbon Dioxide Anion Gap BUN Creatinine Est Cr Clr Drug Dosing Est GFR ( Amer) Est GFR (Non-Af Amer) BUN/Creatinine Ratio Glucose POC Glucose 114 H Calcium Phosphorus Magnesium Medications Administered Current Inpatient Medications Acetaminophen (Tylenol) 650 mg PO Q4H PRN PRN Reason: Fever Stop: 03/09/20 17:07 Last Admin: 02/11/20 16:48 Dose: 650 mg Documented by: Dabigatran (Pradaxa) 150 mg PO BID [facility] Stop: 03/09/20 20:59 Last Admin: 02/12/20 08:12 Dose: 150 mg Documented by: Dextrose (Dextrose 50%) 25 - 50 ml IV UD PRN; Protocol PRN Reason: Hypoglycemia Protocol Stop: 03/10/20 16:46 Digoxin (Lanoxin) 0.125 mg PO DAILY@1600 [facility] Stop: 03/11/20 16:44 Last Admin: 02/11/20 16:48 Dose: 0.125 mg Documented by: Glucagon (Glucagen) 1 mg SQ UD PRN; Protocol PRN Reason: Hypoglycemia Protocol Stop: 03/10/20 16:46 Glucose (Dex4 Glucose) 4 - 8 tabs PO UD PRN; Protocol PRN Reason: Hypoglycemia Protocol Stop: 03/10/20 16:46 Glucose (Glucose 40%) 15 - 30 gm PO UD PRN; Protocol PRN Reason: Hypoglycemia Protocol Stop: 03/10/20 16:46 Ceftriaxone Sodium 2,000 mg/ (Dextrose) 70 mls @ 140 mls/hr IV Q24H YOGESH Stop: 02/23/20 09:59 Last Infusion: 02/12/20 12:43 Dose: Infused Documented by: Famotidine 20 mg/ Syringe 5 mls @ 2.5 mls/min IV Q24H YOGESH Stop: 03/12/20 06:59 Last Admin: 02/12/20 08:12 Dose: 2.5 mls/min Documented by: Furosemide 40 mg/ Syringe 4 mls @ 4 mls/min IV DAILY YOGESH Stop: 03/13/20 08:59 Last Admin: 02/12/20 08:12 Dose: 4 mls/min Documented by: Potassium Chloride (K Edgar / Wtr) 20 meq in 100 mls @ 50 mls/hr IV Q2H YOGESH Stop: 02/12/20 14:59 Last Admin: 02/12/20 14:01 Dose: 50 mls/hr Documented by: Insulin Aspart (Novolog Flexpen) 0 units SC ACHS YOGESH Stop: 03/10/20 17:29 Last Admin: 02/12/20 12:14 Dose: Not Given Documented by: Levalbuterol HCl (Xopenex Hfa) 4 puffs INH QID PRN PRN Reason: SOB/WHEEZING Stop: 03/09/20 12:59 Metolazone (Zaroxolyn) 2.5 mg PO QAM YOGESH Stop: 03/10/20 08:29 Last Admin: 02/12/20 08:12 Dose: 2.5 mg Documented by: Miscellaneous (Carbohydrates For Hypoglycemia) 15 - 30 gm PO UD PRN PRN Reason: Hypoglycemia Protocol Stop: 03/10/20 16:46 Miscellaneous Information (Consult Glycemic Management Pharmacy) 1 ea N/A UD PRN; Protocol PRN Reason: Consult Stop: 03/10/20 17:07 Pravastatin Sodium (Pravachol) 20 mg PO DAILY@1700 [facility] Stop: 03/10/20 16:59 Last Admin: 02/11/20 16:48 Dose: 20 mg Documented by: Senna/Docusate Sodium (Senokot S) 1 tab PO QAM [facility] Stop: 03/10/20 08:59 Last Admin: 02/12/20 08:12 Dose: 1 tab Documented by: Umeclidinium [place] (Incruse Ellipta) 1 puffs INH DAILY [facility] Stop: 03/10/20 08:59 Last Admin: 02/12/20 08:13 Dose: 1 puffs Documented by: PG Care Time/CCT Total # of Minutes Spent Total Time Spent with Patient: Total time spent is greater than 50% in coordination of care (as documented) at patient's floor/unit and/or counseling patient: Coding Level of Care Code 46447 Subseq Hosp Care Lvl 3 Diagnoses Shock circulatory R57.9 Cellulitis L03.90 Combined systolic and diastolic congestive heart failure, NYHA class 3 I50.40 Congestive heart failure chronicity: unspecified Pneumonia J18.9 Laterality: unspecified laterality Lung location: unspecified part of lung Pneumonia type: due to unspecified organism COPD, severe J44.9 Diabetes mellitus E11.9 Permanent atrial fibrillation I48.2 (1) Combined systolic and diastolic congestive heart failure, NYHA class 3 Congestive heart failure chronicity: unspecified Qualified Code(s): I50.40 - Unspecified combined systolic (congestive) and diastolic (congestive) heart failure (2) Pneumonia Laterality: unspecified laterality Lung location: unspecified part of lung Pneumonia type: due to unspecified organism Qualified Code(s): J18.9 - Pneumonia, unspecified organism
[2020-02-12] MEDS: PRAVASTATIN SOD 20 MG TAB PO SCH (16:26)
[2020-02-12] MEDS: DIGOXIN 0.125 MG TAB PO SCH (16:26)
[2020-02-13 04:59] LABS: Basophils # (auto) 0.02 K/uL (0-0.2); Basophils % (auto) 0.5 %; Hematocrit (blood only) 36.8 % (42-52); Immature Granulocytes # (auto) 0.03 K/uL (0.00-0.02); Immature Granulocytes % (auto) 0.7 %; Lymphocytes % (auto) 21.4 %; Mean Corpuscular Hemoglobin 31.7 pg (25-34); Mean Corpuscular Hgb Conc 32.6 g/dL (32-36); Mean Corpuscular Volume 97.1 fL (80-100); Mean Platelet Volume 10.1 fL (7.4-10.4); Monocytes # (auto) 0.41 K/uL (0.11-0.59); Monocytes % (auto) 9.8 %; Neutrophils # (auto) 2.84 K/uL (1.4-6.5); Neutrophils % (auto) 67.6 %; Platelet Count 126 K/uL (130-400); RDW Coefficient of Variation 14.3 % (11.5-14.5); RDW Standard Deviation 51.4 fL (36.4-46.3); Red Blood Count 3.79 M/uL (4.7-6.1)
[2020-02-13 05:07] LABS: INR 1.5 (0.9-1.1); Prothrombin Time 15.6 Seconds (9.0-12.0)
[2020-02-13 05:19] LABS: BUN Creatinine Ratio 27.3 (10-20); Calcium 8.9 mg/dl (8.5-10.1); Creatinine Clr Calc Pharmacy 54.2 ml/min; Est GFR (Non-African American) 61.2; Phosphorus 3.2 mg/dl (2.5-4.9); Potassium 3.6 mmol/L (3.5-5.1)
[2020-02-13] MEDS: DABIGATRAN ETEXILATE 75 MG CAP PO SCH ×2 (07:40→20:19)
[2020-02-13] MEDS: metOLazone 2.5 MG TABLET PO SCH (07:40)
[2020-02-13] MEDS: DOCUSATE SODIUM/SENNA 50/8.6MG TAB PO SCH (07:40)
[2020-02-13] MEDS: UMECLIDINIUM BROMIDE 62.5MCG/BLISTER 7 PUFFS/INHALER INH SCH (07:40)
[2020-02-13] MEDS: FAMOTIDINE 20 MG in SYRINGE 3 ML IV SCH (07:40)
[2020-02-13] MEDS: INSULIN ASPART 100 UNITS/ML 3 ML PEN SC SCH ×4 (07:41→20:19)
[2020-02-13] MEDS: acetaZOLAMIDE 250 MG in SYRINGE 0 ML IV SCH (07:41)
--- NOTE | 2020-02-13 10:22 | Cardiology Progress Note ---
Date of Service February 13, 2020 Assessment & Plan (1) Acute on chronic systolic (congestive) heart failure: (2) Cardiomyopathy: (3) Mitral regurgitation: (4) Permanent atrial fibrillation: (5) Pericardial effusion: (6) Septic shock: ASSESSMENT/PLAN: 1. Acute on chronic systolic CHF: Notably volume overloaded at the time of admission. However, he has been diuresing quite remarkably. In fact, he appears to have developed a contraction alkalosis. Diuretic currently being held. Think this is reasonable given his good respiratory status. 2. Cardiomyopathy: Presumed ischemic. Previously on lisinopril which could be resumed once his critical illness has resolved in his hemodynamics improved. Still mildly hypotensive. Perhaps this will improve with less diuresis. Reportedly did not tolerate beta-blockers in the past. 3. Mitral regurgitation: Non severe. No further evaluation at this time. 4. Permanent atrial fibrillation: No symptoms. Adequate rate control on digoxin. 5. Septic shock: Clinically improving. 6. Pericardial effusion: The described as mild to moderate at the time of admission. Admission and Anticipated Discharge Date Admission Date: February 08, 2020 Subjective This morning the patient claims he feeling well. He was sleeping on arrival is easily arousable and answers questions appropriately. He denied pain. He has not report significant breathing difficulty. He recalled having breakfast. Reports by the nursing staff is that his mentation is much improved. Review of Systems Review of Systems: For HPI Physical Exam Physical Exam: Easily arousable. Opened eyes and answers questions appropriately. Neuro: No focal deficits noted Neck: Patient's neck is supple. The right internal jugular venous line in place. Lungs: Clear to auscultation bilaterally. He has good air movement without use of accessory muscles. No rales wheezes or rhonchi. Cardiac: Heart demonstrates an irregular rate and rhythm. Normal S1 and S2. Pulses: The patient has palpable radial pulses bilaterally that are equal in intensity Results & Data ([facility]) Vital Signs (Past 12 Hours) Vital Signs Temp Pulse Resp BP Pulse Ox 02/13/20 08:56 81 27 H 83/57 L 95 02/13/20 07:56 36.9 C 75 23 98/62 L 93 02/13/20 05:56 74 28 H 106/67 95 02/13/20 04:56 36.6 C 61 19 120/55 L 94 02/13/20 03:56 36.6 C 57 L 24 108/59 L 80 L 02/13/20 02:56 36.6 C 65 29 H 87/59 L 02/13/20 01:57 36.6 C 82 23 91/63 L 97 02/13/20 00:56 36.6 C 81 20 92/64 L 95 02/12/20 23:59 76 02/12/20 23:56 36.6 C 70 24 93/64 L 94 02/12/20 22:56 36.8 C 82 22 99/61 L 94 Laboratory Results Abnormal Lab Results 02/12/20 02/12/20 02/12/20 10:54 11:32 16:11 WBC RBC Hgb Hct MCV MCH MCHC RDW Std Deviation RDW Coeff of Chad Plt Count MPV Immature Gran % (Auto) Neut % (Auto) Lymph % (Auto) [place] % (Auto) Eos % (Auto) Baso % (Auto) Immature Gran # (Auto) Neut # (Auto) Lymph # (Auto) [place] # (Auto) Eos # (Auto) Baso # (Auto) PT INR Sample Site R Radial POC pH 7.58 H* POC pCO2 41 POC pO2 77 L POC HCO3 39 H POC Total CO2 > 40 H* POC Base Excess 17.0 H POC ABG O2 Sat 97.0 H Levi Test Pass O2 Delivery Device Cannula Sodium Potassium Chloride Carbon Dioxide Anion Gap BUN Creatinine Est Cr Clr Drug Dosing Est GFR ( Amer) Est GFR (Non-Af Amer) BUN/Creatinine Ratio Glucose POC Glucose 114 H 109 H Calcium Phosphorus Magnesium 02/12/20 02/13/20 02/13/20 21:29 04:40 04:40 WBC 4.20 L RBC 3.79 L Hgb 12.0 L Hct 36.8 L MCV 97.1 MCH 31.7 MCHC 32.6 RDW Std Deviation 51.4 H RDW Coeff of Chad 14.3 Plt Count 126 L MPV 10.1 Immature Gran % (Auto) 0.7 Neut % (Auto) 67.6 Lymph % (Auto) 21.4 [place] % (Auto) 9.8 Eos % (Auto) 0.0 Baso % (Auto) 0.5 Immature Gran # (Auto) 0.03 H Neut # (Auto) 2.84 Lymph # (Auto) 0.90 L [place] # (Auto) 0.41 Eos # (Auto) 0.00 Baso # (Auto) 0.02 PT 15.6 H INR 1.5 H Sample Site POC pH POC pCO2 POC pO2 POC HCO3 POC Total CO2 POC Base Excess POC ABG O2 Sat Levi Test O2 Delivery Device Sodium Potassium Chloride Carbon Dioxide Anion Gap BUN Creatinine Est Cr Clr Drug Dosing Est GFR ( Amer) Est GFR (Non-Af Amer) BUN/Creatinine Ratio Glucose POC Glucose 111 H Calcium Phosphorus Magnesium 02/13/20 02/13/20 04:40 07:30 WBC RBC Hgb Hct MCV MCH MCHC RDW Std Deviation RDW Coeff of Chad Plt Count MPV Immature Gran % (Auto) Neut % (Auto) Lymph % (Auto) [place] % (Auto) Eos % (Auto) Baso % (Auto) Immature Gran # (Auto) Neut # (Auto) Lymph # (Auto) [place] # (Auto) Eos # (Auto) Baso # (Auto) PT INR Sample Site POC pH POC pCO2 POC pO2 POC HCO3 POC Total CO2 POC Base Excess POC ABG O2 Sat Levi Test O2 Delivery Device Sodium 137 Potassium 3.6 Chloride 94 L Carbon Dioxide 39 H Anion Gap 4.0 BUN 29 H Creatinine 1.07 Est Cr Clr Drug Dosing 54.2 Est GFR ( Amer) 71.0 Est GFR (Non-Af Amer) 61.2 BUN/Creatinine Ratio 27.3 H Glucose 86 POC Glucose 89 Calcium 8.9 Phosphorus 3.2 Magnesium 2.0 PG Care Time/CCT Total # of Minutes Spent Total Time Spent with Patient: Total time spent is greater than 50% in coordination of care (as documented) at patient's floor/unit and/or counseling patient: Coding Level of Care Code 21039 Subseq Hosp Care Lvl 3 Diagnoses Acute on chronic systolic (congestive) heart failure I50.23 Cardiomyopathy I42.8 Cardiomyopathy type: other Mitral regurgitation I34.0 Permanent atrial fibrillation I48.2 Pericardial effusion I31.3 Septic shock A41.9; R65.21 (1) Cardiomyopathy Cardiomyopathy type: other Qualified Code(s): I42.8 - Other cardiomyopathies
--- NOTE | 2020-02-13 10:22 | Critical Care Progress Note ---
Date of Service February 13, 2020 Assessment & Plan (1) Combined systolic and diastolic congestive heart failure, NYHA class 3: 89-year-old male with past medical history of systolic CHF ejection fraction 20%, chronic Marilee tse on dabigatran, COPD came into the hospital in septic shock. He was admitted to the ICU for vasopressors. EKG 02/08/2020: A. dedrick, left bundle branch block, left axis deviation, no ST-T wave changes appreciated. Prolonged QTC. --Status post septic shock on top of baseline CHF With gram-positive bacteremia source seems to be likely cellulitis of the left lower extremity Influenza negative, Covid-19 PCR negative, urine looks clear Off Levophed and dobutamine as of 02/11/2020. Continue with antibiotics Procalcitonin 1.18 --> 9.35, CRP 2.35, ESR: 51 Blood culture 02/08/2020+ for group B beta strep --> repeat blood culture 02/10/2020 -ve till date --Systolic CHF with bilateral pleural effusion Ejection fraction 20% BNP 28,000 Strict in and outs, keep negative balance --Acute hypercapnic hypoxic respiratory failure Hypercapnia is likely secondary to central component because of his CHF leading to Avila-Lozano breathing Hypoxia secondary to volume overload Continue with BiPAP as needed to keep saturation between 88 to 92% Diuresis as tolerated keep negative balance --Elevated troponin Likely type II AL No significant change in EKG compared to the one from January 2019 Monitor --Paroxysmal AJaxson tse Patient is on digoxin at home On dabigatran at home Digoxin level was 1.1 02/08/2020, 0.8 02/10/2020 --COPD Not in exacerbation Continue with inhaled bronchodilators Keep O2 saturation between 88 to 92% --Chronic thrombocytopenia Etiology is quite unclear AST, ALT within normal limit, albumin 3.6, bilirubin within normal limit PT/INR are elevated this is likely secondary to dabigatran use. Continue monitoring --Prophylaxis DVT: Dabigatran GI: Pepcid --DNR/DNI Diet: Cardiac diet IV: Peripheral plus right IJ 02/08/2020, Leo AMADOR'sherine 02/12/2020 Plan: In/out: -4.2L in the last 24 hours Patient off dobutamine and Levophed for greater than 48 hours. Patient's ABG was alkalotic yesterday with pH of 7.54. This is likely secondary to alkalosis from Lasix. I put Lasix on hold giving the patient acetazolamide 2 doses. Would like to repeat ABG after that to see what the pH is if it is still alkalotic 1 can give another dose of acetazolamide. Patient is diuresing pretty well. Can transition to his home dose of diuretics. Patient is hemodynamically stable and back to his baseline. Okay to be sent to a [facility] telemetry floor. We will remove the triple-lumen catheter prior to him going out of the ICU. Case was discussed with Dr. Diane Patient's is also made aware that patient will be moving out of the ICU. Due to chronic respiratory failure consequent to COPD, patient now requires a noninvasive home ventilator. Bilevel therapy with and without a rate would be ineffective as patient requires a volume targeted mode. Ventilation is required to decrease work of breathing and improve pulmonary status. Interruption of ventilator support would lead to decline of health status. NIMV settings should be AVAPS-AE; Breath rate: auto; Inspiratory time:auto; Sigh: off; Tidal Volume: 350-450, PS min: 4-10 PS max: 12-20; EPAP min: 6-10; EPAP max: 10-16; AVAPS rate: 14 during sleep and as needed I have personally spent 35 minutes of critical care time in the direct management of this patient. This is a life/limb threatening event. This includes time spent evaluating patient, direct bedside care, chart review, placing orders, interpretation of diagnostic studies, discussion with consultants, patient, and family members, as well as other required patient management activities. This time is exclusive of all separately billable procedures, and teaching time and separate from and in addition to any other critical care service time. Please note the above document was generated using voice recognition software. It may contain grammatical, syntax or spelling errors. (2) Shock circulatory: (3) Cardiomyopathy: (4) Permanent atrial fibrillation: Admission and Anticipated Discharge Date Admission Date: February 08, 2020 Subjective Patient seen and examined at bedside. No acute distress, no adverse events overnight. Patient did use BiPAP overnight for couple of hours. Patient was dozing off at the time of examination but he is able to answer all the questions appropriately. He is hard to hear. Denies any chest pain, no shortness of breath, no dizziness. No headache. Good appetite. Review of Systems Review of Systems: All systems reviewed & are unremarkable except as noted in HPI & below Physical Exam Physical Exam: Constitutional: No acute distress HEENT: EOMI, PERRLA, arcus senilis bilaterally Respiratory system: Decreased air entry bilaterally, no wheeze, no rhonchi, positive crackles bilateral lower lobes CVS: S1-S2 positive, irregular rhythm, positive 2 out of 6 systolic murmur appreciated best at aorta, positive AICD Abdomen: Soft, nontender, nondistended, positive bowel sounds x4 Extremities: +2 pulses bilaterally radialis/ dorsalis pedis, no cyanosis, +2 pitting edema bilateral lower extremity, warm extremities, left lower extremity there is redness and warmth appreciated anterio-medially Neuro: Awake and alert to self and place Psych: Normal mood and affect G/U: No Bailey Skin: no rashes, warm and dry Lymphatic: no cervical or axillary lymphadenopathy Results & Data Results & Data ([facility]) Vital Signs (Past 12 Hours) Vital Signs Temp Pulse Resp BP Pulse Ox 02/13/20 08:56 81 27 H 83/57 L 95 02/13/20 07:56 36.9 C 75 23 98/62 L 93 02/13/20 05:56 74 28 H 106/67 95 02/13/20 04:56 36.6 C 61 19 120/55 L 94 02/13/20 03:56 36.6 C 57 L 24 108/59 L 80 L 02/13/20 02:56 36.6 C 65 29 H 87/59 L 02/13/20 01:57 36.6 C 82 23 91/63 L 97 02/13/20 00:56 36.6 C 81 20 92/64 L 95 02/12/20 23:59 76 02/12/20 23:56 36.6 C 70 24 93/64 L 94 02/12/20 22:56 36.8 C 82 22 99/61 L 94 02/13/20 04:40 02/13/20 04:40 Coding Level of Care Code Critical Care 1st 30-74 mins Diagnoses Combined systolic and diastolic congestive heart failure, NYHA class 3 I50.40 Congestive heart failure chronicity: unspecified Shock circulatory R57.9 Cardiomyopathy I42.8 Cardiomyopathy type: other Permanent atrial fibrillation I48.2 Time Spent (min) 35 (1) Combined systolic and diastolic congestive heart failure, NYHA class 3 Congestive heart failure chronicity: unspecified Qualified Code(s): I50.40 - Unspecified combined systolic (congestive) and diastolic (congestive) heart failure (2) Cardiomyopathy Cardiomyopathy type: other Qualified Code(s): I42.8 - Other cardiomyopathies
[2020-02-13] MEDS ORDERED: POTASSIUM CHLORIDE / WTR 20 MEQ/100 ML PLCT IV ONE (10:45)
[2020-02-13] MEDS: cefTRIAXone SODIUM 2,000 MG in DEXTROSE 5% 50 ML IV SCH (10:58)
--- NOTE | 2020-02-13 11:41 | Pharmacy Report ---
Pharmacy Glycemic Short Note 2 - Date of Service February 13, 2020 - Glycemic Short BSG Results (Last 24 hours): 02/12/20 02/12/20 02/13/20 16:11 21:29 04:40 Glucose 86 POC Glucose 109 H 111 H 02/13/20 02/13/20 07:30 11:00 Glucose POC Glucose 89 131 H OUTPATIENT ANTIDIABETIC REGIMEN: * METFORMIN 500 MG BID ASSESSMENT: 02/13/20 * Patient has received 0 units of insulin in past 48 hours, all blood sugars at goal. * Clinically improving and transferring out of ICU today, will continue to monitor and perhaps add carb coverage if needed. 02/11/20 * Patient received 3 units of insulin yesterday for prandial coverage * BSGs have ranged from 97-126 in the past 24 hours * Will continue current novolog correctional scale, prandial carb ratio was removed, BSGs have remained below 180 mg/dL * Patient continues on dobutamine, and type II DM, HH, low sodium diet. PLAN FOR INPATIENT GLYCEMIC CONTROL: * Hold outpatient oral diabetes medications * Bolus insulin * NovoLog per scale ACHS or Q6hrs while NPO * Goal Range: Low 140 mg/dL - High 180 mg/dL * Correction Factor: 35 mg/dL/unit DISCHARGE RECOMMENDATIONS: * A1c 5.7%, SCr stable, continue metformin as outpatient.
[2020-02-13] MEDS: DIGOXIN 0.125 MG TAB PO SCH (15:21)
--- NOTE | 2020-02-13 16:28 | Hospitalist Progress Note ---
Date of Service February 13, 2020 Assessment & Plan (1) Shock circulatory: septic shock with 4 out of 4 cultures growing Group B strep likely source is skin, pneumonia cannot be ruled out tapered antibiotics to Rocephin cultures show that it is sensitive no fever, WBC 4.2k titrated off of Levophed three days ago, titrated off Dobutamine two days ago overall [facility] prognosis is guarded has EF of 20-25% and severe COPD, afib family is aware of this, patient is DNR/DNI will plan for palliative care consultation on Friday for goals of care going forward central line removed, IV team placed US guided peripheral IV for IV Rocephin (2) Cellulitis: left leg is more erythematous, hot to palpation, most likely source of infection has chronic venous stasis changes at baseline WBC is 4k, continue Rocephin Group B strep growing in blood cultures, sensitive to Rocephin would need 14 days of treatment minimal, admitted on 02/07, last day would be 02/20 (3) Combined systolic and diastolic congestive heart failure, NYHA class 3: BNP markedly elevated prior echo with EF of 20-25% acute on chronic systolic and diastolic HF, clearly he was volume overloaded on exam at time of admission used Lasix and Metolazone in conjunction with Dobutamine to diurese patient cardiology following he has declined ICD in the past, follows with Dr. Szymanski in the office he is negative over 15 liters thus far, Cr holding at 1.07, K is 3.6 HCO3 elevated, metabolic alkalosis Lasix on hold, Dr. Henley recommends Diamox check ABG tomorrow, if HCO3 still elevated then repeat Diamox tomorrow patient has poor overall prognosis plan for palliative consultation on Friday (4) Pneumonia: cannot exclude pneumonia, has moderate right sided effusion COVID 19 test is NEGATIVE taper antibiotics to Rocephin this will be sufficient coverage for possible PNA (5) COPD, severe: no wheezing continue home inhalers pulmonary is recommending NIPPV at home unsure he would tolerate, would need approved again, need to consult palliative care for goals of care (6) Diabetes mellitus: Novolog monitor for hypoglycemic, no episodes today eating well enough (7) Permanent atrial fibrillation: rates are well controlled Pradaxa for anticoagulation Admission and Anticipated Discharge Date Admission Date: February 08, 2020 Subjective patient pleasant today, he is very talkative, he ate breakfast no signs of distress, admits to some pain in the left leg he is breathing well d/w Dr. Henley, he can go to the [facility] floor, wants to check ABG in the morning using Diamox for metabolic alkalosis reviewed labs, CBC stable, INR 1.5, Cr is 1.07 and electrolytes stable patient transferred to [facility], IV team removed central line and placed US guided catheter to continue to have access for IV antibiotics Review of Systems Review of Systems: All systems reviewed & are unremarkable except as noted in HPI & below Cardiovascular: + edema Integumentary: + erythema (left lower leg) Physical Exam Constitutional: well developed and + frail appearing; no acute distress Eyes: PERRL, conjunctivae normal, anicteric sclerae ENMT: external ear and nose normal, oropharynx normal Neck: trachea midline, no thyromegaly Respiratory: normal respiratory effort; no labored breathing Auscultation: + diminished lung sounds (right base); no crackles, no rhonchi and no wheezes Cardiovascular: Rate/Rhythm: regular rate and + irregularly irregular Heart Sounds: normal S1 and normal S2; no murmur Extremities: normal capillary refill and + edema (pitting to shins) Gastrointestinal (Abdomen): normal bowel sounds, soft, nontender, no hepatosplenomegaly Musculoskeletal: Head/Neck/Chest: normocephalic and head atraumatic Extremities: + abnormal strength (generalized weakness); + extremities abnormal to inspection (venous stasis changes in lower legs) Skin: + turgor decreased and + erythema (left leg very red, tender, less warm today); no wound Neurologic: patellar DTR's 2+ bilat, sensation intact and PERRL, EOMI, accommodation nl, no face palsy, no dysarthria Psychiatric: Orientation: alert, oriented to person and cooperative; + not o riented to place and + not oriented to time Lymphatic: no cervical or axillary lymphadenopathy Results & Data Results & Data ([facility]) Vital Signs (Past 12 Hours) Vital Signs Temp Pulse Resp BP Pulse Ox 02/13/20 15:21 98 H 02/13/20 15:12 98 H 02/13/20 15:03 36.4 C L 60 18 93/56 L 96 02/13/20 12:48 36.5 C 94 H 18 95/57 L 02/13/20 10:56 68 22 91/68 L 90 02/13/20 09:56 76 26 H 75/52 L 92 02/13/20 08:56 81 27 H 83/57 L 95 02/13/20 07:56 36.9 C 75 23 98/62 L 93 02/13/20 05:56 74 28 H 106/67 95 02/13/20 04:56 36.6 C 61 19 120/55 L 94 Laboratory Results Laboratory Results - last 24 hr 02/12/20 02/13/20 02/13/20 21:29 04:40 04:40 WBC 4.20 L RBC 3.79 L Hgb 12.0 L Hct 36.8 L MCV 97.1 MCH 31.7 MCHC 32.6 RDW Std Deviation 51.4 H RDW Coeff of Chad 14.3 Plt Count 126 L MPV 10.1 Immature Gran % (Auto) 0.7 Neut % (Auto) 67.6 Lymph % (Auto) 21.4 Garrard % (Auto) 9.8 Eos % (Auto) 0.0 Baso % (Auto) 0.5 Immature Gran # (Auto) 0.03 H Neut # (Auto) 2.84 Lymph # (Auto) 0.90 L Garrard # (Auto) 0.41 Eos # (Auto) 0.00 Baso # (Auto) 0.02 PT 15.6 H INR 1.5 H Sodium Potassium Chloride Carbon Dioxide Anion Gap BUN Creatinine Est Cr Clr Drug Dosing Est GFR ( Amer) Est GFR (Non-Af Amer) BUN/Creatinine Ratio Glucose POC Glucose 111 H Calcium Phosphorus Magnesium 02/13/20 02/13/20 02/13/20 04:40 07:30 11:00 WBC RBC Hgb Hct MCV MCH MCHC RDW Std Deviation RDW Coeff of Chad Plt Count MPV Immature Gran % (Auto) Neut % (Auto) Lymph % (Auto) Garrard % (Auto) Eos % (Auto) Baso % (Auto) Immature Gran # (Auto) Neut # (Auto) Lymph # (Auto) Garrard # (Auto) Eos # (Auto) Baso # (Auto) PT INR Sodium 137 Potassium 3.6 Chloride 94 L Carbon Dioxide 39 H Anion Gap 4.0 BUN 29 H Creatinine 1.07 Est Cr Clr Drug Dosing 54.2 Est GFR ( Amer) 71.0 Est GFR (Non-Af Amer) 61.2 BUN/Creatinine Ratio 27.3 H Glucose 86 POC Glucose 89 131 H Calcium 8.9 Phosphorus 3.2 Magnesium 2.0 Medications Administered Current Inpatient Medications Acetaminophen (Tylenol) 650 mg PO Q4H PRN PRN Reason: Fever Stop: 03/09/20 17:07 Last Admin: 02/11/20 16:48 Dose: 650 mg Documented by: Dabigatran (Pradaxa) 150 mg PO BID YOGESH Stop: 03/09/20 20:59 Last Admin: 02/13/20 07:40 Dose: 150 mg Documented by: Dextrose (Dextrose 50%) 25 - 50 ml IV UD PRN; Protocol PRN Reason: Hypoglycemia Protocol Stop: 03/10/20 16:46 Digoxin (Lanoxin) 0.125 mg PO DAILY@1600 [facility] Stop: 03/11/20 16:44 Last Admin: 02/13/20 15:21 Dose: 0.125 mg Documented by: Glucagon (Glucagen) 1 mg SQ UD PRN; Protocol PRN Reason: Hypoglycemia Protocol Stop: 03/10/20 16:46 Glucose (Dex4 Glucose) 4 - 8 tabs PO UD PRN; Protocol PRN Reason: Hypoglycemia Protocol Stop: 03/10/20 16:46 Glucose (Glucose 40%) 15 - 30 gm PO UD PRN; Protocol PRN Reason: Hypoglycemia Protocol Stop: 03/10/20 16:46 Ceftriaxone Sodium 2,000 mg/ (Dextrose) 70 mls @ 140 mls/hr IV Q24H YOGESH Stop: 02/23/20 09:59 Last Infusion: 02/13/20 11:30 Dose: Infused Documented by: Famotidine 20 mg/ Syringe 5 mls @ 2.5 mls/min IV Q24H YOGESH Stop: 03/12/20 06:59 Last Admin: 02/13/20 07:40 Dose: 2.5 mls/min Documented by: Furosemide 40 mg/ Syringe 4 mls @ 4 mls/min IV DAILY YOGESH Stop: 03/13/20 08:59 Last Admin: 02/12/20 08:12 Dose: 4 mls/min Documented by: Acetazolamide 250 mg/ Syringe 2.5 mls @ 5 mls/min IV DAILY [facility] Stop: 02/14/20 09:01 Last Admin: 02/13/20 07:41 Dose: 5 mls/min Documented by: Insulin Aspart (Novolog Flexpen) 0 units SC ACHS [facility] Stop: 03/10/20 17:29 Last Admin: 02/13/20 11:01 Dose: Not Given Documented by: Levalbuterol HCl (Xopenex Hfa) 4 puffs INH QID PRN PRN Reason: SOB/WHEEZING Stop: 03/09/20 12:59 Metolazone (Zaroxolyn) 2.5 mg PO QAM YOGESH Stop: 03/10/20 08:29 Last Admin: 02/13/20 07:40 Dose: 2.5 mg Documented by: Miscellaneous (Carbohydrates For Hypoglycemia) 15 - 30 gm PO UD PRN PRN Reason: Hypoglycemia Protocol Stop: 03/10/20 16:46 Miscellaneous Information (Consult Glycemic Management Pharmacy) 1 ea N/A UD PRN; Protocol PRN Reason: Consult Stop: 03/10/20 17:07 Pravastatin Sodium (Pravachol) 20 mg PO DAILY@1700 [facility] Stop: 03/10/20 16:59 Last Admin: 02/12/20 16:26 Dose: 20 mg Documented by: Senna/Docusate Sodium (Senokot S) 1 tab PO QAM [facility] Stop: 03/10/20 08:59 Last Admin: 02/13/20 07:40 Dose: 1 tab Documented by: Umeclidinium Palacios (Incruse Ellipta) 1 puffs INH DAILY [facility] Stop: 03/10/20 08:59 Last Admin: 02/13/20 07:40 Dose: 1 puffs Documented by: PG Care Time/CCT Total # of Minutes Spent Total Time Spent with Patient: Total time spent is greater than 50% in coordination of care (as documented) at patient's floor/unit and/or counseling patient: Coding Level of Care Code 92523 Subseq Hosp Care Lvl 3 Diagnoses Shock circulatory R57.9 Cellulitis L03.90 Combined systolic and diastolic congestive heart failure, NYHA class 3 I50.40 Congestive heart failure chronicity: unspecified Pneumonia J18.9 Laterality: unspecified laterality Lung location: unspecified part of lung Pneumonia type: due to unspecified organism COPD, severe J44.9 Diabetes mellitus E11.9 Permanent atrial fibrillation I48.2 (1) Combined systolic and diastolic congestive heart failure, NYHA class 3 Congestive heart failure chronicity: unspecified Qualified Code(s): I50.40 - Unspecified combined systolic (congestive) and diastolic (congestive) heart failure (2) Pneumonia Laterality: unspecified laterality Lung location: unspecified part of lung Pneumonia type: due to unspecified organism Qualified Code(s): J18.9 - Pneumonia, unspecified organism
[2020-02-13] MEDS: PRAVASTATIN SOD 20 MG TAB PO SCH (17:19)
[2020-02-13] MEDS: ACETAMINOPHEN 325 MG TAB PO PRN (23:05)
[2020-02-14] MEDS: FAMOTIDINE 20 MG in SYRINGE 3 ML IV SCH (06:17)
[2020-02-14 07:43] LABS: Base Excess ABG 8.6 mEq/L (-9-1.8); HCO3 ABG 34 mmol/L (19-24); Oxygen Saturation ABG 95.8 % (90-95); PCO2 ABG 47 mmHg (35-46); PO2 ABG 75 mmHg (80-95); pH ABG 7.47 (7.35-7.45)
[2020-02-14 07:44] LABS: Allen Test Pos (Pos)
[2020-02-14 07:55] LABS: Hematocrit (blood only) 36.6 % (42-52); Hemoglobin 11.9 g/dL (14.0-18.0); Mean Corpuscular Hemoglobin 31.4 pg (25-34); Mean Corpuscular Hgb Conc 32.5 g/dL (32-36); Mean Corpuscular Volume 96.6 fL (80-100); Mean Platelet Volume 10.2 fL (7.4-10.4); Platelet Count 117 K/uL (130-400); RDW Coefficient of Variation 14.6 % (11.5-14.5); RDW Standard Deviation 51.8 fL (36.4-46.3); Red Blood Count 3.79 M/uL (4.7-6.1); White Blood Count 4.19 K/uL (4.8-10.8)
[2020-02-14] MEDS: UMECLIDINIUM BROMIDE 62.5MCG/BLISTER 7 PUFFS/INHALER INH SCH (08:06)
[2020-02-14] MEDS: DABIGATRAN ETEXILATE 75 MG CAP PO SCH ×2 (08:07→21:00)
[2020-02-14] MEDS: DOCUSATE SODIUM/SENNA 50/8.6MG TAB PO SCH (08:07)
[2020-02-14] MEDS: metOLazone 2.5 MG TABLET PO SCH (08:07)
[2020-02-14] MEDS: INSULIN ASPART 100 UNITS/ML 3 ML PEN SC SCH ×4 (08:09→20:36)
--- NOTE | 2020-02-14 08:12 | Hospitalist Progress Note ---
Date of Service February 14, 2020 Assessment & Plan (1) Shock circulatory: septic shock, poa, with 4 out of 4 cultures growing Group B strep likely source is skin, pneumonia cannot be ruled out tapered antibiotics to Rocephin cultures show that it is sensitive titrated off pressors, , central line removed, IV team placed US guided peripheral IV for IV Rocephin that overall [facility] prognosis is guarded has EFrEF last measured 20-25% plus afib and severe COPD family is aware of this, patient is DNR/DNI palliative care consultation on Tuesday 02/13 for goals of care going forward family does have a family event in the upcoming days wishes to keep the patient home and home health until the event is over (family wedding) and then likely will transition to hospice care (2) Cellulitis: left leg is more erythematous, hot to palpation, most likely source of infection has chronic venous stasis changes at baseline WBC is 4k, continue Rocephin Group B strep growing in blood cultures, sensitive to Rocephin would need 14 days of treatment minimal, admitted on 02/07, last day would be 02/20 (3) Combined systolic and diastolic congestive heart failure, NYHA class 3: prior echo with EF of 20-25% acute on chronic systolic and diastolic HF, clearly he was volume overloaded on exam at time of admission used Lasix and Metolazone in conjunction with Dobutamine to diurese patient cardiology following he has declined ICD in the past, follows with Dr. Szymanski in the office he is negative over 15 liters thus far, Cr holding at 1.07, K is 3.6 HCO3 elevated, metabolic alkalosis Lasix on hold, Dr. Henley recommended Diamox repeat ABG 02/13, HCO3 near normal at 47 patient has poor overall prognosis plan for palliative consultation on Friday (4) Pneumonia: cannot exclude pneumonia, has moderate right sided effusion COVID 19 test is NEGATIVE taper antibiotics to Rocephin this will be sufficient coverage for possible PNA (5) COPD, severe: no wheezing continue home inhalers pulmonary is recommending NIPPV at home unsure he would tolerate, would need approved again, need to consult palliative care for goals of care (6) Diabetes mellitus: Novolog monitor for hypoglycemic, no episodes today eating well enough (7) Permanent atrial fibrillation: rates are well controlled Pradaxa for anticoagulation Admission and Anticipated Discharge Date Admission Date: February 08, 2020 Subjective This patient is somewhat confused there is been discussions with the family about hospice versus home health. At this point time the family is willing to have him go home with home health with eventual transition to hospice in the next upcoming weeks. Patient is doing better with regards to his group B strep's sepsis and cellulitis. However is markedly confused focusing no mostly on his central venous line site in his neck which was removed most recently. However if the patient is going to require 2 weeks of antibiotic therapy for his sepsis he may need a PICC line Review of Systems Review of Systems: Mild distress and fatigue no headache, blurry or double vision no speech or swallowing issues no chest pain, pressure or palpitations no shortness of breath, cough or wheezes no abdominal pain, nausea or vomiting, diarrhea or constipation no dysuria, hematuria or frequency no focal joint pain or swelling no back pain, CVA tenderness or radicular pain Erythema to his lower extremity is receding Global weakness confusion need for reorientation no complaints or anxiety or depression Physical Exam Physical Exam: The patient appeared slightly thin but appeared his stated age Vital signs as documented. Head exam is normocephalic atraumatic no scleral icterus Neck is without JVD, thyromegaly, or carotid bruits. Lungs are coarse rhonchi at the bases which clear with deep inspiration Cardiac exam, irregularly irregular with a systolic ejection murmur Abdominal exam reveals normal bowel sounds, soft non tender, no masses Extremities are nonedematous and both pedal pulses are normal. Neurologic exam is alert and oriented x2, no focal loss of strength or sensation but overall very weak Erythema none to his left lower extremity seems to be very mild at this time Patient is obviously demented Results & Data Results & Data ([facility]) Vital Signs (Past 12 Hours) Vital Signs Temp Pulse Resp BP Pulse Ox 02/14/20 07:29 61 02/14/20 07:02 97.5 F L 85 18 149/60 H 90 02/14/20 04:48 97.5 F L 56 L 18 104/65 91 02/13/20 22:44 97.7 F 71 18 90/57 L 94 02/13/20 22:14 60 22 96 PG Care Time/CCT Total # of Minutes Spent Total Time Spent with Patient: Total time spent is greater than 50% in coordination of care (as documented) at patient's floor/unit and/or counseling patient: Coding Level of Care Code 21507 Subseq Hosp Care Lvl 3 Diagnoses Shock circulatory R57.9 Cellulitis L03.90 Combined systolic and diastolic congestive heart failure, NYHA class 3 I50.40 Congestive heart failure chronicity: unspecified Pneumonia J18.9 Laterality: unspecified laterality Lung location: unspecified part of lung Pneumonia type: due to unspecified organism COPD, severe J44.9 Diabetes mellitus E11.9 Permanent atrial fibrillation I48.2 (1) Combined systolic and diastolic congestive heart failure, NYHA class 3 Congestive heart failure chronicity: unspecified Qualified Code(s): I50.40 - Unspecified combined systolic (congestive) and diastolic (congestive) heart failure (2) Pneumonia Laterality: unspecified laterality Lung location: unspecified part of lung Pneumonia type: due to unspecified organism Qualified Code(s): J18.9 - Pneumonia, unspecified organism
[2020-02-14 08:23] LABS: BUN Creatinine Ratio 27.1 (10-20); Calcium 9.1 mg/dl (8.5-10.1); Creatinine Clr Calc Pharmacy 48.6 ml/min; Est GFR (African American) 67.1; Est GFR (Non-African American) 57.9; Potassium 3.5 mmol/L (3.5-5.1)
[2020-02-14] MEDS: cefTRIAXone SODIUM 2,000 MG in DEXTROSE 5% 50 ML IV SCH (09:39)
[2020-02-14] MEDS: acetaZOLAMIDE 250 MG in SYRINGE 0 ML IV SCH (09:40)
--- NOTE | 2020-02-14 11:07 | Pharmacy Report ---
Pharmacy Glycemic Sign Off Nt - Date of Service February 14, 2020 - Assessment & Plan ASSESSMENT: * Pharmacy was consulted by Dr Henley on 02/09/20 for glycemic control and to write orders per [facility] inpatient glycemic control protocol. * Major changes made by pharmacy to antidiabetic regimen include: * Added Novolog scale * Patient has been receiving/requiring 0 units of insulin per day for adequate glycemic control * BSGs ranging 89 - 131 mg/dl * Patient has not received insulin in 3 days * Do not anticipate further changes in patient status that would quickly deteriorate glycemic control (i.e. patient to be NPO for upcoming procedure, steroids tapering, starting tube feedings, etc). * Please see recommendations for outpatient antidiabetic regimen below. PLAN FOR INPATIENT GLYCEMIC CONTROL: No changes needed to current regimen. * Continue NovoLog per scale ACHS/Q6hrs while NPO * Goal range = 140 - 180 mg/dl * CF = 35 mg/dl/unit * Pharmacy is signing off of glycemic consult and will no longer be making adjustments to inpatient regimen. Please feel free to re-consult if needed. Thank you. DISCHARGE RECOMMENDATIONS: * A1c 5.7 % on 02/10/20 * A1c is very well controlled - could consider discontinuation of metformin upon discharge, or reduction to 500 mg once daily * eGFR > 45
--- NOTE | 2020-02-14 13:06 | Palliative Care Consultation ---
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 Patient lives at home with his , he has reportedly had no sick contacts and has been self-isolating since beginning of November due to the pandemic. He has been compliant with diuretics and other meds, weighing himself daily. He was doing until the morning of arrival, when he woke up and was confused with a fever. In the ED he had a fever, mild leukocytosis. BMP was at baseline. CXR showed a new right pleural effusion. He was very hypotensive, received total of 2L of NSS and was still hypotensive. ESR and CRP elevated, BNP markedly elevated. He was started on Levophed and BP started to improve. Patient was transferred to the ICU for septic shock and possible pneumonia. COVID testing negative. Patient had to also be started on Dobutamine in addition to Levophed due to persistent hypotension. Patient's family was made aware of his poor prognosis, they maintained his DNR/DNI status, but wanted to continue with current treatment. Patient's legs noted to be red and edematous-- cellulitis likely source of septic shock. Blood cultures have grown group B strep species. Hypercapnia led to Avila-murry breathings-- BIpap placed. Patient did continue to improve slowly-- pressors weaned off, diuresing well. He was transitioned to his home dose of diuretics and transferred out of ICU just yesterday 02/12. He is recommended to continue wearing NIPPV for COPD, but patient has been refusing to wear it. Given his multiple comorbidities including heart failure with EF 25%, as well as patient's wish to not wear bipap, palliative care is consulted to discuss goals of care. -Patient to be seen by palliative MD this afternoon. Patient has been having confusion per notes. -Spoke with patient's , Zoe, on phone at length. She is feeling overwhelmed and having a hard time with not being able to see patient in the hospital. -Prior to this episode, patient was doing quite well at home. Ambulating, doing his own medications, weighing himself daily, etc. Having said that, does understand that patient has a weakened heart as well as COPD and other comorbidities that given him a guarded prognosis. -'s preference would be for patient to return home with home health if able, and meet with a managed care liaison at home with her children present to help make this decision. She would also like to see how patient does and if he is able to get back to his baseline. She notes that her grandson is getting in [place] this weekend, so her family will be busy (she is not attending the wedding of course due to COVID). -PT/OT are ordered. Will see if patient is well enough to return home with home health. He is on metolazone 2.5mg PO QAM, IV Lasix on hold. Still on IV abx at this time. -Will continue to follow and touch base with patient's tomorrow. She also plans on running this plan by her children. (2) Septic shock: (3) Acute on chronic systolic (congestive) heart failure: (4) COPD, severe: Supervising Physician Co-Signing Physician Notes Chart reviewed, patient seen and examined. Collaborated with MIL Stone as well as attending physician Dr. Abdalla Patient awake and alert, NAD. Trilogy machine at bedside-patient reports he has not tried it, but when speaking to nurse and they attempted to place it last night and he would pull the mask off. Patient does recall requiring 14 days of IV antibiotics. Patient had blood cultures positive for group B strep and left lower extremity erythema. PE: Patient awake and alert, NAD HEENT: EOMI, hearing within normal limits Respirations: Clear breath sounds CV: Regular rate, lower extremity edema left greater than right-improved. Left lower extremity with erythema, nontender Abdomen: Soft, nontender to palpation Neuro: Alert and oriented, positive mild memory deficits Agree with above note, assessment and plan as per MIL Stone. Conversations with give the goals to return home with home health, patient reports that is also physical. Possible transition to hospice at a later time. Patient may benefit from home PT/OT. 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 Patient lives at home with his , he has reportedly had no sick contacts and has been self-isolating since beginning of November due to the pandemic. He has been compliant with diuretics and other meds, weighing himself daily. He was doing until the morning of arrival, when he woke up and was confused with a fever. In the ED he had a fever, mild leukocytosis. BMP was at baseline. CXR showed a new right pleural effusion. He was very hypotensive, received total of 2L of NSS and was still hypotensive. ESR and CRP elevated, BNP markedly elevated. He was started on Levophed and BP started to improve. Patient was transferred to the ICU for septic shock and possible pneumonia. COVID testing negative. Patient had to also be started on Dobutamine in addition to Levophed due to persistent hypotension. Patient's family was made aware of his poor prognosis, they maintained his DNR/DNI status, but wanted to continue with current treatment. Patient's legs noted to be red and edematous-- cellulitis likely source of septic shock. Blood cultures have grown group B strep species. Hypercapnia led to Avila-murry breathings-- BIpap placed. Patient did continue to improve slowly-- pressors weaned off, diuresing well. He was transitioned to his home dose of diuretics and transferred out of ICU just yesterday 02/12. He is recommended to continue wearing NIPPV for COPD, but patient has been refusing to wear it. Given his multiple comorbidities including heart failure with EF 25%, as well as patient's wish to not wear bipap, palliative care is consulted to discuss goals of care. Thank you kindly for this consult. Palliative care team will follow as needed. Allergies Allergy/AdvReac Type Severity Reaction Status Date / Time albuterol AdvReac Severe Increased Unverified 02/08/20 11:27 blood pressure levofloxacin AdvReac Intermediate TENDONITIS Verified 02/08/20 11:27 Bactrim AdvReac Mild GI SYMPTOMS Verified 05/22/18 14:15 house dust AdvReac Mild Unknown Verified 02/08/20 11:27 sulfamethoxazole AdvReac Mild GI SYMPTOMS Verified 02/08/20 11:27 trimethoprim AdvReac Mild GI SYMPTOMS Verified 02/08/20 11:27 Home Medications Home Medications Medication Instructions Recorded Confirmed Type ciclesonide 160 mcg/actuation 1 puffs INH BID 05/28/18 02/08/20 History aerosol inhaler dabigatran etexilate 150 mg capsule 150 mg PO BID 05/28/18 02/08/20 History lisinopril 5 mg tablet 5 mg PO QAM 05/28/18 02/08/20 History multivitamin 1 tab PO QAM 05/28/18 02/08/20 History [facility] 1 tab PO HS 02/16/19 02/08/20 History bumetanide 1 mg PO QAM 02/16/19 02/08/20 History cholecalciferol (vitamin D3) 50 2,000 units PO QAM cap 04/26/19 02/08/20 History mcg (2,000 unit) capsule levalbuterol tartrate 45 1 puffs INH Q6H PRN 04/26/19 02/08/20 History mcg/actuation aerosol inhaler Oxygen Home #1 ea 07/08/19 12/13/19 Rx pravastatin 20 mg tablet 20 mg PO HS #90 tab 08/12/19 02/08/20 Rx docusate sodium 100 mg PO HS 10/15/19 02/08/20 History polyethylene glycol 3350 [Miralax] 17 g PO HS 10/15/19 02/08/20 History ipratropium bromide 17 2 puffs INH BID #25.8 gm 10/26/19 02/08/20 Rx mcg/actuation HFA aerosol inhaler metformin 500 mg tablet 500 mg PO BID #180 tab 11/30/19 02/08/20 Rx digoxin 125 mcg (0.125 mg) tablet 125 mcg PO HS #90 tab 01/05/20 02/08/20 Rx Patient History Medical History Actinic keratosis Asthma PRN INH 1 X MO ON AVG Cardiomyopathy Chronic combined systolic (congestive) and diastolic (congestive) heart failure Chronic venous insufficiency (Chronic) Combined systolic and diastolic congestive heart failure, NYHA class 3 (Acute) COPD, severe Diabetes mellitus Diabetes mellitus, type 2 (Chronic) NIDDM. Diabetic peripheral neuropathy associated with type 2 diabetes mellitus Dyslipidemia Edema Former smoker Hearing deficit [place] History of actinic keratosis (Resolved) History of ischemic colitis (Resolved) History of SCC (squamous cell carcinoma) of skin (Resolved) History of skin cancer REMOVED History of squamous cell carcinoma in situ of skin (Resolved) Hypertension Intrinsic asthma Ischemic colitis (2010) LBBB (left bundle branch block) Left bundle branch block Migraine Mitral regurgitation Oral thrush Osteomyelitis of right foot Pancytopenia Permanent atrial fibrillation Pseudomonas aeruginosa infection Seborrheic keratosis Squamous cell carcinoma of arm UTI (urinary tract infection) Vasomotor rhinitis Venous insufficiency (chronic) (peripheral) Surgical History History of cataract surgery (Resolved) History of colonoscopy (Resolved) History of tonsillectomy and adenoidectomy (Resolved) Status post amputation of toe (Resolved) Family History Mother Atrial fibrillation Myocardial infarction Father Diabetes Social History Preferred Language: Urdu Communication Ability: Impaired Communication Ability Comment: has hearing aids Talent Assistant Required: No Beliefs That Will Affect Care: None marital status: Current Living Situation: Spouse Other Information That Helps Us Care for You: No Feels Safe at Home: Yes Safety Concerns: Feels Safe At This Time Smoking Status: Former smoker Second Hand Exposure: No ; Hx Alcohol Use: No Hx Substance Use: No Results & Data Vital Signs (Past 12 Hours) Vital Signs Temp Pulse Resp BP Pulse Ox 02/14/20 11:51 36.2 C L 96 H 18 102/59 L 02/14/20 07:29 61 02/14/20 07:02 36.4 C L 85 18 149/60 H 90 02/14/20 04:48 36.4 C L 56 L 18 104/65 91 Coding Level of Care Code 17757 Inpt Consult Level 3 Diagnoses Goals of care, counseling/discussion Z71.89 Septic shock A41.9; R65.21 Acute on chronic systolic (congestive) heart failure I50.23 COPD, severe J44.9 Time Spent (min) 75 Time Spent Midlevel A total of 75 minutes spent by this PASSENGER AGENT in reviewing chart,speaking with attending and palliative physicians, speaking with case management and speaking with patient's about his condition, goals of care and discharge planning.
[2020-02-14] MEDS: PRAVASTATIN SOD 20 MG TAB PO SCH (16:01)
[2020-02-14] MEDS: DIGOXIN 0.125 MG TAB PO SCH (16:02)
--- NOTE | 2020-02-14 16:43 | Cardiology Progress Note ---
Date of Service February 14, 2020 Assessment & Plan (1) Acute on chronic systolic (congestive) heart failure: (2) Cardiomyopathy: (3) Mitral regurgitation: (4) Permanent atrial fibrillation: (5) Pericardial effusion: (6) Septic shock: ASSESSMENT/PLAN: 1. Acute on chronic systolic CHF: Still appears euvolemic. His alkalosis appears to have been improved. Will need to monitor him closely and consider resumption of his usual diuretic regimen at some point which includes daily Bumex. 2. Cardiomyopathy: Blood pressure improved. Hopefully will have an opportunity restart his lisinopril in the near future.. 3. Mitral regurgitation: Non severe. No further evaluation at this time. 4. Permanent atrial fibrillation: No symptoms. Adequate rate control on digoxin. Started on dabigatran. 5. Septic shock: Clinically improving. 6. Pericardial effusion: The described as mild to moderate at the time of admission. Admission and Anticipated Discharge Date Admission Date: February 08, 2020 Subjective This afternoon the patient claim to have some feeling of chest heaviness. This is poorly characterized by the patient. It seems to involve the sensation of discomfort in the chest with deep inspiration. He denied breathing trouble overall. He has some difficulty remembering events throughout the course of today. He cannot recall if he was ambulatory or what he had for lunch. Review of Systems Review of Systems: Unobtainable due to cognitive status Physical Exam Physical Exam: Alert. Answers questions appropriately. Normal level of consciousness. Neuro: No focal deficits noted Neck: Patient's neck is supple. The right internal jugular venous line in place. Lungs: Clear to auscultation bilaterally. He has good air movement without use of accessory muscles. No rales wheezes or rhonchi. Cardiac: Heart demonstrates an irregular rate and rhythm. Normal S1 and S2. Crescendo systolic murmur of variable intensity. Pulses: The patient has palpable radial pulses bilaterally that are equal in intensity Results & Data ([facility]) Vital Signs (Past 12 Hours) Vital Signs Temp Pulse Resp BP Pulse Ox 02/14/20 16:02 74 02/14/20 13:04 96 02/14/20 11:51 36.2 C L 96 H 18 102/59 L 02/14/20 07:29 61 02/14/20 07:02 36.4 C L 85 18 149/60 H 90 02/14/20 04:48 36.4 C L 56 L 18 104/65 91 Laboratory Results Abnormal Lab Results 02/13/20 02/13/20 02/14/20 16:39 19:45 07:26 WBC 4.19 L RBC 3.79 L Hgb 11.9 L Hct 36.6 L MCV 96.6 MCH 31.4 MCHC 32.5 RDW Std Deviation 51.8 H RDW Coeff of Chad 14.6 H Plt Count 117 L MPV 10.2 ABG pH ABG pCO2 ABG pO2 ABG HCO3 ABG O2 Saturation ABG Base Excess Levi Test Barometric Pressure Oxygen Given Sodium Potassium Chloride Carbon Dioxide Anion Gap BUN Creatinine Est Cr Clr Drug Dosing Est GFR ( Amer) Est GFR (Non-Af Amer) BUN/Creatinine Ratio Glucose POC Glucose 97 104 H Calcium 02/14/20 02/14/20 02/14/20 07:26 07:32 07:51 WBC RBC Hgb Hct MCV MCH MCHC RDW Std Deviation RDW Coeff of Chad Plt Count MPV ABG pH 7.47 H ABG pCO2 47 H ABG pO2 75 L ABG HCO3 34 H ABG O2 Saturation 95.8 H ABG Base Excess 8.6 H Levi Test Pos Barometric Pressure 733.4 Oxygen Given ROOM AIR Sodium 138 Potassium 3.5 Chloride 98 Carbon Dioxide 32 Anion Gap 7.0 BUN 30 H Creatinine 1.12 Est Cr Clr Drug Dosing 48.6 Est GFR ( Amer) 67.1 Est GFR (Non-Af Amer) 57.9 BUN/Creatinine Ratio 27.1 H Glucose 86 POC Glucose 81 Calcium 9.1 02/14/20 02/14/20 11:35 16:38 WBC RBC Hgb Hct MCV MCH MCHC RDW Std Deviation RDW Coeff of Chad Plt Count MPV ABG pH ABG pCO2 ABG pO2 ABG HCO3 ABG O2 Saturation ABG Base Excess Levi Test Barometric Pressure Oxygen Given Sodium Potassium Chloride Carbon Dioxide Anion Gap BUN Creatinine Est Cr Clr Drug Dosing Est GFR ( Amer) Est GFR (Non-Af Amer) BUN/Creatinine Ratio Glucose POC Glucose 125 H 129 H Calcium PG Care Time/CCT Total # of Minutes Spent Total Time Spent with Patient: Total time spent is greater than 50% in coordination of care (as documented) at patient's floor/unit and/or counseling patient: Coding Level of Care Code 02735 Subseq Hosp Care Lvl 2 Diagnoses Acute on chronic systolic (congestive) heart failure I50.23 Cardiomyopathy I42.8 Cardiomyopathy type: other Mitral regurgitation I34.0 Permanent atrial fibrillation I48.2 Pericardial effusion I31.3 Septic shock A41.9; R65.21 (1) Cardiomyopathy Cardiomyopathy type: other Qualified Code(s): I42.8 - Other cardiomyopathies
[2020-02-15] MEDS: FAMOTIDINE 20 MG in SYRINGE 3 ML IV SCH (06:11)
[2020-02-15] MEDS: DABIGATRAN ETEXILATE 75 MG CAP PO SCH ×2 (07:45→20:21)
[2020-02-15] MEDS: UMECLIDINIUM BROMIDE 62.5MCG/BLISTER 7 PUFFS/INHALER INH SCH (07:45)
[2020-02-15] MEDS: metOLazone 2.5 MG TABLET PO SCH (07:46)
[2020-02-15] MEDS: DOCUSATE SODIUM/SENNA 50/8.6MG TAB PO SCH (07:46)
[2020-02-15] MEDS: INSULIN ASPART 100 UNITS/ML 3 ML PEN SC SCH ×4 (07:46→21:29)
[2020-02-15] MEDS: cefTRIAXone SODIUM 2,000 MG in DEXTROSE 5% 50 ML IV SCH (09:49)
--- NOTE | 2020-02-15 10:15 | Palliative Care Progress Note ---
Date of Service February 15, 2020 Assessment & Plan (1) Goals of care, counseling/discussion: -Patient did well with PT/OT, safe to return home with home health. He will need two weeks of abx, may need PICC line per attending physician. -Spoke with Zoe today. She is pleased that patient can come home with HH. They will still consider a transition to hospice once family has had time to reconvene and discuss. They would be interested in meeting with product responsibility liaison. She is aware patient will need abx therapy. -Patient is off IV diuretics and on oral meds. Doing well. -No symptom management needs at this time. We will follow peripherally. Please contact us with any further palliative care needs. (2) Septic shock: (3) Acute on chronic systolic (congestive) heart failure: (4) COPD, severe: Subjective Chart reviewed. Patient will be seen by palliative MD this afternoon. Documentation suggests patient is doing well. He worked with PT/OT yesterday and did well. HIs mental status seems to be clearing. Spoke with his again today. See A&P. Results & Data Vital Signs (Past 12 Hours) Vital Signs Temp Pulse Resp BP Pulse Ox 02/15/20 07:38 36.6 C 87 20 117/73 90 02/15/20 04:14 36.7 C 71 18 102/67 94 02/15/20 00:26 80 02/14/20 23:48 58 L 24 95 Supervising Physician Co-Signing Physician Notes Chart reviewed, patient seen and examined. Collaborated with MIL Stone as well as attending physician Dr. Abdalla Patient awake and alert, NAD. Patient sitting up in chair at side of bed PE: Patient awake and alert, NAD HEENT: EOMI, hearing within normal limits Respirations: Clear breath sounds CV: Regular rate, lower extremity edema left greater than right-improved. Left lower extremity with erythema, nontender Abdomen: Soft, nontender to palpation Neuro: Alert and oriented, positive mild memory deficits Agree with above note, assessment and plan as per MIL Stone. Conversations with give the goals to return home with home health. Per attending physician, plan is to transition to p.o. antibiotics to complete 14- day course per group B strep bacteremia. Possible transition to hospice at a later time. Patient may benefit from home PT/OT. Coding Level of Care Code 51660 Subseq Hosp Care Lvl 3 Diagnoses Goals of care, counseling/discussion Z71.89 Septic shock A41.9; R65.21 Acute on chronic systolic (congestive) heart failure I50.23 COPD, severe J44.9 Time Spent (min) 40 Time Spent Midlevel A total of 25 minutes spent by this MASTER AT ARMS in reviewing chart,speaking with physicians and IDT, as well as speaking with patient's about plan of care. Attending Time spent 20 minutes in addition to the 25 minutes spent by MIL Stone for total of 40 minutes with greater than 50% of the time assessing patient in room as well as collaborating with attending physician.
--- NOTE | 2020-02-15 14:33 | Cardiology Progress Note ---
Date of Service February 15, 2020 Assessment & Plan (1) Acute on chronic systolic (congestive) heart failure: (2) Cardiomyopathy: (3) Mitral regurgitation: (4) Permanent atrial fibrillation: (5) Pericardial effusion: (6) Septic shock: ASSESSMENT/PLAN: 1. Acute on chronic systolic CHF: Still appears euvolemic. Bumex was ordered for tomorrow morning. He would seem reasonable to discharge him on his usual dose of diuretic. 2. Cardiomyopathy: Blood pressure improved. Still borderline blood pressures. Seems reasonable to continue holding his lisinopril for the time being. 3. Mitral regurgitation: Non severe. No further evaluation at this time. 4. Permanent atrial fibrillation: No symptoms. Adequate rate control on digoxin. Started on dabigatran. 5. Septic shock: Clinically improving. 6. Pericardial effusion: The described as mild to moderate at the time of admission. It sounds like the patient is being prepared for discharge to rehab. Cardiology will sign off at this time. Please do not hesitate to call with additional questions regarding his management or medical regimen. Admission and Anticipated Discharge Date Admission Date: February 08, 2020 Subjective This afternoon patient claims to be feeling well. He appeared to be confused at times, but seemed answer most questions appropriately. He was sleeping but easily arousable. He denies pain or breathing difficulty. He claims to have been up to the bathroom without significant dizziness. Review of Systems Review of Systems: per HPI Physical Exam Physical Exam: Alert. Answers questions appropriately. Normal level of consciousness. Sleepy, but easily arousable. Somewhat forgetful. Neuro: No focal deficits noted Lungs: Clear to auscultation bilaterally. He has good air movement without use of accessory muscles. No rales wheezes or rhonchi. Cardiac: Heart demonstrates an irregular rate and rhythm. Normal S1 and S2. Crescendo systolic murmur of variable intensity. Pulses: The patient has palpable radial pulses bilaterally that are equal in intensity Results & Data ([facility]) Vital Signs (Past 12 Hours) Vital Signs Temp Pulse Resp BP Pulse Ox 02/15/20 10:51 36.6 C 63 18 91/62 L 90 02/15/20 07:38 36.6 C 87 20 117/73 90 02/15/20 04:14 36.7 C 71 18 102/67 94 Laboratory Results Abnormal Lab Results 02/14/20 02/14/20 02/15/20 16:38 20:13 07:28 POC Glucose 129 H 126 H 96 02/15/20 11:22 POC Glucose 120 H PG Care Time/CCT Total # of Minutes Spent Total Time Spent with Patient: Total time spent is greater than 50% in coordination of care (as documented) at patient's floor/unit and/or counseling patient: Coding Level of Care Code 65887 Subseq Hosp Care Lvl 2 Diagnoses Acute on chronic systolic (congestive) heart failure I50.23 Cardiomyopathy I42.8 Cardiomyopathy type: other Mitral regurgitation I34.0 Permanent atrial fibrillation I48.2 Pericardial effusion I31.3 Septic shock A41.9; R65.21 (1) Cardiomyopathy Cardiomyopathy type: other Qualified Code(s): I42.8 - Other cardiomyopathies
--- NOTE | 2020-02-15 15:45 | Hospitalist Progress Note ---
Date of Service February 15, 2020 Assessment & Plan (1) Shock circulatory: septic shock, poa, with 4 out of 4 cultures growing Group B strep likely source is skin, pneumonia cannot be ruled out tapered antibiotics to Rocephin cultures show that it is sensitive titrated off pressors, , central line removed, IV team placed US guided peripheral IV overall [facility] prognosis is guarded has EFrEF last measured 20-25% plus afib and severe COPD family is aware of this, patient is DNR/DNI palliative care consultation on Tuesday 02/13 for goals of care going forward family does have a family event in the upcoming days wishes to keep the patient home and home health until the event is over (family wedding) and then likely will transition to hospice care (2) Cellulitis: left leg is more erythematous, hot to palpation, most likely source of inf ection has chronic venous stasis changes at baseline Group B strep growing in blood cultures, sensitive to Rocephin would need 14 days of treatment minimal, admitted on 02/07, last day would be 02/20 as the patient will likely be in the hospital till 02/16 we may consider transitioning to oral cephalosporin for the last few days of his course (3) Combined systolic and diastolic congestive heart failure, NYHA class 3: prior echo with EF of 20-25% acute on chronic systolic and diastolic HF, clearly he was volume overloaded on exam at time of admission used Lasix and Metolazone in conjunction with Dobutamine to diurese patient cardiology following he has declined ICD in the past, follows with Dr. Szymanski in the office Patient is resumed his oral Bumex therapy at home on 02/15 (4) Pneumonia: cannot exclude pneumonia, has moderate right sided effusion COVID 19 test is NEGATIVE taper antibiotics to Rocephin this will cover possible PNA (5) COPD, severe: no wheezing continue home inhalers pulmonary is recommending NIPPV at home unsure he would tolerate, patient states he is not interested in his home BiPAP again, need to consult palliative care for goals of care (6) Diabetes mellitus: Novolog monitor for hypoglycemic, no episodes today eating well enough (7) Permanent atrial fibrillation: rates are well controlled Pradaxa for anticoagulation (8) Thrush: Started on oral nystatin to complete 5-day therapy Admission and Anticipated Discharge Date Admission Date: February 16, I spoke to the patient's today on 02/14 she will be agreeable of the patient go home with home health with [facility] home health with eventual transition to hospice care Subjective this pt is pleasantly confused but is more clear each day, he is aware of upcoming family wedding. He denies any focal complaints at this time Review of Systems Review of Systems: Mild distress and fatigue, respiratory distress no headache, blurry or double vision no speech or swallowing issues has obviously visible thrush but denies discomfort no chest pain, pressure or palpitations Baseline shortness of breath, denies cough or wheezes no abdominal pain, nausea or vomiting, diarrhea or constipation no dysuria, hematuria or frequency no focal joint pain or swelling no back pain, CVA tenderness or radicular pain no bruising, bleeding or rashes no focal signs of weakness or numbness or altered sensation Physical Exam Physical Exam: The patient appeared well nourished and normally developed. Vital signs as documented. Head exam is normocephalic atraumatic no scleral icterus Neck is without JVD, thyromegaly, or carotid bruits. Lungs are clear to auscultation, overall poor air movement but no focal loss of breath sounds Cardiac exam, Rhythm is regular.. No murmurs, rubs or gallops. Abdominal exam reveals normal bowel sounds, soft non tender, no masses Extremities are nonedematous and both pedal pulses are normal. Neurologic exam is alert and oriented x2, no focal loss of strength or sensation Skin is without bruises or rashes erythema of his lower extremities resolved Psychologically is without concerns for anxiety or depression Results & Data Results & Data ([facility]) Vital Signs (Past 12 Hours) Vital Signs Temp Pulse Resp BP Pulse Ox 02/15/20 15:31 98.1 F 70 18 89/58 L 93 02/15/20 10:51 97.9 F 63 18 91/62 L 90 02/15/20 07:38 97.9 F 87 20 117/73 90 02/15/20 04:14 98.1 F 71 18 102/67 94 PG Care Time/CCT Total # of Minutes Spent Total Time Spent with Patient: Total time spent is greater than 50% in coordination of care (as documented) at patient's floor/unit and/or counseling patient: Coding Level of Care Code 42331 Subseq Hosp Care Lvl 3 Diagnoses Shock circulatory R57.9 Cellulitis L03.90 Combined systolic and diastolic congestive heart failure, NYHA class 3 I50.40 Congestive heart failure chronicity: unspecified Pneumonia J18.9 Laterality: unspecified laterality Lung location: unspecified part of lung Pneumonia type: due to unspecified organism COPD, severe J44.9 Diabetes mellitus E11.9 Permanent atrial fibrillation I48.2 Thrush B37.0 (1) Combined systolic and diastolic congestive heart failure, NYHA class 3 Congestive heart failure chronicity: unspecified Qualified Code(s): I50.40 - Unspecified combined systolic (congestive) and diastolic (congestive) heart failure (2) Pneumonia Laterality: unspecified laterality Lung location: unspecified part of lung Pneumonia type: due to unspecified organism Qualified Code(s): J18.9 - Pneumonia, unspecified organism
[2020-02-15] MEDS: DIGOXIN 0.125 MG TAB PO SCH (17:12)
[2020-02-15] MEDS: NYSTATIN SUSP 500,000 U/5 ML UDC PO SCH ×2 (17:14→20:25)
[2020-02-15] MEDS: PRAVASTATIN SOD 20 MG TAB PO SCH (17:14)
[2020-02-16] MEDS: FAMOTIDINE 20 MG in SYRINGE 3 ML IV SCH (06:23)
[2020-02-16] MEDS: BUMETANIDE 1 MG TAB PO SCH (08:20)
[2020-02-16] MEDS: DABIGATRAN ETEXILATE 75 MG CAP PO SCH ×2 (08:20→21:48)
[2020-02-16] MEDS: NYSTATIN SUSP 500,000 U/5 ML UDC PO SCH ×4 (08:20→21:48)
[2020-02-16] MEDS: DOCUSATE SODIUM/SENNA 50/8.6MG TAB PO SCH (08:20)
[2020-02-16] MEDS: UMECLIDINIUM BROMIDE 62.5MCG/BLISTER 7 PUFFS/INHALER INH SCH (08:20)
[2020-02-16] MEDS: INSULIN ASPART 100 UNITS/ML 3 ML PEN SC SCH ×4 (08:26→21:48)
[2020-02-16] MEDS: cefTRIAXone SODIUM 2,000 MG in DEXTROSE 5% 50 ML IV SCH (10:04)
--- NOTE | 2020-02-16 16:43 | Hospitalist Progress Note ---
Date of Service February 16, 2020 Assessment & Plan (1) Shock circulatory: septic shock, poa, with 4 out of 4 cultures growing Group B strep likely source is skin, pneumonia cannot be ruled out tapered antibiotics to Rocephin cultures show that it is sensitive titrated off pressors, , central line removed, IV team placed US guided peripheral IV given eventual transition to hospice will transition to po meds at discharge overall shelter prognosis is guarded has EFrEF last measured 20-25% plus afib and severe COPD family is aware of this, patient is DNR/DNI palliative care consultation on Tuesday 02/13 for goals of care going forward family does have a family event in the upcoming days wishes to keep the patient home and home health until the event is over (family wedding) and then likely will transition to hospice care (2) Cellulitis: left leg is more erythematous, hot to palpation, most likely source of infection has chronic venous stasis changes at baseline Group B strep growing in blood cultures, sensitive to Rocephin would need 14 days of treatment minimal, admitted on 02/07, last day would be 02/20 as the patient will likely be in the hospital till 02/16 we may consider transitioning to oral cephalosporin for the last few days of his course (3) Combined systolic and diastolic congestive heart failure, NYHA class 3: prior echo with EF of 20-25% acute on chronic systolic and diastolic HF, clearly he was volume overloaded on exam at time of admission used Lasix and Metolazone in conjunction with Dobutamine to diurese patient cardiology following he has declined ICD in the past, follows with Dr. Szymanski in the office Patient is resumed his oral Bumex therapy at home on 02/15 (4) Pneumonia: cannot exclude pneumonia, has moderate right sided effusion COVID 19 test is NEGATIVE taper antibiotics to Rocephin this will cover possible PNA (5) COPD, severe: no wheezing continue home inhalers pulmonary is recommending NIPPV at home unsure he would tolerate, patient states he is not interested in his home BiPAP again, need to consult palliative care for goals of care (6) Diabetes mellitus: Novolog monitor for hypoglycemic, no episodes today eating well enough (7) Permanent atrial fibrillation: rates are well controlled Pradaxa for anticoagulation (8) Thrush: Started on oral nystatin to complete 5-day therapy Admission and Anticipated Discharge Date Admission Date: February 08, 2020 Subjective Ms. Richards is much more awake and conversant today he has no complaints or problems. When I went into the room he was talking on the phone with his . I later called his she is prepared to bring him home likely on 02/16 with home health ensuing visit on 02/17 Review of Systems Review of Systems: Review of systems is clouded by the patient's dementia No significant distress and fatigue no headache, blurry or double vision no speech or swallowing issues no chest pain, pressure or palpitations no shortness of breath, cough or wheezes no abdominal pain, nausea or vomiting, diarrhea or constipation no dysuria, hematuria or frequency no focal joint pain or swelling no back pain, CVA tenderness or radicular pain no bruising, bleeding or rashes no focal signs of weakness or numbness or altered sensation Patient is forgetful and only oriented x2 Physical Exam Physical Exam: The patient appeared slightly underweight appears her stated age pleasantly confused Vital signs as documented. Head exam is normocephalic atraumatic no scleral icterus Neck is without JVD, thyromegaly, or carotid bruits. Lungs are clear to auscultation, no focal loss of breath sounds Cardiac exam, Rhythm is regular.. No murmurs, rubs or gallops. Abdominal exam reveals normal bowel sounds, soft non tender, no masses Extremities are nonedematous and both pedal pulses are normal. Preceding erythema has resolved Neurologic exam is alert and oriented x2, no focal loss of strength or sensation Skin is without bruises or rashes Results & Data Results & Data ([facility]) Vital Signs (Past 12 Hours) Vital Signs Temp Pulse Pulse Resp BP BP Pulse Ox 02/16/20 15:01 97.7 F 86 20 93/56 L 91 02/16/20 11:01 97.7 F 60 18 91/55 L 94 02/16/20 07:20 97.5 F L 63 18 97/57 L 96 02/16/20 05:19 97.9 F 68 17 93/59 L 95 PG Care Time/CCT Total # of Minutes Spent Total Time Spent with Patient: Total time spent is greater than 50% in coordination of care (as documented) at patient's floor/unit and/or counseling patient: Coding Level of Care Code 27885 Subseq Hosp Care Lvl 2 Diagnoses Shock circulatory R57.9 Cellulitis L03.90 Combined systolic and diastolic congestive heart failure, NYHA class 3 I50.40 Congestive heart failure chronicity: unspecified Pneumonia J18.9 Laterality: unspecified laterality Lung location: unspecified part of lung Pneumonia type: due to unspecified organism COPD, severe J44.9 Diabetes mellitus E11.9 Permanent atrial fibrillation I48.2 Thrush B37.0 (1) Combined systolic and diastolic congestive heart failure, NYHA class 3 Congestive heart failure chronicity: unspecified Qualified Code(s): I50.40 - Unspecified combined systolic (congestive) and diastolic (congestive) heart failure (2) Pneumonia Laterality: unspecified laterality Lung location: unspecified part of lung Pneumonia type: due to unspecified organism Qualified Code(s): J18.9 - Pneumonia, unspecified organism
[2020-02-16] MEDS: DIGOXIN 0.125 MG TAB PO SCH (17:30)
[2020-02-16] MEDS: PRAVASTATIN SOD 20 MG TAB PO SCH (17:31)
[2020-02-17] MEDS: FAMOTIDINE 20 MG in SYRINGE 3 ML IV SCH (06:06)
[2020-02-17] MEDS: DOCUSATE SODIUM/SENNA 50/8.6MG TAB PO SCH (07:42)
[2020-02-17] MEDS: DABIGATRAN ETEXILATE 75 MG CAP PO SCH (07:42)
[2020-02-17] MEDS: UMECLIDINIUM BROMIDE 62.5MCG/BLISTER 7 PUFFS/INHALER INH SCH (07:43)
[2020-02-17] MEDS: NYSTATIN SUSP 500,000 U/5 ML UDC PO SCH ×2 (07:43→12:15)
[2020-02-17] MEDS: BUMETANIDE 1 MG TAB PO SCH (07:43)
[2020-02-17] MEDS: INSULIN ASPART 100 UNITS/ML 3 ML PEN SC SCH ×2 (07:58→12:14)
--- NOTE | 2020-02-17 09:36 | Discharge Summary ---
Date of Service February 17, 2020 Admission HPI Per Admitting Provider 89 yo male with complicated medical history including combined systolic and diastolic HF with last known EF 20-25%, severe COPD, permanent atrial fibrillation, DM type II, chronic venous stasis changes in legs and recent leg wounds who was brought to the ED due to sudden change in mental status and fever. All of the history obtained from patient's and daughter at the bedside. They report that he has been at home, self quarantined since the beginning of November. No known sick contacts. He has been compliant with his medications, including Bumex and Pradaxa, took all his medications last night, did not take any medications this morning. He has been weighing himself daily, according to his his weight has been stable. Last night he was in his normal state of mind, joking with family. He went to bed normal. This morning he woke up and sat at the edge of the bed which he does every morning. However, he would not respond to his when she spoke to him. She felt his head and he was extremely hot. His eyes were glossy and he would not answer her. He could not stand up. She called EMS and he was brought to the ED. In the ED he had a fever, mild leukocytosis. BMP was at baseline. CXR showed a new right pleural effusion. He was very hypotensive, received total of 2L of NSS and was still hypotensive. ESR and CRP elevated, BNP markedly elevated. He was started on Levophed and BP started to come up. Principal Diagnosis Septic shock secondary to strep pneumonia COPD Diabetes Heart failure reduced ejection fraction chronic near card association class III Discharge Exam The patient appeared well although mildly confused Vital signs as documented. Lungs are clear to auscultation and appear unlabored Cardiac exam, Rhythm is regular. Systolic ejection murmurs heard Abdominal exam reveals normal bowel sounds, soft non tender, no masses Extremities are nonedematous and both pedal pulses are normal. No areas of abnormal skin consistent with previous concern for cellulitis Neurologic exam is alert and oriented, x2 baseline dementia Discharge Data Allergies Allergy/AdvReac Type Severity Reaction Status Date / Time albuterol AdvReac Severe Increased Unverified 02/08/20 11:27 blood pressure levofloxacin AdvReac Intermediate TENDONITIS Verified 02/08/20 11:27 Bactrim AdvReac Mild GI SYMPTOMS Verified 05/22/18 14:15 house dust AdvReac Mild Unknown Verified 02/08/20 11:27 sulfamethoxazole AdvReac Mild GI SYMPTOMS Verified 02/08/20 11:27 trimethoprim AdvReac Mild GI SYMPTOMS Verified 02/08/20 11:27 Consultations 02/08/20 13:04 ED Decision to Admit Stat 02/08/20 13:11 Consult Handle Finisher Stat 02/08/20 15:42 Consult Case Management - Discharge Planning Routine Consult Handle Finisher Routine 02/08/20 20:30 Consult Cardiology Routine 02/09/20 15:02 Consult Wound Care Provider Routine 02/13/20 16:24 Consult Palliative Care Routine Ordered Studies 02/08/20 13:37 US point of care ultrasound Urgent 02/08/20 14:56 US point of care ultrasound Urgent Hospital Course (1) Shock circulatory: septic shock, poa, with 4 out of 4 cultures growing Group B strep likely source is skin, pneumonia also considered to be the source cultures show that it is sensitive to cephalosporins will complete course with cefdinir as an outpatient for 14-day total treatment titrated off pressors, , central line removed, IV team placed US guided peripheral IV given eventual transition to hospice will transition to po meds at discharge overall [facility] prognosis is guarded has EFrEF last measured 20-25% plus afib and severe COPD family is aware of this, patient is DNR/DNI palliative care consultation was performed on Tuesday 02/13 for goals of care going forward family does have a family event in the upcoming days wishes to keep the patient home and home health until the event is over (family wedding) and then likely will transition to hospice care I personally spoke to the on multiple occasions confirming this is her wishes The patient is not safe ambulating with a walker or cane and a wheelchair will improve ADLs. (2) Cellulitis: left leg is more erythematous, hot to palpation, most likely source of infection has chronic venous stasis changes at baseline Group B strep growing in blood cultures, sensitive to Rocephin would need 14 days of treatment minimal, admitted on 02/07, last day would be 02/20 patient be discharged home on cefdinir 300 twice daily (3) Combined systolic and diastolic congestive heart failure, NYHA class 3: prior echo with EF of 20-25% acute on chronic systolic and diastolic HF, clearly he was volume overloaded on exam at time of admission used Lasix and Metolazone in conjunction with Dobutamine to diurese patient cardiology following he has declined ICD in the past, follows with Dr. Szymanski in the office Patient is resumed his oral Bumex therapy at home on 02/15 Personally give instructions to the regarding his volume fluid status and salt restrictions (4) Pneumonia: cannot exclude pneumonia, has moderate right sided effusion COVID 19 test is NEGATIVE taper antibiotics to cefdinir this will cover possible PNA (5) COPD, severe: no wheezing continue home inhalers pulmonary is recommending NIPPV at home Patient says he would not tolerate wearing BiPAP at any time again, need to consult palliative care for goals of care (6) Diabetes mellitus: Novolog monitor for hypoglycemic, no episodes today eating well enough (7) Permanent atrial fibrillation: rates are well controlled Pradaxa for anticoagulation (8) Thrush: Started on oral nystatin was given in the hospital Total Time Total Time Spent Total Time Spent (In Minutes): It required greater than 30 minutes to prepare this patient for discharge Discharge Plan Discharge Items Patient Disposition: Home - Home Health Services Reason For Visit: SEPTIC SHOCK, PNEUMONIA Discharge Diagnosis: septic shock and pneumonia dementia weakness and ambulatory instability Activity: Per Instructions section Activity Comment: care with walking Non-emergency contact: Primary Care Provider Call non-emergency contact if: you have any medication questions Follow-up/Referrals: Óscar Rodriguez, [Primary Care Provider] - Diet: Regular Addtl Attending Provider Instructions: please use wheelchair for ambulation. please participate in home health with transition to hospice when appropriate finish oral antibiotics Pending Studies at Discharge: No Stand-Alone Forms: My [facility], Smoking Cessation Medications and DC Order Prescriptions: New cefdinir 300 mg capsule 300 mg PO BID 5 Days Qty: 10 RF: 0 Continued ciclesonide 160 mcg/actuation HFA aerosol inhaler 1 puffs INH BID RF: 0 dabigatran etexilate [Pradaxa] 150 mg capsule 150 mg PO BID RF: 0 lisinopril [Zestril] 5 mg tablet 5 mg PO QAM RF: 0 multivitamin [Multiple Vitamins] tablet 1 tab PO QAM RF: 0 (DME) Oxygen Home Liters Per Minute See Dose Instructions .ROUTE .MEDSUPPLY Qty: 1 RF: 0 Atrovent HFA 17 mcg/actuation HFA aerosol inhaler 2 puffs INH BID Qty: 25.8 RF: 3 metformin 500 mg tablet 500 mg PO BID Qty: 180 RF: 3 digoxin 125 mcg (0.125 mg) tablet 125 mcg PO HS Qty: 90 RF: 1 levalbuterol tartrate [Xopenex HFA] 45 mcg/actuation HFA aerosol inhaler 1 puffs INH Q6H PRN (Reason: Shortness Of Breath) RF: 0 bumetanide 1 mg tablet 1 mg PO QAM RF: 0 polyethylene glycol 3350 [Miralax] 17 gram powder in packet 17 g PO HS RF: 0 docusate sodium 100 mg capsule 100 mg PO HS RF: 0 Discontinued cholecalciferol (vitamin D3) 2,000 unit capsule 2,000 units PO QAM RF: 0 pravastatin 20 mg tablet 20 mg PO HS Qty: 90 RF: 3 [facility] 40-10-5-3.3 mg Tablet 1 tab PO HS RF: 0 Discharge Orders: Discharge Order (Routine); Ordered 02/17/20 Ordered By: Benedicto Abdalla Admission Data Admit Date/Time: 02/08/20 13:42 Attending Provider: Benedicto Abdalla Admit Provider: Roly Diane Primary Care Provider: Óscar Rodriguez Other Providers: Jonna Henley ; Erik Real ; [facility] ; Roly Diane ; Marty Jain ; Carito Pearson ; [facility] Other Interventions: Discharge Summary Assessment (RN) Last Done: 02/17/20 14:41 DC Date/Time DO NOT enter until pt leaves facility: 02/17/20 16:05 Coding Level of Care Code D/C Day Management >30 mins Diagnoses Shock circulatory R57.9 Cellulitis L03.90 Combined systolic and diastolic congestive heart failure, NYHA class 3 I50.40 Congestive heart failure chronicity: unspecified Pneumonia J18.9 Laterality: unspecified laterality Lung location: unspecified part of lung Pneumonia type: due to unspecified organism COPD, severe J44.9 Diabetes mellitus E11.9 Permanent atrial fibrillation I48.2 Thrush B37.0
[2020-02-17] MEDS: cefTRIAXone SODIUM 2,000 MG in DEXTROSE 5% 50 ML IV SCH (10:12)
--- NOTE | 2020-02-22 13:18 | Coding Query ---
To promote full compliance with coding requirements relating to patient care, provider participation is requested in all cases of head turning machine operator uncertainty. Please assist us with the question(s) below: Coding Question(s): The diagnosis below was documented in the Critical Care Progress Notes thru 02/13/20, then subsequently fell off all further documentation. Please indicate if it is still a possible diagnosis or ruled out. Physician's Response(s): LIKELY TYPE II CT ( ) Diagnosed and POA ( ) Diagnosed and not POA ( ) Ruled out ( xxx ) Other (please specify) this was demand ischemia and elevated troponin not type II CT MTDD
== END 2020-02-17 16:05 | disposition home health service (06) | DRG 871 ==
LOC: ED 10:17 → SUATTDRO 13:42 → 1E 13:42 → 2W 02-13 12:41

== ENCOUNTER 2020-04-15 09:08 | Inpatient (IN) ==
[2020-04-15] MEDS ORDERED: VANCOMYCIN CONSULT ACTIVE PRN (09:37)
[2020-04-15] MEDS ORDERED: CEFEPIME 2,000 MG/20 ML VIAL IV STA (09:37)
[2020-04-15] MEDS ORDERED: SODIUM CHLORIDE 0.9% 1000ML 1,000 ML IV SCH ×2 (09:45→10:37)
[2020-04-15 09:54] LABS: Basophils # (auto) 0.01 K/uL (0-0.2); Basophils % (auto) 0.1 %; Hematocrit (blood only) 32.3 % (42-52); Hemoglobin 10.7 g/dL (14.0-18.0); Immature Granulocytes # (auto) 0.07 K/uL (0.00-0.02); Immature Granulocytes % (auto) 0.4 %; Lymphocytes # (auto) 0.29 K/uL (1.2-3.4); Lymphocytes % (auto) 1.7 %; Mean Corpuscular Hemoglobin 31.8 pg (25-34); Mean Corpuscular Hgb Conc 33.1 g/dL (32-36); Mean Corpuscular Volume 96.1 fL (80-100); Monocytes # (auto) 0.37 K/uL (0.11-0.59); Monocytes % (auto) 2.2 %; Neutrophils % (auto) 95.6 %; Platelet Count 167 K/uL (130-400); RDW Coefficient of Variation 14.8 % (11.5-14.5); RDW Standard Deviation 51.8 fL (36.4-46.3); Red Blood Count 3.36 M/uL (4.7-6.1); White Blood Count 16.94 K/uL (4.8-10.8)
[2020-04-15] MEDS: VANCOMYCIN HCL IV STA ×2 (10:03→10:12)
[2020-04-15] MEDS: SODIUM CHLORIDE 0.9% IV STA ×2 (10:03→10:12)
[2020-04-15 10:05] LABS: BUN Creatinine Ratio 26.3 (10-20); Calcium 8.4 mg/dl (8.5-10.1); Creatinine Clr Calc Pharmacy 45.7 ml/min; Est GFR (African American) 57.7; Est GFR (Non-African American) 49.8; Magnesium 1.9 mg/dl (1.8-2.4); Potassium 4.1 mmol/L (3.5-5.1)
[2020-04-15] MEDS: SODIUM CHLORIDE 0.9% IV SCH ×2 (10:05→14:37)
[2020-04-15 10:06] LABS: INR 1.7 (0.9-1.1); Partial Thromboplastin Ratio 1.4; Partial Thromboplastin Time 39.9 Seconds (21.0-31.0); Prothrombin Time 17.1 Seconds (9.0-12.0)
--- NOTE | 2020-04-15 10:10 | XRay Report ---
XR chest 1V portable CLINICAL HISTORY: Sepsis. COMPARISON STUDY: Chest radiograph February 09, 2020. FINDINGS: Moderate to marked cardiomegaly is unchanged. There is no pneumothorax. There is pulmonary vascular congestion. Small to moderate right and small pleural effusions are noted. There is associat ed bibasilar opacities. Patient is mildly rotated. IMPRESSION: 1. Pulmonary congestion with possible mild pulmonary edema. 2. Small to moderate right and small left pleural effusions with associated bibasilar opacities. 3. Stable cardiomegaly. ACT 112: Negative or not required by law. Electronically signed by: Rolando Gomez M.D. 04/15/2020 10:09 AM
[2020-04-15 10:28] LABS: Albumin Globulin Ratio 0.8 (0.9-2); Bilirubin,Total 0.8 mg/dl (0.2-1); Globulin 3.6 gm/dl (2.5-4.0); Total Protein 6.6 gm/dl (6.4-8.2); Troponin I 0.195 ng/ml (0-0.045)
--- NOTE | 2020-04-15 11:46 | History & Physical Report ---
Date of Service April 15, 2020 Assessment & Plan (1) Cellulitis: Left tony/calf. History of prior episodes as well with bacteremia. Prior cultures grew MSSA, Group B Strep, and Pseudomonas. This episode with sepsis on presentation (HR, BP, and WBC). - Continue vanc/cefepime - Blood cultures done in the ED - Ulcer culture from left foot - Wound consult - Hold further IV fluids given his heart failure (2) Chronic systolic CHF (congestive heart failure), NYHA class 3: Follows with Dr. Szymanski. EF in 01/2020 was 25-30%. Baseline weight is ~172 lbs. Per , yesterday's weight was 174 lbs at home. In the ED, it is 180 lbs, but this is a bed-scale with clothes, etc. He does not have RLE swelling (left has cellulitis which would confound it), no crackles on exam, no shortness of breath. DO NOT think he is in acute exacerbation at this time. - Wears 2L NC at night chronically. - Continue home Bumex 1 mg PO daily (will increase to 2 mg PO if weight increases or symptoms) - Hold lisinopril for low BP - Not on beta-lance at baseline -> Monitor HR - Will avoid IV fluids for now -> Will need to monitor closely as he got 3L of saline in the ED. (3) Permanent atrial fibrillation: In afib with mild RVR (HR in the 100 range) on admission. With chronic LBBB as well. - Continue digoxin - Metoprolol IV PRN for HR > 120 (with knowledge that he will run slightly fast given his infection which is appropriate compensation) (4) Elevated troponin: Troponin was 0.195 on presentation. No chest pain, no anginal equivalents. EKG shows LBBB which is chronic. - Trend troponin and EKGs - Consider cardiology consult and echo if significant rise (i.e. troponin > 1.0) (5) Diabetes mellitus, type 2: A1c was 5.7% in 01/2020. Only on metformin at home. - Hold metformin - Gentle sliding scale insulin - DM diet (6) COPD, severe: No wheezing on exam, and per Dr. Szymanski's notes, he actually is quite functional at home with a walker. - Continue home inhaler - Xopenex PRN (7) Hospice care patient: Patient is a part of [facility] home hospice. knitting tester saw him the morning of admission and recommended going to the ED, though I don't think he/she assumed he would be admitted. Patient and are ok with short admission for IV abx and plan to return home on hospice once ready for discharge. - NO escalation of care; no BiPap/CPAP, no central line or pressors, and DNR/DNI. - CM consult (8) DVT prophylaxis: On Pradaxa for afib History of Present Illness Primary Care Provider: Óscar Rodriguez DO Mr. Zuniga is an 89yo M with hx of afib, HFrEF, DM, and chronic LE wounds who presents with LLE cellulitis and sepsis. He and his are both present and are good historians. This has happened in the past, most recently in 01/2020 where he had cellulitis and Strep bacteremia. He was in his usual state of health at home yesterday, when around 4pm, he began to have rigors. His measured his temperature at 103. She called the nicu rn who advised Tylenol and ice packs. This morning, the hospice nurse came and recommended visiting the ER for possible antibiotics. In the ER, his BP was found to be 80/60. He was given IV fluids and antibiotics. He and his are open to admission to the hospital, but would like to return home as soon as able. At present, he denies any shortness of breath, cough, no Covid contacts, no chest pain, no nausea/vomiting. Allergies Allergy/AdvReac Type Severity Reaction Status Date / Time albuterol AdvReac Severe Increased Unverified 04/15/20 09:48 blood pressure levofloxacin AdvReac Intermediate TENDONITIS Verified 04/15/20 09:48 Bactrim AdvReac Mild GI SYMPTOMS Verified 05/22/18 14:15 house dust AdvReac Mild Unknown Verified 04/15/20 09:48 sulfamethoxazole AdvReac Mild GI SYMPTOMS Verified 04/15/20 09:48 trimethoprim AdvReac Mild GI SYMPTOMS Verified 04/15/20 09:48 Home Medications Home Medications Medication Instructions Recorded Confirmed Type ciclesonide 160 mcg/actuation 1 puffs INH BID 05/28/18 04/15/20 History aerosol inhaler dabigatran etexilate 150 mg capsule 150 mg PO BID 05/28/18 04/15/20 History levalbuterol tartrate 45 1 puffs INH Q6H PRN 04/26/19 04/15/20 History mcg/actuation aerosol inhaler Oxygen Home #1 ea 07/08/19 02/29/20 Rx docusate sodium 100 mg PO BID 10/15/19 04/15/20 History polyethylene glycol 3350 [Miralax] 17 g PO HS 10/15/19 04/15/20 History ipratropium bromide 17 2 puffs INH BID #25.8 gm 10/26/19 04/15/20 Rx mcg/actuation HFA aerosol inhaler metformin 500 mg tablet 500 mg PO BID #180 tab 11/30/19 04/15/20 Rx digoxin 125 mcg (0.125 mg) tablet 125 mcg PO HS #90 tab 01/05/20 04/15/20 Rx bumetanide 1 mg tablet 1 mg PO QAM #90 tab 03/16/20 04/15/20 Rx lisinopril 5 mg tablet 5 mg PO QAM #90 tab 03/16/20 04/15/20 Rx Lactobacillus acidophilus 460 mg PO DAILY 04/15/20 04/15/20 History [Florajen] diphenhydramine-acetaminophen 1 tab PO HS PRN 04/15/20 04/15/20 History [Tylenol PM Extra Strength] Past Med/Surg History Medical History (Updated 04/15/20 @ 11:40 by Erik Real MD) Actinic keratosis Acute on chronic systolic (congestive) heart failure (02/09/20) Asthma PRN INH 1 X MO ON AVG Cardiomyopathy Chronic combined systolic (congestive) and diastolic (congestive) heart failure Chronic venous insufficiency (Chronic) COPD, severe Diabetes mellitus Diabetes mellitus, type 2 (Chronic) NIDDM. Diabetic peripheral neuropathy associated with type 2 diabetes mellitus Dyslipidemia Edema Former smoker Hearing deficit [place] History of actinic keratosis (Resolved) History of ischemic colitis (Resolved) History of SCC (squamous cell carcinoma) of skin (Resolved) History of skin cancer REMOVED History of squamous cell carcinoma in situ of skin (Resolved) Hypertension Intrinsic asthma Ischemic colitis (2010) LBBB (left bundle branch block) Left bundle branch block Migraine Mitral regurgitation Oral thrush Osteomyelitis of right foot Pancytopenia Permanent atrial fibrillation Pneumonia (Inactive 02/09/20) Pseudomonas aeruginosa infection Seborrheic keratosis Squamous cell carcinoma of arm UTI (urinary tract infection) Vasomotor rhinitis Venous insufficiency (chronic) (peripheral) Surgical History History of cataract surgery (Resolved) History of colonoscopy (Resolved) History of tonsillectomy and adenoidectomy (Resolved) Status post amputation of toe (Resolved) Family History Mother Atrial fibrillation Myocardial infarction Father Diabetes Social History Preferred Language: Thai Communication Ability: Impaired Occupational Therapy Teacher Required: No Beliefs That Will Affect Care: None marital status: Current Living Situation: Spouse Feels Safe at Home: Yes Smoking Status: Former smoker Second Hand Exposure: No ; Hx Alcohol Use: No Hx Substance Use: No Review of Systems Review of Systems: All systems reviewed & are unremarkable except as noted in HPI & below Physical Exam Constitutional: WD/WN, vitals as above Eyes: EOM intact bilaterally; no conjunctival abnormality ENMT: external ear and nose normal, oropharynx normal Neck: trachea midline, no thyromegaly normal visual inspection Respiratory: normal respiratory effort, lungs clear to auscultation no respiratory distress Auscultation: no crackles and no wheezes Cardiovascular: Rate/Rhythm: + tachycardic and + irregularly irregular Heart Sounds: normal S1 and normal S2 Vessels: no JVD Extremities: no edema Gastrointestinal (Abdomen): Inspection/Auscultation: abdomen normal to inspect ion; abdomen not distended Percussion/Palpation: abdomen soft; abdomen nontender, no guarding and abdomen not rigid Musculoskeletal: no cyanosis or clubbing, extremities motor strength 5/5 Skin: + ulcer (Left plantar surface; no drainage.) and + erythema (Left tony/calf) Neurologic: moves all extremities and awake Psychiatric: Orientation: alert, oriented to person and cooperative Results & Data Results & Data ([facility]) Vital Signs (Past 12 Hours) Vital Signs Temp Pulse Pulse Resp BP BP Pulse Ox 04/15/20 10:24 104 H 22 98 04/15/20 10:23 104 H 22 97/57 L 98 04/15/20 10:00 98 H 27 H 92/53 L 96 04/15/20 09:45 93 H 28 H 94/58 L 94 04/15/20 09:40 97 H 25 H 81/57 L 95 04/15/20 09:39 99 H 25 H 95 04/15/20 09:30 112 H 24 85/57 L 95 04/15/20 09:16 36.9 C 107 H 22 89/50 L 89 L Code Status & VTE Plan VTE Prophylaxis Plan VTE Prophylaxis will be ordered: Yes PG Care Time/CCT Total # of Minutes Spent Total Time Spent with Patient: Total time spent is greater than 50% in coordination of care (as documented) at patient's floor/unit and/or counseling patient: Coding Level of Care Code 65725 Initial Inpt Care Lvl 3 Diagnoses Cellulitis L03.90 Chronic systolic CHF (congestive heart failure), NYHA class 3 I50.22 Permanent atrial fibrillation I48.2 Elevated troponin R79.89 Diabetes mellitus, type 2 E11.42 Diabetes mellitus care home insulin use: without care home use Diabetes mellitus complication status: with neurologic complications Diabetes mellitus complication detail: with polyneuropathy COPD, severe J44.9 Hospice care patient Z51.5 DVT prophylaxis Z29.9 (1) Diabetes mellitus, type 2 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
[2020-04-15] MEDS ORDERED: METOPROLOL TARTRATE 1 MG/ML VIAL IV PRN (14:15)
[2020-04-15] MEDS ORDERED: GLUCOSE 40% GEL 15 GM TUBE PO PRN (14:15)
[2020-04-15] MEDS ORDERED: GLUCOSE 10 TABS/TUBE PO PRN (14:15)
[2020-04-15] MEDS ORDERED: ACETAMINOPHEN 325 MG TAB PO PRN (14:15)
[2020-04-15] MEDS ORDERED: ONDANSETRON INJ 2 MG/ML 2 ML VIAL IV PRN (14:15)
[2020-04-15] MEDS ORDERED: CARBOHYDRATES FOR HYPOGLYCEMIA PO PRN (14:15)
[2020-04-15] MEDS ORDERED: LEVALBUTEROL HCL 0.63 MG/3 ML NEB NEB PRN (14:15)
[2020-04-15] MEDS ORDERED: DEXTROSE 50% 50 ML SYRINGE IV PRN (14:15)
[2020-04-15] MEDS ORDERED: GLUCAGON FOR INJ 1 MG VIAL SQ PRN (14:15)
--- NOTE | 2020-04-15 16:20 | Pharmacy Report ---
Pharmacy Abx Initial Consult - Date of Service April 15, 2020 - Pharmacy Dosing Scope Date of Consult: 04/15/20 Consultation requested by: Dr. Real Pharmacy is consulted to initiate Vancomycin IV dosing therapy, order appropriate labs and adjust drug dose/frequency. - Subjective The patient is a 89 year old M admitted on 04/15/20 11:23. - Objective Height: 6 ft 5 in Weight: 82 kg Vital Signs (Past 12hrs): Vital Signs Temp Pulse Pulse Resp BP BP Pulse Ox 04/15/20 14:35 36.5 C 93 H 18 91/56 L 93 04/15/20 13:15 96 H 23 94/57 L 98 04/15/20 13:00 99 H 25 H 92/57 L 98 04/15/20 12:45 93 H 25 H 97/62 L 99 04/15/20 12:30 94 H 23 97/63 L 95 04/15/20 12:15 96 H 17 85/67 L 94 04/15/20 12:00 114 H 22 90/70 L 99 04/15/20 11:45 90 21 95/59 L 99 04/15/20 11:31 97 H 22 102/60 97 04/15/20 11:30 93 H 23 04/15/20 11:15 91 H 26 H 116/50 L 98 04/15/20 11:00 87 22 94/68 L 98 04/15/20 10:46 90 24 101/59 L 96 04/15/20 10:45 90 26 H 04/15/20 10:30 103 H 24 94/64 L 91 04/15/20 10:24 104 H 22 98 04/15/20 10:23 104 H 22 97/57 L 98 04/15/20 10:16 102 H 28 H 97/57 L 96 04/15/20 10:15 85 23 95 04/15/20 10:00 98 H 27 H 92/53 L 96 04/15/20 09:45 93 H 28 H 94/58 L 94 04/15/20 09:40 97 H 25 H 81/57 L 95 04/15/20 09:39 99 H 25 H 95 04/15/20 09:30 112 H 24 85/57 L 95 04/15/20 09:16 36.9 C 107 H 22 89/50 L 89 L Lab Results (24hrs): Laboratory Tests (24 Hours) 07/18/20 07/18/20 07/18/20 09:30 09:30 09:30 WBC 16.94 H Neut # (Auto) 16.20 H Creatinine 1.27 Est Cr Clr Drug Dosing 45.7 Procalcitonin 2.44 H Micro Results: 04/15/20 10:06 Aerobic Blood Culture - Pending Blood Anaerobic Blood Culture - Pending 04/15/20 09:35 Aerobic Blood Culture - Pending Blood Anaerobic Blood Culture - Pending - Risk Factors for Resistance * History of infection with a multidrug-resistant organism: Pseudomonas * Antimicrobial use within the last 90 days: Vancomycin + Zosyn during recent admissions - Assessment & Plan Assessment 89 year old M admitted for Sepsis and LLE cellulitis. Patient has a history of multiple episodes of bacteremia with MSSA, Group B strep and Pseudomonas. Most recent admission in January 2020 for bacteremia. Patient is currently ordered Vancomycin + Cefepime for cellulitis with possibly bacteremia. Blood cxs pending. Plan Vancomycin IV * Estimated PK Parameters: Vd 0.7 L/kg, Billy 0.042 hr-1, t1/2 16.5 hr * Loading dose: 2000 mg (24 mg/kg) IV x 1 given around 1000 today in ED. * Maintenance dose: 1500 mg IV (18 mg/kg) every 24 hours * Goal trough level for SSTI: ~15 mcg/mL * Trough level ordered for 04/18/20 before dose at 0400. Pharmacy will continue to follow and will adjust dose/frequency as necessary. Thank you.
[2020-04-15] MEDS: INSULIN ASPART 100 UNITS/ML 3 ML PEN SC SCH ×3 (17:15→21:12)
--- NOTE | 2020-04-15 17:22 | Emergency Department Note ---
Impression & Plan Sepsis, Cellulitis, Elevated troponin ED Provider Note INFORMANT: [Patient] ED PROVIDER(S): Chance Mistry MD CHIEF COMPLAINT: Infection PLAN: Disposition: Admitted Condition: [Guarded MEDICAL DECISION MAKING: Patient presented emergency department because of suspected infection. He has a history of cellulitis. His blood pressure was low as well as his oxygen. He does have cellulitis on his left lower leg. A code sepsis was initiated. The patient was given a 30 mL/kg bolus of normal saline. Broad-spectrum antibiotics were initiated after blood cultures. He received IV vancomycin and cefepime. The patient has a leukocytosis on CBC. Chemistry panel was unremarkable. INR was slightly subtherapeutic at 1.7. The patient troponin is mildly elevated. Twelve-lead ECG revealed A. fib with RVR. No acute ischemic findings. Chest x- ray did show some mild CHF. I did discuss the issues with the patient and his . I discussed the need for hospitalization. They agreed. Consultation was made with internal medicine. I discussed the case with Dr. Real. The patient was evaluated and admitted. Triage Nursing notes reviewed and agree them. [Additional history obtained from] patient's Vital Signs: reviewed and remarkable for hypotension, hypoxia Differential diagnosis: Sepsis, UTI, pneumonia, metabolic, electrolyte abnormalities, cardiac sources, intracerebral event, toxicologic, neurologic, as well as other pathologies. Diagnostics interpreted by me: ECG: Twelve-lead ECG reveals atrial fibrillation with rapid ventricular response. There is left axis deviation and a left bundle branch block. The rate is 108 bpm. No PVCs. No ST elevation or depression. Cardiac Monitoring: Cardiac monitoring ordered by me: The patient was placed on continuous cardiac monitoring and observed. It revealed atrial fibrillation at 95 beats per minute without ectopy. Imaging studies: Chest x-ray shows a mild CHF. I refer you to the EMR for further details. Consultation(s): Ed Lugo hospitalist HPI: The patient is a 89-year old male who presents to the Emergency Room with complaints of possible infection in the left leg. There is a red rash present. This started yesterday and is rapidly worsening. The patient also notes the following associated symptoms, fevers and feeling generally weak. The patient has found no relieving factors. Current pain is rated as 2/10. Patient is currently on hospice secondary to advanced CHF and COPD. No sick contacts. states he has a history of cellulitis. Pt denies LOC, headache, chills, diaphoresis, visual changes, neck pain, chest pain, current breathing difficulties, nausea, vomiting, abdominal pain, back pain, melena, hematochezia, urinary symptoms, numbness, lymphadenopathy, or other complaints. ROS: See above HPI for pertinent positives & negatives. A total of [10] systems reviewed and were otherwise negative. PAST MEDICAL HISTORY:[See Below] CHF, COPD PAST SURGICAL HISTORY:[See Below] FAMILY HISTORY:[See Below] SOCIAL HISTORY:[See Below] HOME MEDICATIONS:[See Below] ALLERGIES:[See Below] VITALS:[See Below] PHYSICAL EXAMINATION: GENERAL: Awake, alert, well-appearing, in no distress HENT: Normocephalic, atraumatic. Oropharynx unremarkable. EYES: Normal conjunctiva. Sclera non-icteric. NECK: Inspection normal. Non-tender. Supple. No nuchal rigidity. FROM. No masses. RESPIRATORY: Clear to auscultation. No wheezes. No rales. Normal respiratory effort. CARDIAC: Tachycardic rate. Irregular rhythm. No murmurs. No rubs. Extremities warm and well perfused. Pulses equal. No JVD. GI: Soft, non-distended. No tenderness to palpation. No rebound or guarding. No masses. RECTAL: Deferred. MUSCULOSKELETAL: Atraumatic. Chest examination reveals no tenderness. The back is symmetrical on inspection without obvious abnormality. There is no CVA tenderness to palpation. No joint edema. LOWER EXTREMITIES: Calves are equal size bilaterally and non-tender. 1+ edema. Moderate erythematous discoloration on the right. NEURO: Normal sensorium. No sensory or motor deficits noted. SKIN: No rash or jaundice noted. ED COURSE: [Critical Care:] I have personally spent greater than 35 minutes of critical care time in the direct management of this patient. This includes bedside care, interpretation of diagnostic studies, and testing, discussion with consultants, patient, and family members, and other required patient management activities. These minutes are in excess of all separately billable procedures. Chance Mistry MD Past Med/Surg History Family History Mother Atrial fibrillation Myocardial infarction Father Diabetes Social History Preferred Language: [place] Communication Ability: Impaired Conference Planning Manager Required: No Beliefs That Will Affect Care: None marital status: Current Living Situation: Spouse Feels Safe at Home: Yes Smoking Status: Former smoker Second Hand Exposure: No ; Hx Alcohol Use: No Hx Substance Use: No Allergies Allergies Allergy/AdvReac Type Severity Reaction Status Date / Time albuterol AdvReac Severe Increased Unverified 04/15/20 09:48 blood pressure levofloxacin AdvReac Intermediate TENDONITIS Verified 04/15/20 09:48 Bactrim AdvReac Mild GI SYMPTOMS Verified 05/22/18 14:15 house dust AdvReac Mild Unknown Verified 04/15/20 09:48 sulfamethoxazole AdvReac Mild GI SYMPTOMS Verified 04/15/20 09:48 trimethoprim AdvReac Mild GI SYMPTOMS Verified 04/15/20 09:48 Home Meds Home Medications Medication Instructions Recorded Confirmed ciclesonide 160 mcg/actuation 1 puffs INH BID 05/28/18 04/15/20 aerosol inhaler dabigatran etexilate 150 mg capsule 150 mg PO BID 05/28/18 04/15/20 levalbuterol tartrate 45 1 puffs INH Q6H PRN 04/26/19 04/15/20 mcg/actuation aerosol inhaler docusate sodium 100 mg PO BID 10/15/19 04/15/20 polyethylene glycol 3350 [Miralax] 17 g PO HS 10/15/19 04/15/20 Lactobacillus acidophilus 460 mg PO DAILY 04/15/20 04/15/20 [Florajen] diphenhydramine-acetaminophen 1 tab PO HS PRN 04/15/20 04/15/20 [Tylenol PM Extra Strength] Previous Rx's Medication Instructions Recorded Oxygen Home #1 ea 07/08/19 ipratropium bromide 17 2 puffs INH BID #25.8 gm 10/26/19 mcg/actuation HFA aerosol inhaler metformin 500 mg tablet 500 mg PO BID #180 tab 11/30/19 digoxin 125 mcg (0.125 mg) tablet 125 mcg PO HS #90 tab 01/05/20 bumetanide 1 mg tablet 1 mg PO QAM #90 tab 03/16/20 lisinopril 5 mg tablet 5 mg PO QAM #90 tab 03/16/20 Results & Data (ED) Vital Signs Vital Signs - 24 hr 04/15/20 09:16 04/15/20 09:30 04/15/20 09:39 Temperature 36.9 C Temperature Source Oral Pulse Rate 107 H 112 H 99 H Pulse Rate [Apical] Pulse Rate from SpO2 Sensor 120 H 96 H Pulse Rhythm Pulse Rhythm [Apical] Pulse Strength [Apical] Respiratory Rate 22 24 25 H Respiratory Effort / Characteristics Non-Labored Spontaneous Respiratory Depth Normal Respiratory Pattern Regular Blood Pressure 89/50 L 85/57 L Blood Pressure [Right Arm] Blood Pressure Mean 63 78 Blood Pressure Mean [Right Arm] Blood Pressure Position Lying Blood Pressure Position [Right Arm] Pulse Oximetry 89 L 95 95 Oxygen Delivery Method Room Air Oxygen Flow Rate Sepsis Recent Fever Within 48 Hours Yes Sepsis New/Unexplained Change in Mental Status N/A Sepsis Action Taken by Nursing Physician Notified 04/15/20 09:40 04/15/20 09:45 04/15/20 10:00 Temperature Temperature Source Pulse Rate 97 H 93 H 98 H Pulse Rate [Apical] Pulse Rate from SpO2 Sensor 100 H 106 H 95 H Pulse Rhythm Pulse Rhythm [Apical] Pulse Strength [Apical] Respiratory Rate 25 H 28 H 27 H Respiratory Effort / Characteristics Respiratory Depth Respiratory Pattern Blood Pressure 81/57 L 94/58 L 92/53 L Blood Pressure [Right Arm] Blood Pressure Mean 62 70 56 Blood Pressure Mean [Right Arm] Blood Pressure Position Blood Pressure Position [Right Arm] Pulse Oximetry 95 94 96 Oxygen Delivery Method Oxygen Flow Rate Sepsis Recent Fever Within 48 Hours Sepsis New/Unexplained Change in Mental Status Sepsis Action Taken by Nursing 04/15/20 10:15 04/15/20 10:16 04/15/20 10:23 Temperature Temperature Source Pulse Rate 85 102 H Pulse Rate [Apical] 104 H Pulse Rate from SpO2 Sensor 97 H 101 H Pulse Rhythm Pulse Rhythm [Apical] Irregular Pulse Strength [Apical] Normal Respiratory Rate 23 28 H 22 Respiratory Effort / Characteristics Non-Labored Spontaneous Respiratory Depth Normal Respiratory Pattern Regular Blood Pressure 97/57 L Blood Pressure [Right Arm] 97/57 L Blood Pressure Mean 72 Blood Pressure Mean [Right Arm] 70 Blood Pressure Position Blood Pressure Position [Right Arm] Sitting Pulse Oximetry 95 96 98 Oxygen Delivery Method Nasal Cannula Oxygen Flow Rate 2 Sepsis Recent Fever Within 48 Hours Sepsis New/Unexplained Change in Mental Status Sepsis Action Taken by Nursing 04/15/20 10:24 04/15/20 10:30 04/15/20 10:45 Temperature Temperature Source Pulse Rate 104 H 103 H 90 Pulse Rate [Apical] Pulse Rate from SpO2 Sensor 106 H 98 H Pulse Rhythm Irregular Pulse Rhythm [Apical] Pulse Strength [Apical] Respiratory Rate 22 24 26 H Respiratory Effort / Characteristics Respiratory Depth Respiratory Pattern Blood Pressure 94/64 L Blood Pressure [Right Arm] Blood Pressure Mean 74 Blood Pressure Mean [Right Arm] Blood Pressure Position Blood Pressure Position [Right Arm] Pulse Oximetry 98 91 Oxygen Delivery Method Nasal Cannula Oxygen Flow Rate 2 Sepsis Recent Fever Within 48 Hours Sepsis New/Unexplained Change in Mental Status Sepsis Action Taken by Nursing 04/15/20 10:46 04/15/20 11:00 04/15/20 11:15 Temperature Temperature Source Pulse Rate 90 87 91 H Pulse Rate [Apical] Pulse Rate from SpO2 Sensor 94 H 94 H 92 H Pulse Rhythm Pulse Rhythm [Apical] Pulse Strength [Apical] Respiratory Rate 24 22 26 H Respiratory Effort / Characteristics Respiratory Depth Respiratory Pattern Blood Pressure 101/59 L 94/68 L 116/50 L Blood Pressure [Right Arm] Blood Pressure Mean 66 72 53 Blood Pressure Mean [Right Arm] Blood Pressure Position Blood Pressure Position [Right Arm] Pulse Oximetry 96 98 98 Oxygen Delivery Method Oxygen Flow Rate Sepsis Recent Fever Within 48 Hours Sepsis New/Unexplained Change in Mental Status Sepsis Action Taken by Nursing Laboratory Data Result diagrams: 04/15/20 09:30 04/15/20 09:30 Lab Results 04/15/20 04/15/20 04/15/20 Range/Units 09:30 09:30 09:30 WBC 16.94 H (4.8-10.8) K/uL RBC 3.36 L (4.7-6.1) M/uL Hgb 10.7 L (14.0-18.0) g/dL Hct 32.3 L (42-52) % MCV 96.1 (80-100) fL MCH 31.8 (25-34) pg MCHC 33.1 (32-36) g/dL RDW Std Deviation 51.8 H (36.4-46.3) fL RDW Coeff of Chad 14.8 H (11.5-14.5) % Plt Count 167 (130-400) K/uL MPV 10.0 (7.4-10.4) fL Immature Gran % (Auto) 0.4 % Neut % (Auto) 95.6 % Lymph % (Auto) 1.7 % [place] % (Auto) 2.2 % Eos % (Auto) 0.0 % Baso % (Auto) 0.1 % Neut # (Auto) 16.20 H (1.4-6.5) K/uL Lymph # (Auto) 0.29 L (1.2-3.4) K/uL [place] # (Auto) 0.37 (0.11-0.59) K/uL Eos # (Auto) 0.00 (0-0.5) K/uL Baso # (Auto) 0.01 (0-0.2) K/uL Immature Gran # (Auto) 0.07 H (0.00-0.02) K/uL PT 17.1 H (9.0-12.0) Seconds INR 1.7 H (0.9-1.1) APTT 39.9 H (21.0-31.0) Seconds PTT Ratio 1.4 Sodium 140 (136-145) mmol/L Potassium 4.1 (3.5-5.1) mmol/L Chloride 103 (98-107) mmol/L Carbon Dioxide 30 (21-32) mmol/L Anion Gap 7.0 (3-11) BUN 33 H (7-18) mg/dl Creatinine 1.27 (0.6-1.4) mg/dl Est Cr Clr Drug Dosing 45.7 ml/min Est GFR ( Amer) 57.7 Est GFR (Non-Af Amer) 49.8 BUN/Creatinine Ratio 26.3 H (10-20) Glucose 92 (70-99) mg/dl Lactate (0.4-2.0) mmol/L Calcium 8.4 L (8.5-10.1) mg/dl Magnesium 1.9 (1.8-2.4) mg/dl Total Bilirubin 0.8 (0.2-1) mg/dl AST 27 (15-37) U/L ALT 16 (12-78) U/L Alkaline Phosphatase 63 (45-117) U/L Troponin I 0.195 H* (0-0.045) ng/ml Total Protein 6.6 (6.4-8.2) gm/dl Albumin 3.0 L (3.4-5.0) gm/dl Globulin 3.6 (2.5-4.0) gm/dl Albumin/Globulin Ratio 0.8 L (0.9-2) Procalcitonin (0-0.5) ng/ml 04/15/20 04/15/20 Range/Units 09:30 10:06 WBC (4.8-10.8) K/uL RBC (4.7-6.1) M/uL Hgb (14.0-18.0) g/dL Hct (42-52) % MCV (80-100) fL MCH (25-34) pg MCHC (32-36) g/dL RDW Std Deviation (36.4-46.3) fL RDW Coeff of Chad (11.5-14.5) % Plt Count (130-400) K/uL MPV (7.4-10.4) fL Immature Gran % (Auto) % Neut % (Auto) % Lymph % (Auto) % [place] % (Auto) % Eos % (Auto) % Baso % (Auto) % Neut # (Auto) (1.4-6.5) K/uL Lymph # (Auto) (1.2-3.4) K/uL [place] # (Auto) (0.11-0.59) K/uL Eos # (Auto) (0-0.5) K/uL Baso # (Auto) (0-0.2) K/uL Immature Gran # (Auto) (0.00-0.02) K/uL PT (9.0-12.0) Seconds INR (0.9-1.1) APTT (21.0-31.0) Seconds PTT Ratio Sodium (136-145) mmol/L Potassium (3.5-5.1) mmol/L Chloride (98-107) mmol/L Carbon Dioxide (21-32) mmol/L Anion Gap (3-11) BUN (7-18) mg/dl Creatinine (0.6-1.4) mg/dl Est Cr Clr Drug Dosing ml/min Est GFR ( Amer) Est GFR (Non-Af Amer) BUN/Creatinine Ratio (10-20) Glucose (70-99) mg/dl Lactate 1.6 (0.4-2.0) mmol/L Calcium (8.5-10.1) mg/dl Magnesium (1.8-2.4) mg/dl Total Bilirubin (0.2-1) mg/dl AST (15-37) U/L ALT (12-78) U/L Alkaline Phosphatase (45-117) U/L Troponin I (0-0.045) ng/ml Total Protein (6.4-8.2) gm/dl Albumin (3.4-5.0) gm/dl Globulin (2.5-4.0) gm/dl Albumin/Globulin Ratio (0.9-2) Procalcitonin 2.44 H (0-0.5) ng/ml Administered Medications Discontinued Medications Vancomycin HCl 2,050 mg/ (Sodium Chloride) 541 mls @ 200 mls/hr IV NOW STA Stop: 04/15/20 12:06 Last Infusion: 04/15/20 13:16 Dose: 0 mls/hr Documented by: [id number] Admin: 04/15/20 10:12 Dose: 200 mls/hr Documented by: [id number] Sodium Chloride (Nss 1000ml) 1,000 mls @ 999 mls/hr IV .Q1H1M YOGESH Stop: 04/15/20 10:37 Last Infusion: 04/15/20 12:02 Dose: 0 mls/hr Documented by: [id number] Admin: 04/15/20 10:04 Dose: 999 mls/hr Documented by: [id number] Sodium Chloride (Nss 1000ml) 1,000 mls @ 999 mls/hr IV .Q1H1M YOGESH Stop: 04/15/20 11:36 Last Infusion: 04/15/20 12:02 Dose: 0 mls/hr Documented by: [id number] Admin: 04/15/20 10:04 Dose: 999 mls/hr Documented by: [id number] Sodium Chloride (Nss 1000ml) 460 mls @ 999 mls/hr IV .Q28M YOGESH Stop: 04/15/20 12:36 Last Admin: 04/15/20 14:37 Dose: Not Given Documented by: [id number] Admin: 04/15/20 14:37 Dose: Not Given Documented by: [id number] Infusion: 04/15/20 12:02 Dose: 0 mls/hr Documented by: [id number] Admin: 04/15/20 10:05 Dose: 999 mls/hr Documented by: [id number] Cefepime HCl (Maxipime) 2,000 mg in 20 mls @ 5 mls/min IV NOW STA; Protocol Stop: 04/15/20 09:40 Last Admin: 04/15/20 10:11 Dose: 5 mls/min Documented by: [id number] Discharge Plan Visit Data *Final* Discharge Date/Time: 04/15/20 13:27 Chief Complaint: Infection, Wound ED Provider: Chance Mistry Discharge Problem: Sepsis, Cellulitis, Elevated troponin Patient Disposition: Admitted As Inpatient Discharge Instructions Interventions: ED Discharge Assessment Last Done: 04/15/20 13:27
[2020-04-15] MEDS: DABIGATRAN ETEXILATE 75 MG CAP PO SCH (20:51)
[2020-04-15] MEDS ORDERED: POLYETHYLENE (MIRALAX) 17 GM PACK PO SCH (21:00)
[2020-04-15] MEDS ORDERED: DIGOXIN 0.125 MG TAB PO SCH (21:00)
[2020-04-16] MEDS ORDERED: VANCOMYCIN HCL 1,500 MG in SODIUM CHLORIDE 0.9% 500 ML IV SCH (04:00)
[2020-04-16 07:45] LABS: Hematocrit (blood only) 32.4 % (42-52); Hemoglobin 10.3 g/dL (14.0-18.0); Mean Corpuscular Hemoglobin 31.1 pg (25-34); Mean Corpuscular Hgb Conc 31.8 g/dL (32-36); Mean Corpuscular Volume 97.9 fL (80-100); Mean Platelet Volume 10.2 fL (7.4-10.4); Platelet Count 153 K/uL (130-400); RDW Coefficient of Variation 15.1 % (11.5-14.5); Red Blood Count 3.31 M/uL (4.7-6.1); White Blood Count 11.85 K/uL (4.8-10.8)
--- NOTE | 2020-04-16 07:59 | Electrocardiogram Report ---
Test Reason : Blood Pressure : / mmHG Vent. Rate : 108 BPM Atrial Rate : 113 BPM P-R Int : 000 ms QRS Dur : 158 ms QT Int : 340 ms P-R-T Axes : 000 -59 122 degrees QTc Int : 455 ms Atrial fibrillation with rapid ventricular response Left axis deviation Left bundle branch block Abnormal ECG When compared with ECG of 10-FEB-2020 05:18, Vent. rate has increased BY 40 BPM Confirmed by Jason Franklin ([id number]) on 04/16/2020 7:58:41 AM Referred By: REFERRED SELF Confirmed By:Jason Franklin
[2020-04-16] MEDS: DABIGATRAN ETEXILATE 75 MG CAP PO SCH (08:05)
[2020-04-16] MEDS: INSULIN ASPART 100 UNITS/ML 3 ML PEN SC SCH ×2 (08:06→12:11)
[2020-04-16 08:36] LABS: BUN Creatinine Ratio 29.5 (10-20); Calcium 8.1 mg/dl (8.5-10.1); Creatinine Clr Calc Pharmacy 51.9 ml/min; Est GFR (African American) 67.1; Est GFR (Non-African American) 57.9; Magnesium 2.1 mg/dl (1.8-2.4); Potassium 3.9 mmol/L (3.5-5.1)
[2020-04-16] MEDS ORDERED: FLUTICASONE FUROATE 100MCG 14 PUFFS/INHALER INH SCH (09:00)
[2020-04-16] MEDS ORDERED: BUMETANIDE 1 MG TAB PO SCH (09:00)
[2020-04-16] MEDS ORDERED: CEFEPIME 1,000 MG in SYRINGE 0 ML IV SCH ×2 (09:00→21:00)
--- NOTE | 2020-04-16 09:30 | Pharmacy Report ---
Pharmacy Abx Dose Short Note - Date of Service April 16, 2020 - Assessment & Plan Assessment 89 year old M receiving IV Vancomcyin + Cefepime for treatment of bacteremia, gram positive cocci growing in blood culture and gram negative bacilli growing in left foot culture. Day # 2 of antimicrobial therapy. Patient started on Q24 hour dosing, but will change to AUC dosing at this time. Plan Vancomycin Patient meets criteria for vancomycin AUC dosing nomogram AUC/KALLI is the preferred PK/PD target for vancomycin Target AUC/KALLI = 400-600 AUC guided dosing is effective and associated with decreased risk of nephrotoxicity Change to Vancomycin 1000 mg IV every 12 hours Trough level ordered for: 04/17/20 Cefepime * TARGET DOSE = 2GM IV Q12HRS for SSTI * FOR CRCL 30-60 ML/MIN --> CHANGE TO 1GM IV Q12HRS Pharmacy will continue to follow and will adjust dose/frequency as necessary. Thank you.
--- NOTE | 2020-04-16 14:53 | Discharge Summary ---
Date of Service April 16, 2020 Admission HPI Per Admitting Provider Mr. Zuniga is an 89yo M with hx of afib, HFrEF, DM, and chronic LE wounds who presents with LLE cellulitis and sepsis. He and his are both present and are good historians. This has happened in the past, most recently in 01/2020 where he had cellulitis and Strep bacteremia. He was in his usual state of health at home yesterday, when around 4pm, he began to have rigors. His measured his temperature at 103. She called the hospice art therapist who advised Tylenol and ice packs. This morning, the hospice nurse came and recommended visiting the ER for possible antibiotics. In the ER, his BP was found to be 80/60. He was given IV fluids and antibiotics. He and his are open to admission to the hospital, but would like to return home as soon as able. At present, he denies any shortness of breath, cough, no Covid contacts, no chest pain, no nausea/vomiting. Admission Exam Per Admitting Provider Constitutional: WD/WN, vitals as above Eyes: EOM intact bilaterally; no conjunctival abnormality ENMT: external ear and nose normal, oropharynx normal Neck: trachea midline, no thyromegaly normal visual inspection Respiratory: normal respiratory effort, lungs clear to auscultation no respiratory distress Auscultation: no crackles and no wheezes Cardiovascular: Rate/Rhythm: + tachycardic and + irregularly irregular Hear t Sounds: normal S1 and normal S2 Vessels: no JVD Extremities: no edema Gastrointestinal (Abdomen): Inspection/Auscultation: abdomen normal to inspection; abdomen not distended Percussion/Palpation: abdomen soft; abdomen nontender, no guarding and abdomen not rigid Musculoskeletal: no cyanosis or clubbing, extremities motor strength 5/5 Skin: + ulcer (Left plantar surface; no drainage.) and + erythema (Left tony/calf) Neurologic: moves all extremities and awake Psychiatric: Orientation: alert, oriented to person and cooperative Principal Diagnosis sepsis and bacteremia 2/2 Group G Strep LLE wound infection Discharge Exam Constitutional WD/WN, vitals as above Respiratory normal respiratory effort, lungs clear to auscultation Cardiovascular RRR, no murmur, no edema Gastrointestinal (Abdomen) normal bowel sounds, soft, nontender, no hepatosplenomegaly Skin LLE with 1+ pitting edema RLE with 2+ pitting edema, erythema and warmth to the bottom of the knee as compared to left side. No tenderness to palpation Right 1st MTP plantar surface with 0.3mm wound with some yellow drainage on bandage. No tenderness to palpation Psychiatric A+Ox3, euthymic affect Discharge Data Allergies Allergy/AdvReac Type Severity Reaction Status Date / Time albuterol AdvReac Severe Increased Unverified 04/15/20 09:48 blood pressure levofloxacin AdvReac Intermediate TENDONITIS Verified 04/15/20 09:48 Bactrim AdvReac Mild GI SYMPTOMS Verified 05/22/18 14:15 house dust AdvReac Mild Unknown Verified 04/15/20 09:48 sulfamethoxazole AdvReac Mild GI SYMPTOMS Verified 04/15/20 09:48 trimethoprim AdvReac Mild GI SYMPTOMS Verified 04/15/20 09:48 Consultations 04/15/20 12:11 ED Decision to Admit Stat 04/15/20 14:15 Consult Case Management - Discharge Planning Routine Hospital Course (1) Sepsis: 89 yo M PMHx permanent AFib, HFrEF(25-30%), DM2, end-stage COPD, chronic LE wounds, hospice care admitted for bacteremia and sepsis 2/2 Group G Strep LLE cellulitis. Sepsis and Bacteremia 2/2 LLE Group G Strep Cellulitis: - Patient with sepsis on admission, leukocytosis. - BCx grew Group G Strep, Wound gram stain with G+ cocci and G- bacilli. - Started initially on vanc/cefepime with improvement in both symptoms and laboratory findings. - Received a total of 3L IV fluids in the ED when found to be septic, fluids held since moved out of ED due to HF. - Repeat BCx drawn today. - Due to hospice status patient and his would like to return home. US guided IV placed and patient will receive IV cefepime x7 days for bacteremia. - Follow up with PCP to evaluate cellulitis and symptoms. - Home health to visit for IV medication education, wound care. Chronic systolic CHF (congestive heart failure), NYHA class 3: - Follows with Dr. Szymanski. EF in 01/2020 was 25-30%. - Wears 2L NC at night chronically. - Continued home Bumex 1 mg PO daily while admitted. - Patient did not have findings on lung exam suggestive of fluid overload. - Advised patient and of warning signs to call PCP for medical evaluation, including worsening SOB. - Patient was on room air at discharge. Permanent atrial fibrillation: - In Afib with mild RVR (HR in the 100 range) on admission. With chronic LBBB as well. - Continue home medications. Elevated troponin: - Troponin was 0.195 on presentation -> 0.176. - No chest pain, no anginal equivalents. EKG shows LBBB which is chronic. Diabetes mellitus, type 2: - A1c was 5.7% in 01/2020. - Only on metformin at home, continue on discharge. COPD, severe: - No wheezing on exam, and per Dr. Szymanski's notes, he actually is quite functional at home with a walker. - Continue home inhaler. - Xopenex PRN. Hospice care patient: - For home with home hospice. (2) Cellulitis: (3) Bacteremia: (4) Chronic systolic CHF (congestive heart failure), NYHA class 3: (5) COPD, severe: (6) Diabetes mellitus: (7) Dyslipidemia: (8) Permanent atrial fibrillation: (9) Hypertension: (10) Asthma: Total Time Total Time Spent Total Time Spent (In Minutes): see attending attestation Discharge Plan Discharge Items Patient Disposition: Home - Home Health Services Reason For Visit: CELLULITIS, SEPSIS Discharge Diagnosis: bacteremia due to left leg cellulitis and wound Activity: Per Instructions section Non-emergency contact: Primary Care Provider Call non-emergency contact if: you have any medication questions, your symptoms worsen and your temperature is above 101 Follow-up/Referrals: Óscar Rodriguez, [Primary Care Provider] - (Please call Dr. Wyatt office at [phone] to schedule an appointment for later this week ( or Friday).) Diet: Carb Consistent or DM2 Addtl Attending Provider Instructions: You were admitted to the hospital for fever and chills and found to have a bacterial infection in your blood. You were given fluids and IV antibiotics and began to feel better. We felt safe to discharge you on IV antibiotics for your infection. You will get these antibiotics through your IV site that you will keep until you are done with your antibiotics. You will have people come to the house to show you how to administer the medication. You will take these antibiotics for 7 days. You should call Dr. Rodriguez's office at [phone] to schedule an appointment for later this upcoming week to discuss your hospitalization and check your leg for improvement. If you have any worsening of your symptoms at home, please seek urgent medical attention. You were given fluids in the ED so if you start having shortness of breath or pain in your chest you should seek medical care. Pending Studies at Discharge: Yes Studies:: Blood cultures Stand-Alone Forms: My [facility] Review Trackers, Smoking Cessation Medications and DC Order Prescriptions: Continued ciclesonide 160 mcg/actuation HFA aerosol inhaler 1 puffs INH BID RF: 0 dabigatran etexilate [Pradaxa] 150 mg capsule 150 mg PO BID RF: 0 (DME) Oxygen Home Liters Per Minute See Dose Instructions .ROUTE .MEDSUPPLY Qty: 1 RF: 0 Atrovent HFA 17 mcg/actuation HFA aerosol inhaler 2 puffs INH BID Qty: 25.8 RF: 3 metformin 500 mg tablet 500 mg PO BID Qty: 180 RF: 3 digoxin 125 mcg (0.125 mg) tablet 125 mcg PO HS Qty: 90 RF: 1 lisinopril [Zestril] 5 mg tablet 5 mg PO QAM Qty: 90 RF: 3 bumetanide 1 mg tablet 1 mg PO QAM Qty: 90 RF: 3 levalbuterol tartrate [Xopenex HFA] 45 mcg/actuation HFA aerosol inhaler 1 puffs INH Q6H PRN (Reason: Shortness Of Breath) RF: 0 polyethylene glycol 3350 [Miralax] 17 gram powder in packet 17 g PO HS RF: 0 docusate sodium 100 mg capsule 100 mg PO BID RF: 0 diphenhydramine-acetaminophen [Tylenol PM Extra Strength] 25-500 mg Tablet 1 tab PO HS PRN (Reason: pain/sleep) RF: 0 Florajen 460 mg (20 billion cell) Capsule 460 mg PO DAILY RF: 0 Discharge Orders: Discharge Order (Routine); Ordered 04/16/20 Ordered By: Rukhsana Villagomez Admission Data Admit Date/Time: 04/15/20 11:23 Attending Provider: Marcus Kumar Admit Provider: Erik Real Primary Care Provider: Óscar Rodriguez Other Providers: Erik Real Other Interventions: Discharge Summary Assessment (RN) Last Done: 04/16/20 15:15 OK Date/Time DO NOT enter until pt leaves facility: 04/16/20 17:45 Supervising Physician Co-Signing Physician Notes Patient seen and examined with PGY-2 Dr. Villagomez. Agree with history, exam findings, assessment and plan. In brief, Mr. Zuniga is an 89 year old male with history of HFrEF (EF 25-30%, NYHA Class 3), afib, DM, COPD admitted with sepsis from a left tony cellulitis/plantar ulcer. Blood cultures growing group G beta strep. Vanc was stopped, but cefepime continued. Due to decreased renal clearance, will do q24h dosing of cefepime. Did get 3L of fluid in the ED, but breathing well and not requiring supplemental O2. No crackles at the bases. Other chronic medical issues were stable and home medications were continued. He will be discharged home after US guided IV placed. Home hospice ok to do cefepime in the home. I personally spent 35 minutes discharge planning for this patient. Resident Activity Tracking Resident Involvement: Resident Care Provided Care Provided: Adult Hospital Medicine
[2020-04-16] MEDS ORDERED: VANCOMYCIN HCL 1,000 MG in SODIUM CHLORIDE 0.9% 250 ML IV SCH (20:00)
[2020-04-17] MEDS ORDERED: VANCOMYCIN TROUGH ONE (07:30)
[2020-04-18] MEDS ORDERED: VANCOMYCIN TROUGH ONE (03:30)
== END 2020-04-16 17:45 | disposition home health service (06) | DRG 872 ==
LOC: ED 09:08 → SUATTDRO 11:23 → 2N 11:23